=== PATIENT | female | born 1940 | race Caucasian/White ===

== ENCOUNTER 2016-09-11 09:39 | Emergency (ER) | payer MEDICARE, OTHER ==
[~2016-09-11] VITALS: Ht 157.5 cm; Wt 55.3 kg
[~2016-09-11 09:39] MED LIST: ACYC800T PO; ATOR80TA PO; CARV6.252 PO; CEFD300C3 PO; CLOP75TA PO; CPR500T PO; DCS100C PO; ESTR0.62 PO; HYDR-91 PO; HYDR1TAB75 PO; IBP800T PO; LVF250T PO; LVT.1T PO
--- NOTE | 2016-09-11 10:05 | Diagnostic Imaging Report ---
INDICATION: Slurred speech and stroke. PA and lateral views of the chest were obtained. Comparison is made with prior examination from 04/06/10. FINDINGS: The heart size is normal. The lungs are clear. There is no pleural effusion or pneumothorax. Mediastinum is unremarkable. IMPRESSION: No acute cardiopulmonary abnormality Dictated by: Dictated on workstation # [id number]
[2016-09-11] MEDS ORDERED: LEVO75TA6 (10:06)
[2016-09-11] MEDS ORDERED: MUPI22OI2 (10:06)
[2016-09-11] MEDS ORDERED: ATOR80TA76 (10:06)
[2016-09-11] MEDS ORDERED: CEPH500C (10:06)
[2016-09-11] MEDS ORDERED: AMLO5TAB2 (10:06)
--- NOTE | 2016-09-11 10:06 | Diagnostic Imaging Report ---
INDICATION: Slurred speech. COMPARISON: 02/10/2010. FINDINGS: Worsening age-related cerebral volume loss and chronic small vessel ischemic changes are present. There are chronic areas of encephalomalacia in the right temporoparietal and right occipital lobe consistent with prior infarcts. There is a chronic lacunar infarct in right basal ganglia. No new focus of acute ischemia or hemorrhage is seen. There is no cerebral edema, midline shift, or mass effect. Bony structures, mastoid air cells, and paranasal sinuses are clear. IMPRESSION: No acute intracranial abnormalities. Dictated by: Dictated on workstation # [id number]
[2016-09-11 10:17] LABS: BASOPHILS # (AUTO) 0.1 10^3/uL (0.0-0.1); BASOPHILS % (AUTO) 1 % (0-10); EOSINOPHILS # (AUTO) 0.9 10^3/uL (0.0-0.3); EOSINOPHILS % (AUTO) 9 % (0-10); LYMPHOCYTES # (AUTO) 2.8 X 10^3 (1.0-4.0); LYMPHOCYTES % (AUTO) 27 % (12-44); MEAN CORPUSCULAR HEMOGLOBIN 29 PG (25-34); MEAN CORPUSCULAR HGB CONC 32 G/DL (32-36); MEAN CORPUSCULAR VOLUME 93 FL (80-99); MEAN PLATELET VOLUME 10.8 FL (7.4-10.4); MONOCYTES # (AUTO) 1.5 X 10^3 (0.0-1.0); MONOCYTES % (AUTO) 14 % (0-12); NEUTROPHILS # (AUTO) 5.2 X 10^3 (1.8-7.8); NEUTROPHILS % (AUTO) 50 % (42-75); PLATELET COUNT 257 10^3/uL (130-400); RED BLOOD COUNT 4.29 10^6/uL (4.35-5.85); RED CELL DISTRIBUTION WIDTH 12.6 % (10.0-14.5); WHITE BLOOD COUNT 10.5 10^3/uL (4.3-11.0)
[2016-09-11 10:21] LABS: INR 0.9 (0.8-1.4)
[2016-09-11 10:29] LABS: ALANINE AMINOTRANSFERASE 20 U/L (0-55); ALBUMIN 4.1 GM/DL (3.2-4.5); ANION GAP 12 MMOL/L (5-14); ASPARTATE AMINO TRANSFERASE 23 U/L (5-34); BILIRUBIN,TOTAL 1.1 MG/DL (0.1-1.0); BLOOD UREA NITROGEN 25 MG/DL (7-18); BUN/CREATININE RATIO 20 (0-20); CALCIUM 9.3 MG/DL (8.5-10.1); CARBON DIOXIDE 22 MMOL/L (21-32); CHLORIDE 104 MMOL/L (98-107); CREATININE SERUM 1.26 MG/DL (0.60-1.30); GFR ESTIMATED 42; GLUCOSE 103 MG/DL (70-105); HEMOLYSIS 6 (-100-29); ICTERUS 0.9 (-100-1.9); LIPEMIA 4 (-100-49); POTASSIUM 4.4 MMOL/L (3.6-5.0); SODIUM 138 MMOL/L (135-145); TOTAL PROTEIN 7.9 GM/DL (6.4-8.2)
[2016-09-11 10:35] LABS: TROPONIN I < 0.30 NG/ML (<0.30)
[2016-09-11 10:46] LABS: BILIRUBIN,URINE NEGATIVE (NEGATIVE); KETONES,URINE NEGATIVE (NEGATIVE); LEUKOCYTE ESTERASE ,URINE 1+ (NEGATIVE); NITRITE,URINE NEGATIVE (NEGATIVE); PH,URINE 6 (5-9); PROTEIN,URINE NEGATIVE (NEGATIVE); UROBILINOGEN,URINE NORMAL (NORMAL)
[2016-09-11 10:59] LABS: WBC,URINE 0-2 /HPF
--- NOTE | 2016-09-11 11:04 | ED Neurological Problem ---
General Chief Complaint: Neuro-Stroke Like Symptoms Stated Complaint: SLURRED SPEECH Nursing Triage Note: ARRIVED VIA AMB FROM HOME. PT STATES SHE HAD SLURRED SPEECH AT 0900 LASTING LESS THEN 5 MINUTES WITH NO OTHER SYMPTOMS. NO OTHER SYMPTOMS. PT STATES SHE FEELS FINE AT THIS TIME. Nursing Sepsis Screen: No Definite Risk Source: patient, family Exam Limitations: no limitations History of Present Illness Time seen by provider: 10:55 Initial Comments This 76-year-old white female presents with slurred speech and weakness of her left face. The patient demonstrated slurred speech at home in the presence of her son 30 minutes prior to presentation to the emergency department. By the time the patient arrived her symptoms had resolved. The patient has had similar episodes in the past attributed to TIAs. Past medical history includes previous ID and angioplasty. Patient been compliant on her aspirin and Plavix. The patient does not want to stay in the hospital. Allergies and Home Medications Allergies Coded Allergies: No Known Drug Allergies (Unverified , 02/10/10) Home Medications Amlodipine Besylate 5 Mg Tablet, #30 (Reported) Atorvastatin Calcium 80 Mg Tablet, 1 PO HS, (Reported) Atorvastatin Calcium 80 Mg Tablet, #30 (Reported) Carvedilol 6.25 Mg Tablet, 3.125 MG PO DAILY, (Reported) Cefdinir 300 Mg Capsule, 300 MG PO BID, #14 Prescribed by: MALCOM SCHAEFER on 02/14/15 1015 Cephalexin 500 Mg Capsule, #21 (Reported) Clopidogrel Bisulfate 75 Mg Tablet, 1 PO DAILY, (Reported) MAY RESUME ON 06/06/10 IF NO BLEEDING Levothyroxine Sodium 75 Mcg Tablet, #90 (Reported) Mupirocin 22 Gm Oint...g., #22 (Reported) Constitutional: No chills, No fever Eyes: Denies Blurred Vision Ears, Nose, Mouth, Throat: denies ear pain Respiratory: No cough Cardiovascular: No chest pain, No palpitations Gastrointestinal: No nausea, No vomiting Genitourinary: No dysuria, No frequency : No Musculoskeletal: No back pain Skin: No rash Psychiatric/Neurological: Denies Anxiety, Denies Depressed Endocrine: Denies Excessive Sweating, Denies Flushing Past Miwkmvy-Uogjbz-Tfghqu Hx Patient Social History Recent Foreign Travel: No Contact w/Someone Who Travel: No Recent Infectious Disease Expo: No Recent Hopitalizations: Yes Surgeries HX Surgeries: No Respiratory Hx Respiratory Disorders: No Cardiovascular Hx Cardiac Disorders: Yes Cardiac Disorders: Heart Attack, Hypertension Neurological Hx Neurological Disorders: Yes (RIGHT SIDED WEAKNESS 02/04) Neurological Disorders: TIA Reproductive System Hx Reproductive Disorders: No Sexually Transmitted Disease: No Genitourinary Hx Genitourinary Disorders: Yes (URINE RETENTION) Gastrointestinal Hx Gastrointestinal Disorders: No Musculoskeletal Hx Musculoskeletal Disorders: Yes (ARTHRITIS) Musculoskeletal Disorders: Arthritis Endocrine Hx Endocrine Disorders: Yes Endocrine Disorders: Hyperthyroidism HEENT HX ENT Disorders: No Psychosocial Hx Psychiatric Problems: No Blood Transfusions Hx Blood Disorders: No Reviewed Nursing Assessment Reviewed/Agree w Nursing PMH: Yes Physical Exam Vital Signs Vital Sign - Last 12Hours 09/11/16 09:39 Temp 98.0 Pulse 78 Resp 18 B/P (MAP) 167/75 Pulse Ox 96 Capillary Refill : Less Than 3 Seconds General Appearance: WD/WN, no apparent distress HEENT: normal ENT inspection Neck: full range of motion, supple Respiratory: chest non-tender, lungs clear, normal breath sounds Cardiovascular: normal peripheral pulses, regular rate, rhythm, no edema Gastrointestinal: normal bowel sounds, non tender, soft Back: normal inspection Extremities: normal range of motion, non-tender Neurologic/Psychiatric: order processing manager II-XII nml as tested, no motor/sensory deficits, alert, normal mood/affect, oriented x 3 Crainal Nerves: normal hearing, normal speech, PERRL Coordination/Gait: normal gait Motor/Sensory: no motor deficit, no sensory deficit Skin: normal color, warm/dry Stroke Onset of Symptoms Date of Onset of Symptoms: Sep 11, 2016 Time of Symptom Onset: 09:00 Onset of Symptoms: Yes NIH Stroke Scale Assessment Select: Initial Level of Consciousness: 0=Alert Level of Consciousness-Questio: 0=Answers both month/age LOC Commands: 0=Performs both tasks Gaze: 0=Normal Visual Fam: 0=No visual loss Facial Movement (Facial Paresi: 0=Normal symmetrical mnt Motor Function-Arms Right: 0=No drift Motor Function-Arms Left: 0=No drift Motor Function-Legs Right: 0=No drift Motor Function-Legs Left: 0=No drift Limb Ataxia: 0=Absent Sensory: 0=Normal:no loss Best Language: 0=No aphasia Dysarthria: 0=Normal Extinction & Inattention: 0=No abnormality NIH Stroke Scale Score: 0 IV - TPa Received IV - TPa Procedure Performed?: No Progress/Results/Core Measures Results/Orders Lab Results Laboratory Tests Test 09/11/16 10:02 09/11/16 10:03 09/11/16 10:35 Range/Units White Blood Count 10.5 4.3-11.0 10^3/uL Red Blood Count 4.29 L 4.35-5.85 10^6/uL Hemoglobin 12.6 11.5-16.0 G/DL Hematocrit 40 35-52 % Mean Corpuscular Volume 93 80-99 FL Mean Corpuscular Hemoglobin 29 25-34 PG Mean Corpuscular Hemoglobin Concent 32 32-36 G/DL Red Cell Distribution Width 12.6 10.0-14.5 % Platelet Count 257 130-400 10^3/uL Mean Platelet Volume 10.8 H 7.4-10.4 FL Neutrophils (%) (Auto) 50 42-75 % Lymphocytes (%) (Auto) 27 12-44 % Monocytes (%) (Auto) 14 H 0-12 % Eosinophils (%) (Auto) 9 0-10 % Basophils (%) (Auto) 1 0-10 % Neutrophils # (Auto) 5.2 1.8-7.8 X 10^3 Lymphocytes # (Auto) 2.8 1.0-4.0 X 10^3 Monocytes # (Auto) 1.5 H 0.0-1.0 X 10^3 Eosinophils # (Auto) 0.9 H 0.0-0.3 10^3/uL Basophils # (Auto) 0.1 0.0-0.1 10^3/uL Prothrombin Time 12.0 L 12.2-14.7 SEC INR Comment 0.9 0.8-1.4 Activated Partial Thromboplast Time 33 24-35 SEC D-Dimer 0.79 H 0.00-0.49 UG/ML Sodium Level 138 135-145 MMOL/L Potassium Level 4.4 3.6-5.0 MMOL/L Chloride Level 104 98-107 MMOL/L Carbon Dioxide Level 22 21-32 MMOL/L Anion Gap 12 5-14 MMOL/L Blood Urea Nitrogen 25 H 7-18 MG/DL Creatinine 1.26 0.60-1.30 MG/DL Estimat Glomerular Filtration Rate 42 BUN/Creatinine Ratio 20 0-20 Glucose Level 103 70-105 MG/DL Calcium Level 9.3 8.5-10.1 MG/DL Total Bilirubin 1.1 H 0.1-1.0 MG/DL Aspartate Amino Transf (AST/SGOT) 23 5-34 U/L Alanine Aminotransferase (ALT/SGPT) 20 0-55 U/L Alkaline Phosphatase 111 40-136 U/L Troponin I < 0.30 <0.30 NG/ML Total Protein 7.9 6.4-8.2 GM/DL Albumin 4.1 3.2-4.5 GM/DL Glucometer 104 70-110 MG/DL Urine Color YELLOW Urine Clarity CLEAR Urine pH 6 5-9 Urine Specific [place] 1.010 L 1.016-1.022 Urine Protein NEGATIVE NEGATIVE Urine Glucose (UA) NEGATIVE NEGATIVE Urine Ketones NEGATIVE NEGATIVE Urine Nitrite NEGATIVE NEGATIVE Urine Bilirubin NEGATIVE NEGATIVE Urine Urobilinogen NORMAL NORMAL MG/DL Urine Leukocyte Esterase 1+ H NEGATIVE Urine RBC (Auto) NEGATIVE NEGATIVE Urine RBC NONE /HPF Urine WBC 0-2 /HPF Urine Squamous Epithelial Cells 10-25 H /HPF Urine Crystals NONE /LPF Urine Bacteria NEGATIVE /HPF Urine Casts NONE /LPF Urine Mucus NEGATIVE /LPF Urine Culture Indicated NO My Orders Orders - CRISELDA SALEH MD Cbc With Automated Diff (09/11/16 09:46) Protime With Inr (09/11/16 09:46) Partial Thromboplastin Time (09/11/16 09:46) Comprehensive Metabolic Panel (09/11/16 09:46) Fibrin Degradation Products (09/11/16 09:46) Troponin I (09/11/16 09:46) Ua Culture If Indicated (09/11/16 09:46) Chest 1 View, Ap/Pa Only (09/11/16 09:46) Ekg Tracing (09/11/16 09:46) Nothing By Mouth (09/11/16 Lunch) Accucheck Stat ONCE (09/11/16 09:46) Saline Lock/Iv-Start (09/11/16 09:46) Saline Lock/Iv-Start (09/11/16 09:46) Vital Signs-Stroke Q1H (09/11/16 09:46) Ct Head Wo-R/O Stroke (09/11/16 09:46) O2 (09/11/16 09:46) Intake & Output 06,14,22 (09/11/16 09:46) Monitor-Rhythm Ecg Trace Only (09/11/16 09:46) Dysphagia Screening Tool (09/11/16 09:46) Post Thrombolytic Adminstratio (09/11/16 09:46) Vital Signs/I&O Vital Sign - Last 12Hours 09/11/16 09:39 Temp 98.0 Pulse 78 Resp 18 B/P (MAP) 167/75 Pulse Ox 96 Blood Pressure Mean: 105 Point of Care Testing Finger Stick Blood Glucose: 104 Progress Note : Time: 11:20 Progress Note The patient's neurologic exam remained normal and unchanged during her 2 hour evaluation in the emergency department. Patient's CT, laboratory evaluation, and EKG were also unremarkable. I offered the patient hospitalization and further evaluation when she adamantly declined. The patient did agree to following up closely with her primary care physician, Dr. Gil, on Tuesday. She will continue with her aspirin and Plavix. She agreed to return if she has any further problems or questions. Departure Impression Impression: Primary Impression: Transient cerebral ischemia Qualified Codes: G45.9 - Transient cerebral ischemic attack, unspecified Disposition: HOME, SELF-CARE Condition: Improved Departure-Patient Inst. Decision time for Depature: 11:05 Referrals: IRA GIL MD (PCP/Family) Primary Care Physician Patient Instructions: Transient Ischemic Attack (DC) Add. Discharge Instructions: Close follow-up Dr. Gil on Tuesday. Continue Plavix and aspirin as prescribed. Come back for any problems or questions. All discharge instructions reviewed with patient and/or family. Voiced understanding. CRISELDA SALEH MD Sep 11, 2016 11:04
[2016-09-11 11:10] VITALS: BP 159/73
== END 2016-09-11 11:10 | disposition home or self-care (01) ==
LOC: EDUNIT# 09:39 → ER 09:41
DX: G45.9 Transient cerebral ischemic attack, unspecified (principal); I10 Essential (primary) hypertension; I25.2 Old myocardial infarction
CPT/HCPCS: 36415; 70450; 71010; 80053; 81000; 82962; 84484; 85025; 85379; 85610; 85730; 93005

== ENCOUNTER 2020-10-01 18:34 | Inpatient (IN) | payer MEDICARE, OTHER ==
[~2020-10-01] VITALS: Ht 157 cm; Wt 25.3 kg
[~2020-10-01 18:34] MED LIST changes: +ACYC-112 PO; -ACYC800T PO; +AMLO-250 PO; +ATOR80TA76 PO; +CEPH500C; +LEVO75TA6; +MUPI22OI2
[2020-10-01 18:57] LABS: BASOPHILS % (AUTO) 0 % (0-10); EOSINOPHILS # (AUTO) 0.8 10^3/uL (0.0-0.3); EOSINOPHILS % (AUTO) 3 % (0-10); HEMATOCRIT 44 % (35-52); HEMOGLOBIN 13.4 g/dL (11.5-16.0); LYMPHOCYTES # (AUTO) 1.6 10^3/uL (1.0-4.0); LYMPHOCYTES % (AUTO) 7 % (12-44); MEAN CORPUSCULAR HEMOGLOBIN 28 pg (25-34); MEAN CORPUSCULAR HGB CONC 31 g/dL (32-36); MEAN CORPUSCULAR VOLUME 93 fL (80-99); MEAN PLATELET VOLUME 11.4 fL (9.0-12.2); MONOCYTES # (AUTO) 1.3 10^3/uL (0.0-1.0); MONOCYTES % (AUTO) 5 % (0-12); NEUTROPHILS # (AUTO) 20.2 10^3/uL (1.8-7.8); NEUTROPHILS % (AUTO) 84 % (42-75); PLATELET COUNT 321 10^3/uL (130-400); WHITE BLOOD COUNT 24.1 10^3/uL (4.3-11.0)
[2020-10-01] MEDS ORDERED: HYOSCYAMINE 0.125 MG (LEVSIN) TAB SL ONE (19:00)
[2020-10-01] MEDS ORDERED: LACTATED RINGERS 1,000 ML IV ONE (19:00)
[2020-10-01] MEDS ORDERED: ONDANSETRON 4 MG/2 ML (SDV) Z0FRAN IVP ONE (19:00)
[2020-10-01 19:12] LABS: BURR CELLS MODERATE; EOSINOPHILS % (MANUAL) 1 %; LYMPHOCYTES % (MANUAL) 9 %; MONOCYTES % (MANUAL) 4 %; NEUTROPHILS % (MANUAL) 86 %
[2020-10-01 19:21] LABS: ALBUMIN 4.1 GM/DL (3.2-4.5)
--- NOTE | 2020-10-01 19:22 | ED General ---
General Chief Complaint: Abdominal/GI Problems Stated Complaint: DIARRHEA, DIZZINESS Nursing Triage Note: PT CO OF DIARRHEA SEVERAL TIMES TODAY APPROX 25. PT CO OF WEAKNESS AND HAS GOOSE EGG ON FOREHEAD FROM FALL TODAY THAT SHE HAD NOT TOLD ANYONE ABOUT. Source of Information: Patient Exam Limitations: No Limitations History of Present Illness Date Seen by Provider: Oct 01, 2020 Time Seen by Provider: 18:43 Initial Comments This 80-year-old woman presents to the emergency room by private vehicle with complaints of profound diarrhea and weakness. She has had approximately 25 episodes of diarrhea. She denies any blood in her diarrhea. She has become weak and lightheaded in association with this. She had a fall earlier today and has bruising and swelling in the central forehead. She denies any neck pain or pain elsewhere. She denies abdominal pain or fever. She denies any other symptoms of Covid such as headache, fever, shortness of breath, cough, etc. She has been doubly vaccinated for Covid. Vital signs are stable. She is on Plavix. Allergies and Home Medications Allergies Coded Allergies: No Known Drug Allergies (Unverified , 02/10/10) Home Medications Atorvastatin Calcium 80 Mg Tablet, 1 PO HS, (Reported) Carvedilol 6.25 Mg Tablet, 3.125 MG PO DAILY, (Reported) Cefdinir 300 Mg Capsule, 300 MG PO BID Prescribed by: MALCOM SCHAEFER on 02/14/15 1015 Clopidogrel Bisulfate 75 Mg Tablet, 1 PO DAILY, (Reported) MAY RESUME ON 06/06/10 IF NO BLEEDING Patient Home Medication List Home Medication List Reviewed: Yes Review of Systems Review of Systems Constitutional: see HPI, weakness EENTM: see HPI Respiratory: no symptoms reported Cardiovascular: see HPI Genitourinary: no symptoms reported : No Musculoskeletal: no symptoms reported Skin: see HPI Psychiatric/Neurological: No Symptoms Reported Hematologic/Lymphatic: No Symptoms Reported Immunological/Allergic: no symptoms reported Past Xarymfw-Ylkoca-Iccjau Hx Patient Social History Tobacco Use?: No Substance use?: No Alcohol Use?: No Pt feels they are or have been: No Immunizations Up To Date Second COVID19 Vaccination Eugenio: PT STATES HAS HAD BOTH VACCINES Past Medical History Surgeries: Yes Coronary Stent, Hysterectomy Respiratory: No Cardiac: Yes (X3 STENTS) Coronary Artery Disease, Heart Attack, Hypertension Neurological: Yes TIA : No Reproductive Disorders: No Sexually Transmitted Disease: No Genitourinary: No Gastrointestinal: No Musculoskeletal: Yes Arthritis Endocrine: Yes Hyperthyroidism HEENT: No Cancer: No Psychosocial: No Integumentary: No Blood Disorders: No Physical Exam Vital Signs Vital Signs - First Documented 10/01/20 18:40 Temp 36.4 Pulse 77 Resp 18 B/P (MAP) 116/59 (78) Pulse Ox 96 Capillary Refill : Less Than 3 Seconds Height, Weight, BMI Height: 5'2.00" Weight: 122lbs. oz. [id number]; 21.00 BMI Method:Stated General Appearance: WD/WN, Mild Distress (Appears uncomfortable) HEENT: PERRL/EOMI, Other (Ecchymosis and swelling of the central forehead) Neck: Normal Inspection, Non Tender Respiratory: Lungs Clear, Normal Breath Sounds, No Accessory Muscle Use Cardiovascular: Regular Rate, Rhythm, No Edema, No Murmur Gastrointestinal: Non Tender, Soft, Abnormal Bowel Sounds (Hyperactive bowel sounds) Extremity: Normal Inspection, No Pedal Edema Neurologic/Psychiatric: Alert, Oriented x3, No Motor/Sensory Deficits, Normal Mood/Affect, renal dialysis rn II-XII Norm as Tested Skin: Normal Color, Warm/Dry, Ecchymosis Focused Exam Lactate Level 10/01/20 19:40: Lactic Acid Level 2.94*H Lactic Acid Level Laboratory Tests Test 10/01/20 19:40 Lactic Acid Level 2.94 MMOL/L (0.50-2.00) *H Progress/Results/Core Measures Suspected Sepsis SIRS Temperature: Pulse: 77 Respiratory Rate: 18 Laboratory Tests 10/01/20 18:50: White Blood Count 24.1H Blood Pressure 116 /59 Mean: 78 10/01/20 19:40: Lactic Acid Level 2.94*H Laboratory Tests 10/01/20 18:50: Creatinine 2.59H, Platelet Count 321, Total Bilirubin 0.8 Results/Orders Lab Results Laboratory Tests Test 10/01/20 18:50 10/01/20 19:15 10/01/20 19:40 Range/Units White Blood Count 24.1 H 4.3-11.0 10^3/uL Red Blood Count 4.74 3.80-5.11 10^6/uL Hemoglobin 13.4 11.5-16.0 g/dL Hematocrit 44 35-52 % Mean Corpuscular Volume 93 80-99 fL Mean Corpuscular Hemoglobin 28 25-34 pg Mean Corpuscular Hemoglobin Concent 31 L 32-36 g/dL Red Cell Distribution Width 12.8 10.0-14.5 % Platelet Count 321 130-400 10^3/uL Mean Platelet Volume 11.4 9.0-12.2 fL Immature Granulocyte % (Auto) 1 % Neutrophils (%) (Auto) 84 H 42-75 % Lymphocytes (%) (Auto) 7 L 12-44 % Monocytes (%) (Auto) 5 0-12 % Eosinophils (%) (Auto) 3 0-10 % Basophils (%) (Auto) 0 0-10 % Neutrophils # (Auto) 20.2 H 1.8-7.8 10^3/uL Lymphocytes # (Auto) 1.6 1.0-4.0 10^3/uL Monocytes # (Auto) 1.3 H 0.0-1.0 10^3/uL Eosinophils # (Auto) 0.8 H 0.0-0.3 10^3/uL Basophils # (Auto) 0.0 0.0-0.1 10^3/uL Immature Granulocyte # (Auto) 0.3 H 0.0-0.1 10^3/uL Neutrophils % (Manual) 86 % Lymphocytes % (Manual) 9 % Monocytes % (Manual) 4 % Eosinophils % (Manual) 1 % [place] Cells MODERATE Sodium Level 135 135-145 MMOL/L Potassium Level 5.0 3.6-5.0 MMOL/L Chloride Level 102 98-107 MMOL/L Carbon Dioxide Level 18 L 21-32 MMOL/L Anion Gap 15 H 5-14 MMOL/L Blood Urea Nitrogen 54 H 7-18 MG/DL Creatinine 2.59 H 0.60-1.30 MG/DL Estimat Glomerular Filtration Rate 18 BUN/Creatinine Ratio 21 Glucose Level 144 H 70-105 MG/DL Calcium Level 9.8 8.5-10.1 MG/DL Corrected Calcium 9.7 8.5-10.1 MG/DL Magnesium Level 2.3 1.6-2.4 MG/DL Total Bilirubin 0.8 0.1-1.0 MG/DL Aspartate Amino Transf (AST/SGOT) 22 5-34 U/L Alanine Aminotransferase (ALT/SGPT) 22 0-55 U/L Alkaline Phosphatase 82 40-136 U/L C-Reactive Protein High Sensitivity 0.59 H 0.00-0.50 MG/DL Total Protein 8.3 H 6.4-8.2 GM/DL Albumin 4.1 3.2-4.5 GM/DL Urine Color YELLOW Urine Clarity CLOUDY Urine pH 5.5 5-9 Urine Specific [place] 1.020 1.016-1.022 Urine Protein 2+ H NEGATIVE Urine Glucose (UA) NEGATIVE NEGATIVE Urine Ketones NEGATIVE NEGATIVE Urine Nitrite NEGATIVE NEGATIVE Urine Bilirubin NEGATIVE NEGATIVE Urine Urobilinogen 0.2 < = 1.0 MG/DL Urine Leukocyte Esterase 2+ H NEGATIVE Urine RBC (Auto) 3+ H NEGATIVE Urine RBC 5-10 H /HPF Urine WBC 50-100 H /HPF Urine Crystals NONE /LPF Urine Bacteria LARGE H /HPF Urine Casts PRESENT /LPF Urine Hyaline Casts 0-2 H /LPF Urine Mucus NEGATIVE /LPF Urine Culture Indicated YES Lactic Acid Level 2.94 *H 0.50-2.00 MMOL/L My Orders Orders - MARÍA WASHINGTON MD Cbc With Automated Diff (10/01/20 18:41) Comprehensive Metabolic Panel (10/01/20 18:41) Magnesium (10/01/20 18:41) Ua Culture If Indicated (10/01/20 18:41) Ed Iv/Invasive Line Start (10/01/20 18:41) Ct Head/Cervical Spine Wo (10/01/20 18:51) Ondansetron Injection (Zofran Injectio (10/01/20 19:00) Hyoscyamine Sl Tablet (Levsin Sl Tablet) (10/01/20 19:00) Lactated Ringers (Lr 1000 Ml Iv Solution (10/01/20 19:00) Manual Differential (10/01/20 18:50) Blood Culture (10/01/20 19:01) Sputum Culture (10/01/20 19:01) Chest 1 View, Ap/Pa Only (10/01/20 19:01) Vital Signs Adult Sepsis Patie Q15M (10/01/20 19:01) O2 (10/01/20 19:01) Remove Rings In Anticipation O (10/01/20 19:01) Lactic Acid Analyzer (10/01/20 19:01) Hs C Reactive Protein (10/01/20 18:50) Urine Culture (10/01/20 19:15) Ns Iv 1000 Ml (Sodium Chloride 0.9%) (10/01/20 20:30) Ceftriaxone (Rocephin) (10/01/20 20:30) Medications Given in ED Current Medications Medications Dose Ordered Sig/Soumya Route Start Time Stop Time Status Last Admin Dose Admin Ceftriaxone Sodium 1000 mg/ Sterile Water 10 ml @ 200 mls/hr ONCE ONCE IV 10/01/20 20:30 10/01/20 20:32 DC 10/01/20 21:00 200 MLS/HR Vital Signs/I&O 10/01/20 18:40 Temp 36.4 Pulse 77 Resp 18 B/P (MAP) 116/59 (78) Pulse Ox 96 Capillary Refill : Less Than 3 Seconds Blood Pressure Mean: 78 Progress Note #1: Time: : Progress Note Patient was seen and examined shortly after arrival. IV fluids, Zofran, and Levsin were ordered. CBC returned with a WBC of 25,000. Septic work-up is now being pursued. Progress Note #2: Progress Note Urinary tract infection was identified. 2 L of IV fluids were administered in the ER. Patient was noted to have acute kidney injury as well. Rocephin was given for initial treatment. Diagnostic Imaging Diagonstic Imaging: CT Plain Films/CT/US/NM/MRI: c-spine, head Comments NAME: BRYCE ROMERO [facility] REC#: [id number] PT STATUS: REG ER : 1940 PHYSICIAN: MARÍA WASHINGTON MD ADMIT DATE: 10/01/20/ER Signed Date of Exam:10/01/20 CT HEAD/CERVICAL SPINE WO PROCEDURE: CT head and CT cervical spine without contrast. TECHNIQUE: Multiple contiguous axial images were obtained through the brain and cervical spine without the use of intravenous contrast. Sagittal and coronal reformations through the cervical spine were then performed. Auto Exposure Controls were utilized during the CT exam to meet ALARA standards for radiation dose reduction. INDICATION: Weakness. Fall. Scalp contusion. Head and neck pain. COMPARISON: 09/11/2016. FINDINGS: CT head: Old infarcts are again seen in the right frontal lobe, right temporal lobe, and bilateral parietal occipital regions. No evidence of large acute territorial ischemia. The ventricles and cortical sulci are prominent. Scattered chronic microvascular disease is seen. The basilar cisterns are patent. The calvarium is intact. The visualized paranasal sinuses are clear. CT cervical spine: No acute fracture or dislocation is seen in the cervical spine. No focal osseous lesions. There is grade 1 anterolisthesis of C3 on C4. Generalized osteopenia is noted. There is partial osseous fusion of the C1 and C2 vertebral bodies. Vertebral body heights are well-maintained. The craniocervical junction is well-maintained. Moderate degenerative changes are seen in the cervical spine with disc osteophyte complexes and uncovertebral arthropathy. Soft tissues of the neck are unremarkable. IMPRESSION: 1. No hemorrhage or focal intra-axial mass. No CT evidence of large acute territorial ischemia. 2. No acute fracture or dislocation in the cervical spine. 3. Old infarcts in the right frontal lobe, right temporal lobe, and bilateral parieto-occipital regions. 4. Generalized parenchymal volume loss with scattered chronic microvascular disease. 5. Grade 1 anterolisthesis of C3 on C4. Dictated by: Dictated on workstation # [id number] Dict: 10/01/202022 Trans: 10/01/202036 CVB [id number] Interpreted by: JACQUIE JOHNS DO Electronically signed by: JACQUIE JOHNS DO 10/01/202036 Diagonstic Imaging: Xray Plain Films/CT/US/NM/MRI: chest Comments NAME: BRYCE ROMERO [facility] REC#: [id number] PT STATUS: REG ER : 1940 PHYSICIAN: MARÍA WASHINGTON MD ADMIT DATE: 10/01/20/ER Signed Date of Exam:10/01/20 CHEST 1 VIEW, AP/PA ONLY EXAMINATION: Chest 1 view HISTORY: Sepsis. COMPARISON: 09/11/2016. FINDINGS: The lung volumes are normal. No focal consolidation is seen. No large pleural effusion or pneumothorax is seen. The cardiomediastinal silhouette is normal in size and contour. No acute osseous abnormality is seen. IMPRESSION: 1. No acute pleuroparenchymal process. Dictated by: Dictated on workstation # [id number] Dict: 10/01/202026 Trans: 10/01/202036 CVB [id number] Interpreted by: JACQUIE JOHNS DO Electronically signed by: JACQUIE JOHNS DO 10/01/202036 Departure Communication (Admissions) Time/Spoke to Admitting Phy: 20:45 Dr. Chatterjee Impression Primary Impression: Severe sepsis Additional Impressions: Acute kidney injury Urinary tract infection Qualified Codes: N39.0 - Urinary tract infection, site not specified Dehydration Diarrhea Qualified Codes: R19.7 - Diarrhea, unspecified Generalized weakness Disposition: ADMITTED INPATIENT Condition: Improved Admissions Decision to Admit Reason: Admit from ER (General) Decision to Admit/Date: Oct 01, 2020 Time/Decision to Admit Time: 20:20 Departure-Patient Inst. Referrals: IRA GUERRERO MD (PCP/Family) Primary Care Physician MARÍA WASHINGTON MD Oct 01, 2020 19:22
[2020-10-01 19:23] LABS: CALCIUM 9.8 MG/DL (8.5-10.1)
[2020-10-01 19:24] LABS: TOTAL PROTEIN 8.3 GM/DL (6.4-8.2)
[2020-10-01 19:26] LABS: BILIRUBIN,TOTAL 0.8 MG/DL (0.1-1.0)
[2020-10-01 19:28] LABS: CREATININE SERUM 2.59 MG/DL (0.60-1.30)
[2020-10-01 19:32] LABS: MAGNESIUM 2.3 MG/DL (1.6-2.4)
[2020-10-01 20:06] LABS: BILIRUBIN,URINE NEGATIVE (NEGATIVE); CLARITY,URINE CLOUDY; COLOR,URINE YELLOW; GLUCOSE, URINE (UA) NEGATIVE (NEGATIVE); KETONES,URINE NEGATIVE (NEGATIVE); LEUKOCYTE ESTERASE ,URINE 2+ (NEGATIVE); NITRITE,URINE NEGATIVE (NEGATIVE); PH,URINE 5.5 (5-9); PROTEIN,URINE 2+ (NEGATIVE)
[2020-10-01 20:14] LABS: WBC,URINE 50-100 /HPF
[2020-10-01 20:15] LABS: BACTERIA,URINE LARGE /HPF; HYALINE CASTS, URINE 0-2 /LPF
--- NOTE | 2020-10-01 20:28 | Diagnostic Imaging Report ---
PROCEDURE: CT head and CT cervical spine without contrast. TECHNIQUE: Multiple contiguous axial images were obtained through the brain and cervical spine without the use of intravenous contrast. Sagittal and coronal reformations through the cervical spine were then performed. Auto Exposure Controls were utilized during the CT exam to meet ALARA standards for radiation dose reduction. INDICATION: Weakness. Fall. Scalp contusion. Head and neck pain. COMPARISON: 09/11/2016. FINDINGS: CT head: Old infarcts are again seen in the right frontal lobe, right temporal lobe, and bilateral parietal occipital regions. No evidence of large acute territorial ischemia. The ventricles and cortical sulci are prominent. Scattered chronic microvascular disease is seen. The basilar cisterns are patent. The calvarium is intact. The visualized paranasal sinuses are clear. CT cervical spine: No acute fracture or dislocation is seen in the cervical spine. No focal osseous lesions. There is grade 1 anterolisthesis of C3 on C4. Generalized osteopenia is noted. There is partial osseous fusion of the C1 and C2 vertebral bodies. Vertebral body heights are well-maintained. The craniocervical junction is well-maintained. Moderate degenerative changes are seen in the cervical spine with disc osteophyte complexes and uncovertebral arthropathy. Soft tissues of the neck are unremarkable. IMPRESSION: 1. No hemorrhage or focal intra-axial mass. No CT evidence of large acute territorial ischemia. 2. No acute fracture or dislocation in the cervical spine. 3. Old infarcts in the right frontal lobe, right temporal lobe, and bilateral parieto-occipital regions. 4. Generalized parenchymal volume loss with scattered chronic microvascular disease. 5. Grade 1 anterolisthesis of C3 on C4. Dictated by: Dictated on workstation # [id number]
--- NOTE | 2020-10-01 20:28 | Diagnostic Imaging Report ---
EXAMINATION: Chest 1 view HISTORY: Sepsis. COMPARISON: 09/11/2016. FINDINGS: The lung volumes are normal. No focal consolidation is seen. No large pleural effusion or pneumothorax is seen. The cardiomediastinal silhouette is normal in size and contour. No acute osseous abnormality is seen. IMPRESSION: 1. No acute pleuroparenchymal process. Dictated by: Dictated on workstation # [id number]
[2020-10-01] MEDS ORDERED: cefTRIAXone 1,000 MG in WATER (STERILE) FOR INJECTION 10 ML IV ONE (20:30)
[2020-10-01] MEDS ORDERED: NS IV 1000 ML 1,000 ML IV SCH (20:30)
[2020-10-01] MEDS ORDERED: NS IV 1000 ML 1,000 ML ONE (21:52)
[2020-10-01 21:58] VITALS: BP 130/41
[2020-10-01] MEDS ORDERED: HYOSCYAMINE 0.125 MG (LEVSIN) TAB SL PRN (22:00)
[2020-10-01] MEDS ORDERED: ONDANSETRON 4 MG/2 ML (SDV) Z0FRAN IV PRN (22:00)
[2020-10-01] MEDS: NS IV 1000 ML 1,000 ML IV SCH (22:07)
[2020-10-01 23:12] VITALS: BP 111/64
[2020-10-02] MEDS: NS IV 1000 ML 1,000 ML IV SCH ×4 (01:13→20:31)
[2020-10-02 03:13] VITALS: BP 110/44
[2020-10-02 04:37] LABS: BASOPHILS % (AUTO) 0 % (0-10); EOSINOPHILS # (AUTO) 1.7 10^3/uL (0.0-0.3); EOSINOPHILS % (AUTO) 8 % (0-10); HEMATOCRIT 35 % (35-52); LYMPHOCYTES # (AUTO) 2.2 10^3/uL (1.0-4.0); LYMPHOCYTES % (AUTO) 11 % (12-44); MEAN CORPUSCULAR HEMOGLOBIN 29 pg (25-34); MEAN CORPUSCULAR HGB CONC 31 g/dL (32-36); MEAN CORPUSCULAR VOLUME 92 fL (80-99); MEAN PLATELET VOLUME 11.6 fL (9.0-12.2); MONOCYTES # (AUTO) 1.6 10^3/uL (0.0-1.0); MONOCYTES % (AUTO) 8 % (0-12); NEUTROPHILS # (AUTO) 15.3 10^3/uL (1.8-7.8); NEUTROPHILS % (AUTO) 73 % (42-75); PLATELET COUNT 238 10^3/uL (130-400)
[2020-10-02 04:51] LABS: ALBUMIN 3.1 GM/DL (3.2-4.5); POTASSIUM 4.4 MMOL/L (3.6-5.0)
[2020-10-02 04:53] LABS: CALCIUM 7.8 MG/DL (8.5-10.1)
[2020-10-02 04:54] LABS: TOTAL PROTEIN 6.2 GM/DL (6.4-8.2)
[2020-10-02 04:56] LABS: BILIRUBIN,TOTAL 0.6 MG/DL (0.1-1.0)
[2020-10-02 04:58] LABS: CREATININE SERUM 1.82 MG/DL (0.60-1.30)
[2020-10-02 08:00] VITALS: BP 106/49
--- NOTE | 2020-10-02 08:06 | History & Physical ---
PAULIE ROBERTS MED STUDENT 10/02/20 0806: HPI History of Present Illness: This is Edelmira, a 80 yo F, here for severe diarrhea. Pt states that this started 2-3 days ago. This has never happened to her before. She is going multiple times per day, but was unable to quantify it. Denies any hematochezia. Denies eating anything out of the ordinary. Has not eaten for two days now, oral intake has decreased. Denies any abdominal pain, nausea and vomiting. States that the diarrhea has decreased in frequency as of this AM. Denies being around any sick contacts recently. Source: patient Exam Limitations: no limitations Date seen by provider: Oct 02, 2020 Time Seen by Provider: 07:45 Attending Physician Milli Chatterjee MD PCP Markell Gil MD Consult Date of Admission Oct 01, 2020 at 20:55 Home Medications Home Medications Reviewed patient Home Medication Reconciliation performed by pharmacy medication reconciliations automation control technician and/or nursing. Patients Allergies have been reviewed. 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 ) Smoking Status: Former Smoker Recent Hopitalizations: Yes Alcohol Use?: No Have you traveled recently?: No Past Medical History Hypertension Hyperlipidemia Coronary Artery Disease Hypothyroidism Family Medical History Significant Family History: No Pertinent Family Hx Review of Systems ([facility]) Constitutional: No chills, No dizziness, No fever EENTM: No blurred vision Respiratory: No cough, No short of breath Cardiovascular: No chest pain, No edema, No palpitations Gastrointestinal: No abdominal pain, No constipation; diarrhea; No melena, No nausea, No vomiting Psychiatric/Neurological: Denies Headache Physical Exam-([facility]) Physical Exam Vital Signs VS - Last 72 Hours, by Label 10/01/20 10/01/20 10/01/20 10/01/20 18:40 21:42 21:58 22:02 Temp 36.4 36.4 36.3 Pulse 77 79 77 81 Resp 18 16 18 B/P (MAP) 116/59 (78) 150/50 (78) 130/41 (70) Pulse Ox 96 92 95 O2 Delivery Room Air Room Air 10/01/20 10/01/20 10/02/20 10/02/20 22:13 23:12 01:00 03:13 Temp 37.0 36.8 Pulse 80 80 71 Resp 20 18 B/P (MAP) 111/64 (80) 110/44 (66) Pulse Ox 95 93 91 O2 Delivery Room Air Room Air Room Air 10/02/20 10/02/20 10/02/20 10/02/20 06:35 08:00 08:00 12:00 Temp 37.6 37.0 Pulse 78 77 71 Resp 15 16 B/P (MAP) 106/49 (68) 109/41 (63) Pulse Ox 92 92 98 O2 Delivery Room Air Room Air Room Air Capillary Refill : Less Than 3 Seconds General Appearance: WD/WN, no apparent distress HEENT: No scleral icterus (R), No scleral icterus (L) Neck: non-tender, full range of motion, normal inspection; No lymphadenopathy (R), No lymphadenopathy (L) Respiratory: chest non-tender, lungs clear, normal breath sounds, no respiratory distress, no accessory muscle use Cardiovascular: regular rate, rhythm, no edema, no murmur Peripheral Pulses: 1+ Dorsalis Pedis (R), 1+ Left Dors-Pedis (L); 2+ Radial Pulses (R), 2+ Radial Pulses (L) Gastrointestinal: non tender, soft, other (decreased bowel sounds ) Extremities: non-tender, no pedal edema, normal capillary refill Neurologic/Psychiatric: alert, normal mood/affect, oriented x 3 Skin: normal color, warm/dry Lymphatic: no adenopathy Assessment/Plan Assessment/Plan Admission Dx Severe Sepsis (1) Severe sepsis Onset Date: ~ 10/01/2020 Status: Resolved Assessment & Plan: 10/02/20 Hydration protocol initiated resolved (2) Diarrhea Status: Acute Assessment & Plan: 10/02/20 Unclear of etiology of diarrhea - C. diff testing to rule out bacterial etiology - FOBT to rule out possible malignancy IV fluids Regular diet Qualifiers: Qualified Codes: R19.7 - Diarrhea, unspecified (3) Urinary tract infection Status: Acute Assessment & Plan: Diagnosed with UTI sometime last week, was on Cefdinir IV ceftriaxone Qualifiers: Qualified Codes: N39.0 - Urinary tract infection, site not specified (4) Coronary artery disease Status: Chronic Assessment & Plan: History of stent placement in 2007 Home medication of Clopidogrel (5) Hypertension Status: Chronic Assessment & Plan: Home medications of Amlodipine and Carvedilol (6) Hyperlipidemia Status: Chronic Assessment & Plan: Home medication of Atorvastatin (7) Hypothyroidism Status: Chronic Assessment & Plan: Home medication of Levothyroxine MILLI CHATTERJEE MD 10/02/20 1910: HPI History of Present Illness: Patient seen and examined with MS4, agree with above documentation. Patient has not been able to keep much food down. She has had alot of diarrhea 5x per day for the last 2-3 days. Denies any pain or blood in stool. Her is feeling well and she does not have any other sick contact. Source: patient Exam Limitations: no limitations Home Medications Allergies Coded Allergies: No Known Drug Allergies (Unverified , 02/10/10) NNF-Cvynem-Otdxmr Hx Patient Social History Living Status: Lives independently at home Past Medical History HTN HLD hypothyroidism Family Medical History Significant Family History: No Pertinent Family Hx Review of Systems ([facility]) Constitutional: no symptoms reported; No chills, No fever; malaise, weakness EENTM: no symptoms reported; No mouth pain, No nose congestion, No nose pain Respiratory: no symptoms reported; No cough, No dyspnea on exertion, No short o f breath Cardiovascular: no symptoms reported; No chest pain, No edema, No palpitations Gastrointestinal: No abdominal pain, No constipation; diarrhea, loss of appetite; No melena, No nausea, No vomiting Genitourinary: No dysuria, No frequency, No hematuria Musculoskeletal: no symptoms reported; No back pain, No joint pain, No muscle pain Skin: no symptoms reported; No lesions, No rash Psychiatric/Neurological: No Symptoms Reported; Denies Headache, Denies Numbness, Denies Weakness Reviewed Test Results Reviewed Test Results Lab Laboratory Tests Test 10/01/20 19:40 10/01/20 22:17 10/02/20 04:20 Range/Units Lactic Acid Level 2.94 *H 1.41 0.50-2.00 MMOL/L White Blood Count 21.0 H 4.3-11.0 10^3/uL Red Blood Count 3.83 3.80-5.11 10^6/uL Hemoglobin 11.0 L 11.5-16.0 g/dL Hematocrit 35 35-52 % Mean Corpuscular Volume 92 80-99 fL Mean Corpuscular Hemoglobin 29 25-34 pg Mean Corpuscular Hemoglobin Concent 31 L 32-36 g/dL Red Cell Distribution Width 13.1 10.0-14.5 % Platelet Count 238 130-400 10^3/uL Mean Platelet Volume 11.6 9.0-12.2 fL Immature Granulocyte % (Auto) 1 % Neutrophils (%) (Auto) 73 42-75 % Lymphocytes (%) (Auto) 11 L 12-44 % Monocytes (%) (Auto) 8 0-12 % Eosinophils (%) (Auto) 8 0-10 % Basophils (%) (Auto) 0 0-10 % Neutrophils # (Auto) 15.3 H 1.8-7.8 10^3/uL Lymphocytes # (Auto) 2.2 1.0-4.0 10^3/uL Monocytes # (Auto) 1.6 H 0.0-1.0 10^3/uL Eosinophils # (Auto) 1.7 H 0.0-0.3 10^3/uL Basophils # (Auto) 0.0 0.0-0.1 10^3/uL Immature Granulocyte # (Auto) 0.2 H 0.0-0.1 10^3/uL Sodium Level 139 135-145 MMOL/L Potassium Level 4.4 3.6-5.0 MMOL/L Chloride Level 112 #H 98-107 MMOL/L Carbon Dioxide Level 15 L 21-32 MMOL/L Anion Gap 12 5-14 MMOL/L Blood Urea Nitrogen 46 H 7-18 MG/DL Creatinine 1.82 H 0.60-1.30 MG/DL Estimat Glomerular Filtration Rate 27 BUN/Creatinine Ratio 25 Glucose Level 100 70-105 MG/DL Calcium Level 7.8 L 8.5-10.1 MG/DL Corrected Calcium 8.5 8.5-10.1 MG/DL Total Bilirubin 0.6 0.1-1.0 MG/DL Aspartate Amino Transf (AST/SGOT) 18 5-34 U/L Alanine Aminotransferase (ALT/SGPT) 16 0-55 U/L Alkaline Phosphatase 64 40-136 U/L Total Protein 6.2 L 6.4-8.2 GM/DL Albumin 3.1 L 3.2-4.5 GM/DL Physical Exam-([facility]) Physical Exam General Appearance: WD/WN, no apparent distress HEENT: PERRL/EOMI Neck: non-tender, full range of motion Respiratory: chest non-tender, lungs clear, normal breath sounds, no respiratory distress, no accessory muscle use Cardiovascular: normal peripheral pulses, regular rate, rhythm, no edema, no murmur Gastrointestinal: normal bowel sounds, non tender, soft Back: no CVA tenderness, no vertebral tenderness Extremities: normal range of motion, non-tender, normal inspection, no pedal edema, no calf tenderness, normal capillary refill Neurologic/Psychiatric: core dipper II-XII nml as tested, no motor/sensory deficits, alert, normal mood/affect, oriented x 3 Skin: normal color, warm/dry Lymphatic: no adenopathy Assessment/Plan Assessment/Plan Admission Status: Inpatient Order (span 2 midnights) Reason for Inpatient Admission: Requiring IVFs and IV antibiotics (1) Severe sepsis Onset Date: ~ 10/01/2020 Status: Resolved Assessment & Plan: 10/02/20 Hydration protocol initiated resolved - Completed Sepsis protocol, Continue IVFs and IV antibiotics, Sepsis resolved this AM (2) Diarrhea Status: Acute Assessment & Plan: 10/02/20 Unclear of etiology of diarrhea - C. diff testing to rule out bacterial etiology - FOBT to rule out possible malignancy IV fluids Regular diet - C diff neg today, isolation d/c, will get stool studies, advance diet as tolerated Qualifiers: Qualified Codes: R19.7 - Diarrhea, unspecified (3) Urinary tract infection Status: Acute Assessment & Plan: Diagnosed with UTI sometime last week, was on Cefdinir IV ceftriaxone - Continue IV Rocephin, culture pending Qualifiers: Qualified Codes: N39.0 - Urinary tract infection, site not specified (4) Acute on chronic kidney failure Status: Acute Assessment & Plan: - Continue IVFs, will continue to monitor Cr Qualifiers: Qualified Codes: N17.9 - Acute kidney failure, unspecified; N18.9 - Chronic kidney disease, unspecified (5) Coronary artery disease Status: Chronic Assessment & Plan: History of stent placement in 2007 Home medication of Clopidogrel - Continue home ASA/Plavix/Statin (6) Hypertension Status: Chronic Assessment & Plan: Home medications of Amlodipine and Carvedilol (7) Hyperlipidemia Status: Chronic Assessment & Plan: Home medication of Atorvastatin (8) Hypothyroidism Status: Chronic Assessment & Plan: Home medication of Levothyroxine Supervisory-Addendum Brief Supervisory Addendum Verification and Attestation of Medical Student E/M Service A medical student performed and documented this service in my presence. I reviewed and verified all information documented by the medical student and made modifications to such information, when appropriate. I personally performed the physical exam and medical decision making. Milli Chatterjee, Oct 02, 2020,19:20 Dr Chatterjee's plan in Italics PAULIE ROBERTS MED STUDENT Oct 02, 2020 08:06 MILLI CHATTERJEE MD Oct 02, 2020 19:10
[2020-10-02] MEDS ORDERED: CLOP75TA28 PO (11:07)
[2020-10-02] MEDS ORDERED: LEVO88TA54 PO (11:07)
[2020-10-02] MEDS ORDERED: ASPI-1238 PO (11:07)
[2020-10-02 12:00] VITALS: BP 109/41
--- NOTE | 2020-10-02 15:27 | Physical Therapy Evaluation ---
PT Evaluation-General Medical Diagnosis Admission Date Oct 01, 2020 at 20:55 Medical Diagnosis: severe sepsis/dehydration Onset Date: Oct 01, 2020 Therapy Diagnosis Therapy Diagnosis: debility Height/Weight Height (Feet): 5 Height (Inches): 2.00 Weight (Pounds): 122 Precautions Precautions/Isolations: Fall Prevention, Standard Precautions Referral Physician: Shena Reason for Referral: Evaluation/Treatment Medical History Pertinent Medical History: CAD, HTN, CO Current History ER secondary to diarrhea and a fall Reviewed History: Yes Social History Home: Single Level Current Living Status: Spouse Prior Prior Level of Function SCALE: Activities may be completed with or without assistive devices. 7-Rgzphnpdix-nzunbxe completes the activity by him/herself with no assistance from a helper. 5-Set-up or Clean-up Assistance-helper sets up or cleans up; patient completes activity. Catlin assists only prior to or following the activity. 4-Supervision or Touching Assistance-helper provides verbal cues and/or touching/steadying and/or contact guard assistance as patient completes activity. Assistance may be provided throughout the activity or intermittently. 3-Partial/Moderate Assistance-helper does LESS THAN HALF the effort. Catlin lifts, holds or supports trunk or limbs, but provides less than half the effort. 2-Substantial/Maximal Assistance-helper does MORE THAN HALF the effort. Catlin lifts or holds trunk or limbs and provides more than half the effort. 5-Hoivtxvgs-aqoxte does ALL the effort. Patient does none of the effort to complete the activity. Or, the assistance of 2 or more helpers is required for the patient to complete the activity. If activity was not attempted, code reason: 7-Patient Refused. 9-Not Applicable-not attempted and the patient did not perform the activity before the current illness, exacerbation or injury. 10-Not Attempted due to Environmental Limitations-(lack of equipment, weather restraints, etc.). 88-Not Attempted due to Medical Conditions or Safety Concerns. Bed Mobility: 6 Transfers (B,C,W/C): 6 Gait: 6 Stairs: 6 Indoor Mobility (Ambulation): Independent Stairs: Independent Prior Devices Use: None PT Evaluation-Current Subjective Patient agrees to PT and adamantly declines FWW use. Objective Patient Orientation: Normal For Age Attachments: IV ROM/Strength ROM Lower Extremities bilateral LE WFL Strength Lower Extremities 4/5 grossly bilateral LE Integumentary/Posture Bowel Incontinence: Yes Bladder Incontinence: No Posture WFL Neuromuscular (Tone, Coordination, Reflexes) grossly intact Sensory Vision: Functional Hearing: Functional Sensation Right Lower Extremit: Intact Sensation Left Lower Extremity: Intact Transfers Roll Left to Right (QC): 6 Lying to Sitting/Side of Bed(Q: 6 Sit to Stand (QC): 6 Chair/Sdd-ov-Kqnwf Xfer(QC): 6 Toilet Transfer (QC): 6 Gait Does the Patient Walk?: Yes Mode of Locomotion: Walk Anticipated Mode of Locomotion: Walk Walk 10 feet (QC): 6 Walk 50 ft with 2 Turns(QC): 6 Walk 150 ft (QC): 6 Distance: 300' Gait Assistive Device: None Comments/Gait Description safe and functional with no deviation Balance Sitting Static: Normal Sitting Dynamic: Normal Standing Static: Normal Standing Dynamic: Normal Picking up an Object (QC): 6 Assessment/Needs 80 y.o. female, is currently at independent [facility] with all gross motor skills safely and does not require skilled therapy intervention. Rehab Potential: Fair PT Plan Treatment/Plan Treatment Plan: Discontinue PT, goals met Treatment Duration: Oct 02, 2020 Frequency: 1 time per week Estimated Hrs Per Day: .25 hour per day Patient and/or Family Agrees t: Yes Discharge Recommendations Therapy Discharge Recommendati: Home & Family Time/GCodes Time In: 1505 Time Out: 1519 Total Billed Treatment Time: 14 Total Billed Treatment 1 visit EVMod 14 min SATISH CAGLE PT Oct 02, 2020 15:27
[2020-10-02 16:12] VITALS: BP 124/51
[2020-10-02 19:44] VITALS: BP 126/51
[2020-10-02] MEDS ORDERED: cefTRIAXone 1,000 MG in WATER (STERILE) FOR INJECTION 10 ML IV SCH (21:00)
[2020-10-03] VITALS: BP 126/60
[2020-10-03] MEDS ORDERED: ACETAMINOPHEN 500 MG TAB (TYLENOL) PO PRN (00:30)
[2020-10-03 03:23] VITALS: BP 122/52
[2020-10-03 06:00] LABS: BASOPHILS % (AUTO) 0 % (0-10); EOSINOPHILS % (AUTO) 15 % (0-10); HEMATOCRIT 29 % (35-52); LYMPHOCYTES # (AUTO) 2.3 10^3/uL (1.0-4.0); LYMPHOCYTES % (AUTO) 17 % (12-44); MEAN CORPUSCULAR HEMOGLOBIN 29 pg (25-34); MEAN CORPUSCULAR HGB CONC 31 g/dL (32-36); MEAN CORPUSCULAR VOLUME 93 fL (80-99); MEAN PLATELET VOLUME 11.8 fL (9.0-12.2); MONOCYTES # (AUTO) 1.8 10^3/uL (0.0-1.0); MONOCYTES % (AUTO) 13 % (0-12); NEUTROPHILS # (AUTO) 7.4 10^3/uL (1.8-7.8); NEUTROPHILS % (AUTO) 55 % (42-75); PLATELET COUNT 172 10^3/uL (130-400); WHITE BLOOD COUNT 13.5 10^3/uL (4.3-11.0)
[2020-10-03 06:19] LABS: ALBUMIN 2.8 GM/DL (3.2-4.5); BILIRUBIN,TOTAL 0.8 MG/DL (0.1-1.0); CALCIUM 8.4 MG/DL (8.5-10.1); CREATININE SERUM 1.25 MG/DL (0.60-1.30); POTASSIUM 3.8 MMOL/L (3.6-5.0); TOTAL PROTEIN 5.6 GM/DL (6.4-8.2)
[2020-10-03] MEDS ORDERED: LEVOTHYROXINE 88 MCG (LEVOTHORID) TAB PO SCH (06:30)
[2020-10-03 08:00] VITALS: BP 125/61
--- NOTE | 2020-10-03 08:49 | Discharge Summary ---
Diagnosis/Chief Complaint Date of Admission Oct 01, 2020 at 20:55 Date of Discharge Discharge Diagnosis Problems/Diagnosis: (1) Severe sepsis Assessment & Plan: 10/02/20 Hydration protocol initiated resolved - Completed Sepsis protocol, Continue IVFs and IV antibiotics, Sepsis resolved this AM Status: Resolved Resolution Date/Time: 10/02/20 @ 13:23 (2) Diarrhea Assessment & Plan: 10/02/20 Unclear of etiology of diarrhea - C. diff testing to rule out bacterial etiology - FOBT to rule out possible malignancy IV fluids Regular diet - C diff neg today, isolation d/c, will get stool studies, advance diet as tolerated Qualifiers: Qualified Codes: R19.7 - Diarrhea, unspecified Status: Acute (3) Urinary tract infection Assessment & Plan: Diagnosed with UTI sometime last week, was on Cefdinir IV ceftriaxone - Continue IV Rocephin, culture pending Qualifiers: Qualified Codes: N39.0 - Urinary tract infection, site not specified Status: Acute (4) Acute on chronic kidney failure Assessment & Plan: - Continue IVFs, will continue to monitor Cr Qualifiers: Qualified Codes: N17.9 - Acute kidney failure, unspecified; N18.9 - Chronic kidney disease, unspecified Status: Acute (5) Coronary artery disease Assessment & Plan: History of stent placement in 2007 Home medication of Clopidogrel - Continue home ASA/Plavix/Statin Status: Chronic (6) Hypertension Assessment & Plan: Home medications of Amlodipine and Carvedilol Status: Chronic (7) Hyperlipidemia Assessment & Plan: Home medication of Atorvastatin Status: Chronic (8) Hypothyroidism Assessment & Plan: Home medication of Levothyroxine Status: Chronic Chief Complaint/HPI Chief Complaint/HPI Patient seen and examined with MS4, agree with above documentation. Patient has not been able to keep much food down. She has had alot of diarrhea 5x per day for the last 2-3 days. Denies any pain or blood in stool. Her is feeling well and she does not have any other sick contact. Discharge Summary-Simple/Stand Consultations Discharge Physical Examination Allergies: Coded Allergies: No Known Drug Allergies (Unverified , 02/10/10) Vitals & I&Os Vital Sign - Last 12Hours Date Time Temp Pulse Resp B/P (MAP) Pulse Ox O2 Delivery O2 Flow Rate FiO2 10/03/20 07:00 74 10/03/20 03:23 37.2 18 122/52 (75) 93 Room Air Intake and Output 10/02/20 23:59 Intake Total 3320 ml Balance 3320 ml Hospital Course See final discharge diagnosis. Discharge Instructions to patient/family Please see electronic discharge instructions given to patient. Discharge Medications Reviewed and agree with Discharge Medication list on patient's Discharge Instruction sheet MILLI BAIG MD Oct 03, 2020 08:49
[2020-10-03] MEDS ORDERED: NITR-65 PO (08:50)
--- NOTE | 2020-10-03 08:51 | Discharge Summary ---
Discharge [facility] Reconcile Patient Problems Problems Reviewed?: Yes Discharge Medications New, Converted or Re-Newed RX: Transmitted to Pharmacy New Medications: Nitrofurantoin Monohyd/M-Cryst (Macrobid 100 mg Capsule) 100 Mg Capsule 1 TAB PO BID for 5 Days, #10 CAP Continued Medications: Amlodipine Besylate (Amlodipine Besylate) 5 Mg Tablet 5 MG PO DAILY, TAB Aspirin (Aspirin EC) 81 Mg Tablet.dr 81 MG PO DAILY, TAB Atorvastatin Calcium (Atorvastatin Calcium) 80 Mg Tablet 80 MG PO HS, TAB Clopidogrel Bisulfate (Clopidogrel) 75 Mg Tablet 75 MG PO DAILY, TAB Levothyroxine Sodium (Levothyroxine Sodium) 88 Mcg Tablet 88 MCG PO DAILY, TAB Patient Instructions Goal/Follow Up Appt: f/u with PCP next week Activity & Diet Discharge Diet: Cardiac Diet Activity as Tolerated: Yes MILLI BAIG MD Oct 03, 2020 08:51
[2020-10-03] MEDS ORDERED: CLOPIDOGREL 75 MG (PLAVIX) TABLET PO SCH (09:00)
[2020-10-03] MEDS ORDERED: amLODIPine 5 MG (NORVASC) TAB PO SCH (09:00)
[2020-10-03] MEDS ORDERED: ASPIRIN E.C. 81 MG (ECOTRIN) TAB PO SCH (09:00)
[2020-10-03 10:30] VITALS: BP 131/52
== END 2020-10-03 13:44 | disposition home or self-care (01) | DRG 872 ==
LOC: EDUNIT# 18:34 → ER 18:36 → CSD 20:55
PROVIDERS: ADMIT Family Medicine; ATTEND Family Medicine
DX: A41.9 Sepsis, unspecified organism (principal); N17.9 Acute kidney failure, unspecified; N39.0 Urinary tract infection, site not specified; R65.20 Severe sepsis without septic shock; E86.0 Dehydration; R19.7 Diarrhea, unspecified; I25.10 Atherosclerotic heart disease of native coronary artery without angina pectoris; M19.90 Unspecified osteoarthritis, unspecified site; E03.9 Hypothyroidism, unspecified; E78.5 Hyperlipidemia, unspecified; N18.9 Chronic kidney disease, unspecified; I12.9 Hypertensive chronic kidney disease with stage 1 through stage 4 chronic kidney disease, or unspecified chronic kidney disease; Z95.5 Presence of coronary angioplasty implant and graft; I25.2 Old myocardial infarction; Z86.73 Personal history of transient ischemic attack (TIA), and cerebral infarction without residual deficits; Z79.899 Other long term (current) drug therapy; Z87.891 Personal history of nicotine dependence
CPT/HCPCS: 36410; 36415; 70450; 71045; 72125; 76937; 80053; 81000; 83605; 83735; 85007; 85025; 85027; 86141; 87040; 87077; 87088; 87186; 87324; 87449

== ENCOUNTER 2021-02-07 11:06 | Inpatient (IN) | payer MEDICARE, OTHER ==
[~2021-02-07] VITALS: Ht 157 cm; Wt 51.8 kg
[2021-02-07] VITALS (11 sets, daily range): BP systolic 115–137; BP diastolic 42–62
[~2021-02-07 11:06] MED LIST changes: +ASPI-1238 PO; +CLOP75TA28 PO; +LEVO88TA54 PO; +NITR-65 PO
--- NOTE | 2021-02-07 11:25 | ED Respiratory ---
General Chief Complaint: Respiratory Problems Stated Complaint: SOB Source: patient Exam Limitations: no limitations History of Present Illness Date Seen by Provider: Feb 07, 2021 Time Seen by Provider: 11:22 Initial Comments To ER with 3 to 4 days of shortness of breath. This is primarily exertional dyspnea she states that she does okay if she is sitting still. She was able to lay flat sleeping and is without increased dyspnea when laying flat. No fevers no chills no cough. No swelling in her legs. She has had both Covid vaccinations and a booster vaccine. Follows with Jayden Carmichael from [facility] in [place] and cardiology is Dr. Figueredo. She has a history of congestive heart failure. She denies chest pain. Timing/Duration: constant Severity: moderate Associated Symptoms: No chest pain/soreness, No fever/chills; shortness of breath; No wheezing Allergies and Home Medications Allergies Coded Allergies: No Known Drug Allergies (Unverified , 02/10/10) Patient Home Medication List Home Medication List Reviewed: Yes Amlodipine Besylate (Amlodipine Besylate) 5 Mg Tablet, 5 MG PO DAILY, (Reported) Entered as Reported by: DAY LU on 09/11/16 1006 Aspirin (Aspirin EC) 81 Mg Tablet.dr, 81 MG PO DAILY, (Reported) Entered as Reported by: EDINSON MERAZ on 10/02/20 1107 Atorvastatin Calcium (Atorvastatin Calcium) 80 Mg Tablet, 80 MG PO HS, (Reported) Entered as Reported by: DAY LU on 09/11/16 1006 Clopidogrel Bisulfate (Clopidogrel) 75 Mg Tablet, 75 MG PO DAILY, (Reported) Entered as Reported by: EDINSON MERAZ on 10/02/20 1107 Levothyroxine Sodium (Levothyroxine Sodium) 88 Mcg Tablet, 88 MCG PO DAILY, (Reported) Entered as Reported by: EDINSON MERAZ on 10/02/20 1107 Nitrofurantoin Monohyd/M-Cryst (Macrobid 100 mg Capsule) 100 Mg Capsule, 1 TAB PO BID Prescribed by: MILLI BAIG on 10/03/20 0850 Review of Systems Review of Systems Constitutional: see HPI; No chills, No fever; malaise, weakness EENTM: see HPI Respiratory: see HPI; No cough; dyspnea on exertion; No orthopnea; short of breath Cardiovascular: no symptoms reported Genitourinary: no symptoms reported Musculoskeletal: no symptoms reported Skin: no symptoms reported Psychiatric/Neurological: No Symptoms Reported Hematologic/Lymphatic: No Symptoms Reported Past Dfonusl-Ttwwfd-Ekauhe Hx Past Medical History Surgeries: Yes Coronary Stent, Hysterectomy Respiratory: No Cardiac: Yes (X3 STENTS) Coronary Artery Disease, Heart Attack, Hypertension Neurological: Yes TIA Reproductive Disorders: No Sexually Transmitted Disease: No Genitourinary: No Gastrointestinal: No Musculoskeletal: Yes Arthritis Endocrine: Yes Hyperthyroidism HEENT: No Cancer: No Psychosocial: No Integumentary: No Blood Disorders: No Family Medical History No Pertinent Family Hx Physical Exam Vital Signs - First Documented 02/07/21 11:15 Temp 36.0 Pulse 90 Resp 22 B/P (MAP) 134/53 (80) Pulse Ox 99 O2 Delivery Room Air Capillary Refill : Height: 5'2.00" Weight: 122lbs. oz. 55.469674zm; 21.21 BMI Method:Stated General Appearance: WD/WN, no apparent distress, other (She is ambulatory without assistance from the waiting room to room 10. Upon arrival to the room she has an oxygen saturation of 97% with good waveform. She does appear dyspneic however. EKG shows sinus rhythm in the 70s with multifocal PVCs. Blood pressure 135/83. There is no jugular vein distention. Her lungs are garrett ar with good air movement bilaterally. No wheezing.) Eyes: Bilateral Eye Normal Inspection, Bilateral Eye PERRL HEENT: pharynx normal, other (conjunctival pallor) Neck: non-tender, full range of motion Respiratory: normal breath sounds, no respiratory distress, no accessory muscle use; No crackles Cardiovascular: regular rate, rhythm, no murmur; No JVD Gastrointestinal: normal bowel sounds, non tender, soft Extremities: normal range of motion, non-tender; No pedal edema (There is no pedal edema) Neurologic/Psychiatric: alert, normal mood/affect, oriented x 3 Skin: warm/dry, pallor Progress/Results/Core Measures Suspected Sepsis SIRS Temperature: Pulse: Respiratory Rate: Laboratory Tests 02/07/21 11:20: White Blood Count 17.2H Blood Pressure / Mean: Laboratory Tests 02/07/21 11:20: Creatinine 1.44H, INR Comment 1.1, Platelet Count 445H, Total Bilirubin 0.4 Results/Orders Lab Results Laboratory Tests Test 02/07/21 11:16 02/07/21 11:20 02/07/21 12:52 Range/Units Influenza Type A Antigen NEGATIVE NEGATIVE Influenza Type B Antigen NEGATIVE NEGATIVE SARS-CoV-2 RNA (RT-PCR) Not Detected Not Detecte White Blood Count 17.2 H 4.3-11.0 10^3/uL Red Blood Count 2.02 L 3.80-5.11 10^6/uL Hemoglobin 5.6 *L 11.5-16.0 g/dL Hematocrit 18 *L 35-52 % Mean Corpuscular Volume 89 80-99 fL Mean Corpuscular Hemoglobin 28 25-34 pg Mean Corpuscular Hemoglobin Concent 31 L 32-36 g/dL Red Cell Distribution Width 15.1 H 10.0-14.5 % Platelet Count 445 H 130-400 10^3/uL Mean Platelet Volume 10.4 9.0-12.2 fL Immature Granulocyte % (Auto) 5 % Neutrophils (%) (Auto) 72 42-75 % Lymphocytes (%) (Auto) 14 12-44 % Monocytes (%) (Auto) 8 0-12 % Eosinophils (%) (Auto) 1 0-10 % Basophils (%) (Auto) 1 0-10 % Neutrophils # (Auto) 12.4 H 1.8-7.8 10^3/uL Lymphocytes # (Auto) 2.5 1.0-4.0 10^3/uL Monocytes # (Auto) 1.3 H 0.0-1.0 10^3/uL Eosinophils # (Auto) 0.1 0.0-0.3 10^3/uL Basophils # (Auto) 0.1 0.0-0.1 10^3/uL Immature Granulocyte # (Auto) 0.8 H 0.0-0.1 10^3/uL Neutrophils % (Manual) 67 % Lymphocytes % (Manual) 12 % Monocytes % (Manual) 7 % Eosinophils % (Manual) 1 % Basophils % (Manual) 1 % Metamyelocytes % 5 % Myelocytes % 1 % Band Neutrophils 6 % Nucleated Red Blood Cells 1 Polychromasia SLIGHT Hypochromasia SLIGHT Poikilocytosis MODERATE Anisocytosis SLIGHT Microcytosis SLIGHT Macrocytosis SLIGHT Spherocytes SLIGHT Elliptocytes SLIGHT Acanthocytes SLIGHT Rouleau SLIGHT Prothrombin Time 14.8 H 12.2-14.7 SEC INR Comment 1.1 0.8-1.4 Activated Partial Thromboplast Time 31 24-35 SEC D-Dimer 1.28 H 0.00-0.49 UG/ML Sodium Level 138 135-145 MMOL/L Potassium Level 4.1 3.6-5.0 MMOL/L Chloride Level 108 H 98-107 MMOL/L Carbon Dioxide Level 13 L 21-32 MMOL/L Anion Gap 17 H 5-14 MMOL/L Blood Urea Nitrogen 50 H 7-18 MG/DL Creatinine 1.44 H 0.60-1.30 MG/DL Estimat Glomerular Filtration Rate 35 BUN/Creatinine Ratio 35 Glucose Level 126 H 70-105 MG/DL Calcium Level 9.0 8.5-10.1 MG/DL Corrected Calcium 9.7 8.5-10.1 MG/DL Magnesium Level 2.3 1.6-2.4 MG/DL Total Bilirubin 0.4 0.1-1.0 MG/DL Aspartate Amino Transf (AST/SGOT) 30 5-34 U/L Alanine Aminotransferase (ALT/SGPT) 20 0-55 U/L Alkaline Phosphatase 73 40-136 U/L Troponin I 0.095 H <0.028 NG/ML C-Reactive Protein High Sensitivity 4.91 H 0.00-0.50 MG/DL B-Type Natriuretic Peptide 233.8 H <100.0 PG/ML Total Protein 7.1 6.4-8.2 GM/DL Albumin 3.1 L 3.2-4.5 GM/DL Procalcitonin 0.17 H <0.10 NG/ML My Orders Orders - NAM PRINGLE APRN Cbc With Automated Diff (02/07/21 11:21) Comprehensive Metabolic Panel (02/07/21 11:21) Protime With Inr (02/07/21 11:21) Partial Thromboplastin Time (02/07/21 11:21) Fibrin Degradation Products (02/07/21 11:21) Ekg Tracing (02/07/21 11:21) Hs C Reactive Protein (02/07/21 11:21) Procalcitonin (Pct) (02/07/21 11:21) BNP (02/07/21 11:21) Chest 1 View, Ap/Pa Only (02/07/21 11:21) Magnesium (02/07/21 11:21) Ed Iv/Invasive Line Start (02/07/21 11:21) Influenza A & B Antigens (02/07/21 11:21) Troponin I (02/07/21 11:25) Red Cells Leukocytes Reduced (02/07/21 11:33) Type And Screen (02/07/21 11:33) Covid 19 Inhouse Test (02/07/21 11:42) Ct Abdomen/Pelvis Wo (02/07/21 11:47) Ua Culture If Indicated (02/07/21 12:30) Manual Differential (02/07/21 11:20) Vital Signs/I&O 02/07/21 11:15 Temp 36.0 Pulse 90 Resp 22 B/P (MAP) 134/53 (80) Pulse Ox 99 O2 Delivery Room Air Capillary Refill : Departure Communication (Admissions) Family Conversation EKG shows sinus rhythm at [address]. No ST segment changes. Discussed with Dr. Fredis Leong. I will put her on a clear liquid diet, transfuse 3 units of packed red cells, Lasix 40 mg after the second unit given her history of CHF, hold aspirin hold Plavix. She denies any pain. She denies any grossly bloody stools though she does report that she has had some dark stools. She does wish to be full CODE STATUS. Impression Primary Impression: GI bleed Additional Impression: Symptomatic anemia Disposition: ADMITTED INPATIENT Condition: Stable Admissions Decision to Admit Reason: Admit from ER (General) Decision to Admit/Date: Feb 07, 2021 Time/Decision to Admit Time: 13:09 Departure-Patient Inst. Referrals: BLAS CARMICHAEL MD (PCP/Family) Primary Care Physician NAM PRINGLE APRN Feb 07, 2021 11:25
[2021-02-07 11:27] LABS: BASOPHILS # (AUTO) 0.1 10^3/uL (0.0-0.1); BASOPHILS % (AUTO) 1 % (0-10); EOSINOPHILS # (AUTO) 0.1 10^3/uL (0.0-0.3); EOSINOPHILS % (AUTO) 1 % (0-10); LYMPHOCYTES # (AUTO) 2.5 10^3/uL (1.0-4.0); LYMPHOCYTES % (AUTO) 14 % (12-44); MEAN CORPUSCULAR HEMOGLOBIN 28 pg (25-34); MEAN CORPUSCULAR HGB CONC 31 g/dL (32-36); MEAN CORPUSCULAR VOLUME 89 fL (80-99); MEAN PLATELET VOLUME 10.4 fL (9.0-12.2); MONOCYTES # (AUTO) 1.3 10^3/uL (0.0-1.0); MONOCYTES % (AUTO) 8 % (0-12); NEUTROPHILS # (AUTO) 12.4 10^3/uL (1.8-7.8); NEUTROPHILS % (AUTO) 72 % (42-75); PLATELET COUNT 445 10^3/uL (130-400); WHITE BLOOD COUNT 17.2 10^3/uL (4.3-11.0)
[2021-02-07 11:33] LABS: HEMATOCRIT 18 % (35-52); HEMOGLOBIN 5.6 g/dL (11.5-16.0)
[2021-02-07 11:39] LABS: ALBUMIN 3.1 GM/DL (3.2-4.5); POTASSIUM 4.1 MMOL/L (3.6-5.0)
[2021-02-07 11:41] LABS: FIBRIN DEGRADATION PRODUCTS 1.28 UG/ML (0.00-0.49); INR 1.1 (0.8-1.4); PROTHROMBIN TIME PATIENT 14.8 SEC (12.2-14.7)
[2021-02-07 11:42] LABS: TOTAL PROTEIN 7.1 GM/DL (6.4-8.2)
[2021-02-07 11:43] LABS: BILIRUBIN,TOTAL 0.4 MG/DL (0.1-1.0)
[2021-02-07 11:45] LABS: CREATININE SERUM 1.44 MG/DL (0.60-1.30)
[2021-02-07 11:48] LABS: MAGNESIUM 2.3 MG/DL (1.6-2.4)
[2021-02-07 12:36] LABS: BAND NEUTROPHILS 6 %; BASOPHILS % (MANUAL) 1 %; EOSINOPHILS % (MANUAL) 1 %; LYMPHOCYTES % (MANUAL) 12 %; METAMYELOCYTES % 5 %; MONOCYTES % (MANUAL) 7 %; MYELOCYTES % 1 %; NEUTROPHILS % (MANUAL) 67 %; NUCLEATED RED BLOOD CELLS 1
[2021-02-07 12:37] LABS: ACANTHOCYTES SLIGHT; ANISOCYTOSIS SLIGHT; ELLIPT/OVALOCYTES SLIGHT; HYPOCHROMASIA SLIGHT; MICROCYTOSIS SLIGHT; POIKILOCYTOSIS MODERATE; POLYCHROMASIA SLIGHT; ROULEAUX SLIGHT; SPHEROCYTES SLIGHT
[2021-02-07 13:06] LABS: BILIRUBIN,URINE NEGATIVE (NEGATIVE); CLARITY,URINE SL CLOUDY; COLOR,URINE YELLOW; GLUCOSE, URINE (UA) NEGATIVE (NEGATIVE); KETONES,URINE NEGATIVE (NEGATIVE); LEUKOCYTE ESTERASE ,URINE 3+ (NEGATIVE); NITRITE,URINE NEGATIVE (NEGATIVE); PH,URINE 5.5 (5-9); PROTEIN,URINE NEGATIVE (NEGATIVE)
[2021-02-07 13:12] LABS: BACTERIA,URINE FEW /HPF; RBC,URINE 0-2 /HPF; WBC,URINE 25-50 /HPF
--- NOTE | 2021-02-07 13:12 | Diagnostic Imaging Report ---
Indication: Shortness of breath. Study compared 10/01/2020 Findings: Heart size within normal limits and stable. No overt failure pattern or vascular congestion. Lung volumes symmetric and normal however there is some mild hazy increased density in the periphery of the mid lungs left greater than right which may reflect early nonspecific infiltrates. No other potential acute finding and no failure pattern. Impression: 1. Equivocal findings for vague developing infiltrates bilaterally greater left, pneumonia could not be excluded, consider followup if symptoms fail to resolve. 2. No failure pattern or pleural pathology. Dictated by: Dictated on workstation # [id number]
--- NOTE | 2021-02-07 13:20 | Diagnostic Imaging Report ---
PROCEDURE: CT abdomen and pelvis without contrast. TECHNIQUE: Multiple contiguous axial images were obtained through the abdomen and pelvis without the use of intravenous contrast. Auto Exposure Controls were utilized during the CT exam to meet ALARA standards for radiation dose reduction. INDICATION: Shortness of breath with a low hemoglobin. There are no findings of intra or extraperitoneal hemorrhage. There is no free fluid or free air. There is no bowel, biliary or urinary tract obstruction. There are few gallstones present but no secondary findings of acute cholecystitis. The bile ducts nondilated. The nonaneurysmal aorta is atherosclerotic. The adrenals are negative. The spleen is unremarkable. The unopacified pancreas appeared nonfocal and nonacute. There is no hydroureteronephrosis. The left kidney somewhat small but nonacute. There is no perienteric or pericolonic edema. No inflammatory process. No evidence for diverticulitis or appendicitis. The unopacified urinary bladder appeared nonfocal and nonacute. There are degenerative changes to the hips and spine but no acute appearing osseous pathology. The lung bases nonacute. IMPRESSION: A few gallstones present but no secondary findings of cholecystitis. There is no bowel, biliary or urinary tract obstruction. Nonaneurysmal atherosclerosis, noninflamed diverticulosis, no obstructive features, inflammatory processes or acute abnormalities found. Dictated by: Dictated on workstation # [id number]
[2021-02-07] MEDS ORDERED: NS IV 500 ML 500 ML ONE (13:57)
[2021-02-07] MEDS ORDERED: cefTRIAXone 1 GM PRE-MIX 50 ML IV ONE (14:00)
[2021-02-07] MEDS ORDERED: FUROSEMIDE 40 MG/4 ML INJ (LASIX) IV NR (14:00)
[2021-02-07] MEDS: PANTOPRAZOLE 40 MG (PROTONIX) VIAL IV SCH ×2 (14:54→19:45)
--- NOTE | 2021-02-07 16:30 | Consultation - Surgery ---
History of Present Illness History of Present Illness Patient Consulted On(tim/time) 02/07/21 16:24 Date Seen by Provider: Feb 07, 2021 Time Seen by Provider: 13:55 History of Present Illness Consult requested by Dr. Mcneal for anemia. Patient Patient is 81-year-old female who over the last 3 to 4 days has been having some dyspnea on exertion. She has began feeling weaker. She is states that she had a little bit of discomfort in the stomach a few days ago and this has improved now. If she tries to increase her activity she does get more fatigued. She states he is usually go go go type person. She currently was found to have a hemoglobin of 5.[address] scan that demonstrated gallstones without any acute cholecystitis features. She is not having any nausea vomiting fever sweats chills or chest pain currently. Allergies and Home Medications Allergies Coded Allergies: No Known Drug Allergies (Unverified , 02/10/10) Patient Home Medication List Home Medication List Reviewed: Yes Amlodipine Besylate (Amlodipine Besylate) 5 Mg Tablet, 5 MG PO DAILY, (Reported) Entered as Reported by: DAY LU on 09/11/16 100 Last Action: Held Aspirin (Aspirin EC) 81 Mg Tablet.dr, 81 MG PO DAILY, (Reported) Entered as Reported by: EDINSON MERAZ on 10/02/201106 Last Action: Held Atorvastatin Calcium (Atorvastatin Calcium) 80 Mg Tablet, 80 MG PO HS, (Reported) Entered as Reported by: DAY LU on 09/11/16 100 Last Action: Continued Clopidogrel Bisulfate (Clopidogrel) 75 Mg Tablet, 75 MG PO DAILY, (Reported) Entered as Reported by: EDINSON MERAZ on 10/02/201106 Last Action: Held Levothyroxine Sodium (Levothyroxine Sodium) 88 Mcg Tablet, 88 MCG PO DAILY, (Reported) Entered as Reported by: EDINSON MERAZ on 10/02/201106 Last Action: Continued Nitrofurantoin Monohyd/M-Cryst (Macrobid 100 mg Capsule) 100 Mg Capsule, 1 TAB PO BID Prescribed by: MILLI BAIG on 10/03/20 0850 Last Action: Held Past Cewajve-Ahxqtv-Ggbnfx Hx Patient Social History Smoking Status: Never a Smoker Recent Hopitalizations: Yes Alcohol Use?: No Have you traveled recently?: No Surgeries History of Surgeries: Yes Surgeries: Coronary Stent, Hysterectomy Respiratory History of Respiratory Disorde: No Cardiovascular History of Cardiac Disorders: Yes (X3 STENTS) Cardiac Disorders: Coronary Artery Disease, Heart Attack, Hypertension Neurological History of Neurological Disord: Yes Neurological Disorders: TIA Reproductive System Hx Reproductive Disorders: No Sexually Transmitted Disease: No Genitourinary History of Genitourinary Disor: No Gastrointestinal History of Gastrointestinal Di: No Musculoskeletal History of Musculoskeletal Dis: Yes Musculoskeletal Disorders: Arthritis Endocrine History of Endocrine Disorders: Yes Endocrine Disorders: Hyperthyroidism HEENT History of HEENT Disorders: No Cancer History of Cancer: No Psychosocial History of Psychiatric Problem: No Integumentary History of Skin or Integumenta: No Blood Transfusions History of Blood Disorders: No Reviewed Nursing Assessment Reviewed/Agree w Nursing PMH: Yes Family Medical History Significant Family History: No Pertinent Family Hx Review of Systems-General Constitutional: No diaphoresis; weakness EENTM: No blurred vision, No double vision Respiratory: dyspnea on exertion, short of breath Cardiovascular: No chest pain, No palpitations Gastrointestinal: abdominal pain, melena; No nausea, No vomiting Genitourinary: No decreased output, No discharge Musculoskeletal: No back pain, No joint pain Skin: No change in color, No change in hair/nails Psychiatric/Neurological: Denies Anxiety, Denies Depressed, Denies Emotional Problems All Other Systems Reviewed Negative Unless Noted: Yes (Negative excepted noted.) Physical Exam-General Problems Physical Exam Vital Signs Vital Signs - First Documented 02/07/21 11:15 Temp 36.0 Pulse 90 Resp 22 B/P (MAP) 134/53 (80) Pulse Ox 99 O2 Delivery Room Air Capillary Refill : Less Than 3 Seconds General Appearance: WD/WN, no apparent distress HEENT: PERRL/EOMI, normal ENT inspection Neck: non-tender, full range of motion, supple Respiratory: chest non-tender, no respiratory distress, no accessory muscle use Cardiovascular: regular rate, rhythm, no JVD Gastrointestinal: non tender, soft Rectal: deferred Back: no CVA tenderness, no vertebral tenderness Extremities: non-tender, normal inspection, no pedal edema Neurologic/Psychiatric: no motor/sensory deficits, alert, normal mood/affect Skin: warm/dry, pallor Lymphatic: no adenopathy Data Review Labs Laboratory Tests 02/07/21 11:16: Influenza Type A Antigen NEGATIVE, Influenza Type B Antigen NEGATIVE, SARS-CoV-2 RNA (RT-PCR) Not Detected 02/07/21 11:20: White Blood Count 17.2H, Red Blood Count 2.02L, Hemoglobin 5.6*L, Hematocrit 18*L, Mean Corpuscular Volume 89, Mean Corpuscular Hemoglobin 28, Mean Corpuscular Hemoglobin Concent 31L, Red Cell Distribution Width 15.1H, Platelet Count 445H, Mean Platelet Volume 10.4, Immature Granulocyte % (Auto) 5, Neutrophils (%) (Auto) 72, Lymphocytes (%) (Auto) 14, Monocytes (%) (Auto) 8, Eosinophils (%) (Auto) 1, Basophils (%) (Auto) 1, Neutrophils # (Auto) 12.4H, Lymphocytes # (Auto) 2.5, Monocytes # (Auto) 1.3H, Eosinophils # (Auto) 0.1, Basophils # (Auto) 0.1, Immature Granulocyte # (Auto) 0.8H, Neutrophils % (Manual) 67, Lymphocytes % (Manual) 12, Monocytes % (Manual) 7, Eosinophils % (Manual) 1, Basophils % (Manual) 1, Metamyelocytes % 5, Myelocytes % 1, Band Neutrophils 6, Nucleated Red Blood Cells 1, Polychromasia SLIGHT, Hypochromasia SLIGHT, Poikilocytosis MODERATE, Anisocytosis SLIGHT, Microcytosis SLIGHT, Macrocytosis SLIGHT, Spherocytes SLIGHT, Elliptocytes SLIGHT, Acanthocytes SLIGHT, Rouleau SLIGHT, Prothrombin Time 14.8H, INR Comment 1.1, Activated Parti al Thromboplast Time 31, D-Dimer 1.28H, Sodium Level 138, Potassium Level 4.1, Chloride Level 108H, Carbon Dioxide Level 13L, Anion Gap 17H, Blood Urea Nitrogen 50H, Creatinine 1.44H, Estimat Glomerular Filtration Rate 35, BUN/Creatinine Ratio 35, Glucose Level 126H, Calcium Level 9.0, Corrected Calcium 9.7, Magnesium Level 2.3, Total Bilirubin 0.4, Aspartate Amino Transf (AST/SGOT) 30, Alanine Aminotransferase (ALT/SGPT) 20, Alkaline Phosphatase 73, Troponin I 0.095H, C-Reactive Protein High Sensitivity 4.91H, B-Type Natriuretic Peptide 233.8H, Total Protein 7.1, Albumin 3.1L, Procalcitonin 0.17H 11/13/21 12:52: Urine Color YELLOW, Urine Clarity SL CLOUDY, Urine pH 5.5, Urine Specific [place] 1.015L, Urine Protein NEGATIVE, Urine Glucose (UA) NEGATIVE, Urine Ketones NEGATIVE, Urine Nitrite NEGATIVE, Urine Bilirubin NEGATIVE, Urine Urobilinogen 0.2, Urine Leukocyte Esterase 3+H, Urine RBC (Auto) TRACE-IH, Urine RBC 0-2, Urine WBC 25-50H, Urine Squamous Epithelial Cells 10-25H, Urine Crystals NONE, Urine Bacteria FEWH, Urine Casts NONE, Urine Mucus NEGATIVE, Urine Culture Indicated YES Assessment/Plan Assessment/Plan Assessment/Plan Anemia Melena Long-term antiplatelet use Cholelithiasis Patient on clear liquid diets. Transfuse PRBCs and follow hemoglobin Protonix IV 40 mg twice daily Patient has gallstones without features consistent with acute cholecystitis. I do not feel these are a problem for her so no surgical intervention planned Patient if continues to drop would recommend endoscopy at least EGD but would also consider colonoscopy either inpatient versus outpatient JOE GONZALEZ DO Feb 07, 2021 16:30
[2021-02-08] VITALS: BP 125/60
[2021-02-08] MEDS ORDERED: ACETAMINOPHEN 325 MG TABLET PO PRN (02:45)
[2021-02-08 04:00] VITALS: BP 117/64
[2021-02-08 04:16] LABS: BASOPHILS # (AUTO) 0.1 10^3/uL (0.0-0.1); BASOPHILS % (AUTO) 1 % (0-10); EOSINOPHILS # (AUTO) 0.5 10^3/uL (0.0-0.3); EOSINOPHILS % (AUTO) 4 % (0-10); HEMATOCRIT 32 % (35-52); LYMPHOCYTES # (AUTO) 2.4 10^3/uL (1.0-4.0); LYMPHOCYTES % (AUTO) 19 % (12-44); MEAN CORPUSCULAR HEMOGLOBIN 29 pg (25-34); MEAN CORPUSCULAR HGB CONC 34 g/dL (32-36); MEAN CORPUSCULAR VOLUME 86 fL (80-99); MEAN PLATELET VOLUME 10.4 fL (9.0-12.2); MONOCYTES # (AUTO) 1.7 10^3/uL (0.0-1.0); MONOCYTES % (AUTO) 14 % (0-12); NEUTROPHILS % (AUTO) 57 % (42-75); PLATELET COUNT 387 10^3/uL (130-400); WHITE BLOOD COUNT 12.2 10^3/uL (4.3-11.0)
[2021-02-08 04:30] LABS: POTASSIUM 3.8 MMOL/L (3.6-5.0)
[2021-02-08 04:36] LABS: CREATININE SERUM 1.34 MG/DL (0.60-1.30)
[2021-02-08] MEDS: LEVOTHYROXINE 88 MCG (LEVOTHORID) TAB PO SCH (05:42)
[2021-02-08 05:52] VITALS: BP 117/64
[2021-02-08 07:45] VITALS: BP 130/60
[2021-02-08] MEDS ORDERED: SODIUM CHLORIDE FLUSH 10 ML IV PRN (08:19)
[2021-02-08] MEDS: PANTOPRAZOLE 40 MG (PROTONIX) VIAL IV SCH ×2 (08:19→20:49)
--- NOTE | 2021-02-08 09:17 | Progress Note - Surgery ---
[place] 02/08/21 0917: Subjective Time Seen by a Provider: 08:15 Subjective/Events-last exam Patient seen at bedside this morning. She has no new complaints. She has no pain, nausea, or melena. She has not had a bowel movement since yesterday. Review of Systems General: No Chills, No Fatigue HEENT: No Head Aches, No Visual Changes Pulmonary: No Dyspnea, No Pleuritic Chest Pain Cardiovascular: No: Chest Pain, Edema Gastrointestinal: No: Nausea, Vomiting, Abdominal Pain, Melena Genitourinary: No Dysuria, No Frequency Musculoskeletal: No: arm pain, leg pain Neurological: No: Weakness, Numbness Objective Exam Vital Signs Date Time Temp Pulse Resp B/P (MAP) Pulse Ox O2 Delivery O2 Flow Rate FiO2 02/08/21 07:49 95 Room Air 02/08/21 07:45 36.6 69 16 130/60 (83) 95 Room Air 02/08/21 07:00 72 02/08/21 04:00 96 Room Air 02/08/21 04:00 68 18 117/64 (81) 96 Room Air 02/08/21 01:00 60 02/08/21 00:00 96 Room Air 02/08/21 00:00 36.4 68 18 125/60 (81) 94 Room Air 02/07/21 22:42 36.2 02/07/21 22:34 67 125/57 (79) 93 Room Air 02/07/21 21:49 36.7 02/07/21 21:40 37.1 73 18 129/61 97 Room Air 02/07/21 21:20 36.4 77 18 122/56 96 Room Air 02/07/21 20:00 96 Room Air 02/07/21 20:00 36.4 74 128/58 (81) 95 Room Air 02/07/21 19:00 71 02/07/21 18:05 36.8 74 18 117/62 98 Room Air 02/07/21 17:49 36.2 70 16 125/53 95 Room Air 02/07/21 17:35 36.5 73 18 129/42 96 Room Air 02/07/21 16:30 96 Room Air 02/07/21 16:00 36.0 77 18 124/61 (82) 95 Room Air 02/07/21 14:45 36.2 69 18 128/57 96 Room Air 02/07/21 14:20 36.2 76 22 115/52 98 Room Air 02/07/21 14:15 96 Room Air 02/07/21 14:08 81 02/07/21 13:54 36.7 77 20 137/46 (76) 96 Room Air 02/07/21 11:15 36.0 90 22 134/53 (80) 99 Room Air I & O 02/08/21 07:00 Intake Total 890 ml Output Total 1900 ml Balance -1010 ml Capillary Refill : Less Than 3 Seconds General Appearance: No Apparent Distress, WD/WN HEENT: PERRL/EOMI, Normal ENT Inspection Neck: Full Range of Motion, Normal Inspection, Non Tender Respiratory: Chest Non Tender, No Accessory Muscle Use, No Respiratory Distress Cardiovascular: Regular Rate, Rhythm, No Edema, Normal Peripheral Pulses Peripheral Pulses: 2+ Radial Pulses (R), 2+ Radial Pulses (L) Gastrointestinal: non tender, soft; No guarding, No rebound Extremity: Normal Inspection, Normal Range of Motion Neurologic/Psychiatric: Alert, No Motor/Sensory Deficits Skin: Normal Color, Warm/Dry Lymphatic: No Adenopathy Results Lab Laboratory Tests 02/07/21 11:16: Influenza Type A Antigen NEGATIVE, Influenza Type B Antigen NEGATIVE, SARS-CoV-2 RNA (RT-PCR) Not Detected 02/07/21 11:20: White Blood Count 17.2H, Red Blood Count 2.02L, Hemoglobin 5.6*L, Hematocrit 18*L, Mean Corpuscular Volume 89, Mean Corpuscular Hemoglobin 28, Mean Corpuscular Hemoglobin Concent 31L, Red Cell Distribution Width 15.1H, Platelet Count 445H, Mean Platelet Volume 10.4, Immature Granulocyte % (Auto) 5, Neutrophils (%) (Auto) 72, Lymphocytes (%) (Auto) 14, Monocytes (%) (Auto) 8, Eosinophils (%) (Auto) 1, Basophils (%) (Auto) 1, Neutrophils # (Auto) 12.4H, Lymphocytes # (Auto) 2.5, Monocytes # (Auto) 1.3H, Eosinophils # (Auto) 0.1, Basophils # (Auto) 0.1, Immature Granulocyte # (Auto) 0.8H, Neutrophils % (Manual) 67, Lymphocytes % (Manual) 12, Monocytes % (Manual) 7, Eosinophils % (Manual) 1, Basophils % (Manual) 1, Metamyelocytes % 5, Myelocytes % 1, Band Neutrophils 6, Nucleated Red Blood Cells 1, Polychromasia SLIGHT, Hypochromasia SLIGHT, Poikilocytosis MODERATE, Anisocytosis SLIGHT, Microcytosis SLIGHT, Macrocytosis SLIGHT, Spherocytes SLIGHT, Elliptocytes SLIGHT, Acanthocytes SLIGHT, Rouleau SLIGHT, Prothrombin Time 14.8H, INR Comment 1.1, Activated Partial Thromboplast Time 31, D-Dimer 1.28H, Sodium Level 138, Potassium Level 4.1, Chloride Level 108H, Carbon Dioxide Level 13L, Anion Gap 17H, Blood Urea Nitrogen 50H, Creatinine 1.44H, Estimat Glomerular Filtration Rate 35, BUN/Creatinine Ratio 35, Glucose Level 126H, Calcium Level 9.0, Corrected Calciu m 9.7, Magnesium Level 2.3, Total Bilirubin 0.4, Aspartate Amino Transf (AST/SGOT) 30, Alanine Aminotransferase (ALT/SGPT) 20, Alkaline Phosphatase 73, Troponin I 0.095H, C-Reactive Protein High Sensitivity 4.91H, B-Type Natriuretic Peptide 233.8H, Total Protein 7.1, Albumin 3.1L, Procalcitonin 0.17H 02/07/21 12:52: Urine Color YELLOW, Urine Clarity SL CLOUDY, Urine pH 5.5, Urine Specific [place] 1.015L, Urine Protein NEGATIVE, Urine Glucose (UA) NEGATIVE, Urine Ketones NEGATIVE, Urine Nitrite NEGATIVE, Urine Bilirubin NEGATIVE, Urine Urobilinogen 0.2, Urine Leukocyte Esterase 3+H, Urine RBC (Auto) TRACE-IH, Urine RBC 0-2, Urine WBC 25-50H, Urine Squamous Epithelial Cells 10-25H, Urine Crystals NONE, Urine Bacteria FEWH, Urine Casts NONE, Urine Mucus NEGATIVE, Urine Culture Indicated YES 02/08/21 03:45: White Blood Count 12.2H, Red Blood Count 3.77L, Hemoglobin 11.0#L, Hematocrit 32L, Mean Corpuscular Volume 86, Mean Corpuscular Hemoglobin 29, Mean Corpuscular Hemoglobin Concent 34, Red Cell Distribution Width 14.6H, Platelet Count 387, Mean Platelet Volume 10.4, Immature Granulocyte % (Auto) 5, Neutrophils (%) (Auto) 57, Lymphocytes (%) (Auto) 19, Monocytes (%) (Auto) 14H, Eosinophils (%) (Auto) 4, Basophils (%) (Auto) 1, Neutrophils # (Auto) 7.0, Lymphocytes # (Auto) 2.4, Monocytes # (Auto) 1.7H, Eosinophils # (Auto) 0.5H, Basophils # (Auto) 0.1, Immature Granulocyte # (Auto) 0.6H, Sodium Level 138, Potassium Level 3.8, Chloride Level 105, Carbon Dioxide Level 18L, Anion Gap 15H , Blood Urea Nitrogen 36H, Creatinine 1.34H, Estimat Glomerular Filtration Rate 38, BUN/Creatinine Ratio 27, Glucose Level 98, Calcium Level 9.0 Microbiology 02/07/21 Urine Culture - Preliminary, Resulted Meds Item Value Date Time Sodium Chloride 10 ml @ 0 mls/hr 02/08/21 0819 Levothyroxine 88 mcg 02/08/21 0630 Sodium DAILY@0630/PO 02/08/21 0542 (Synthroid Tablet) Acetaminophen 650 mg 02/08/21 0245 (Tylenol Tablet) Q6HR PRN/PO Atorvastatin 80 mg 02/07/21 2100 Calcium HS/PO 02/07/21 1945 (Lipitor Tablet) Pantoprazole 40 mg 02/07/21 1357 (Protonix BID/IV 02/08/21 0819 Injection) Assessment/Plan Assessment/Plan Assessment/Plan Anemia Melena Long-term antiplatelet use Cholelithiasis Patient on clear liquid diet. Transfuse PRBCs if hemoglobin drops below 7. Patient if continues to drop would recommend endoscopy at least EGD but would also consider colonoscopy either inpatient versus outpatient. Continue Protonix IV 40 mg twice daily. Patient has gallstones without features consistent with acute cholecystitis. No surgical intervention planned. HERNANDEZ LEONG DO 02/08/21 1419: Subjective Subjective/Events-last exam Patient feeling better today. She is not having quite the shortness of breath as she was yesterday. Her hemoglobin has increased after transfusions of packed red blood cells. Patient hemoglobin 11. She denies any abdominal pain. She has not had any bowel movements. She denies any nausea vomiting fever sweats chills or chest pain at this time. Objective Exam General Appearance: No Apparent Distress, WD/WN HEENT: PERRL/EOMI, Normal ENT Inspection Neck: Normal Inspection, Non Tender Respiratory: Chest Non Tender, No Accessory Muscle Use, No Respiratory Distress Cardiovascular: Regular Rate, Rhythm, No JVD Gastrointestinal: non tender, soft; No guarding, No rebound Extremity: Normal Inspection, Normal Range of Motion Neurologic/Psychiatric: Alert, Oriented x3, No Motor/Sensory Deficits Skin: Normal Color, Warm/Dry Lymphatic: No Adenopathy Assessment/Plan Assessment/Plan Assessment/Plan Anemia Melena Long-term antiplatelet use Cholelithiasis Patient on clear liquid diet. Transfuse PRBCs if hemoglobin drops below 7. Patient if continues to drop would recommend endoscopy at least EGD but would also consider colonoscopy either inpatient versus outpatient. Continue Protonix IV 40 mg twice daily. Patient has gallstones without features consistent with acute cholecystitis. No surgical intervention planned. If hgb stable tomorrow, can advance diet. Patient antiplatelets on hold Supervisory-Addendum Brief Verification & Attestation Participated in pt care: history, MDM, physical Personally performed: exam, history, MDM, supervision of care Care discussed with: Medical Student Procedures: n/a Results interpretation: Verified all documentation Verification and Attestation of Medical Student E/M Service A medical student performed and documented this service in my presence. I reviewed and verified all information documented by the medical student and made modifications to such information, when appropriate. I personally performed the physical exam and medical decision making. Hernandez Leogn, Feb 08, 2021,14:18 JULYMARTA Mohr Feb 08, 2021 09:17 HERNANDEZ LEONG DO Feb 08, 2021 14:19
--- NOTE | 2021-02-08 09:38 | History & Physical-Hospitalist ---
History of Present Illness HPI/Chief Complaint This is a 81-year-old white female who presents to the emergency room with increased shortness of breath. She did note that on her birthday 3 days ago she had made some chocolate cake and that her stools seemed a little darker at that time. Denies having any blood in her stools or black tarry stools. She is on dual antiplatelet therapy for heart disease. She has never had a colonoscopy or EGD. At the time of my interview this morning she is feeling somewhat better but does seem to be dyspneic with talking. She denies having any other symptoms recently other than a little bit of weight loss. She denies having any abdominal pain. Source: patient Exam Limitations: no limitations Date Seen 02/08/21 Time Seen by a Provider: 08:00 Attending Physician Ana Mcneal MD PCP Mary Carver MD Referring Physician Date of Admission Feb 07, 2021 at 11:50 Home Medications & Allergies Home Medications Reviewed patient Home Medication Reconciliation performed by pharmacy medication reconciliations radio technician and/or nursing. Patients Allergies have been reviewed. Allergies Allergies Coded Allergies No Known Drug Allergies ([id number]/10) Past Bideacm-Gpacfs-Eluhtq Hx Patient Social History Marrital Status: Employed/Student: retired Tobacco Use?: No Smoking Status: Never a Smoker Substance use?: No Alcohol Use?: No Pt feels they are or have been: No Immunizations Up To Date First/Initial COVID19 Vaccinat: DOESNT REMEMBER Second COVID19 Vaccination Eugenio: DOESNT REMEMBER Tetanus Booster (TDap): More Than 5 Years Current Status status: No status: No Advance Directives: No Advance Directive Location: Home Communicates: Verbally Primary Language: Slovenian Preferred Spoken Language: Slovenian Is interpretation needed?: No Implanted or Applied Medical D: Stents Past Medical History Surgeries: Coronary Stent, Hysterectomy Coronary Artery Disease, Heart Attack, Hypertension TIA Sexually Transmitted Disease: No Arthritis Hyperthyroidism Blood Disorders: No HTN HLD hypothyroidism Family Medical History No Pertinent Family Hx Review of Systems Constitutional: see HPI, weight loss (Unintentional) EENTM: no symptoms reported Respiratory: dyspnea on exertion Cardiovascular: no symptoms reported Gastrointestinal: no symptoms reported Genitourinary: no symptoms reported Musculoskeletal: no symptoms reported Skin: no symptoms reported Psychiatric/Neurological: No Symptoms Reported Physical Exam Physical Exam Vital Signs Vital Signs - First Documented 02/07/21 11:15 Temp 36.0 Pulse 90 Resp 22 B/P (MAP) 134/53 (80) Pulse Ox 99 O2 Delivery Room Air Capillary Refill : Less Than 3 Seconds Height, Weight, BMI Height: 5'2.00" Weight: 122lbs. oz. [id number]; 21.01 BMI Method:Stated General Appearance: No Apparent Distress, WD/WN, Thin HEENT: Normal ENT Inspection Neck: Full Range of Motion, Normal Inspection, Non Tender, Supple Respiratory: Chest Non Tender, Lungs Clear, Normal Breath Sounds, No Accessory Muscle Use, No Respiratory Distress Cardiovascular: Regular Rate, Rhythm, No Edema, No Gallop, No JVD, No Murmur, Normal Peripheral Pulses Gastrointestinal: Normal Bowel Sounds, No Organomegaly, No Pulsatile Mass, Non Tender, Soft Extremity: Normal Capillary Refill, Normal Inspection, Normal Range of Motion, No Pedal Edema Neurologic/Psychiatric: Alert, Oriented x3, No Motor/Sensory Deficits, Normal Mood/Affect Skin: Warm/Dry, Pallor Lymphatic: No Adenopathy Results Results/Procedures Labs Laboratory Tests 02/07/21 11:20 02/08/21 03:45 Patient resulted labs reviewed. Imaging: Reviewed Imaging Report Assessment/Plan Admission Diagnosis Severe anemia-with normal MCV Shortness of breath most likely secondary to #1 Coronary artery disease on dual antiplatelet therapy UTI Thrombocytosis most likely secondary to anemia Mild renal insufficiency Hypothyroidism replaced Asymptomatic cholelithiasis Plan Hemoccult stools and pursue EGD colonoscopy possibly as an inpatient versus outpatient. We will also utilize an antibiotic for the UTI Admission Status: Observation Diagnosis/Problems Diagnosis/Problems (1) Symptomatic anemia Status: Acute (2) Coronary artery disease Status: Chronic (3) Urinary tract infection Status: Acute (4) Hypothyroidism Status: Chronic (5) Acute kidney injury Status: Acute Copy Copies To 1: [facility]/ANA LIRIANO MD Feb 08, 2021 09:37
[2021-02-08 09:40] LABS: ABSOLUTE RETIC # 78 10e9/uL (24-90)
--- NOTE | 2021-02-08 11:02 | Consultation-Cardiology ---
HPI-Cardiology Cardiology Consultation Date of Consultation 02/08/21 Date of Admission Time Seen by Provider: 10:56 Indication: Generalized fatigue and loss of energy HPI 81-year-old lady with history of coronary artery disease, hypertension hyperlipidemia, has been complaining of fatigue and loss of energy in addition to some shortness of breath. Came into the emergency room for evaluation noted to have severe anemia. She denied any hematemesis or hematochezia or noticing any blood loss. No chest pain. No palpitation. No syncope or near syncopal episode. Patient had history of coronary artery disease was following by Dr. Figueredo then currently following with Dr. Babb Home Medications & Allergies Allergies: Coded Allergies: No Known Drug Allergies (Unverified , 02/10/10) Home Medication List Reviewed: Yes QVZ-Vyytdh-Wbmbas Hx Patient Social History Marital Status: Employed/Student: retired Smoking Status: Never a Smoker Recent Hopitalizations: Yes Have you traveled recently?: No Alcohol Use?: No Past Medical History Discussed below Family Medical History Significant Family History: No Pertinent Family Hx Family Medical Hx Noncontributory Review of Systems-General Review of Systems Constitutional: see HPI, malaise, weakness, weight loss (Unintentional) EENTM: no symptoms reported Respiratory: see HPI; No cough; dyspnea on exertion; No hemoptysis, No orthopnea, No phlegm, No short of breath, No stridor, No wheezing, No other Cardiovascular: no symptoms reported, see HPI; No chest pain, No edema, No Hx of Intervention, No palpitations, No syncope, No vascular heart diseas, No other Gastrointestinal: no symptoms reported, see HPI Genitourinary: no symptoms reported, see HPI Musculoskeletal: no symptoms reported, see HPI Skin: no symptoms reported, see HPI Psychiatric/Neurological: No Symptoms Reported, See HPI All Other Systems Reviewed Negative Unless Noted: Yes (Negative excepted noted.) Reviewed Test Results Reviewed Test Results Lab Laboratory Tests Test 02/07/21 11:16 02/07/21 11:20 02/07/21 12:52 02/08/21 03:45 Range/Units Influenza Type A Antigen NEGATIVE NEGATIVE Influenza Type B Antigen NEGATIVE NEGATIVE SARS-CoV-2 RNA (RT-PCR) Not Detected Not Detecte White Blood Count 17.2 H 12.2 H 4.3-11.0 10^3/uL Red Blood Count 2.02 L 3.77 L 3.80-5.11 10^6/uL Hemoglobin 5.6 *L 11.0 #L 11.5-16.0 g/dL Hematocrit 18 *L 32 L 35-52 % Mean Corpuscular Volume 89 86 80-99 fL Mean Corpuscular Hemoglobin 28 29 25-34 pg Mean Corpuscular Hemoglobin Concent 31 L 34 32-36 g/dL Red Cell Distribution Width 15.1 H 14.6 H 10.0-14.5 % Platelet Count 445 H 387 130-400 10^3/uL Mean Platelet Volume 10.4 10.4 9.0-12.2 fL Immature Granulocyte % (Auto) 5 5 % Neutrophils (%) (Auto) 72 57 42-75 % Lymphocytes (%) (Auto) 14 19 12-44 % Monocytes (%) (Auto) 8 14 H 0-12 % Eosinophils (%) (Auto) 1 4 0-10 % Basophils (%) (Auto) 1 1 0-10 % Neutrophils # (Auto) 12.4 H 7.0 1.8-7.8 10^3/uL Lymphocytes # (Auto) 2.5 2.4 1.0-4.0 10^3/uL Monocytes # (Auto) 1.3 H 1.7 H 0.0-1.0 10^3/uL Eosinophils # (Auto) 0.1 0.5 H 0.0-0.3 10^3/uL Basophils # (Auto) 0.1 0.1 0.0-0.1 10^3/uL Immature Granulocyte # (Auto) 0.8 H 0.6 H 0.0-0.1 10^3/uL Neutrophils % (Manual) 67 % Lymphocytes % (Manual) 12 % Monocytes % (Manual) 7 % Eosinophils % (Manual) 1 % Basophils % (Manual) 1 % Metamyelocytes % 5 % Myelocytes % 1 % Band Neutrophils 6 % Nucleated Red Blood Cells 1 Polychromasia SLIGHT Hypochromasia SLIGHT Poikilocytosis MODERATE Anisocytosis SLIGHT Microcytosis SLIGHT Macrocytosis SLIGHT Spherocytes SLIGHT Elliptocytes SLIGHT Acanthocytes SLIGHT Rouleau SLIGHT Prothrombin Time 14.8 H 12.2-14.7 SEC INR Comment 1.1 0.8-1.4 Activated Partial Thromboplast Time 31 24-35 SEC D-Dimer 1.28 H 0.00-0.49 UG/ML Sodium Level 138 138 135-145 MMOL/L Potassium Level 4.1 3.8 3.6-5.0 MMOL/L Chloride Level 108 H 105 98-107 MMOL/L Carbon Dioxide Level 13 L 18 L 21-32 MMOL/L Anion Gap 17 H 15 H 5-14 MMOL/L Blood Urea Nitrogen 50 H 36 H 7-18 MG/DL Creatinine 1.44 H 1.34 H 0.60-1.30 MG/DL Estimat Glomerular Filtration Rate 35 38 BUN/Creatinine Ratio 35 27 Glucose Level 126 H 98 70-105 MG/DL Calcium Level 9.0 9.0 8.5-10.1 MG/DL Corrected Calcium 9.7 8.5-10.1 MG/DL Magnesium Level 2.3 1.6-2.4 MG/DL Total Bilirubin 0.4 0.1-1.0 MG/DL Aspartate Amino Transf (AST/SGOT) 30 5-34 U/L Alanine Aminotransferase (ALT/SGPT) 20 0-55 U/L Alkaline Phosphatase 73 40-136 U/L Troponin I 0.095 H <0.028 NG/ML C-Reactive Protein High Sensitivity 4.91 H 0.00-0.50 MG/DL B-Type Natriuretic Peptide 233.8 H <100.0 PG/ML Total Protein 7.1 6.4-8.2 GM/DL Albumin 3.1 L 3.2-4.5 GM/DL Procalcitonin 0.17 H <0.10 NG/ML Urine Color YELLOW Urine Clarity SL CLOUDY Urine pH 5.5 5-9 Urine Specific [place] 1.015 L 1.016-1.022 Urine Protein NEGATIVE NEGATIVE Urine Glucose (UA) NEGATIVE NEGATIVE Urine Ketones NEGATIVE NEGATIVE Urine Nitrite NEGATIVE NEGATIVE Urine Bilirubin NEGATIVE NEGATIVE Urine Urobilinogen 0.2 < = 1.0 MG/DL Urine Leukocyte Esterase 3+ H NEGATIVE Urine RBC (Auto) TRACE-I H NEGATIVE Urine RBC 0-2 /HPF Urine WBC 25-50 H /HPF Urine Squamous Epithelial Cells 10-25 H /HPF Urine Crystals NONE /LPF Urine Bacteria FEW H /HPF Urine Casts NONE /LPF Urine Mucus NEGATIVE /LPF Urine Culture Indicated YES Absolute Reticulocyte Count 78 24-90 10e9/uL Percent Reticulocyte Count 2.10 0.50-2.40 % Physical Exam Physical Exam Vital Signs Vital Signs - First Documented 02/07/21 11:15 Temp 36.0 Pulse 90 Resp 22 B/P (MAP) 134/53 (80) Pulse Ox 99 O2 Delivery Room Air Capillary Refill : Less Than 3 Seconds Height, Weight, BMI Height: 5'2.00" Weight: 122lbs. oz. [id number]; 21.01 BMI Method:Stated General Appearance: No Apparent Distress, WD/WN, Thin Eyes: Bilateral Eye Normal Inspection, Bilateral Eye PERRL HEENT: Normal ENT Inspection Neck: Full Range of Motion, Normal Inspection, Non Tender, Supple Respiratory: Chest Non Tender, Lungs Clear, Normal Breath Sounds, No Accessory Muscle Use, No Respiratory Distress Cardiovascular: Regular Rate, Rhythm, No Edema, No Gallop, No JVD, No Murmur, Normal Peripheral Pulses Gastrointestinal: Normal Bowel Sounds, No Organomegaly, No Pulsatile Mass, Non Tender, Soft Extremity: Normal Capillary Refill, Normal Inspection, Normal Range of Motion, No Pedal Edema Neurologic/Psychiatric: Alert, Oriented x3, No Motor/Sensory Deficits, Normal Mood/Affect Skin: Warm/Dry, Pallor Lymphatic: No Adenopathy A/P-Cardiology Admission Diagnosis Anemia Shortness of breath Coronary artery disease Hypertension Assessment/Plan Anemia, probably occult GI blood loss, H&H are better after transfusion. Will require work-up with EGD colonoscopy. Shortness of breath, generalized fatigue, probably secondary to anemia. Continue to monitor UTI, managed by medical team Coronary artery disease, history of 2 stents placed in 2007 done at [facility]. No recent cardiac work-up. Hypertension, restart home medication monitor blood pressure Hyperlipidemia, monitor lipids Hypothyroidism, continue to monitor History of TIA in the remote past. History of tobaccoism in the remote past. YENNIFER SURESH MD Feb 08, 2021 11:02
[2021-02-08 12:26] VITALS: BP 124/58
[2021-02-08 20:00] VITALS: BP 136/56
[2021-02-09] VITALS: BP 126/54
[2021-02-09 04:00] VITALS: BP 131/78
[2021-02-09 05:08] LABS: BASOPHILS # (AUTO) 0.1 10^3/uL (0.0-0.1); BASOPHILS % (AUTO) 1 % (0-10); EOSINOPHILS # (AUTO) 0.9 10^3/uL (0.0-0.3); EOSINOPHILS % (AUTO) 7 % (0-10); HEMATOCRIT 38 % (35-52); HEMOGLOBIN 12.5 g/dL (11.5-16.0); LYMPHOCYTES # (AUTO) 2.4 10^3/uL (1.0-4.0); LYMPHOCYTES % (AUTO) 20 % (12-44); MEAN CORPUSCULAR HEMOGLOBIN 29 pg (25-34); MEAN CORPUSCULAR HGB CONC 33 g/dL (32-36); MEAN CORPUSCULAR VOLUME 88 fL (80-99); MEAN PLATELET VOLUME 10.5 fL (9.0-12.2); MONOCYTES # (AUTO) 1.3 10^3/uL (0.0-1.0); MONOCYTES % (AUTO) 11 % (0-12); NEUTROPHILS # (AUTO) 6.7 10^3/uL (1.8-7.8); NEUTROPHILS % (AUTO) 55 % (42-75); PLATELET COUNT 445 10^3/uL (130-400); WHITE BLOOD COUNT 12.1 10^3/uL (4.3-11.0)
[2021-02-09 05:26] LABS: ALBUMIN 3.5 GM/DL (3.2-4.5)
[2021-02-09 05:27] LABS: POTASSIUM 3.6 MMOL/L (3.6-5.0)
[2021-02-09 05:28] LABS: CALCIUM 9.4 MG/DL (8.5-10.1)
[2021-02-09 05:29] LABS: TOTAL PROTEIN 7.9 GM/DL (6.4-8.2)
[2021-02-09 05:31] LABS: BILIRUBIN,TOTAL 2.6 MG/DL (0.1-1.0)
[2021-02-09 05:33] LABS: CREATININE SERUM 1.29 MG/DL (0.60-1.30)
[2021-02-09] MEDS: LEVOTHYROXINE 88 MCG (LEVOTHORID) TAB PO SCH (05:40)
--- NOTE | 2021-02-09 07:19 | Progress Note - Surgery ---
MARTA BOYLE 02/09/21 0718: Subjective Time Seen by a Provider: 06:35 Subjective/Events-last exam Patient seen at bedside this morning. She has no complaints. She feels that she has greater energy and strength compared to previous days. She has no nausea, vomiting, or diarrhea. She remains on clear liquids. Review of Systems General: No Chills, No Fatigue HEENT: No Head Aches, No Visual Changes Pulmonary: No Dyspnea, No Pleuritic Chest Pain Cardiovascular: No: Chest Pain, Edema Gastrointestinal: No: Nausea, Vomiting, Abdominal Pain, Diarrhea Genitourinary: No Dysuria, No Frequency Musculoskeletal: No: arm pain, leg pain Neurological: No: Weakness, Numbness Objective Exam Vital Signs Date Time Temp Pulse Resp B/P (MAP) Pulse Ox O2 Delivery O2 Flow Rate FiO2 02/09/21 04:00 Room Air 02/09/21 04:00 69 16 131/78 (95) 95 Room Air 02/09/21 01:00 64 02/09/21 00:00 70 16 126/54 (78) 96 Room Air 02/09/21 00:00 Room Air 02/08/21 20:00 36.5 136/56 (82) 96 02/08/21 20:00 Room Air 02/08/21 19:00 70 02/08/21 16:27 Room Air 02/08/21 16:26 36.8 02/08/21 12:26 36.4 68 14 124/58 (80) 96 Room Air 02/08/21 12:24 68 02/08/21 11:58 96 Room Air 02/08/21 07:49 95 Room Air 02/08/21 07:45 36.6 69 16 130/60 (83) 95 Room Air I & O 02/09/21 07:00 Intake Total 1880 ml Output Total 300 ml Balance 1580 ml Capillary Refill : Less Than 3 Seconds General Appearance: No Apparent Distress, WD/WN, Thin HEENT: PERRL/EOMI, Normal ENT Inspection Neck: Full Range of Motion, Normal Inspection, Non Tender Respiratory: Chest Non Tender, Lungs Clear, Normal Breath Sounds, No Accessory Muscle Use, No Respiratory Distress Cardiovascular: Regular Rate, Rhythm, No Edema, Normal Peripheral Pulses Peripheral Pulses: 2+ Radial Pulses (R), 2+ Radial Pulses (L) Gastrointestinal: non tender, soft; No guarding, No rebound Extremity: Normal Inspection, No Pedal Edema Neurologic/Psychiatric: Alert, Oriented x3, No Motor/Sensory Deficits, Normal Mood/Affect Skin: Normal Color, Warm/Dry, Pallor Lymphatic: No Adenopathy Results Lab Laboratory Tests 02/08/21 12:51: Stool Occult Blood Immunoassay POSITIVEH 02/09/21 04:25: White Blood Count 12.1H, Red Blood Count 4.32, Hemoglobin 12.5, Hematocrit 38, Mean Corpuscular Volume 88, Mean Corpuscular Hemoglobin 29, Mean Corpuscular Hemoglobin Concent 33, Red Cell Distribution Width 15.1H, Platelet Count 445H, Mean Platelet Volume 10.5, Immature Granulocyte % (Auto) 5, Neutrophils (%) (Auto) 55, Lymphocytes (%) (Auto) 20, Monocytes (%) (Auto) 11, Eosinophils (%) (Auto) 7, Basophils (%) (Auto) 1, Neutrophils # (Auto) 6.7, Lymphocytes # (Auto) 2.4, Monocytes # (Auto) 1.3H, Eosinophils # (Auto) 0.9H, Basophils # (Auto) 0.1, Immature Granulocyte # (Auto) 0.6H, Sodium Level 137, Potassium Level 3.6, Chloride Level 104, Carbon Dioxide Level 19L, Anion Gap 14, Blood Urea Nitrogen 28H, Creatinine 1.29, Estimat Glomerular Filtration Rate 40, BUN/Creatinine Ratio 22, Glucose Level 86, Calcium Level 9.4, Corrected Calcium 9.8, Total Bilirubin 2.6H, Aspartate Amino Transf (AST/SGOT) 40H, Alanine Aminotransferase (ALT/SGPT) 21, Alkaline Phosphatase 83, Total Protein 7.9, Albumin 3.5 Microbiology 02/07/21 Urine Culture - Final, Complete Gram Pos Mixed Bacterial Shara Meds Item Value Date Time Sodium Chloride 10 ml @ 0 mls/hr 02/08/21 0819 Levothyroxine 88 mcg 02/08/21 0630 Sodium DAILY@0630/PO 02/09/21 0540 (Synthroid Tablet) Acetaminophen 650 mg 02/08/21 0245 (Tylenol Tablet) Q6HR PRN/PO Atorvastatin 80 mg 02/07/21 2100 Calcium HS/PO 02/08/21 2049 (Lipitor Tablet) Pantoprazole 40 mg 02/07/21 1357 (Protonix BID/IV 02/08/212048 Injection) Assessment/Plan Assessment/Plan Assessment/Plan Anemia Melena Long-term antiplatelet use Cholelithiasis Urinary tract infection Start nitrofurantoin 100mg PO twice daily for 5 days for UTI Continue clear liquid diet. Transfuse PRBCs if hemoglobin drops below 7. Patient if continues to drop would recommend endoscopy at least EGD but would also consider colonoscopy either inpatient versus outpatient. Continue Protonix IV 40 mg twice daily. Patient has gallstones without features consistent with acute cholecystitis. No surgical intervention planned. Advance diet due to hemoglobin stability. Patient antiplatelets on hold Transfer to med/surg floor. HERNANDEZ LEONG DO 02/09/212202: Subjective Subjective/Events-last exam Patient states she is feeling significantly better. Starting get her energy back since her hemoglobin has increased. Patient is tolerating liquids. She denies any nausea vomiting fever sweats chills shortness of breath or chest pain. Denies any abdominal pain. Patient has never had colonoscopy. Patient is agreeable to have EGD and colonoscopy. Patient wanting to go home though. Objective Exam General Appearance: No Apparent Distress, WD/WN HEENT: PERRL/EOMI, Normal ENT Inspection Neck: Full Range of Motion, Non Tender Respiratory: Chest Non Tender, No Accessory Muscle Use, No Respiratory Distress Cardiovascular: Regular Rate, Rhythm, No JVD Gastrointestinal: non tender, soft Extremity: Normal Inspection, Non Tender Neurologic/Psychiatric: Alert, Oriented x3, No Motor/Sensory Deficits, Normal Mood/Affect Skin: Normal Color, Warm/Dry Lymphatic: No Adenopathy Assessment/Plan Assessment/Plan Assessment/Plan Anemia Melena Long-term antiplatelet use Cholelithiasis Urinary tract infection can advance diet Continue Protonix Patient has gallstones without features consistent with acute cholecystitis. No surgical intervention planned. Advance diet due to hemoglobin stability. Patient antiplatelets on hold so will plan for colonoscopy/egd as outpatient, likely or Tuesday since antiplatelets on hold. Paitent understands risks and benefits. Prep instructions to be provided. Supervisory-Addendum Brief Verification & Attestation Participated in pt care: history, MDM, physical Personally performed: exam, history, MDM, supervision of care Care discussed with: Medical Student Procedures: n/a Results interpretation: Verified all documentation Verification and Attestation of Medical Student E/M Service A medical student performed and documented this service in my presence. I reviewed and verified all information documented by the medical student and made modifications to such information, when appropriate. I personally performed the physical exam and medical decision making. Hernandez Leong, Feb 09, 2021,22:03 JULYMARTA Mohr Feb 09, 2021 07:18 HERNANDEZ LEONG DO Feb 09, 2021 22:03
[2021-02-09] MEDS: PANTOPRAZOLE 40 MG (PROTONIX) VIAL IV SCH (08:21)
[2021-02-09 08:24] VITALS: BP 141/67
--- NOTE | 2021-02-09 08:30 | Cardiology Progress Note ---
Subjective Date Seen by Provider: Feb 09, 2021 Time Seen by Provider: 08:29 Subjective/Events-last exam Patient is laying down in bed, feeling better. No new complaint Review of Systems General: No Chills, No Night Sweats, No Fatigue, No Malaise, No Appetite, No Other HEENT: No Head Aches, No Visual Changes, No Eye Pain, No Ear Pain, No Dysphasia, No Sinus Congestion, No Post Nasal Drip, No Sore Throat, No Other Pulmonary: No Dyspnea, No Cough, No Pleuritic Chest Pain, No Other Cardiovascular: No: Chest Pain, Palpitations, Orthopnea, Paroxysmal Noc. Dyspnea, Edema, Lt Headedness, Other Objective-Cardiology Exam Last Set of Vital Signs Vital Signs 02/09/21 08:24 Temp 36.4 Pulse 69 Resp 18 B/P (MAP) 141/67 (91) Pulse Ox 95 O2 Delivery Room Air I&O Intake and Output 02/09/21 00:00 Intake Total 1730 ml Output Total 2200 ml Balance -470 ml Intake Oral 1680 ml Other 50 ml Output Urine Total 2200 ml # Voids 2 # Urine Diapers 1 # Bowel Movements 1 General: Alert, Oriented X3, Cooperative HEENT: Atraumatic, PERRLA Neck: Supple, No JVD, No Thyromegaly Lungs: Clear to Auscultation, Normal Air Movement Heart: Regular Rate, Normal S1, Normal S2, No Murmurs Abdomen: Normal Bowel Sounds, Soft, No Tenderness, No Hepatosplenomegaly, No Masses Extremities: No Clubbing, No Cyanosis, No Edema, Normal Pulses, No Tenderness/Swelling Skin: No Rashes, No Breakdown, No Significant Lesion Neuro: Normal Gait, Normal Speech, Strength at 5/5 X4 Ext, Normal Tone, Se nsation Intact Psych/Mental Status: Mental Status NL, Mood NL Results Lab Laboratory Tests 02/09/21 04:25 A/P-Cardiology Admission Diagnosis Anemia Shortness of breath Coronary artery disease Hypertension Assessment/Plan Anemia, probably occult GI blood loss, H&H are better after transfusion. Will require work-up with EGD colonoscopy. Shortness of breath, generalized fatigue, probably secondary to anemia. Reporting improvement at this time. Continue to monitor UTI, managed by medical team Coronary artery disease, history of 2 stents placed in 2007 done at [facility]. No recent cardiac work-up. Hypertension, monitor blood pressure. No changes are recommended Hyperlipidemia, monitor lipids Hypothyroidism, continue to monitor History of TIA in the remote past. History of tobaccoism in the remote past. YENNIFER SURESH MD Feb 09, 2021 08:30
[2021-02-09] MEDS ORDERED: PANT40TA2 PO (10:04)
--- NOTE | 2021-02-09 10:05 | Discharge Summary ---
Discharge Summary Hospital Course Was the Problem List Reviewed?: Yes Problems/Dx: (1) Symptomatic anemia Status: Acute (2) Coronary artery disease Status: Chronic (3) Urinary tract infection Status: Acute (4) Hypothyroidism Status: Chronic (5) Acute kidney injury Status: Acute (6) GI bleed Status: Acute Hospital Course Date of Admission: Feb 07, 2021 at 11:50 Admission Diagnosis : Family Physician/Provider: Mary Carver MD Date of Discharge: 02/09/21 Discharge Diagnosis: Symptomatic anemia status post 3 units of blood, presumed GI bleed with Hemoccult positive stools, Plavix and anticoagulation on hold until source of bleed identified Hospital Course: Hospital course: Pt had an uneventful hospital course, she was admitted for symptomatic anemia with Hgb of 5 S/P 3 units of blood with good resolution of symptoms. Her Hgb has returned to a reasonable level. Dr. Leong will arrange for EGD and colonoscopy as an outpatient and she was deemed stable for discharge. Labs and Pending Lab Test: Laboratory Tests 02/08/21 12:51: Stool Occult Blood Immunoassay POSITIVEH 02/09/21 04:25: White Blood Count 12.1H, Red Blood Count 4.32, Hemoglobin 12.5, Hematocrit 38, Mean Corpuscular Volume 88, Mean Corpuscular Hemoglobin 29, Mean Corpuscular Hemoglobin Concent 33, Red Cell Distribution Width 15.1H, Platelet Count 445H, Mean Platelet Volume 10.5, Immature Granulocyte % (Auto) 5, Neutrophils (%) (Auto) 55, Lymphocytes (%) (Auto) 20, Monocytes (%) (Auto) 11, Eosinophils (%) (Auto) 7, Basophils (%) (Auto) 1, Neutrophils # (Auto) 6.7, Lymphocytes # (Auto) 2.4, Monocytes # (Auto) 1.3H, Eosinophils # (Auto) 0.9H, Basophils # (Auto) 0.1, Immature Granulocyte # (Auto) 0.6H, Sodium Level 137, Potassium Level 3.6, Chloride Level 104, Carbon Dioxide Level 19L, Anion Gap 14, Blood Urea Nitrogen 28H, Creatinine 1.29, Estimat Glomerular Filtration Rate 40, BUN/Creatinine Ratio 22, Glucose Level 86, Calcium Level 9.4, Corrected Calcium 9.8, Total Bilirubin 2.6H, Aspartate Amino Transf (AST/SGOT) 40H, Alanine Aminotransferase (ALT/SGPT) 21, Alkaline Phosphatase 83, Total Protein 7.9, Albumin 3.5 Microbiology 02/07/21 Urine Culture - Final, Complete Gram Pos Mixed Bacterial Shara Home Meds Active Protonix (Pantoprazole Sodium) 40 Mg Tablet. 40 Mg PO BID Reported Aspirin EC (Aspirin) 81 Mg Tablet. 81 Mg PO DAILY Levothyroxine Sodium 88 Mcg Tablet 88 Mcg PO DAILY Clopidogrel (Clopidogrel Bisulfate) 75 Mg Tablet 75 Mg PO DAILY Atorvastatin Calcium 80 Mg Tablet 80 Mg PO HS Amlodipine Besylate 5 Mg Tablet 5 Mg PO DAILY Assessment/Pt Instructions EGD and colonoscopy per Dr. Leong Discharge Planning: <30 minutes discharge planning Discharge Instructions Discharge Diet: No Restrictions Discharge Physical Examination Vital Signs Vital Signs Date Time Temp Pulse Resp B/P (MAP) Pulse Ox O2 Delivery O2 Flow Rate FiO2 02/09/21 08:24 36.4 69 18 141/67 (91) 95 Room Air General Appearance: No Apparent Distress, WD/WN, Chronically ill Respiratory: Lungs Clear Cardiovascular: Regular Rate, Rhythm Neurologic/Psychiatric: Alert, Oriented x3, No Motor/Sensory Deficits, Normal Mood/Affect Allergies: Coded Allergies: No Known Drug Allergies (Unverified , 02/10/10) Discharge Summary Date of Admission Feb 07, 2021 at 11:50 Date of Discharge Discharge Date: Feb 09, 2021 Admission Diagnosis Severe anemia-with normal MCV Shortness of breath most likely secondary to #1 Coronary artery disease on dual antiplatelet therapy UTI Thrombocytosis most likely secondary to anemia Mild renal insufficiency Hypothyroidism replaced Asymptomatic cholelithiasis Plan Hemoccult stools and pursue EGD colonoscopy possibly as an inpatient versus outpatient. We will also utilize an antibiotic for the UTI Discharge Diagnosis (1) Symptomatic anemia Status: Acute (2) Coronary artery disease Status: Chronic (3) Urinary tract infection Status: Acute (4) Hypothyroidism Status: Chronic (5) Acute kidney injury Status: Acute BEVERLEY HUNTER DO Feb 09, 2021 10:05
[2021-02-09 11:14] VITALS: BP 133/70
--- NOTE | 2021-02-09 13:10 | Progress Note ---
ANUJ ANN 02/09/21 1310: Progress Note Ms. Jaimes is a 81 y/o female who originally presented to the ED on 07 February for 3-4 days of SOB. She said it was primarily exertional dyspnea but she was okay if she was sitting still. She denied any orthopnea. She has a h/o CHF. She originally noted that her stools seemed darker before her visit to the ED but denied any melena. She is on DAPT for heart disease. She has never had a colonoscopy or EGD. Upon arrival her Hgb was 5.6. She was given 3 units of blood and her Hgb responded very well, up to 12.5 as of this morning. This morning during our encounter she felt good and had no complaints. She denied any pain, melena, or hematochezia. She says her energy level has returned and she is ready to go home. The plan is to discharge with outpatient f/u by surgery. Dr. Leong has planned to follow her for EGD and colonscopy to determine the source of her bleeding. VIVIANE HUNTER DO 02/10/21 0551: Supervisory-Addendum Brief Verification & Attestation Participated in pt care: history, MDM, physical Personally performed: exam, history, MDM, supervision of care Care discussed with: Medical Student Procedures: n/a Results interpretation: Verified all documentation Verification and Attestation of Medical Student E/M Service A medical student performed and documented this service in my presence. I reviewed and verified all information documented by the medical student and made modifications to such information, when appropriate. I personally performed the physical exam and medical decision making. Viviane Hunter Feb 10, 2021,05:51 ANUJ ANN Feb 09, 2021 13:10 VIVIANE HUNTER DO Feb 10, 2021 05:51
--- NOTE | 2021-02-09 20:15 | Physician Query Clarification ---
Physician Query-General Query to Physician: The medical record reflects the following clinical scenario: The patient, in the setting of History/Risk factors, On aspirin and Plavix, Clinical Findings Hgb of 5.6, increased to 11 after blood products, Stool for occult blood positive, Treatment 3 Units of PRBC's, Plavix and aspirin held, Surgery consult, Question: Do you agree with the impression of GI Bleed per Dr. Colton Mercer? 1. Yes; will document Symptomatic Anemia in the setting of possible GI Bleed in the Progress Notes/Discharge Summary 2. No; will continue to documentation Symptomatic anemia in the Progress Notes/Discharge Summary 3. Other; will document explanation of clinical findings 4. Clinically undetermined; no explanation for clinical findings Please clarify and document your clinical opinion in the Progress Notes and Discharge Summary including the definitive and/or presumptive diagnosis, (suspected or probable), related to the above clinical findings. Please include clinical findings supporting your diagnosis. In responding to this query, please exercise your independent professional judgment. The purpose of this communication is to more accurately reflect the complexity of your patients condition. The fact that a question is asked does not imply that any particular answer is desired or expected. Please remember a lack of response to the above will prompt a phone page by CDI/coding staff Thank you for timely response to this clarification. Arielle Olvera MSN, RN Clinical Manager Balance [phone] [email or web address] PHYSICIAN RESPONSE: Based on the clinical findings in the record, please respond to the query above on this document as an addendum. Physician Response: Physician Response 1 If you have questions please contact: Entomology Teacher: Ext: Thank you for your time and cooperation. Clinical Manager Balance/Entomology Teacher This is a permanent part of the medical record ARIELLE OLVERA Feb 09, 2021 20:15 BEVERLEY HUNTER DO Feb 10, 2021 05:02
== END 2021-02-09 13:00 | disposition home or self-care (01) | DRG 812 ==
LOC: EDUNIT# 11:06 → ER 11:07 → CSD 11:50
PROVIDERS: ADMIT Internal Medicine; ATTEND Internal Medicine
DX: D50.0 Iron deficiency anemia secondary to blood loss (chronic) (principal); K92.1 Melena; N39.0 Urinary tract infection, site not specified; N17.9 Acute kidney failure, unspecified; K80.20 Calculus of gallbladder without cholecystitis without obstruction; E78.5 Hyperlipidemia, unspecified; I49.3 Ventricular premature depolarization; E03.9 Hypothyroidism, unspecified; Z20.822 Contact with and (suspected) exposure to COVID-19; I10 Essential (primary) hypertension; I25.10 Atherosclerotic heart disease of native coronary artery without angina pectoris; M19.91 Primary osteoarthritis, unspecified site; I25.2 Old myocardial infarction; Z86.73 Personal history of transient ischemic attack (TIA), and cerebral infarction without residual deficits; Z95.5 Presence of coronary angioplasty implant and graft; Z79.02 Long term (current) use of antithrombotics/antiplatelets; Z79.82 Long term (current) use of aspirin
CPT/HCPCS: 36415; 71045; 74176; 80048; 80053; 81000; 82274; 82728; 83540; 83550; 83735; 83880; 84145; 84484; 85007; 85025; 85027; 85045; 85379; 85610; 85730; 86141; 86850; 86900; 86901; 86920; 87088; 87636; 87804; 93005

== ENCOUNTER 2021-02-13 07:18 | Day surgery (SDC) | payer MEDICARE, OTHER ==
[~2021-02-13 07:18] MED LIST changes: +PANT40TA2 PO
[2021-02-13] MEDS ORDERED: LACTATED RINGERS 1,000 ML IV ONE (07:27)
[2021-02-13] MEDS ORDERED: PROPOFOL INJECTION 50 ML IV ONE ×2 (07:32→07:46)
--- NOTE | 2021-02-13 07:32 | Progress Note-Pre Operative ---
Pre-Operative Progress Note H&P Reviewed The H&P was reviewed, patient examined and no changes noted. Date Seen by Provider: Feb 13, 2021 Time Seen by Provider: 07:32 Date H&P Reviewed: Feb 13, 2021 Time H&P Reviewed: 07:32 Pre-Operative Diagnosis: melena, anemia JOE GONZALEZ DO Feb 13, 2021 07:32
[2021-02-13] MEDS ORDERED: MIDAZOLAM 2 MG/2 ML (VERSED) VIAL ONE (07:46)
[2021-02-13 07:59] VITALS: BP 140/82
[2021-02-13] MEDS ORDERED: LACTATED RINGERS 1,000 ML IV STA (08:00)
[2021-02-13] MEDS ORDERED: HURRICAINE EXT TUBE (BENZOCAINE) XX PRN (08:00)
[2021-02-13 08:20] VITALS: BP 126/57
[2021-02-13 08:25] VITALS: BP 115/57
[2021-02-13 08:30] VITALS: BP 115/57
[2021-02-13 08:45] VITALS: BP 137/80
--- NOTE | 2021-02-13 08:45 | Anesthesia-General Post-Op ---
MAC Patient Condition Mental Status/LOC: Same as Preop Cardiovascular: Satisfactory Nausea/Vomiting: Absent Respiratory: Satisfactory Pain: Controlled Complications: Absent Post Op Complications Complications None Follow Up Care/Instructions Patient Instructions None needed. Anesthesiology Discharge Order Discharge Order Patient is doing well, no complaints, stable vital signs, no apparent adverse anesthesia problems. No complications reported per nursing. ESTHELA ZAMBRANO CRNA Feb 13, 2021 08:45
--- NOTE | 2021-02-13 14:09 | OPERATIVE REPORT ---
DATE OF SERVICE: 02/13/2021 PREOPERATIVE DIAGNOSES: Melena and anemia. POSTOPERATIVE DIAGNOSES: Healing duodenal, duodenal narrowing, hiatal hernia, diverticulosis. PROCEDURE: EGD with duodenal biopsy, colonoscopy. SURGEON: Joe Leong DO ANESTHESIA: Per VAC PRESS OPERATOR. ESTIMATED BLOOD LOSS: None. COMPLICATIONS: None. INDICATIONS: The patient is a 81-year-old female who was admitted for melena and has been on antiplatelets. She was discharged home, antiplatelets were held and the patient wished to proceed with further evaluation with EGD and colonoscopy. She understands risks and benefits of procedure and consent was signed in the chart. DESCRIPTION OF PROCEDURE: The patient was taken to the endoscopy suite, placed in left lateral recumbent position. Timeout was performed. Scope was inserted in mouth, down the esophagus into the stomach and into the first portion of the duodenum. The second portion of the duodenum noting a healing duodenal ulcer with an area of narrowing. A biopsy of this area was obtained. Scope was unable to be passed through this. Scope was slowly retracted back into the first portion of duodenum, had duodenitis. No active bleeding. Scope was slowly retracted back into the stomach where it was further insufflated. No polyps, masses or ulcerations. Scope was retroflexed noting hiatal hernia, no other pathology. Scope was returned to its normal position, slowly withdrawn to distal esophagus, which had normal appearance. No polyps, masses or ulcerations. Scope was slowly retracted back until completely removed. A digital rectal exam was performed. No palpable polyps, masses or ulcerations. Scope was inserted in the rectum and advanced all the way to cecum with minimal difficulty. Prep was adequate. Scope was slowly retracted back. No polyps, masses or ulcerations within the cecum, ascending, transverse, descending and sigmoid colon. Throughout the left colon, moderate amount of diverticulosis present. Once in the rectum, scope was retroflexed noting no other pathology. Scope was returned to its normal position, slowly withdrawn until completely removed. The patient tolerated procedure well without any complications. She was taken to recovery room in stable condition. RECOMMENDATIONS: The patient to continue on current medications. She will follow up in the office in 2 weeks to discuss pathology results. CC: Dr. Mary Carver - requested, unable to deliver Job ID: [id number] DocumentID: [id number] Dictated Date: 02/13/2021 09:35:07 Facility Supervisor Date: 02/13/2021 14:08:17 Dictated By: JOE LEONG DO
== END 2021-02-13 08:55 | disposition home or self-care (01) ==
LOC: ENDO 07:18
PROVIDERS: ATTEND Surgery
DX: K29.80 Duodenitis without bleeding (principal); K31.89 Other diseases of stomach and duodenum; K31.5 Obstruction of duodenum; K92.1 Melena; K44.9 Diaphragmatic hernia without obstruction or gangrene; K57.30 Diverticulosis of large intestine without perforation or abscess without bleeding; K80.20 Calculus of gallbladder without cholecystitis without obstruction; D64.9 Anemia, unspecified; E03.9 Hypothyroidism, unspecified; N39.0 Urinary tract infection, site not specified; M19.90 Unspecified osteoarthritis, unspecified site; E05.90 Thyrotoxicosis, unspecified without thyrotoxic crisis or storm; Z79.82 Long term (current) use of aspirin; Z79.890 Hormone replacement therapy; Z79.02 Long term (current) use of antithrombotics/antiplatelets

== ENCOUNTER 2022-11-28 08:09 | Inpatient (IN) | payer MEDICARE, OTHER ==
[~2022-11-28] VITALS: Ht 157 cm; Wt 53.1 kg
[2022-11-28] MEDS ORDERED: fentaNYL INJECTION 100 MCG/2 ML VIAL IVP STA ×3 (08:25→10:15)
--- NOTE | 2022-11-28 08:55 | ED Fall/Injury ---
General Chief Complaint: Trauma EMS/Air Arrival Activat Stated Complaint: FALL Nursing Triage Note: ARRIVED VIA EMS FROM HOME WITH COMPLAINTS OF LEFT HIP PAIN AFTER TRIPPING OVER THE CARPET. PT STATES SHE DID HIT HER HEAD. DENIES LOC. DEINES BEING ON A BLOOD THINNER. Source: patient Exam Limitations: no limitations History of Present Illness Date Seen by Provider: Nov 28, 2022 Time Seen by Provider: 08:20 Initial Comments Here by EMS with report of fall at home. She apparently was walking through the house and there is a transition between the doorway going from carpet to carpet and she tripped over the carpet. She reports falling on her left hip and does believe she did hit her head. She is not on a blood thinner. No loss of consciousness. Complains of significant pain to the left hip lateral aspect. EMS reports normal vital signs and normal mentation throughout their transport but did note to the moderate to significant left hip pain without rotation or shortening. EMS reports the patient was sitting in a chair on their arrival and the had got her up from the floor and assisted her to the chair but she was unable to bear weight on the left leg. Occurred: just prior to arrival (Approximately 1 hour ago) Severity: moderate Injuries/Pain Location: head, pelvis Context: tripped Loss of Consciousness: no loss of consciousness Modifying Factors: Improves With Immobilization; Worse With Movement Associated Symptoms (Fall): No Abdominal Pain, No Headache, No Lightheadedness, No Muscle Spasms, No Nausea/Vomiting, No Neck Pain, No Shortness of Air Allergies and Home Medications Allergies Coded Allergies: No Known Drug Allergies (Unverified , 02/10/10) Patient Home Medication List Home Medication List Reviewed: Yes Amlodipine Besylate (Amlodipine Besylate) 5 Mg Tablet, 5 MG PO DAILY, (Reported) Entered as Reported by: DAY LU on 09/11/16 1006 Atorvastatin Calcium (Atorvastatin Calcium) 80 Mg Tablet, 80 MG PO HS, (Reported) Entered as Reported by: DAY LU on 09/11/16 1006 Levothyroxine Sodium (Levothyroxine Sodium) 88 Mcg Tablet, 88 MCG PO DAILY, (Reported) Entered as Reported by: EDINSON MERAZ on 10/02/20 1107 Pantoprazole Sodium (Protonix) 40 Mg Tablet.dr, 40 MG PO BID Prescribed by: BEVERLEY HUNTER on 02/09/21 1004 Review of Systems Review of Systems Constitutional: see HPI; No chills, No fever Eyes: No Symptoms Reported Ears, Nose, Mouth, Throat: no symptoms reported Respiratory: No cough, No short of breath Cardiovascular: No chest pain, No edema Gastrointestinal: No nausea, No vomiting Genitourinary: no symptoms reported Musculoskeletal: joint pain, muscle pain Skin: no symptoms reported All Other Systems Reviewed Negative Unless Noted: Yes Past Pzsnfcb-Ltmpyk-Mfefdu Hx Patient Social History Tobacco Use?: Yes Smoking Status: Former Smoker Substance use?: No Alcohol Use?: No Immunizations Up To Date First/Initial COVID19 Vaccinat: DOESNT REMEMBER Second COVID19 Vaccination Eugenio: DOESNT REMEMBER Third COVID19 Vaccination Date: 01/26/21 Past Medical History Surgeries: Yes Coronary Stent, Hysterectomy Respiratory: No Cardiac: Yes (X3 STENTS) Coronary Artery Disease, Heart Attack, Hypertension Neurological: Yes TIA Reproductive Disorders: No Sexually Transmitted Disease: No Genitourinary: No Gastrointestinal: No Musculoskeletal: Yes Arthritis Endocrine: Yes Hyperthyroidism HEENT: No Cancer: No Psychosocial: No Integumentary: No Blood Disorders: No Family Medical History Reviewed Nursing Family Hx No Pertinent Family Hx Physical Exam Vital Signs Vital Signs - First Documented 11/28/22 08:19 Temp 36.4 Pulse 66 Resp 16 B/P (MAP) 129/58 (81) Pulse Ox 98 O2 Delivery Room Air Capillary Refill : Less Than 3 Seconds Height, Weight, BMI Height: 5'2.00" Weight: 122lbs. oz. 55.240040ri; 19.00 BMI Method:Stated General Appearance: WD/WN, no apparent distress HEENT: PERRL/EOMI, TMs normal Neck: full range of motion, supple Cardiovascular: regular rate, rhythm, no murmur Respiratory: lungs clear, normal breath sounds Gastrointestinal: non tender, soft Extremities: pelvis stable, other (Marked tenderness to the lateral aspect of the left hip and pain on internal and external rotation and flexion and extension to 80 degree. Distal pulses and sensation intact) Neurologic/Psychiatric: alert, oriented x 3 Skin: normal color, warm/dry [place] Coma Score Best Eye Response: (4) Open Spontaneously Best Verbal Response: (5) Oriented Best Motor Response: (6) Obeys Commands Progress/Results/Core Measures Results/Orders Lab Results Laboratory Tests Test 11/28/22 08:25 9/3/23 09:17 Range/Units White Blood Count 10.3 4.3-11.0 10^3/uL Red Blood Count 3.60 L 3.80-5.11 10^6/uL Hemoglobin 10.7 L 11.5-16.0 g/dL Hematocrit 34 L 35-52 % Mean Corpuscular Volume 95 80-99 fL Mean Corpuscular Hemoglobin 30 25-34 pg Mean Corpuscular Hemoglobin Concent 31 L 32-36 g/dL Red Cell Distribution Width 13.1 10.0-14.5 % Platelet Count 177 130-400 10^3/uL Mean Platelet Volume 11.5 9.0-12.2 fL Immature Granulocyte % (Auto) 1 % Neutrophils (%) (Auto) 56 42-75 % Lymphocytes (%) (Auto) 26 12-44 % Monocytes (%) (Auto) 10 0-12 % Eosinophils (%) (Auto) 6 0-10 % Basophils (%) (Auto) 1 0-10 % Neutrophils # (Auto) 5.7 1.8-7.8 10^3/uL Lymphocytes # (Auto) 2.7 1.0-4.0 10^3/uL Monocytes # (Auto) 1.0 0.0-1.0 10^3/uL Eosinophils # (Auto) 0.7 H 0.0-0.3 10^3/uL Basophils # (Auto) 0.1 0.0-0.1 10^3/uL Immature Granulocyte # (Auto) 0.1 0.0-0.1 10^3/uL Sodium Level 140 135-145 MMOL/L Potassium Level 4.0 3.6-5.0 MMOL/L Chloride Level 110 H 98-107 MMOL/L Carbon Dioxide Level 21 21-32 MMOL/L Anion Gap 9 5-14 MMOL/L Blood Urea Nitrogen 40 H 7-18 MG/DL Creatinine 1.43 H 0.60-1.30 MG/DL Estimat Glomerular Filtration Rate 37 BUN/Creatinine Ratio 28 Glucose Level 128 H 70-105 MG/DL Calcium Level 8.7 8.5-10.1 MG/DL Corrected Calcium 9.1 8.5-10.1 MG/DL Total Bilirubin 0.8 0.1-1.0 MG/DL Aspartate Amino Transf (AST/SGOT) 29 5-34 U/L Alanine Aminotransferase (ALT/SGPT) 25 0-55 U/L Alkaline Phosphatase 73 40-136 U/L Total Protein 6.7 6.4-8.2 GM/DL Albumin 3.5 3.2-4.5 GM/DL My Orders Orders - JERALD RICHARDSON MD Ed Iv/Invasive Line Start (11/28/22 08:25) Ekg Tracing (11/28/22 08:25) Ct Head Wo (11/28/22 08:25) Ed Iv/Invasive Line Start (11/28/22 08:25) Chest 1 View, Ap/Pa Only (11/28/22 08:25) Pelvis With Left Hip 2-3 Views (11/28/22 08:25) Cbc With Automated Diff (11/28/22 08:25) Comprehensive Metabolic Panel (11/28/22 08:25) Fentanyl Injection (Fentanyl Injection (11/28/22 08:25) Fentanyl Injection (Fentanyl Injection (11/28/22 09:07) Catheter(Urinary) Insert & Ass 03,15 (11/28/22 09:07) Ua Culture If Indicated (11/28/22 09:07) Vital Signs/I&O 11/28/22 08:19 Temp 36.4 Pulse 66 Resp 16 B/P (MAP) 129/58 (81) Pulse Ox 98 O2 Delivery Room Air Blood Pressure Mean: 81 Progress Progress Note : Progress Note Seen and evaluated. We will get CT of the head due to fall and possible head injury. Chest x-ray, pelvic x-ray and left hip x-ray ordered. Fentanyl 25 mcg IV. We will get EKG and basic labs including CBC and CMP. Monitor patient. Differential diagnosis includes intracranial hemorrhage, left hip fracture and contusion. 0901: CT head complete and there is no obvious intracranial hemorrhage on my interpretation. EKG reviewed as noted below. 0930: CBC is grossly normal and CMP shows slightly elevated serum creatinine but not significant. Left hip x- ray shows obvious left hip intertrochanteric fracture. Chest x-ray shows cardiomegaly without infiltrate or congestion on my interpretation. I have discussed the case with Dr. Fabi Hunter and if Dr. Valenzuela was okay with seeing her tomorrow she will accept patient for admission, inpatient status. I did make contact with Dr. Valenzuela that he would be happy to see her tomorrow and set her up for surgery tomorrow so Dr. Hunter will accept the patient and Dr. VALENZUELA will see the patient in consult. Patient and family agree with plan. Patient request full code. Initial ECG Impression Date: Nov 28, 2022 Initial ECG Impression Time: 08:42 Initial ECG Rate: 66 Initial ECG Rhythm: Normal Sinus Comment Sinus rhythm with left atrial abnormality and rightward axis. Right bundle branch block noted. No evidence of ST elevation NM. Interpreted by me. Diagnostic Imaging Diagonstic Imaging: CT Plain Films/CT/US/NM/MRI: head Comments [facility] [place] NAME: BRYCE ROMERO [facility] REC#: [id number] PT STATUS: REG ER : 1940 PHYSICIAN: JERALD RICHARDSON MD ADMIT DATE: 11/28/22/ER Signed Date of Exam:11/28/22 CT HEAD WO PROCEDURE: CT head without contrast. TECHNIQUE: Multiple contiguous axial images were obtained through the brain without the use of intravenous contrast. Auto Exposure Controls were utilized during the CT exam to meet ALARA standards for radiation dose reduction. DATE: November 28, 2022. COMPARISON: CT head and cervical spine October 01, 2020. INDICATION: 82-year-old female, fall. Hit head. Headache. Altered mental status. FINDINGS: There is no identified skull fracture. There is proportional prominence of the ventricles and additional CSF spaces consistent with moderate to severe cerebral volume loss. There are findings of encephalomalacia in the right frontal lobe. 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 There are also findings of encephalomalacia in the right occipital and temporal lobes. There are findings of encephalomalacia in the left occipital lobe. There is no mass effect or midline shift. There is no acute intracranial hemorrhage. There is no abnormal extra-axial fluid collection. IMPRESSION: 1. No identified acute intracranial abnormality. 2. Moderate to severe cerebral volume loss with multiple areas of encephalomalacia as described above. Dictated by: Dictated on workstation # [id number] Dict: 11/28/22 0852 Trans: 11/28/[address] [facility] [id number] Interpreted by: PEREZ DALTON MD Electronically signed by: PEREZ DALTON MD 11/28/22908 Reviewed: Reviewed by Ar Diagonstic Imaging: Xray Plain Films/CT/US/NM/MRI: chest Comments [facility] [place] NAME: BRYCE ROMERO [facility] REC#: [id number] PT STATUS: REG ER : 1940 PHYSICIAN: JERALD RICHARDSON MD ADMIT DATE: 11/28/22/ER Signed Date of Exam:11/28/22 CHEST 1 VIEW, AP/PA ONLY CHEST 1 VIEW, AP/PA ONLY INDICATION: fall. Chest pain. COMPARISON: Chest radiograph 02/07/2021. FINDINGS: Lungs: Normal lung volume. No focal consolidation. Stable pulmonary vasculature. Pleura: No pleural effusion or pneumothorax. Heart and Mediastinum: Cardiomegaly. great vessels of the thorax are stable. Osseous Structures and Soft Tissues: No acute osseous abnormality. Normal soft tissues. IMPRESSION: No acute chest findings. Dictated by: Dictated on workstation # [id number] Dict: 11/28/22902 Trans: 11/28/22905 [facility] [id number] Interpreted by: FRANK SCHAFER DO Electronically signed by: FRANK SCHAFER DO 11/28/22905 Reviewed: Reviewed by Ar Diagonstic Imaging: Xray Plain Films/CT/US/NM/MRI: pelvis, hip Comments [facility] [place] NAME: BRYCE ROMERO [facility] REC#: [id number] PT STATUS: REG ER : 1940 PHYSICIAN: JERALD RICHARDSON MD ADMIT DATE: 11/28/22/ER Draft Date of Exam:11/28/22 PELVIS WITH LEFT HIP 2-3 VIEWS EXAMINATION: Left hip unilateral 2 or 3 views (w/pelvis when done) HISTORY: Pelvic pain COMPARISON: None available. FINDINGS: There is angulated and impacted fracture of the intertrochanteric left hip. There is displacement of a lesser trochanteric fracture fragment. No dislocation. There is moderate bilateral hip osteoarthritis. IMPRESSION: 1. Angulated and impacted intertrochanteric left femur fracture with a displaced lesser trochanteric fracture fragment. Dictated on workstation # [id number] Dict: 11/28/22903 Trans: 11/28/[address] [facility] [id number] Interpreted by: DIONNE HANSEN MD Electronically signed by: Reviewed: Reviewed by Me Departure Communication (Admissions) Time/Spoke to Admitting Phy: 09:30 Impression Primary Impression: Closed left hip fracture Qualified Codes: S72.002A - Fracture of unspecified part of neck of left femur, initial encounter for closed fracture Disposition: ADMITTED INPATIENT Condition: Stable Admissions Decision to Admit Reason: Admit from ER (Trauma) Decision to Admit/Date: Nov 28, 2022 Time/Decision to Admit Time: 09:30 Departure-Patient Inst. Referrals: BLAS CARMICHAEL MD (PCP/Family) Primary Care Physician JERALD RICHARDSON MD Nov 28, 2022 08:55
[2022-11-28 08:57] LABS: BASOPHILS # (AUTO) 0.1 10^3/uL (0.0-0.1); BASOPHILS % (AUTO) 1 % (0-10); EOSINOPHILS # (AUTO) 0.7 10^3/uL (0.0-0.3); EOSINOPHILS % (AUTO) 6 % (0-10); HEMATOCRIT 34 % (35-52); HEMOGLOBIN 10.7 g/dL (11.5-16.0); LYMPHOCYTES # (AUTO) 2.7 10^3/uL (1.0-4.0); LYMPHOCYTES % (AUTO) 26 % (12-44); MEAN CORPUSCULAR HEMOGLOBIN 30 pg (25-34); MEAN CORPUSCULAR HGB CONC 31 g/dL (32-36); MEAN CORPUSCULAR VOLUME 95 fL (80-99); MEAN PLATELET VOLUME 11.5 fL (9.0-12.2); MONOCYTES % (AUTO) 10 % (0-12); NEUTROPHILS # (AUTO) 5.7 10^3/uL (1.8-7.8); NEUTROPHILS % (AUTO) 56 % (42-75); PLATELET COUNT 177 10^3/uL (130-400); WHITE BLOOD COUNT 10.3 10^3/uL (4.3-11.0)
--- NOTE | 2022-11-28 08:59 | Diagnostic Imaging Report ---
PROCEDURE: CT head without contrast. TECHNIQUE: Multiple contiguous axial images were obtained through the brain without the use of intravenous contrast. Auto Exposure Controls were utilized during the CT exam to meet ALARA standards for radiation dose reduction. DATE: November 28, 2022. COMPARISON: CT head and cervical spine October 01, 2020. INDICATION: 82-year-old female, fall. Hit head. Headache. Altered mental status. FINDINGS: There is no identified skull fracture. There is proportional prominence of the ventricles and additional CSF spaces consistent with moderate to severe cerebral volume loss. There are findings of encephalomalacia in the right frontal lobe. 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 There are also findings of encephalomalacia in the right occipital and temporal lobes. There are findings of encephalomalacia in the left occipital lobe. There is no mass effect or midline shift. There is no acute intracranial hemorrhage. There is no abnormal extra-axial fluid collection. IMPRESSION: 1. No identified acute intracranial abnormality. 2. Moderate to severe cerebral volume loss with multiple areas of encephalomalacia as described above. Dictated by: Dictated on workstation # [id number]
--- NOTE | 2022-11-28 09:07 | Diagnostic Imaging Report ---
CHEST 1 VIEW, AP/PA ONLY INDICATION: fall. Chest pain. COMPARISON: Chest radiograph 02/07/2021. FINDINGS: Lungs: Normal lung volume. No focal consolidation. Stable pulmonary vasculature. Pleura: No pleural effusion or pneumothorax. Heart and Mediastinum: Cardiomegaly. great vessels of the thorax are stable. Osseous Structures and Soft Tissues: No acute osseous abnormality. Normal soft tissues. IMPRESSION: No acute chest findings. Dictated by: Dictated on workstation # [id number]
[2022-11-28 09:12] LABS: ALBUMIN 3.5 GM/DL (3.2-4.5); BILIRUBIN,TOTAL 0.8 MG/DL (0.1-1.0); CALCIUM 8.7 MG/DL (8.5-10.1); CREATININE SERUM 1.43 MG/DL (0.60-1.30); TOTAL PROTEIN 6.7 GM/DL (6.4-8.2)
--- NOTE | 2022-11-28 09:13 | Diagnostic Imaging Report ---
EXAMINATION: Left hip unilateral 2 or 3 views (w/pelvis when done) HISTORY: Pelvic pain COMPARISON: None available. FINDINGS: There is angulated and impacted fracture of the intertrochanteric left hip. There is displacement of a lesser trochanteric fracture fragment. No dislocation. There is moderate bilateral hip osteoarthritis. IMPRESSION: 1. Angulated and impacted intertrochanteric left femur fracture with a displaced lesser trochanteric fracture fragment. Dictated by: Dictated on workstation # [id number]
[2022-11-28 09:35] LABS: CLARITY,URINE CLEAR; COLOR,URINE YELLOW; PH,URINE 5.5 (5-9)
[2022-11-28 09:36] LABS: BACTERIA,URINE TRACE /HPF; BILIRUBIN,URINE NEGATIVE (NEGATIVE); GLUCOSE, URINE (UA) NEGATIVE (NEGATIVE); KETONES,URINE NEGATIVE (NEGATIVE); LEUKOCYTE ESTERASE ,URINE NEGATIVE (NEGATIVE); NITRITE,URINE NEGATIVE (NEGATIVE); PROTEIN,URINE TRACE (NEGATIVE)
--- NOTE | 2022-11-28 09:44 | History & Physical-Hospitalist ---
History of Present Illness HPI/Chief Complaint Chief complaint: Left hip fracture HPI: This is an 82-year-old female of [facility] who presented to the ER following a fall and sustaining a left hip fracture. She has past medical history of diabetes diet controlled with oral meds and hypertension. At this current time patient is doing okay but pain is an issue. Dr. Valenzuela will perform repair tomorrow. In my medical opinion surgical benefits to repair the left hip fra cture outweigh any medical risks. Source: patient Exam Limitations: no limitations Date Seen 11/28/22 Time Seen by a Provider: 12:00 Attending Physician Mary Carver MD PCP Admitting Physician: Attending Physician: Referring Physician Date of Admission Home Medications & Allergies Home Medications Reviewed patient Home Medication Reconciliation performed by pharmacy medication reconciliations tv technician and/or nursing. Patients Allergies have been reviewed. Allergies Allergies Coded Allergies No Known Drug Allergies (Wdvabnxoas30/16/10) Past Latoisg-Jiyefs-Rhlfcr Hx Patient Social History Marrital Status: single Employed/Student: retired Tobacco Use?: Yes Smoking Status: Former Smoker Substance use?: No Alcohol Use?: No Immunizations Up To Date First/Initial COVID19 Vaccinat: DOESNT REMEMBER Second COVID19 Vaccination Eugenio: DOESNT REMEMBER Tetanus Booster (TDap): More Than 5 Years Current Status Advance Directives: No Primary Language: [place] Citizen Preferred Spoken Language: [place] Citizen Past Medical History Surgeries: Coronary Stent, Hysterectomy Coronary Artery Disease, Heart Attack, Hypertension TIA Sexually Transmitted Disease: No Arthritis Hyperthyroidism Blood Disorders: No HTN HLD hypothyroidism Family Medical History Reviewed Nursing Family Hx No Pertinent Family Hx Review of Systems Constitutional: see HPI, malaise, weakness Musculoskeletal: joint pain, muscle pain, muscle stiffness, muscle cramps Physical Exam Physical Exam Vital Signs Vital Signs - First Documented 11/28/22 08:19 Temp 36.4 Pulse 66 Resp 16 B/P (MAP) 129/58 (81) Pulse Ox 98 O2 Delivery Room Air Capillary Refill : Less Than 3 Seconds Height, Weight, BMI Height: 5'2.00" Weight: 122lbs. oz. 55.932824mc; 19.00 BMI Method:Stated General Appearance: No Apparent Distress, Chronically ill Eyes: Right Eye Normal Inspection, Right Eye PERRL HEENT: PERRL/EOMI, Normal ENT Inspection, Pharynx Normal, Moist Mucous Membranes Neck: Full Range of Motion, Normal Inspection, Non Tender Respiratory: Chest Non Tender, Lungs Clear, Normal Breath Sounds, No Accessory Muscle Use, No Respiratory Distress Cardiovascular: Regular Rate, Rhythm, No Edema, No Gallop, No JVD, No Murmur, Normal Peripheral Pulses Gastrointestinal: Normal Bowel Sounds, No Organomegaly, No Pulsatile Mass, Non Tender, Soft Back: Normal Inspection, No CVA Tenderness, No Vertebral Tenderness Extremity: Normal Capillary Refill, Normal Inspection, Normal Range of Motion (except left leg), Non Tender, No Calf Tenderness, No Pedal Edema Neurologic/Psychiatric: Alert, Oriented x3, No Motor/Sensory Deficits, Normal Mood/Affect, customer success representative II-XII Norm as Tested Skin: Normal Color, Warm/Dry Lymphatic: No Adenopathy Results Results/Procedures Labs Laboratory Tests 11/28/22 08:25 Patient resulted labs reviewed. Assessment/Plan Admission Diagnosis Assessment: Left hip fracture Hypertension Hyperlipidemia Frail status Advanced age Right bundle branch block on EKG Plan: Cardiology eval Echo Monitor labs Repair tomorrow since surgical benefits outweigh medical risks Admission Status: Inpatient Order (span 2 midnights) Reason for Inpatient Admission: hip fx BEVERLEY HUNTER DO Nov 28, 2022 09:44
[2022-11-28] MEDS ORDERED: MILK OF MAGNESIA 400 MG/5 ML 30 ML UDC PO PRN (11:00)
[2022-11-28] MEDS ORDERED: ONDANSETRON 4 MG ORAL DISSOLVE TABLET PO PRN (11:00)
[2022-11-28] MEDS ORDERED: diphenhydrAMINE 25 MG TABLET PO PRN (11:00)
[2022-11-28] MEDS ORDERED: diphenhydrAMINE INJ 50 MG/ML VIAL IVP PRN (11:00)
[2022-11-28] MEDS ORDERED: LACTULOSE SYRUP 10GM/15ML 30ML UDC PO PRN (11:00)
[2022-11-28] MEDS ORDERED: ANTACID SUSPENSION 30 ML UDC PO PRN (11:00)
[2022-11-28] MEDS ORDERED: ACETAMINOPHEN 325 MG TABLET PO PRN (11:00)
[2022-11-28] MEDS ORDERED: PATIENT MAY USE OWN MEDS, ALL PO SCH (11:00)
[2022-11-28] MEDS ORDERED: CALCIUM CARBONATE 500 MG CHEW TABLET PO PRN (11:00)
[2022-11-28] MEDS ORDERED: BISACODYL 10 MG SUPPOSITORY PR PRN (11:00)
[2022-11-28 11:02] VITALS: BP 109/64
[2022-11-28] MEDS: inSUlin ASPART 1 UNIT/0.01 ML (PER UNIT) SC SCH ×3 (11:31→21:09)
[2022-11-28] MEDS: HYDROmorphone INJECTION 2 MG/ML VIAL IV PRN ×3 (11:44→17:45)
[2022-11-28] MEDS: NS IV 1000 ML 1,000 ML IV SCH (11:45)
[2022-11-28 12:32] VITALS: BP 109/64
[2022-11-28] MEDS ORDERED: RT-ALBUTEROL SULF 2.5 MG/3 ML PRE-MIX VIAL INH PRN (12:45)
[2022-11-28] MEDS: oxyCODONE IMMEDIATE RELEASE 5 MG TABLET PO PRN ×2 (12:52→21:06)
[2022-11-28 16:08] VITALS: BP 114/49
--- NOTE | 2022-11-28 17:32 | Consultation-Cardiology ---
HPI-Cardiology Cardiology Consultation: Date of Consultation 11/28/22 Date of Admission Attending Physician Mary Carver MD Admitting Physician Admitting Physician: Viviane Hunter DO Attending Physician: Viviane Hunter DO Consulting Physician Nikolas ENG MD HPI: Time Seen by a Provider: 17:30 Chief Complaint: Fall This is a 82-year-old lady with previous history of coronary artery disease, PCI in [facility] in 2007. No symptoms of chest pain or shortness of breath. Presents with mechanical fall with left hip fracture. Awaiting surgery. No recent cardiac symptoms with exertion including chest pain or shortness of breath. Review of Systems-Cardiology Review of Systems Constitutional: no symptoms reported Eyes: no symptoms reported Ears/Nose/Throat: no symptoms reported Respiratory: no symptoms reported Cardiovascular: no symptoms reported Gastrointestinal: no symptoms reported Genitourinary: no symptoms reported Musculoskeletal: As describe under HPI, joint pain Skin: no symptoms reported Psychiatric/Neurological: no symptoms reported Hematologic: no symptoms reported All Other Systems Reviewed Negative Unless Noted: Yes LPK-Zymxfb-Uywtzd Hx Patient Social History Marrital Status: single Employed/Student: retired Smoking Status: Former Smoker 2nd Hand Smoke Exposure: No Alcohol Use?: No Pt feels they are or have been: No Past Medical History PMH As described under Assessment. Allergies and Home Medications Allergies Coded Allergies: No Known Drug Allergies (Unverified , 02/10/10) Patient Home Medication List Home Medication List Reviewed: Yes Amlodipine Besylate (Amlodipine Besylate) 5 Mg Tablet, 5 MG PO DAILY, (Reported) Entered as Reported by: DAY LU on 09/11/16 1006 Last Action: Continued Atorvastatin Calcium (Atorvastatin Calcium) 80 Mg Tablet, 80 MG PO HS, (Reported) Entered as Reported by: DAY LU on 09/11/16 1006 Last Action: Continued Levothyroxine Sodium (Levothyroxine Sodium) 88 Mcg Tablet, 88 MCG PO DAILY, (Reported) Entered as Reported by: EDINSON MERAZ on 10/02/20 1107 Last Action: Continued Pantoprazole Sodium (Protonix) 40 Mg Tablet.dr, 40 MG PO BID Prescribed by: VIVIANE HUNTER on 02/09/21 1004 Exam Vital Signs Vital Signs Date Time Temp Pulse Resp B/P (MAP) Pulse Ox O2 Delivery O2 Flow Rate FiO2 11/29/22 13:49 139 11/29/22 12:00 36.8 16 118/63 (81) 93 OxyMask 4.00 Physical Exam Constitutional exam: In pain. Chest: Clear to auscultation bilaterally. CVS: Regular rate and rhythm. Neuro exam nonfocal. Musculoskeletal: Left hip discomfort. Labs Laboratory Tests Test 11/28/22 19:20 11/29/22 06:16 11/29/22 11:59 11/29/22 15:22 Range/Units Glucometer 167 H 106 113 H 70-110 MG/DL White Blood Count 11.1 H 4.3-11.0 10^3/uL Red Blood Count 3.14 L 3.80-5.11 10^6/uL Hemoglobin 9.2 L 11.5-16.0 g/dL Hematocrit 29 L 35-52 % Mean Corpuscular Volume 94 80-99 fL Mean Corpuscular Hemoglobin 29 25-34 pg Mean Corpuscular Hemoglobin Concent 31 L 32-36 g/dL Red Cell Distribution Width 13.2 10.0-14.5 % Platelet Count 138 130-400 10^3/uL Mean Platelet Volume 11.1 9.0-12.2 fL Immature Granulocyte % (Auto) 1 % Neutrophils (%) (Auto) 74 42-75 % Lymphocytes (%) (Auto) 13 12-44 % Monocytes (%) (Auto) 11 0-12 % Eosinophils (%) (Auto) 1 0-10 % Basophils (%) (Auto) 0 0-10 % Neutrophils # (Auto) 8.2 H 1.8-7.8 10^3/uL Lymphocytes # (Auto) 1.4 1.0-4.0 10^3/uL Monocytes # (Auto) 1.2 H 0.0-1.0 10^3/uL Eosinophils # (Auto) 0.1 0.0-0.3 10^3/uL Basophils # (Auto) 0.0 0.0-0.1 10^3/uL Immature Granulocyte # (Auto) 0.1 0.0-0.1 10^3/uL Sodium Level 138 135-145 MMOL/L Potassium Level 4.2 3.6-5.0 MMOL/L Chloride Level 106 98-107 MMOL/L Carbon Dioxide Level 23 21-32 MMOL/L Anion Gap 9 5-14 MMOL/L Blood Urea Nitrogen 36 H 7-18 MG/DL Creatinine 1.37 H 0.60-1.30 MG/DL Estimat Glomerular Filtration Rate 39 BUN/Creatinine Ratio 26 Glucose Level 118 H 70-105 MG/DL Calcium Level 8.6 8.5-10.1 MG/DL Corrected Calcium 9.2 8.5-10.1 MG/DL Total Bilirubin 1.2 H 0.1-1.0 MG/DL Aspartate Amino Transf (AST/SGOT) 24 5-34 U/L Alanine Aminotransferase (ALT/SGPT) 22 0-55 U/L Alkaline Phosphatase 74 40-136 U/L Total Protein 6.3 L 6.4-8.2 GM/DL Albumin 3.2 3.2-4.5 GM/DL ECG Impression ECG Initial ECG Rhythm: Normal Sinus Comment Sinus rhythm with right bundle branch block.No acute ST-T wave abnormalities. A/P-Cardiology Assessment/Admission Diagnosis Mechanical fall, hip fracture, awaiting surgery. Coronary artery disease, s/p PCI in 2007, Perioperative cardiovascular risk assessment, Hypertension, Hyperlipidemia Plan Hip fracture; urgent surgery is required. Previous history of PCI in 2007. No chest pain with exertion. Normal EKG. Echo - pending. Patient is at intermediate risk for perioperative major adverse cardiac events undergoing a moderate risk surgery. Nikolas ENG MD Nov 28, 2022 17:32
[2022-11-28] MEDS: ONDANSETRON INJECTION 4 MG/2 ML (SDV) IV PRN (18:53)
[2022-11-28 20:11] VITALS: BP 113/55
[2022-11-28] MEDS: MELATONIN 3 MG TABLET PO PRN (21:06)
[2022-11-28] MEDS: SENNOSIDES 8.6 MG TABLET PO SCH (21:06)
[2022-11-28] MEDS: DOCUSATE SODIUM 100 MG CAPSULE PO SCH (21:06)
[2022-11-28] MEDS: ALPRAZolam 0.25 MG TABLET PO PRN (21:06)
[2022-11-29] VITALS (14 sets, daily range): BP systolic 101–137; BP diastolic 50–74
[2022-11-29] MEDS: HYDROmorphone INJECTION 2 MG/ML VIAL IV PRN ×4 (00:10→23:00)
[2022-11-29] MEDS: NS IV 1000 ML 1,000 ML IV SCH ×3 (01:39→19:52)
[2022-11-29] MEDS: LEVOTHYROXINE 88 MCG TABLET PO SCH ×2 (06:21→06:22)
[2022-11-29 06:32] LABS: BASOPHILS % (AUTO) 0 % (0-10); EOSINOPHILS # (AUTO) 0.1 10^3/uL (0.0-0.3); EOSINOPHILS % (AUTO) 1 % (0-10); HEMATOCRIT 29 % (35-52); HEMOGLOBIN 9.2 g/dL (11.5-16.0); LYMPHOCYTES # (AUTO) 1.4 10^3/uL (1.0-4.0); LYMPHOCYTES % (AUTO) 13 % (12-44); MEAN CORPUSCULAR HEMOGLOBIN 29 pg (25-34); MEAN CORPUSCULAR HGB CONC 31 g/dL (32-36); MEAN CORPUSCULAR VOLUME 94 fL (80-99); MEAN PLATELET VOLUME 11.1 fL (9.0-12.2); MONOCYTES # (AUTO) 1.2 10^3/uL (0.0-1.0); MONOCYTES % (AUTO) 11 % (0-12); NEUTROPHILS # (AUTO) 8.2 10^3/uL (1.8-7.8); NEUTROPHILS % (AUTO) 74 % (42-75); PLATELET COUNT 138 10^3/uL (130-400); WHITE BLOOD COUNT 11.1 10^3/uL (4.3-11.0)
[2022-11-29 06:50] LABS: ALBUMIN 3.2 GM/DL (3.2-4.5); BILIRUBIN,TOTAL 1.2 MG/DL (0.1-1.0); CALCIUM 8.6 MG/DL (8.5-10.1); CREATININE SERUM 1.37 MG/DL (0.60-1.30); POTASSIUM 4.2 MMOL/L (3.6-5.0); TOTAL PROTEIN 6.3 GM/DL (6.4-8.2)
[2022-11-29] MEDS: inSUlin ASPART 1 UNIT/0.01 ML (PER UNIT) SC SCH ×4 (06:52→21:16)
--- NOTE | 2022-11-29 06:58 | Progress Note - Hospitalist ---
Subjective HPI/CC On Admission Date Seen by Provider: Nov 29, 2022 Time Seen by Provider: 10:00 Chief complaint: Left hip fracture HPI: This is an 82-year-old female of [facility] who presented to the ER following a fall and sustaining a left hip fracture. She has past medical history of diabetes diet controlled with oral meds and hypertension. At this current time patient is doing okay but pain is an issue. Dr. Valenzuela will perform repair tomorrow. In my medical opinion surgical benefits to repair the left hip fracture outweigh any medical risks. Subjective/Events-last exam Lethargic from anesthesia Family at bedside No pain reported Uncomplicated repair Updated family on ARU Objective Exam Vital Signs Vital Signs Date Time Temp Pulse Resp B/P (MAP) Pulse Ox O2 Delivery O2 Flow Rate FiO2 11/29/22 13:49 139 11/29/22 12:00 36.8 16 118/63 (81) 93 OxyMask 4.00 Capillary Refill : Less Than 3 Seconds General Appearance: Chronically ill, Other (sedated, sleepy) Respiratory: Lungs Clear, Normal Breath Sounds Cardiovascular: Regular Rate, Rhythm Results/Procedures Lab Laboratory Tests 11/29/22 06:16 Patient resulted labs reviewed. Assessment/Plan Assessment and Plan Assess & Plan/Chief Complaint Assessment: Left hip fracture Hypertension Hyperlipidemia Frail status Advanced age Right bundle branch block on EKG CKD Presumed iron def with B12 def supplementing both empirically Plan: Cardiology eval Echo Monitor labs Monitor labs and replace iron and B12 ARU tomorrow Clinical Quality Measures DVT/VTE Risk/Contraindication: Contraindications-Pharm: Other *list below* Other: surgery BEVERLEY HUNTER DO Nov 29, 2022 06:58
[2022-11-29] MEDS ORDERED: ceFAZolin 1,000 MG VIAL IV ONE (08:00)
[2022-11-29] MEDS ORDERED: ONDANSETRON INJECTION 4 MG/2 ML (SDV) ONE (08:02)
[2022-11-29] MEDS ORDERED: fentaNYL INJECTION 100 MCG/2 ML VIAL ONE (08:02)
[2022-11-29] MEDS ORDERED: MIDAZOLAM INJ 2 MG/2 ML VIAL ONE (08:02)
[2022-11-29] MEDS ORDERED: proPOfol INJECTION 200 MG/20 ML VIAL IV ONE (08:02)
[2022-11-29] MEDS ORDERED: LIDOCAINE PF 2% 5 ML VIAL ONE (08:02)
--- NOTE | 2022-11-29 08:14 | Consultation - Ortho ---
Consult - Ortho Subjective Date of Exam 11/29/22 Chief Complaint Left Hip Injury HPI/Events since last exam fall from standing height at home yesterday; seen in ER and diagnosed with left hip fracture, admitted by medical service, I was asked to care for the hip fracture Medical, Surgical History see admit Social History see admit Family History see admit Review of Systems - Allergies: Coded Allergies: No Known Drug Allergies (Unverified , 02/10/10) Home Meds Active Scripts Pantoprazole Sodium (Protonix) 40 Mg Tablet.dr, 40 MG PO BID, #60 TAB Prov:BEVERLEY HUNTER DO 02/09/21 Reported Medications Levothyroxine Sodium (Levothyroxine Sodium) 88 Mcg Tablet, 88 MCG PO DAILY, TAB 10/02/20 Atorvastatin Calcium (Atorvastatin Calcium) 80 Mg Tablet, 80 MG PO HS, TAB 09/11/16 Amlodipine Besylate (Amlodipine Besylate) 5 Mg Tablet, 5 MG PO DAILY, TAB 09/11/16 Objective Exam Left Hip: held in flexion, external rotation, +DF of ankle, distal pulses palpable, sensation intact to light touch Vital Signs Vital Signs Date Time Temp Pulse Resp B/P (MAP) Pulse Ox O2 Delivery O2 Flow Rate FiO2 11/29/22 07:39 79 11/29/22 07:15 36.7 81 16 137/74 (95) 94 Nasal Cannula 2.00 11/29/22 06:53 36.6 11/29/22 04:27 36.6 72 18 133/61 (85) 97 Nasal Cannula 2.00 11/29/22 03:25 36.0 11/29/22 01:00 68 11/29/22 00:10 36.0 75 18 128/58 (81) 96 Nasal Cannula 2.00 11/28/22 20:35 95 Room Air 11/28/22 20:11 36.2 67 18 113/55 (74) 95 Room Air 11/28/22 19:00 74 11/28/22 16:08 36.4 67 18 114/49 (70) 93 Room Air 11/28/22 15:44 64 11/28/22 12:42 95 Room Air 11/28/22 12:32 36.1 69 95 11/28/22 11:02 36.1 69 20 109/64 (79) 95 Room Air 11/28/22 10:23 68 16 108/51 95 Room Air 11/28/22 08:19 36.4 66 16 129/58 (81) 98 Room Air I & O 11/29/22 07:00 Intake Total 960 ml Output Total 375 ml Balance 585 ml Lab Results Laboratory Tests 11/28/22 08:25: White Blood Count 10.3, Red Blood Count 3.60L, Hemoglobin 10.7L, Hematocrit 34L, Mean Corpuscular Volume 95, Mean Corpuscular Hemoglobin 30, Mean Corpuscular Hemoglobin Concent 31L, Red Cell Distribution Width 13.1, Platelet Count 177, Mean Platelet Volume 11.5, Immature Granulocyte % (Auto) 1, Neutrophils (%) (Auto) 56, Lymphocytes (%) (Auto) 26, Monocytes (%) (Auto) 10, Eosinophils (%) (Auto) 6, Basophils (%) (Auto) 1, Neutrophils # (Auto) 5.7, Lymphocytes # (Auto) 2.7, Monocytes # (Auto) 1.0, Eosinophils # (Auto) 0.7H, Basophils # (Auto) 0.1, Immature Granulocyte # (Auto) 0.1, Sodium Level 140, Potassium Level 4.0, Chloride Level 110H, Carbon Dioxide Level 21, Anion Gap 9, Blood Urea Nitrogen 40H, Creatinine 1.43H, Estimat Glomerular Filtration Rate 37, BUN/Creatinine Ratio 28, Glucose Level 128H, Calcium Level 8.7, Corrected Calcium 9.1, Total Bilirubin 0.8, Aspartate Amino Transf (AST/SGOT) 29, Alanine Aminotransferase (ALT/SGPT) 25, Alkaline Phosphatase 73, Total Protein 6.7, Albumin 3.5 11/28/22 09:17: Urine Color YELLOW, Urine Clarity CLEAR, Urine pH 5.5, Urine Specific [place] 1.020, Urine Protein TRACEH, Urine Glucose (UA) NEGATIVE, Urine Ketones NEGATIVE, Urine Nitrite NEGATIVE, Urine Bilirubin NEGATIVE, Urine Urobilinogen 0.2, Urine Leukocyte Esterase NEGATIVE, Urine RBC (Auto) TRACEH, Urine RBC NONE, Urine WBC NONE, Urine Squamous Epithelial Cells 2-5, Urine Crystals NONE, Urine Bacteria TRACE, Urine Casts PRESENT, Urine Granular Casts 2-5H, Urine Mucus NEGATIVE, Urine Culture Indicated NO 11/28/22 11:10: Glucometer 103 11/28/22 15:45: Glucometer 132H 11/28/22 19:20: Glucometer 167H 11/29/22 06:16: White Blood Count 11.1H, Red Blood Count 3.14L, Hemoglobin 9.2L, Hematocrit 29L, Mean Corpuscular Volume 94, Mean Corpuscular Hemoglobin 29, Mean Corpuscular Hemoglobin Concent 31L, Red Cell Distribution Width 13.2, Platelet Count 138, Mean Platelet Volume 11.1, Immature Granulocyte % (Auto) 1, Neutrophils (%) (Auto) 74, Lymphocytes (%) (Auto) 13, Monocytes (%) (Auto) 11, Eosinophils (%) (Auto) 1, Basophils (%) (Auto) 0, Neutrophils # (Auto) 8.2H, Lymphocytes # (Auto) 1.4, Monocytes # (Auto) 1.2H, Eosinophils # (Auto) 0.1, Basophils # (Auto) 0.0, Immature Granulocyte # (Auto) 0.1, Sodium Level 138, Potassium Level 4.2, Chloride Level 106, Carbon Dioxide Level 23, Anion Gap 9, Blood Urea Nitrogen 36H, Creatinine 1.37H, Estimat Glomerular Filtration Rate 39, BUN/Creatinine Ratio 26, Glucose Level 118H, Calcium Level 8.6, Corrected Calcium 9.2, Total Bilirubin 1.2H, Aspartate Amino Transf (AST/SGOT) 24, Alanine Aminotransferase (ALT/SGPT) 22, Alkaline Phosphatase 74, Total Protein 6.3L, Albumin 3.2 Imaging 2 views of the left hip demonstrated a comminuted, displaced left intertrochanteric femur fracture Assessment and Plan Assessment Left Intertrochanteric Femur Fracture Problem List Left Intertrochanteric Femur Fracture Plan I have recommended intramedullary stabilization of the left intertrochanteric femur fracture. Nature of the procedure and the postoperative course were discussed with her and her family. Questions were answered; consent was obtained. Will proceed this AM. Final Diagonsis Left Intertrochanteric Femur Fracture Level of the visit: Level 3 (preop) RUBÉN RICHARDSON MD Nov 29, 2022 08:14
[2022-11-29] MEDS ORDERED: LACTATED RINGERS 1,000 ML 1,000 ML IV PRN (08:45)
[2022-11-29] MEDS ORDERED: BUPIVACAINE 0.5% 10 ML VIAL ONE (09:16)
--- NOTE | 2022-11-29 09:19 | Physical Therapy Progress Note ---
Therapy Progress Note Orders received for PT evaluation, pt in surgery at this time, will follow up later to initiate PT treatment. JENNIFER PRATHER PT Nov 29, 2022 09:19
--- NOTE | 2022-11-29 09:22 | Operative Report - Ortho ---
Operative Report Surgeon (s)/Tapeman (s) Surgeon RUBÉN RICHARDSON MD Tapeman n/a Pre-Operative Diagnosis Left Intertrochanteric Femur Fracture Post-Operative Diagnosis same Operative Report Date of Procedure: Nov 29, 2022 Name of Procedure Performed: Intramedullary Nailing of Left Intertrochanteric Femur Fracture Description & Findings After obtaining informed consent and marking the patient in the preoperative holding area, the patient was administered IV antibiotics and taken to the operating room. Anesthesia was induced. Patient was transferred to the fracture table. Surgical timeout was taken. The left lower extremity was placed in the traction spar and the right leg was placed in the well leg martins. The left lower extremity was prepped and draped in the usual sterile fashion. Incision was made just proximal to the greater trochanter. Blunt dissection was performed down to the tip of the trochanter. A guide wire was placed through a trochanteric entry point. Position of the wire was confirmed using C-arm. An entry reamer was then placed over the guidewire and reamed to the level of the lesser trochanter. A trochanteric gamma nail with a 125 degree angle was selected and assembled on the back table. Nail was inserted through the trochanteric entry point and seated by hand. Position of the nail was confirmed using C-arm. A guide wire was placed for the cephalomedullary screw. Version of the wire was obtained on the lateral. Measurement was taken and the reamer was set to 85 mm. Reamer was used over the guidewire and then the cephalomedullary screw was placed. Position of the cephalomedullary screw was confirmed on C-arm. Set screw was then tightened onto the cephalomedullary screw and then backed off 1/4 turn. Attention was then turned to the distal screw and using the provided guides, a 32.5 mm screw was placed through the static portion of the distal slot. Final C arm images were obtained, demonstrated appropriate placement of hardware with adequate reduction, and were transferred to PACS. Incision sites were irrigated with normal saline. Closed subcutaneously with 2- 0 vicryl and skin was closed with christopher. Dressed with xeroform, 4x4s, ABD, and tape. Patient tolerated the procedure well and was stable to the recovery room. Anesthesia Type General Estimated Blood Loss 100 mL Specimen(s) collected/removed None RUBÉN RICHARDSON MD Nov 29, 2022 09:22
[2022-11-29] MEDS ORDERED: SEVOFLURANE (ULTANE) 15 ML INHAL SOLN ONE (09:27)
[2022-11-29] MEDS ORDERED: morphine INJ 10 MG/ML 1ML (SYR OR VIAL) IVP ONE (09:45)
[2022-11-29] MEDS ORDERED: ONDANSETRON INJECTION 4 MG/2 ML (SDV) IVP PRN (09:45)
--- NOTE | 2022-11-29 10:46 | Diagnostic Imaging Report ---
INDICATION: Fluoroscopy for left hip ORIF. FINDINGS: Fluoroscopy was provided in the OR during left hip ORIF. 55 seconds of fluoroscopic time was utilized. Six images were obtained demonstrating an intramedullary jodie and compression screw transfixing the left proximal femur fracture. Alignment is anatomic. Cumulative dose was 926 mGy. IMPRESSION: Fluoroscopy for left hip ORIF. Dictated by: Dictated on workstation # [id number]
--- NOTE | 2022-11-29 11:11 | Physical Therapy Progress Note ---
Therapy Progress Note Pt returned to room following (L) hip repair. Pt very lethargic and hard to arouse. RN and family present at bedside, per RN hold therapy this date, as she will get her up to chair. Will initiate PT evaluation tomorrow AM JENNIFER PRATHER PT Nov 29, 2022 11:11
[2022-11-29] MEDS: SENNOSIDES 8.6 MG TABLET PO SCH ×3 (11:47→19:48)
[2022-11-29] MEDS: amLODIPine 5 MG TABLET PO SCH ×2 (11:47→13:13)
[2022-11-29] MEDS: DOCUSATE SODIUM 100 MG CAPSULE PO SCH ×3 (11:47→19:48)
[2022-11-29] MEDS: oxyCODONE IMMEDIATE RELEASE 5 MG TABLET PO PRN ×2 (13:41→19:50)
[2022-11-29] MEDS ORDERED: CYANOCOBALAMIN 1000 MCG/ML 1 ML VIAL IM ONE (15:45)
[2022-11-29] MEDS: IRON SUCROSE 200 MG/10 ML VIAL IV SCH (17:12)
[2022-11-29] MEDS: MELATONIN 3 MG TABLET PO PRN (19:50)
[2022-11-29] MEDS: ONDANSETRON INJECTION 4 MG/2 ML (SDV) IV PRN (20:06)
[2022-11-29] MEDS: ALPRAZolam 0.25 MG TABLET PO PRN (23:00)
[2022-11-30] VITALS (10 sets, daily range): BP systolic 92–131; BP diastolic 48–65
[2022-11-30] MEDS: inSUlin ASPART 1 UNIT/0.01 ML (PER UNIT) SC SCH ×4 (05:24→22:25)
[2022-11-30] MEDS: LEVOTHYROXINE 88 MCG TABLET PO SCH (05:25)
[2022-11-30] MEDS: CYANOCOBALAMIN 1,000 MCG TABLET PO SCH (05:25)
[2022-11-30] MEDS: oxyCODONE IMMEDIATE RELEASE 5 MG TABLET PO PRN ×3 (05:25→19:39)
[2022-11-30 06:16] LABS: BASOPHILS % (AUTO) 0 % (0-10); HEMOGLOBIN 7.4 g/dL (11.5-16.0); MONOCYTES % (AUTO) 11 % (0-12)
[2022-11-30 06:18] LABS: EOSINOPHILS # (AUTO) 0.2 10^3/uL (0.0-0.3); EOSINOPHILS % (AUTO) 2 % (0-10); HEMATOCRIT 24 % (35-52); LYMPHOCYTES # (AUTO) 1.3 10^3/uL (1.0-4.0); LYMPHOCYTES % (AUTO) 9 % (12-44); MEAN CORPUSCULAR HEMOGLOBIN 30 pg (25-34); MEAN CORPUSCULAR HGB CONC 31 g/dL (32-36); MEAN CORPUSCULAR VOLUME 96 fL (80-99); MEAN PLATELET VOLUME 11.9 fL (9.0-12.2); MONOCYTES # (AUTO) 1.6 10^3/uL (0.0-1.0); NEUTROPHILS # (AUTO) 10.8 10^3/uL (1.8-7.8); NEUTROPHILS % (AUTO) 77 % (42-75); PLATELET COUNT 100 10^3/uL (130-400); WHITE BLOOD COUNT 14.1 10^3/uL (4.3-11.0)
[2022-11-30 06:35] LABS: NEUTROPHILS % (MANUAL) 86 %
[2022-11-30 06:36] LABS: ACANTHOCYTES SLIGHT; EOSINOPHILS % (MANUAL) 2 %; LYMPHOCYTES % (MANUAL) 4 %; MONOCYTES % (MANUAL) 8 %
[2022-11-30 06:47] LABS: ALBUMIN 2.7 GM/DL (3.2-4.5); BILIRUBIN,TOTAL 1.1 MG/DL (0.1-1.0); CALCIUM 8.2 MG/DL (8.5-10.1); CREATININE SERUM 1.41 MG/DL (0.60-1.30); POTASSIUM 4.1 MMOL/L (3.6-5.0); TOTAL PROTEIN 5.2 GM/DL (6.4-8.2)
--- NOTE | 2022-11-30 07:02 | Anesthesia-General Post-Op ---
General Patient Condition Mental Status/LOC: Same as Preop Cardiovascular: Satisfactory Nausea/Vomiting: Absent Respiratory: Satisfactory Pain: Controlled Complications: Absent Post Op Complications Complications None Follow Up Care/Instructions Patient Instructions None needed. Anesthesia/Patient Condition Patient Condition Patient is doing well, no complaints, stable vital signs, no apparent adverse anesthesia problems. No complications reported per nursing. D/C home per [facility] Criteria: Yes TENISHA CISSE CRNA Nov 30, 2022 07:02
--- NOTE | 2022-11-30 08:27 | Progress Note - Ortho ---
Progress Note Subjective Date of Exam 11/30/22 Chief Complaint POD #1 IM Nailing of L IT Femur Fx HPI/Events since last exam having some difficulty with pain around fracture/surgical site Review of Systems - Allergies: Coded Allergies: No Known Drug Allergies (Unverified , 02/10/10) Home Meds Active Scripts Pantoprazole Sodium (Protonix) 40 Mg Tablet., 40 MG PO BID, #60 TAB Prov:BEVERLEY HUNTER DO 02/09/21 Reported Medications Levothyroxine Sodium (Levothyroxine Sodium) 88 Mcg Tablet, 88 MCG PO DAILY, TAB 10/02/20 Atorvastatin Calcium (Atorvastatin Calcium) 80 Mg Tablet, 80 MG PO HS, TAB 09/11/16 Amlodipine Besylate (Amlodipine Besylate) 5 Mg Tablet, 5 MG PO DAILY, TAB 09/11/16 Objective Exam L Hip: Dressing C/D/I, +DF of ankle, no s/s of DVT Vital Signs Vital Signs Date Time Temp Pulse Resp B/P (MAP) Pulse Ox O2 Delivery O2 Flow Rate FiO2 11/30/22 07:52 36.6 80 16 105/65 (78) 93 Nasal Cannula 2.00 11/30/22 07:01 70 11/30/22 03:47 36.3 74 18 113/55 (74) 94 Nasal Cannula 2.00 2.00 11/30/22 01:00 78 11/30/22 00:29 36.7 77 18 92/52 (65) 93 Room Air 2.00 2.00 11/29/22 19:45 Room Air 11/29/22 19:30 36.7 79 18 113/64 (80) 93 Nasal Cannula 2.00 11/29/22 19:14 Room Air 0.00 21 11/29/22 19:00 89 11/29/22 16:00 36.9 72 18 111/52 (71) 96 Nasal Cannula 4.00 11/29/22 13:49 139 11/29/22 12:35 71 11/29/22 12:00 36.8 72 16 118/63 (81) 93 OxyMask 4.00 11/29/22 11:02 37.2 81 16 126/55 (78) 92 Nasal Cannula 4.00 11/29/22 10:40 Nasal Cannula 4.00 11/29/22 10:30 36.8 17 106/69 (81) 92 Nasal Cannula 4.00 11/29/22 10:20 16 110/50 (70) 92 Nasal Cannula 4.00 11/29/22 10:20 Nasal Cannula 4.00 11/29/22 10:10 18 127/55 (79) 92 OxyMask 4.00 11/29/22 10:05 OxyMask 4.00 11/29/22 10:00 16 115/56 (75) 97 OxyMask 6.00 11/29/22 09:50 OxyMask 6.00 11/29/22 09:50 14 101/66 (78) 95 OxyMask 6.00 11/29/22 09:45 16 103/57 (72) 98 OxyMask 8.00 11/29/22 09:35 36.1 16 117/53 (74) 98 OxyMask 10.00 11/29/22 09:35 OxyMask 10.00 I & O 11/30/22 07:00 Intake Total 2635 ml Output Total 1660 ml Balance 975 ml Lab Results Laboratory Tests 11/29/22 11:59: Glucometer 106 11/29/22 15:22: Glucometer 113H 11/29/22 21:12: Glucometer 120H 11/30/22 05:15: Glucometer 98 11/30/22 05:58: White Blood Count 14.1H, Red Blood Count 2.47L, Hemoglobin 7.4L, Hematocrit 24L, Mean Corpuscular Volume 96, Mean Corpuscular Hemoglobin 30, Mean Corpuscular Hemoglobin Concent 31L, Red Cell Distribution Width 13.1, Platelet Count 100L, Mean Platelet Volume 11.9, Immature Granulocyte % (Auto) 1, Neutrophils (%) (Auto) 77H, Lymphocytes (%) (Auto) 9L, Monocytes (%) (Auto) 11, Eosinophils (%) (Auto) 2, Basophils (%) (Auto) 0, Neutrophils # (Auto) 10.8H, Lymphocytes # (Auto) 1.3, Monocytes # (Auto) 1.6H, Eosinophils # (Auto) 0.2, Basophils # (Auto) 0.0, Immature Granulocyte # (Auto) 0.1, Neutrophils % (Manual) 86, Lymphocytes % (Manual) 4, Monocytes % (Manual) 8, Eosinophils % (Manual) 2, Percent Immature Platelet Fraction 5.7, Acanthocytes SLIGHT, Sodium Level 137, Potassium Level 4.1, Chloride Level 109H, Carbon Dioxide Level 21, Anion Gap 7, Blood Urea Nitrogen 31H, Creatinine 1.41H, Estimat Glomerular Filtration Rate 38, BUN/Creatinine Ratio 22, Glucose Level 98, Calcium Level 8.2L, Corrected Calcium 9.2, Total Bilirubin 1.1H, Aspartate Amino Transf (AST/SGOT) 23, Alanine Aminotransferase (ALT/SGPT) 12, Alkaline Phosphatase 56, Total Protein 5.2L, Albumin 2.7L Microbiology 11/28/22 MRSA Screen - Final, Complete MRSA not isolated Assessment and Plan Assessment L IT Femur Fx s/p IM Nailing Problem List L IT Femur Fx s/p IM Nailing Plan PT/OT DVT Prophylaxis Possible rehab candidate vs extended care Final Diagonsis L IT Femur Fx s/p IM Nailing Level of the visit: Level 3 (postop global) Clinical Quality Measures DVT/VTE Risk/Contraindication: Contraindications-Pharm: Other *list below* Other: surgery RUBÉN RICHARDSON MD Nov 30, 2022 08:27
--- NOTE | 2022-11-30 08:58 | Progress Note - Hospitalist ---
Subjective HPI/CC On Admission Date Seen by Provider: Nov 30, 2022 Time Seen by Provider: 11:00 Chief complaint: Left hip fracture HPI: This is an 82-year-old female of [facility] who presented to the ER following a fall and sustaining a left hip fracture. She has past medical history of diabetes diet controlled with oral meds and hypertension. At this current time patient is doing okay but pain is an issue. Dr. Valenzuela will perform repair tomorrow. In my medical opinion surgical benefits to repair the left hip fracture outweigh any medical risks. Subjective/Events-last exam Patient is very slow to recover No falls Pain controlled No nausea ARU tomorrow Review of Systems General: Fatigue, Malaise Objective Exam Vital Signs Vital Signs Date Time Temp Pulse Resp B/P (MAP) Pulse Ox O2 Delivery O2 Flow Rate FiO2 11/30/22 20:26 36.6 88 14 131/60 (83) 84 Nasal Cannula 2.00 11/29/22 19:14 21 Capillary Refill : Less Than 3 Seconds General Appearance: No Apparent Distress, WD/WN, Chronically ill Respiratory: Lungs Clear, Normal Breath Sounds Cardiovascular: Regular Rate, Rhythm Neurologic/Psychiatric: Alert, Oriented x3, Depressed Affect, Disoriented Results/Procedures Lab Laboratory Tests 11/30/22 05:58 Patient resulted labs reviewed. Assessment/Plan Assessment and Plan Assess & Plan/Chief Complaint Assessment: Left hip fracture Hypertension Hyperlipidemia Frail status Advanced age Right bundle branch block on EKG CKD Presumed iron def with B12 def supplementing both empirically Plan: Cardiology eval Echo Monitor labs Monitor labs and replace iron and B12 ARU tomorrow Clinical Quality Measures DVT/VTE Risk/Contraindication: Contraindications-Pharm: Other *list below* Other: surgery BEVERLEY HUNTER DO Nov 30, 2022 08:57
[2022-11-30] MEDS: APIXABAN 2.5 MG TABLET PO SCH ×2 (09:00→19:39)
[2022-11-30] MEDS: DOCUSATE SODIUM 100 MG CAPSULE PO SCH ×2 (09:00→19:39)
[2022-11-30] MEDS: SENNOSIDES 8.6 MG TABLET PO SCH ×2 (09:00→19:39)
[2022-11-30] MEDS ORDERED: NS IV 500 ML 500 ML IV SCH ×2 (09:00)
[2022-11-30] MEDS: amLODIPine 5 MG TABLET PO SCH (09:00)
--- NOTE | 2022-11-30 09:51 | Physical Therapy Evaluation ---
PT Evaluation-General Medical Diagnosis Admission Date Nov 28, 2022 at 10:21 Medical Diagnosis: left hip fracture Onset Date: Nov 28, 2022 Therapy Diagnosis Therapy Diagnosis: generalized weakness/debility Height/Weight Height (Feet): 5 Height (Inches): 2.00 Weight (Pounds): 122 Precautions Precautions/Isolations: Fall Prevention, Standard Precautions Weight Bear Status Right Lower Extremity: Right Full Weight Bearing Left Lower Extremity: Left Weight Bearing/Tolerated Referral Physician: Nicolas Reason for Referral: Evaluation/Treatment Medical History Pertinent Medical History: CAD, HTN, ID Current History EMS after tripping on carpet and falling. Reviewed History: Yes Social History Home: Single Level Current Living Status: Spouse Entry Into Home: Stairs With Railing PT Steps Into Home: 2 Prior Prior Level of Function SCALE: Activities may be completed with or without assistive devices. 6-Vgsepsoovb-cazrawh completes the activity by him/herself with no assistance from a helper. 5-Set-up or Clean-up Assistance-helper sets up or cleans up; patient completes activity. [place] assists only prior to or following the activity. 4-Supervision or Touching Assistance-helper provides verbal cues and/or touching /steadying and/or contact guard assistance as patient completes activity. Assistance may be provided throughout the activity or intermittently. 3-Partial/Moderate Assistance-helper does LESS THAN HALF the effort. [place] lifts, holds or supports trunk or limbs, but provides less than half the effort. 2-Substantial/Maximal Assistance-helper does MORE THAN HALF the effort. [place] lifts or holds trunk or limbs and provides more than half the effort. 8-Usguaahtq-zcriin does ALL the effort. Patient does none of the effort to complete the activity. Or, the assistance of 2 or more helpers is required for the patient to complete the activity. If activity was not attempted, code reason: 7-Patient Refused. 9-Not Applicable-not attempted and the patient did not perform the activity before the current illness, exacerbation or injury. 10-Not Attempted due to Environmental Limitations-(lack of equipment, weather restraints, etc.). 88-Not Attempted due to Medical Conditions or Safety Concerns. Bed Mobility: 6 Transfers (B,C,W/C): 6 Gait: 6 Stairs: 6 Indoor Mobility (Ambulation): Independent Stairs: Independent Prior Devices Use: None per spouse and patient report PT Evaluation-Current Subjective Patient agrees to PT. Spouse present and answers all questions not allowing patient to respond. Objective Patient Orientation: Normal For Age Attachments: Oxygen, Jackson Catheter, IV ROM/Strength ROM Lower Extremities left LE limited due to pain/right LE WFL Strength Lower Extremities right LE 3/5 grossly/left LE 3-/5 grossly Integumentary/Posture Bladder Incontinence: Jackson Cath Posture slight trunk flexed posture Neuromuscular (Tone, Coordination, Reflexes) diminished coordination due to weakness Sensory Vision: Functional Hearing: Functional Transfers Lying to Sitting/Side of Bed(Q: 2 Sit to Stand (QC): 2 Chair/Loz-cs-Zguoc Xfer(QC): 2 Gait Mode of Locomotion: Walk Anticipated Mode of Locomotion: Walk Distance: 5 shuffle steps Gait Assistive Device: FWW Comments/Gait Description unable to clear right or left foot due to not weight shifting to perform Balance Sitting Static: Fair Sitting Dynamic: Fair Standing Static: Poor Standing Dynamic: Poor Assessment/Needs Patient will benefit from skilled PT to address functional strength and mobility to improve current LOF to safely return to home with spouse at maximum LOF. Rehab Potential: Fair PT Financial Services Technician Goals Financial Services Technician Goals PT Fpc Goals Time Frame: Dec 18, 2022 Roll Left & Right (QC): 4 Sit to Lying (QC): 4 Lying-Sitting on Side/Bed(QC): 4 Sit to Stand (QC): 4 Chair/Tzs-au-Pptwz Xfer(QC): 4 Toilet Transfer (QC): 4 Walk 10 feet (QC): 4 Walk 50ft with 2 Turns (QC): 4 Walk 150 ft (QC): 4 PT Plan Problem List Problem List: Activity Tolerance, Functional Strength, Safety, Balance, Gait, Transfer, Bed Mobility Treatment/Plan Treatment Plan: Continue Plan of Care Treatment Plan: Bed Mobility, Education, Functional Activity Kacey, Functional Strength, Gait, Safety, Therapeutic Exercise, Transfers Treatment Duration: Dec 18, 2022 Frequency: 11 times per week Estimated Hrs Per Day: .5 hour per day Patient and/or Family Agrees t: Yes Time Time In: 902 Time Out: 912 DATE: Nov 30, 2022 Total Billed Treatment Time: 10 Total Billed Treatment 1 visit EVModC 10 min SATISH CAGLE PT Nov 30, 2022 09:51
--- NOTE | 2022-11-30 11:34 | Occ Therapy Progress Note ---
Therapy Progress Note Pt is sitting in bedside recliner upon entering room with RN at bedside. Pt getting blood at this time and RN requested therapist return at a later time to perform evaluation. OT will return at a later time if time permits. CHEL ROCHE Nov 30, 2022 11:34
--- NOTE | 2022-11-30 13:40 | Physical Therapy Daily Note ---
PT Daily Note-Current Subjective Patient requests to return to bed. Pain Section J - Health Conditions 1. Rarely or not at all 2. Occasionally 3. Frequently 4. Almost constantly 8. Unable to answer Pain Effect on Sleep: 8 Pain Interference with Therapy: 8 Pain Interference w/Day-to-Day: 8 Transfers SCALE: Activities may be completed with or without assistive devices. 0-Qbbieikjvs-oilxker completes the activity by him/herself with no assistance from a helper. 5-Set-up or Clean-up Assistance-helper sets up or cleans up; patient completes activity. [place] assists only prior to or following the activity. 4-Supervision or Touching Assistance-helper provides verbal cues and/or touching/steadying and/or contact guard assistance as patient completes activity. Assistance may be provided throughout the activity or intermittently. 3-Partial/Moderate Assistance-helper does LESS THAN HALF the effort. [place] lifts, holds or supports trunk or limbs, but provides less than half the effort. 2-Substantial/Maximal Assistance-helper does MORE THAN HALF the effort. [place] lifts or holds trunk or limbs and provides more than half the effort. 3-Ugwlftwyo-ejynax does ALL the effort. Patient does none of the effort to complete the activity. Or, the assistance of 2 or more helpers is required for the patient to complete the activity. If activity was not attempted, code reason: 7-Patient Refused. 9-Not Applicable-not attempted and the patient did not perform the activity before the current illness, exacerbation or injury. 10-Not Attempted due to Environmental Limitations-(lack of equipment, weather restraints, etc.). 88-Not Attempted due to Medical Conditions or Safety Concerns. Lying to Sitting/Side of Bed(Q: 3 Sit to Stand (QC): 3 Chair/Bgm-es-Zxstr Xfer(QC): 3 Weight Bearing Right Lower Extremity: Right Full Weight Bearing Left Lower Extremity: Left Weight Bearing/Tolerated Gait Training Distance: 5 steps/shuffle Gait Assistive Device: FWW trunk flexed posture/no foot clearance with mobility Exercises Supine Ex: Ankle pumps, Heel Slides Supine Reps: 12 (AAROM) Assessment Patient tolerates minimal activity and returned to bed with mod assist. Patient does assist with mobility, however, due to weakness, has difficulty with advancing LE's and weight shifting. Increase activity as tolerated by patient. PT Template Cutter Goals Template Cutter Goals PT Intermediate Goals Time Frame: Dec 18, 2022 Roll Left & Right (QC): 4 Sit to Lying (QC): 4 Lying-Sitting on Side/Bed(QC): 4 Sit to Stand (QC): 4 Chair/Kzy-jg-Yudcv Xfer(QC): 4 Toilet Transfer (QC): 4 Walk 10 feet (QC): 4 Walk 50ft with 2 Turns (QC): 4 Walk 150 ft (QC): 4 PT Plan Treatment/Plan Treatment Plan: Continue Plan of Care Treatment Plan: Bed Mobility, Education, Functional Activity Kacey, Functional Strength, Gait, Safety, Therapeutic Exercise, Transfers Treatment Duration: Dec 18, 2022 Frequency: 11 times per week Estimated Hrs Per Day: .5 hour per day Patient and/or Family Agrees t: Yes Time Time In: 1323 Time Out: 1333 DATE: Nov 30, 2022 Total Billed Treatment Time: 10 Total Billed Treatment 1 visit FA 10 min SATISH CAGLE PT Nov 30, 2022 13:40
[2022-11-30] MEDS: NS IV 1000 ML 1,000 ML IV SCH (13:54)
--- NOTE | 2022-11-30 14:45 | Occupational Therapy Eval ---
OT Evaluation-General/PLF Medical Diagnosis Admission Date Nov 28, 2022 at 10:21 Medical Diagnosis: left hip fracture Onset Date: Nov 28, 2022 Therapy Diagnosis Therapy Diagnosis: L hip fracture Height/Weight Height (Feet): 5 Height (Inches): 2.00 Weight (Pounds): 122 Precautions Precautions/Isolations: Fall Prevention, Standard Precautions Weight Bear Status Weight Bearing Restriction: Weight Bearing/Tolerated Location Restriction: L LE Referral Physician: Nicolas Referral Reason: Activity Tolerance, Self Care, Evaluation/Treatment, Strengthening/ROM Medical History Pertinent Medical History: CAD, HTN, MO Reviewed History: Yes Social History Home: Single Level Current Living Status: Spouse Entry Into Home: Stairs With Railing Steps Into Home: 2 ADL-Prior Level of Function SCALE: Activities may be completed with or without assistive devices. 8-Tdcybrecrx-gqkdomg completes the activity by him/herself with no assistance from a helper. 5-Set-up or Clean-up Assistance-helper sets up or cleans up; patient completes activity. [place] assists only prior to or following the activity. 4-Supervision or Touching Assistance-helper provides verbal cues and/or touching/steadying and/or contact guard assistance as patient completes activity. Assistance may be provided throughout the activity or intermittently. 3-Partial/Moderate Assistance-helper does LESS THAN HALF the effort. [place] lifts, holds or supports trunk or limbs, but provides less than half the effort. 2-Substantial/Maximal Assistance-helper does MORE THAN HALF the effort. [place] lifts or holds trunk or limbs and provides more than half the effort. 2-Ejjuqvist-rzoxsn does ALL the effort. Patient does none of the effort to complete the activity. Or, the assistance of 2 or more helpers is required for the patient to complete the activity. If activity was not attempted, code reason: 7-Patient Refused. 9-Not Applicable-not attempted and the patient did not perform the activity before the current illness, exacerbation or injury. 10-Not Attempted due to Environmental Limitations-(lack of equipment, weather restraints, etc.). 88-Not Attempted due to Medical Conditions or Safety Concerns. Self Care: Independent DME/Equipment Comments Pt reports no DME in PLOF nor does she own any Occupation: Retired [address] Self: Yes Leisure Interests: Loves working in the garden OT Current Status Subjective Pt consented to OT session this PM Pain Numeric Pain Scale: 0-No Pain Location: No Pain Reported Comment: Facial grimaces noted when performing bed mobility but did not report pain Mental Status/Objective Patient Orientation: Normal For Age Flat affect noted during conversation Attachments: Jackson Catheter, IV Current Glasses/Contacts: Yes (reading glasses) Hearing Aids: No Dentures/Partials: No Hand Dominance: Right Upper Extremity ROM BUE AROM WFL Upper Extremity Coordination WFL based on observation with pt opening bottle Upper Extremity Sensation Pt reports no numbness/tingling in BUE's Upper Extremity Strength 4/5 grossly BUE's ADL-Treatment Eating (QC): 4 (SBA for feeding with pt requiring some verbal cues) Oral Hygiene (QC): 4 (Pt declined oral care; based on clinical observation with pt needing some verbal cues) Shower/Bathe Self (QC): 88 Upper Body Dressing (QC): 3 (Mod A for UBD seated on EOB with pt requiring tactile and verbal cues for steadiness) Lower Body Dressing (QC): 1 (Dependent for LBD) On/Off Footwear (QC): 2 (Max (A) to thomas/doff R sock seated at EOB performing figure 4 position; unable to thomas/doff L sock seated at EOB.) Toileting Hygiene (QC): 1 (Total A for toileting) Education OT Patient Education: Energy conservation, Modified ADL techniques, Progress toward Goal/Update tx plan, Purpose of tx/functional activities, Reviewed precautions, Rehab process, Safety issues, Transfer techniques Teaching Recipient: Patient Teaching Methods: Demonstration, Discussion Response to Teaching: Verbalize Understanding, Return Demonstration, Reinforcement Needed OT Retirement Goals Plumbing Designer Goals Upper Body Dressing (QC): 5 Lower Body Dressing (QC): 3 On/Off Footwear (QC): 3 1=Demonstrate adherence to instructed precautions during ADL tasks. 2=Patient will verbalize/demonstrate understanding of assistive devices/modifications for ADL. 3=Patient will improve strength/tolerance for activity to enable patient to perform ADL's. OT Education/Plan Problem List/Assessment Assessment: Decreased Activ Tolerance, Decreased UE Strength, Dependent Transfers, Impaired Bed Mobility, Impaired Funct Balance, Impaired I ADL's, Impaired Self-Care Skills Discharge Recommendations Plan/Recommendations: Continue POC Therapy Discharge Recommendati: Post Acute OT Equpiment Recommendations-D/C: Hip Kit Comment Will continue to assess pending pt's progress in acute care setting Patient/Family Goals Return to PLOF per pt reporting Treatment Plan/Plan of Care Treatment,Training & Education: Yes Patient would benefit from OT for education, treatment and training to promote independence in ADL's, mobility, safety and/or upper extremity function for ADL's. Plan of Care: ADL Retraining, Caregiver Training, Functional Mobility, UE Funct Exercise/Act Treatment Duration: Dec 04, 2022 Frequency: 3 times per week (3-5x/wk) Estimated Hrs Per Day: .25 hour per day Agreement: Yes Rehab Potential: Fair Ending session, pt remained semi-reclined in bed with needs/call light in reach. Time Start Time: 13:48 Stop Time: 14:13 DATE: Nov 30, 2022 Total Time Billed (hr/min): 25 Billed Treatment Time 25 minutes CHEL BARBA Nov 30, 2022 14:45
[2022-11-30] MEDS: ALPRAZolam 0.25 MG TABLET PO PRN ×2 (19:39→23:23)
[2022-11-30] MEDS: HYDROmorphone INJECTION 2 MG/ML VIAL IV PRN (23:24)
[2022-12-01] MEDS: NS IV 1000 ML 1,000 ML IV SCH (04:04)
[2022-12-01 04:48] VITALS: BP 113/56
[2022-12-01] MEDS: inSUlin ASPART 1 UNIT/0.01 ML (PER UNIT) SC SCH (04:57)
[2022-12-01] MEDS: LEVOTHYROXINE 88 MCG TABLET PO SCH (05:02)
[2022-12-01] MEDS: CYANOCOBALAMIN 1,000 MCG TABLET PO SCH (05:02)
[2022-12-01 05:38] LABS: BASOPHILS # (AUTO) 0.1 10^3/uL (0.0-0.1); BASOPHILS % (AUTO) 0 % (0-10); EOSINOPHILS # (AUTO) 0.5 10^3/uL (0.0-0.3); EOSINOPHILS % (AUTO) 4 % (0-10); HEMATOCRIT 26 % (35-52); HEMOGLOBIN 8.5 g/dL (11.5-16.0); MEAN CORPUSCULAR HEMOGLOBIN 30 pg (25-34); MEAN CORPUSCULAR HGB CONC 32 g/dL (32-36); MEAN CORPUSCULAR VOLUME 92 fL (80-99); MONOCYTES % (AUTO) 13 % (0-12)
[2022-12-01 05:40] LABS: LYMPHOCYTES % (AUTO) 16 % (12-44); MEAN PLATELET VOLUME 11.7 fL (9.0-12.2); MONOCYTES # (AUTO) 1.7 10^3/uL (0.0-1.0); NEUTROPHILS # (AUTO) 8.2 10^3/uL (1.8-7.8); NEUTROPHILS % (AUTO) 66 % (42-75); PLATELET COUNT 100 10^3/uL (130-400); WHITE BLOOD COUNT 12.6 10^3/uL (4.3-11.0)
[2022-12-01 05:58] LABS: ALBUMIN 2.6 GM/DL (3.2-4.5); BILIRUBIN,TOTAL 1.6 MG/DL (0.1-1.0); CALCIUM 8.2 MG/DL (8.5-10.1); CREATININE SERUM 1.24 MG/DL (0.60-1.30); POTASSIUM 3.9 MMOL/L (3.6-5.0); TOTAL PROTEIN 5.2 GM/DL (6.4-8.2)
[2022-12-01 07:27] VITALS: BP 123/65
--- NOTE | 2022-12-01 08:42 | Progress Note - Ortho ---
Progress Note Subjective Date of Exam 12/01/22 Chief Complaint POD #2 s/p IM nailing of L IT Femur Fx HPI/Events since last exam up with therapy yesterday, potentially going to rehab today, some ongoing soreness Review of Systems - Allergies: Coded Allergies: No Known Drug Allergies (Unverified , 02/10/10) Home Meds Reported Medications Levothyroxine Sodium (Levothyroxine Sodium) 88 Mcg Tablet, 88 MCG PO DAILY, TAB 10/02/20 Atorvastatin Calcium (Atorvastatin Calcium) 80 Mg Tablet, 80 MG PO HS, TAB 09/11/16 Amlodipine Besylate (Amlodipine Besylate) 5 Mg Tablet, 5 MG PO DAILY, TAB 09/11/16 Discontinued Scripts Pantoprazole Sodium (Protonix) 40 Mg Tablet.dr, 40 MG PO BID, #60 TAB Prov:BEVERLEY HUNTER DO 02/09/21 Objective Exam L Hip: Dressing C/D/I, +DF of ankle, no s/s of DVT Vital Signs Vital Signs Date Time Temp Pulse Resp B/P (MAP) Pulse Ox O2 Delivery O2 Flow Rate FiO2 12/01/22 08:00 Room Air 0.00 12/01/22 07:53 94 Nasal Cannula 2.00 12/01/22 07:27 36.6 78 18 123/65 (84) 95 Nasal Cannula 2.00 12/01/22 04:48 36.0 71 20 113/56 (75) 93 Nasal Cannula 2.00 12/01/22 01:00 65 11/30/22 23:14 36.4 86 20 116/48 (70) 97 Nasal Cannula 2.00 11/30/22 20:26 36.6 88 14 131/60 (83) 84 Nasal Cannula 2.00 11/30/22 19:40 Room Air 11/30/22 19:00 71 11/30/22 15:45 36.5 79 18 113/53 (73) Nasal Cannula 2.00 11/30/22 15:24 98 Nasal Cannula 2.00 11/30/22 13:13 36.6 76 18 111/59 76 Nasal Cannula 2.00 11/30/22 12:11 77 11/30/22 11:45 36.2 68 18 126/59 (81) 97 Nasal Cannula 2.00 11/30/22 11:43 36.2 68 18 126/59 97 Nasal Cannula 2.00 11/30/22 11:18 36.4 70 18 120/56 98 Nasal Cannula 2.00 I & O 12/01/22 07:00 Intake Total 1310 ml Output Total 1650 ml Balance -340 ml Lab Results Laboratory Tests 11/30/22 11:32: Glucometer 84 11/30/22 15:58: Glucometer 106 11/30/22 22:06: Glucometer 114H 12/01/22 04:56: Glucometer 90 12/01/22 05:27: White Blood Count 12.6H, Red Blood Count 2.87L, Hemoglobin 8.5L, Hematocrit 26L, Mean Corpuscular Volume 92, Mean Corpuscular Hemoglobin 30, Mean Corpuscular Hemoglobin Concent 32, Red Cell Distribution Width 14.5, Platelet Count 100L, Mean Platelet Volume 11.7, Immature Granulocyte % (Auto) 1, Neutrophils (%) (Auto) 66, Lymphocytes (%) (Auto) 16, Monocytes (%) (Auto) 13H, Eosinophils (%) (Auto) 4, Basophils (%) (Auto) 0, Neutrophils # (Auto) 8.2H, Lymphocytes # (Auto) 2.0, Monocytes # (Auto) 1.7H, Eosinophils # (Auto) 0.5H, Basophils # (Auto) 0.1, Immature Granulocyte # (Auto) 0.1, Percent Immature Platelet Fraction 5.8, Sodium Level 138, Potassium Level 3.9, Chloride Level 111H, Carbon Dioxide Level 20L, Anion Gap 7, Blood Urea Nitrogen 26H, Creatinine 1.24, Estimat Glomerular Filtration Rate 44, BUN/Creatinine Ratio 21, Glucose Level 101, Calcium Level 8.2L, Corrected Calcium 9.3, Total Bilirubin 1.6H, Aspartate Amino Transf (AST/SGOT) 28, Alanine Aminotransferase (ALT/SGPT) 12, Alkaline Phosphatase 57, Total Protein 5.2L, Albumin 2.6L Microbiology 11/28/22 MRSA Screen - Final, Complete MRSA not isolated Assessment and Plan Assessment Left IT Femur Fx s/p IM Nailing Problem List Left IT Femur Fx s/p IM Nailing Plan Agree with rehab DVT Prophylaxis Final Diagonsis Left IT Femur Fx s/p IM Nailing Level of the visit: Level 3 (postop global) Clinical Quality Measures DVT/VTE Risk/Contraindication: Contraindications-Pharm: Other *list below* Other: surgery RUBÉN RICHARDSON MD Dec 01, 2022 08:42
[2022-12-01] MEDS: amLODIPine 5 MG TABLET PO SCH (09:08)
[2022-12-01] MEDS: IRON SUCROSE 200 MG/10 ML VIAL IV SCH (09:08)
[2022-12-01] MEDS: oxyCODONE IMMEDIATE RELEASE 5 MG TABLET PO PRN (09:08)
[2022-12-01] MEDS: SENNOSIDES 8.6 MG TABLET PO SCH (09:08)
[2022-12-01] MEDS: DOCUSATE SODIUM 100 MG CAPSULE PO SCH (09:09)
[2022-12-01] MEDS: APIXABAN 2.5 MG TABLET PO SCH (09:09)
--- NOTE | 2022-12-01 09:13 | Discharge Summary ---
Diagnosis/Chief Complaint Date of Admission Nov 28, 2022 at 10:21 Date of Discharge Discharge Date: Dec 01, 2022 Discharge Diagnosis Left hip fracture hypertension Hyperlipidemia Systolic dysfunction on echocardiogram 40-45% Discharge Summary Discharge Physical Examination Allergies: Coded Allergies: ramipril (Verified Allergy, Unknown, Cough , Active , ,, 12/01/22) Vitals & I&Os Vital Signs Date Time Temp Pulse Resp B/P (MAP) Pulse Ox O2 Delivery O2 Flow Rate FiO2 12/01/22 11:18 36.6 78 18 123/65 94 Room Air 0.00 11/29/22 19:14 21 General Appearance: Alert, Oriented X3, Cooperative Respiratory: Clear to Auscultation Cardiovascular: Regular Rate Psych/Mental Status: Mental Status NL Hospital Course Was the Problem List Reviewed?: Yes Hospital course: Patient had an uneventful hospital course after she was admittedAfter sustaining a fall and a left hip fracture which was repaired by Dr. Valenzuela in an uncomplicated manner. She did receive 1 unit of blood due to a acute blood loss anemia. IV iron infusions and B12 supplement given. Overall she has slow recovery but deemed stable for inpatient rehab. Labs (last 24 hrs) Laboratory Tests 11/28/22 08:25: White Blood Count 10.3, Red Blood Count 3.60L, Hemoglobin 10.7L, Hematocrit 34L, Mean Corpuscular Volume 95, Mean Corpuscular Hemoglobin 30, Mean Corpuscular Hemoglobin Concent 31L, Red Cell Distribution Width 13.1, Platelet Count 177, Mean Platelet Volume 11.5, Immature Granulocyte % (Auto) 1, Neutrophils (%) (Auto) 56, Lymphocytes (%) (Auto) 26, Monocytes (%) (Auto) 10, Eosinophils (%) (Auto) 6, Basophils (%) (Auto) 1, Neutrophils # (Auto) 5.7, Lymphocytes # (Auto) 2.7, Monocytes # (Auto) 1.0, Eosinophils # (Auto) 0.7H, Basophils # (Auto) 0.1, Immature Granulocyte # (Auto) 0.1, Sodium Level 140, Potassium Level 4.0, Chloride Level 110H, Carbon Dioxide Level 21, Anion Gap 9, Blood Urea Nitrogen 40H, Creatinine 1.43H, Estimat Glomerular Filtration Rate 37, BUN/Creatinine Ratio 28, Glucose Level 128H, Calcium Level 8.7, Corrected Calcium 9.1, Total Bilirubin 0.8, Aspartate Amino Transf (AST/SGOT) 29, Alanine Aminotransferase (ALT/SGPT) 25, Alkaline Phosphatase 73, Total Protein 6.7, Albumin 3.5 11/28/22 09:17: Urine Color YELLOW, Urine Clarity CLEAR, Urine pH 5.5, Urine Specific [place] 1.020, Urine Protein TRACEH, Urine Glucose (UA) NEGATIVE, Urine Ketones NEGATIVE, Urine Nitrite NEGATIVE, Urine Bilirubin NEGATIVE, Urine Urobilinogen 0.2, Urine Leukocyte Esterase NEGATIVE, Urine RBC (Auto) TRACEH, Urine RBC NONE, Urine WBC NONE, Urine Squamous Epithelial Cells 2-5, Urine Crystals NONE, Urine Bacteria TRACE, Urine Casts PRESENT, Urine Granular Casts 2-5H, Urine Mucus NEGATIVE, Urine Culture Indicated NO 11/28/22 11:10: Glucometer 103 11/28/22 15:45: Glucometer 132H 11/28/22 19:20: Glucometer 167H 11/29/22 06:16: White Blood Count 11.1H, Red Blood Count 3.14L, Hemoglobin 9.2L, Hematocrit 29L, Mean Corpuscular Volume 94, Mean Corpuscular Hemoglobin 29, Mean Corpuscular Hemoglobin Concent 31L, Red Cell Distribution Width 13.2, Platelet Count 138, Mean Platelet Volume 11.1, Immature Granulocyte % (Auto) 1, Neutrophils (%) (Auto) 74, Lymphocytes (%) (Auto) 13, Monocytes (%) (Auto) 11, Eosinophils (%) (Auto) 1, Basophils (%) (Auto) 0, Neutrophils # (Auto) 8.2H, Lymphocytes # (Auto) 1.4, Monocytes # (Auto) 1.2H, Eosinophils # (Auto) 0.1, Basophils # (Auto) 0.0, Immature Granulocyte # (Auto) 0.1, Sodium Level 138, Potassium Level 4.2, Chloride Level 106, Carbon Dioxide Level 23, Anion Gap 9, Blood Urea Nitrogen 36H, Creatinine 1.37H, Estimat Glomerular Filtration Rate 39, BUN/Creatinine Ratio 26, Glucose Level 118H, Calcium Level 8.6, Corrected Calcium 9.2, Iron Level 29L, Total Iron Binding Capacity 244, Unsaturated Iron Binding Capacity 215, Transferrin % Saturation 12L, Ferritin 80.1, Total Bilirubin 1.2H, Aspartate Amino Transf (AST/SGOT) 24, Alanine Aminotransferase (ALT/SGPT) 22, Alkaline Phosphatase 74, Total Protein 6.3L, Albumin 3.2, Vitamin B12 Level 577 11/29/22 11:59: Glucometer 106 11/29/22 15:22: Glucometer 113H 11/29/22 21:12: Glucometer 120H 11/30/22 05:15: Glucometer 98 11/30/22 05:58: White Blood Count 14.1H, Red Blood Count 2.47L, Hemoglobin 7.4L, Hematocrit 24L, Mean Corpuscular Volume 96, Mean Corpuscular Hemoglobin 30, Mean Corpuscular Hemoglobin Concent 31L, Red Cell Distribution Width 13.1, Platelet Count 100L, Mean Platelet Volume 11.9, Immature Granulocyte % (Auto) 1, Neutrophils (%) (Auto) 77H, Lymphocytes (%) (Auto) 9L, Monocytes (%) (Auto) 11, Eosinophils (%) (Auto) 2, Basophils (%) (Auto) 0, Neutrophils # (Auto) 10.8H, Lymphocytes # (Auto) 1.3, Monocytes # (Auto) 1.6H, Eosinophils # (Auto) 0.2, Basophils # (Auto) 0.0, Immature Granulocyte # (Auto) 0.1, Neutrophils % (Manual) 86, Lymphocytes % (Manual) 4, Monocytes % (Manual) 8, Eosinophils % (Manual) 2, Percent Immature Platelet Fraction 5.7, Acanthocytes SLIGHT, Sodium Level 137, Potassium Level 4.1, Chloride Level 109H, Carbon Dioxide Level 21, Anion Gap 7, Blood Urea Nitrogen 31H, Creatinine 1.41H, Estimat Glomerular Filtration Rate 3 8, BUN/Creatinine Ratio 22, Glucose Level 98, Calcium Level 8.2L, Corrected Calcium 9.2, Total Bilirubin 1.1H, Aspartate Amino Transf (AST/SGOT) 23, Alanine Aminotransferase (ALT/SGPT) 12, Alkaline Phosphatase 56, Total Protein 5.2L, Albumin 2.7L 11/30/22 11:32: Glucometer 84 11/30/22 15:58: Glucometer 106 11/30/22 22:06: Glucometer 114H 12/01/22 04:56: Glucometer 90 12/01/22 05:27: White Blood Count 12.6H, Red Blood Count 2.87L, Hemoglobin 8.5L, Hematocrit 26L, Mean Corpuscular Volume 92, Mean Corpuscular Hemoglobin 30, Mean Corpuscular Hemoglobin Concent 32, Red Cell Distribution Width 14.5, Platelet Count 100L, Mean Platelet Volume 11.7, Immature Granulocyte % (Auto) 1, Neutrophils (%) (Auto) 66, Lymphocytes (%) (Auto) 16, Monocytes (%) (Auto) 13H, Eosinophils (%) (Auto) 4, Basophils (%) (Auto) 0, Neutrophils # (Auto) 8.2H, Lymphocytes # (Auto) 2.0, Monocytes # (Auto) 1.7H, Eosinophils # (Auto) 0.5H, Basophils # (Auto) 0.1, Immature Granulocyte # (Auto) 0.1, Percent Immature Platelet Fraction 5.8, Sodium Level 138, Potassium Level 3.9, Chloride Level 111H, Carbon Dioxide Level 20L, Anion Gap 7, Blood Urea Nitrogen 26H, Creatinine 1.24, Estimat Glomerular Filtration Rate 44, BUN/Creatinine Ratio 21, Glucose Level 101, Calcium Level 8.2L, Corrected Calcium 9.3, Total Bilirubin 1.6H, Aspartate Amino Transf (AST/SGOT) 28, Alanine Aminotransferase (ALT/SGPT) 12, Alkaline Phosphatase 57, Total Protein 5.2L, Albumin 2.6L Microbiology 11/28/22 MRSA Screen - Final, Complete MRSA not isolated Pending Labs Microbiology Date/Time Source Procedure Growth Status 11/28/22 13:25 Nasal MRSA Screen - Final MRSA not isolated Complete Laboratory Tests 11/28/22 08:25: White Blood Count 10.3, Red Blood Count 3.60, Hemoglobin 10.7, Hematocrit 34, Mean Corpuscular Volume 95, Mean Corpuscular Hemoglobin 30, Mean Corpuscular Hemoglobin Concent 31, Red Cell Distribution Width 13.1, Platelet Count 177, Mean Platelet Volume 11.5, Immature Granulocyte % (Auto) 1, Neutrophils (%) (Auto) 56, Lymphocytes (%) (Auto) 26, Monocytes (%) (Auto) 10, Eosinophils (%) (Auto) 6, Basophils (%) (Auto) 1, Neutrophils # (Auto) 5.7, Lymphocytes # (Auto) 2.7, Monocytes # (Auto) 1.0, Eosinophils # (Auto) 0.7, Basophils # (Auto) 0.1, Immature Granulocyte # (Auto) 0.1, Sodium Level 140, Potassium Level 4.0, Chloride Level 110, Carbon Dioxide Level 21, Anion Gap 9, Blood Urea Nitrogen 40, Creatinine 1.43, Estimat Glomerular Filtration Rate 37, BUN/Creatinine Ratio 28, Glucose Level 128, Calcium Level 8.7, Corrected Calcium 9.1, Total Bilirubin 0.8, Aspartate Amino Transf (AST/SGOT) 29, Alanine Aminotransferase (ALT/SGPT) 25, Alkaline Phosphatase 73, Total Protein 6.7, Albumin 3.5 11/28/22 09:17: Urine Color YELLOW, Urine Clarity CLEAR, Urine pH 5.5, Urine Specific [place] 1.020, Urine Protein TRACE, Urine Glucose (UA) NEGATIVE, Urine Ketones NEGATIVE, Urine Nitrite NEGATIVE, Urine Bilirubin NEGATIVE, Urine Urobilinogen 0.2, Urine Leukocyte Esterase NEGATIVE, Urine RBC (Auto) TRACE, Urine RBC NONE, Urine WBC NONE, Urine Squamous Epithelial Cells 2-5, Urine Crystals NONE, Urine Bacteria TRACE, Urine Casts PRESENT, Urine Granular Casts 2-5, Urine Mucus NEGATIVE, Urine Culture Indicated NO 11/28/22 11:10: Glucometer 103 11/28/22 15:45: Glucometer 132 11/28/22 19:20: Glucometer 167 11/29/22 06:16: White Blood Count 11.1, Red Blood Count 3.14, Hemoglobin 9.2, Hematocrit 29, Mean Corpuscular Volume 94, Mean Corpuscular Hemoglobin 29, Mean Corpuscular Hemoglobin Concent 31, Red Cell Distribution Width 13.2, Platelet Count 138, Mean Platelet Volume 11.1, Immature Granulocyte % (Auto) 1, Neutrophils (%) (Auto) 74, Lymphocytes (%) (Auto) 13, Monocytes (%) (Auto) 11, Eosinophils (%) (Auto) 1, Basophils (%) (Auto) 0, Neutrophils # (Auto) 8.2, Lymphocytes # (Auto) 1.4, Monocytes # (Auto) 1.2, Eosinophils # (Auto) 0.1, Basophils # (Auto) 0.0, Immature Granulocyte # (Auto) 0.1, Sodium Level 138, Potassium Level 4.2, Chloride Level 106, Carbon Dioxide Level 23, Anion Gap 9, Blood Urea Nitrogen 36, Creatinine 1.37, Estimat Glomerular Filtration Rate 39, BUN/Creatinine Ratio 26, Glucose Level 118, Calcium Level 8.6, Corrected Calcium 9.2, Iron Level 29, Total Iron Binding Capacity 244, Unsaturated Iron Binding Capacity 215, Transferrin % Saturation 12, Ferritin 80.1, Total Bilirubin 1.2, Aspartate Amino Transf (AST/SGOT) 24, Alanine Aminotransferase (ALT/SGPT) 22, Alkaline Phosphatase 74, Total Protein 6.3, Albumin 3.2, Vitamin B12 Level 577 11/29/22 11:59: Glucometer 106 11/29/22 15:22: Glucometer 113 11/29/22 21:12: Glucometer 120 11/30/22 05:15: Glucometer 98 11/30/22 05:58: White Blood Count 14.1, Red Blood Count 2.47, Hemoglobin 7.4, Hematocrit 24, Mean Corpuscular Volume 96, Mean Corpuscular Hemoglobin 30, Mean Corpuscular Hemoglobin Concent 31, Red Cell Distribution Width 13.1, Platelet Count 100, Mean Platelet Volume 11.9, Immature Granulocyte % (Auto) 1, Neutrophils (%) (Auto) 77, Lymphocytes (%) (Auto) 9, Monocytes (%) (Auto) 11, Eosinophils (%) (Auto) 2, Basophils (%) (Auto) 0, Neutrophils # (Auto) 10.8, Lymphocytes # (Auto) 1.3, Monocytes # (Auto) 1.6, Eosinophils # (Auto) 0.2, Basophils # (Auto) 0.0, Immature Granulocyte # (Auto) 0.1, Neutrophils % (Manual) 86, Lymphocytes % (Manual) 4, Monocytes % (Manual) 8, Eosinophils % (Manual) 2, Percent Immature Platelet Fraction 5.7, Acanthocytes SLIGHT, Sodium Level 137, Potassium Level 4.1, Chloride Level 109, Carbon Dioxide Level 21, Anion Gap 7, Blood Urea Nitrogen 31, Creatinine 1.41, Estimat Glomerular Filtration Rate 38, BUN/Creat inine Ratio 22, Glucose Level 98, Calcium Level 8.2, Corrected Calcium 9.2, Total Bilirubin 1.1, Aspartate Amino Transf (AST/SGOT) 23, Alanine Aminotransferase (ALT/SGPT) 12, Alkaline Phosphatase 56, Total Protein 5.2, Albumin 2.7 11/30/22 11:32: Glucometer 84 11/30/22 15:58: Glucometer 106 11/30/22 22:06: Glucometer 114 12/01/22 04:56: Glucometer 90 12/01/22 05:27: White Blood Count 12.6, Red Blood Count 2.87, Hemoglobin 8.5, Hematocrit 26, Mean Corpuscular Volume 92, Mean Corpuscular Hemoglobin 30, Mean Corpuscular Hemoglobin Concent 32, Red Cell Distribution Width 14.5, Platelet Count 100, Mean Platelet Volume 11.7, Immature Granulocyte % (Auto) 1, Neutrophils (%) (Auto) 66, Lymphocytes (%) (Auto) 16, Monocytes (%) (Auto) 13, Eosinophils (%) (Auto) 4, Basophils (%) (Auto) 0, Neutrophils # (Auto) 8.2, Lymphocytes # (Auto) 2.0, Monocytes # (Auto) 1.7, Eosinophils # (Auto) 0.5, Basophils # (Auto) 0.1, Immature Granulocyte # (Auto) 0.1, Percent Immature Platelet Fraction 5.8, Sodium Level 138, Potassium Level 3.9, Chloride Level 111, Carbon Dioxide Level 20, Anion Gap 7, Blood Urea Nitrogen 26, Creatinine 1.24, Estimat Glomerular Filtration Rate 44, BUN/Creatinine Ratio 21, Glucose Level 101, Calcium Level 8.2, Corrected Calcium 9.3, Total Bilirubin 1.6, Aspartate Amino Transf (AST/SGOT) 28, Alanine Aminotransferase (ALT/SGPT) 12, Alkaline Phosphatase 57, Total Protein 5.2, Albumin 2.6 Discharge Home Medications: Active Scripts Active Reported Levothyroxine Sodium 88 Mcg Tablet 88 Mcg PO DAILY Atorvastatin Calcium 80 Mg Tablet 80 Mg PO HS Amlodipine Besylate 5 Mg Tablet 5 Mg PO DAILY Instructions to patient/family Please see electronic discharge instructions given to patient. Clinical Quality Measures DVT/VTE Risk/Contraindication: Contraindications-Pharm: Other *list below* Other: surgery BEVERLEY HUNTER DO Dec 01, 2022 09:13
--- NOTE | 2022-12-01 10:19 | Occupational Ther Daily Note ---
OT Current Status-Daily Note Subjective On arrival OT noted blood in IV line, notified RN, Patient is receiving iron however line is to be removed and placed in left UE. Patient is slow to verbal responses and slow to movement this morning Mental Status/Objective Patient Orientation: Person, Place, Situation Attachments: Jackson Catheter, IV Patient is very involved and impatient w/ care and progress. ADL-Treatment Requires moderate encouragement to eat morning meal.Transfer from bed to recliner Max assist w/ little WB to Left LE. Continues to reach for FWW during sit/stand and requires OT to remove grasp from bars on FWW to place on handles of FWW. Patient only holds sock and slightly lifts R LE to don sock. OT performs BLE socks Therapy Code Descriptions/Definitions Functional [place] Measure: 0=Not Assessed/NA 4=Minimal Assistance 1=Total Assistance 5=Supervision or Setup 2=Maximal Assistance 6=Modified [place] 3=Moderate Assistance 7=Complete IndependenceSCALE: Activities may be completed with or without assistive devices. 5-Dgeyscltuh-xchdppo completes the activity by him/herself with no assistance from a helper. 5-Set-up or Clean-up Assistance-helper sets up or cleans up; patient completes activity. Desha assists only prior to or following the activity. 4-Supervision or Touching Assistance-helper provides verbal cues and/or touching/steadying and/or contact guard assistance as patient completes activ ity. Assistance may be provided throughout the activity or intermittently. 3-Partial/Moderate Assistance-helper does LESS THAN HALF the effort. Desha lifts, holds or supports trunk or limbs, but provides less than half the effort. 2-Substantial/Maximal Assistance-helper does MORE THAN HALF the effort. Desha lifts or holds trunk or limbs and provides more than half the effort. 1-Jtagjcdwt-zzanaf does ALL the effort. Patient does none of the effort to complete the activity. Or, the assistance of 2 or more helpers is required for the patient to complete the activity. If activity was not attempted, code reason: 7-Patient Refused. 9-Not Applicable-not attempted and the patient did not perform the activity before the current illness, exacerbation or injury. 10-Not Attempted due to Environmental Limitations-(lack of equipment, weather restraints, etc.). 88-Not Attempted due to Medical Conditions or Safety Concerns. Eating (QC): 3 Lower Body Dressing (QC): 1 On/Off Footwear: 1 Education OT Patient Education: Correct positioning, Modified ADL techniques, Progress toward Goal/Update tx plan, Purpose of tx/functional activities, Reviewed precautions, Rehab process, Safety issues, Transfer techniques, Use of adapted equipment Teaching Recipient: Patient, Family (spouse) Teaching Methods: Demonstration, Discussion Response to Teaching: Reinforcement Needed OT Pit Operator Goals Fdc Goals Upper Body Dressing (QC): 5 Lower Body Dressing (QC): 3 On/Off Footwear (QC): 3 1=Demonstrate adherence to instructed precautions during ADL tasks. 2=Patient will verbalize/demonstrate understanding of assistive devices/modifications for ADL. 3=Patient will improve strength/tolerance for activity to enable patient to perform ADL's. OT Education/Plan Problem List/Assessment Assessment: Decreased Activ Tolerance, Decreased Safety Aware, Decreased UE Strength, Impaired Bed Mobility, Impaired Cognition, Impaired Coordination, Impaired Funct Balance, Impaired Self-Care Skills Discharge Recommendations Plan/Recommendations: Continue POC Therapy Discharge Recommendati: Post Acute OT Treatment Plan/Plan of Care Treatment,Training & Education: Yes Patient would benefit from OT for education, treatment and training to promote independence in ADL's, mobility, safety and/or upper extremity function for ADL's. Plan of Care: ADL Retraining, Caregiver Training, Functional Mobility, UE Funct Exercise/Act Treatment Duration: Dec 04, 2022 Frequency: 3 times per week (3-5x/wk) Estimated Hrs Per Day: .25 hour per day Agreement: Yes Rehab Potential: Fair Patient remains in care of RN and student for IV needs. Time Start Time: 09:40 Stop Time: 10:03 DATE: Dec 01, 2022 Total Time Billed (hr/min): 23 Billed Treatment Time ADL 23 min BEHZAD PRATT OT Dec 01, 2022 10:19
[2022-12-01 11:18] VITALS: BP 123/65
--- NOTE | 2022-12-01 15:34 | Physician Query-Final Dx ---
ARIELLE OLVERA 12/01/22 1534: Final Diagnosis Give Final Diagnosis Please give Final Diagnosis The medical record reflects the following clinical evidence: Clinical Indicators: H&H on admission 10.7/34 did decrease to 7.4/24, EBL 100 Risk Factor(s): Documented history of B12 deficiency/iron deficiency anemia, fall with hip fracture and surgical repair Treatment: H&H monitoring, supplemental O2, 1 unit packed RBCs leukoreduced Acute posthemorrhagic anemia, in the setting of chronic iron deficiency anemia Other explanation of clinical findings Unable to determine (no explanation for clinical findings) Please clarify and document your clinical opinion in the progress notes and discharge summary including the definitive and/or presumptive diagnosis, (suspected or probable), related to the above clinical findings. Please include clinical findings supporting your diagnosis. Arielle Olvera, MSN, RN Clinical Hose Wrapper [phone] [email or web address] BEVERLEY HUNTER DO 12/01/22 1801: Final Diagnosis Give Final Diagnosis Acute posthemorrhagic anemia, in the setting of chronic iron deficiency anemia ARIELLE OLVERA Dec 01, 2022 15:34 BEVERLEY HUNTER DO Dec 01, 2022 18:01
== END 2022-12-01 11:00 | DRG 481 ==
LOC: EDUNIT# 08:09 → ER 08:17 → 4TH 10:21
PROVIDERS: ADMIT Internal Medicine; ATTEND Internal Medicine
PROC: 0QS736Z Reposition Left Upper Femur with Intramedullary Internal Fixation Device, Percutaneous Approach (ICD-10-PCS; principal; 2022-11-29 08:11)
DX: S72.142A Displaced intertrochanteric fracture of left femur, initial encounter for closed fracture (principal); D62 Acute posthemorrhagic anemia; I12.9 Hypertensive chronic kidney disease with stage 1 through stage 4 chronic kidney disease, or unspecified chronic kidney disease; E11.22 Type 2 diabetes mellitus with diabetic chronic kidney disease; N18.9 Chronic kidney disease, unspecified; E78.5 Hyperlipidemia, unspecified; D50.9 Iron deficiency anemia, unspecified; E53.8 Deficiency of other specified B group vitamins; I25.10 Atherosclerotic heart disease of native coronary artery without angina pectoris; I45.10 Unspecified right bundle-branch block; E05.90 Thyrotoxicosis, unspecified without thyrotoxic crisis or storm; R54 Age-related physical debility; M19.90 Unspecified osteoarthritis, unspecified site; I25.2 Old myocardial infarction; Z95.5 Presence of coronary angioplasty implant and graft; Z87.891 Personal history of nicotine dependence; Z86.73 Personal history of transient ischemic attack (TIA), and cerebral infarction without residual deficits; Z79.899 Other long term (current) drug therapy; W18.09XA Striking against other object with subsequent fall, initial encounter; Y92.009 Unspecified place in unspecified non-institutional (private) residence as the place of occurrence of the external cause
CPT/HCPCS: 36415; 51702; 70450; 71045; 76000; 80053; 81000; 82607; 82728; 82947; 83540; 83550; 85007; 85025; 85027; 86850; 86900; 86901; 86920; 87081; 93005; 93306; 94664; 94760

== ENCOUNTER 2022-12-01 10:45 | Inpatient (IN) | payer MEDICARE, OTHER ==
[~2022-12-01] VITALS: Ht 157 cm; Wt 52.3 kg
[2022-12-01 10:45] VITALS: BP 121/57
--- OUTSIDE RECORDS SUMMARY | 2022-12-01 11:16 | XMS REPORT ---
Author Author [facility] Address Unknown Phone Unavailable Care Team Providers Care Director Fraud Name Role Phone BLAS Stone Unavailable PROBLEMS Type Condition ICD9-CM Code [id number] Code Onset Dates Condition S tatus W/U Status Risk SNOMED Code Notes Problem H/O: CVA (cerebrovascular accident) Z86.73 Acti ve confirmed 941839634 Problem CKD (chronic kidney disease) stage 3, GFR 30-59 ml/min N18.3 19 Dec, 2015 Active confirmed 814780415 Problem Cardiomyopathy, ischemic I25.5 Active confirmed 811039723 Problem Unspecified osteoarthritis, unspecified site M19.90 confirmed 116450228 Problem Carotid artery plaque, bilateral I65.23 Active confirmed 649604542 Problem Stage 3 chronic kidney disease, unspecif ied whether stage 3a or 3b CKD N18.30 confirmed 038411965 Problem Closed fracture of C2 vertebra S12.100A Active conf irmed 35713093 Problem Dyslipidemia E78.5 Active confirmed 9858052 07 Problem HTN (hypertension) I10 Active confirmed 3 9648920 Problem Hypothyroidism, unspecified type E03.9 conf irmed 05368051 Problem 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 confirmed [id number] ALLERGIES Allergen (clinical drug ingredient) Drug/Non Drug Allergy do cumented on EMR Reaction Allergy Type Onset Date Status ramipril [facility]RIL([facility] [place]NOTE 2[place] Code:[address]-10) Cough , Active , , D rug Allergy 09/15/2011 Active ENCOUNTERS from 1942 to 2022-10-06 Encounter Location Date Provider Diagnosis [facility] [address] [id number] [place] [address] Sep, BLAS Stone Acute cystitis without hemat uria N30.00 ; Diarrhea, unspecified type R19.7 and Hospital discharge follow-up Z09 IMMUNIZATIONS Vaccine Route Administration Date Status COVID-19 Moderna (history) Unknown Apr 18, 2020 Admin istered COVID-19 Moderna (history) Unknown May 22, 2020 Admin istered PRIVATE FLULAVAL QUAD 0.5ML (6 MO AND UP) 2020 IM Intramuscular Dec 31, 2020 Administered Booster HRSA MODERNA, COVID-19, 0.25mL IM Intramuscular Jan 23, 2021 Administered 2nd Booster MODERNA COVID-19, mRNA, 0.25mL IM Intramuscular October 02, 2021 Administered PRIVATE FLULAVAL QUAD 0.5ML (6 MO AND UP) 2019 IM Intramuscular Dec 26, 2019 Administered SOCIAL HISTORY Sex Assigned At : Social History Observation Description Sex Assigned At Unknown Alcohol Screen (Audit-C) Question Answer Notes Did you have a drink containing alcohol in the past year? No Points 0 Interpretation Negative PHQ2 Question Answer Notes In the last 2 weeks, how often have you had little interest or pleasure in doing things? Not at all In the last 2 weeks, how often have you been feeling down, depressed, or hopeless? Not at all Total PHQ2 Score 0 REASON FOR REFERRAL No Information VITAL SIGNS Height 62 in Sep, Weight 116.2 lbs Sep, Weight-kg 52.71 kg Sep, Temperature 97.2 degrees Fahrenheit Sep, Heart Rate 90 bpm Sep, Respiratory Rate 18 bpm Sep, BMI 21.25 kg/m2 Sep, Blood pressure systolic 136 mmHg Sep, Blood pressure diastolic 68 mmHg Sep, MEDICATIONS Medication SIG (Take, Route, Frequency, Duration) Notes Start Da te End Date Status Atorvastatin Calcium 80 MG 1 tablet Orally Once a day Active Protonix 40 MG 1 tablet Orally 2 times a day Active Levothyroxine Sodium 88 MCG TAKE ONE (1) TABLET BY MOUTH DAILY... Active amLODIPine Besylate 5 MG 1 tablet Orally Once a day Active Aspirin 81 81 MG 1 tablet Orally Once a day Active PROCEDURES No Information RESULTS No Results REASON FOR VISIT Hospital f/u- 10/01-10/03 [facility] Joseph/eufemia gimenez, depression screen MEDICAL (GENERAL) HISTORY Type Description Date Medical History cad w stents Medical History htn Medical History hypothyroidism Surgical History total hysterectomy, excessive bleeding Surgical History Heart cath, stents Hospitalization History sepsis 10/01/20-10/03/20 Goals Section No Information Health Concerns No Information MEDICAL EQUIPMENT No Information MENTAL STATUS No Information FUNCTIONAL STATUS No Information ASSESSMENTS Encounter Date Diagnosis Assessment Notes Treatment Notes Treatm ent Clinical Notes Sep, Diarrhea, unspecified type (ICD-10 - R19.7) resolved Sep, Acute cystitis without hematuria (ICD-10 - N30.0 0) resolved Sep, Hospital discharge follow-up (ICD-10 - Z09) records reviewed PLAN OF TREATMENT Medication Medication Name Sig Start Date Stop Date Levothyroxine Sodium 88 MCG TAKE ONE (1) TABLET BY MOUTH DAILY.. . Treatment Notes Assessment Notes Clinical Notes Diarrhea, unspecified type resolved Acute cystitis without hematuria resolved Hospital discharge follow-up records reviewed Next Appt Details prn Reason:as scheduled Provider Name:SILVIO CLARK, 7 01:00:00 PM, [address] [facility], [id number], [place], [address], Follow Up:prnas scheduled Insurance Providers Payer Name Payer Address Payer Phone Insured Name Patient Relati onship to Insured Coverage Start Date Coverage End Date Subscriber Number Group Nu mber [employer] MEDICARE [place] PLAN [address] [facility] [address] Edelmira Jaimes Self - patient is the insured 2021 [id number] FOR LIFE [address] [facility] [address] Edelmira Jaimes Self - patient is the insured [id number] [employer] MEDICARE Part A [address] [facility] [address] Edelmira Jaimes Self - patient is the insured [id number]
--- NOTE | 2022-12-01 11:18 | Occupational Therapy Eval ---
OT Evaluation-General/PLF Medical Diagnosis Admission Date Dec 01, 2022 at 10:45 Medical Diagnosis: s/p L IM nail Onset Date: Nov 29, 2022 Therapy Diagnosis Therapy Diagnosis: decreased ADL status, weakness Height/Weight Height (Feet): 5 Height (Inches): 2.00 Weight (Pounds): 122 Referral Physician: Justyna Lazo Reason: Evaluation/Treatment Medical History Pertinent Medical History: CAD, HTN, CT Additional Medical History DM, Coronary stent, CAD, heart attack, arthritis, HTN Current History s/p fall 11/28/22, s/p L IM nail 11/29/22. Social History Home: Single Level Current Living Status: Spouse Entry Into Home: Stairs Without Railing Steps Into Home: 2 ADL-Prior Level of Function SCALE: Activities may be completed with or without assistive devices. 7-Otxzmlngrk-ldeugyy completes the activity by him/herself with no assistance from a helper. 5-Set-up or Clean-up Assistance-helper sets up or cleans up; patient completes activity. [place] assists only prior to or following the activity. 4-Supervision or Touching Assistance-helper provides verbal cues and/or touching/steadying and/or contact guard assistance as patient completes activity. Assistance may be provided throughout the activity or intermittently. 3-Partial/Moderate Assistance-helper does LESS THAN HALF the effort. [place] lifts, holds or supports trunk or limbs, but provides less than half the effort. 2-Substantial/Maximal Assistance-helper does MORE THAN HALF the effort. [place] lifts or holds trunk or limbs and provides more than half the effort. 0-Iatneajhd-csxtsu does ALL the effort. Patient does none of the effort to complete the activity. Or, the assistance of 2 or more helpers is required for the patient to complete the activity. If activity was not attempted, code reason: 7-Patient Refused. 9-Not Applicable-not attempted and the patient did not perform the activity before the current illness, exacerbation or injury. 10-Not Attempted due to Environmental Limitations-(lack of equipment, weather restraints, etc.). 88-Not Attempted due to Medical Conditions or Safety Concerns. ADL PLOF Comments Pt reports IND with ADLs and functional mobility at OF, no AD. She lives with her spouse in a 1 story house, 2 steps to enter without hand rails. She sleeps in a standard bed, has a standard toilet, and a deep old style tub. Pt does not have a shower, or SC. Pt and spouse don't eat at home much, instead going out to eat. 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 Mental Status/Objective Patient Orientation: Person, Place, Time, Situation Current Glasses/Contacts: Yes (reading) Hearing Aids: No Dentures/Partials: No Hand Dominance: Right Upper Extremity ROM BUE shoulder flexion to approx 140 degrees, WFL at elbow/wrist/hand Upper Extremity Coordination WFL Upper Extremity Sensation WFL per pt report Upper Extremity Strength grossly 3-/5 BUEs. ADL-Treatment Eating (QC): 5 Oral Hygiene (QC): 4 Shower/Bathe Self (QC): 1 (2 person assist in standing to wash buttocks.) Upper Body Dressing (QC): 3 (partial/mod A required) Lower Body Dressing (QC): 1 (assist all parts, assist x2 in stand for pant hike.) On/Off Footwear (QC): 2 Toileting Hygiene (QC): 1 (2 person assist in standing to wash buttocks.) Other Treatments OT evaluation complete. OT/PT cotreat due to skill of 2 clinicians required which a restorative rehab aide could not perform in order to coordinate UE/LEs, decrease fall risk, and due to pt's limitations in pain, activity tolerance, mobility/transfers. OT focused on UE placement, ADLs, and cues for sequencing and safety. PT focused on LE Placement, gross overall movement, transfers and mobility. Pt instructed to don brief OT provided, she did not initiate task, requiring assistance threading BLEs into brief, assist x2 in stand for pant hike. Pt transferred from w/c to recliner, positioned to comfort and education provided on ARU process/expectations. Post tx, pt in recliner, call light in reach and all needs met. Education OT Patient Education: Correct positioning, Energy conservation, Modified ADL techniques, Progress toward Goal/Update tx plan, Purpose of tx/functional activities, Rehab process Teaching Recipient: Patient, Significant Other Teaching Methods: Discussion Response to Teaching: Verbalize Understanding BIMS CAM BIMS Expression of Ideas and Wants: Without Difficulty Understanding Verbal Content: Understands IRF [place] BIMS: IRF [place] BIMS Response (Comments) Value Repitition of Three Words Three 3 Recalls Socks Yes, No Cue Required 2 Recalls Blue Yes, No Cue Required 2 Recalls Bed Yes, No Cue Required 2 Year Correct 3 Month Accurate Within 5 Days 2 Day Incorrect or No Answer 0 Total [address] Mental [address] No CAM Mental Status Change/Baseline: 0 Inattention: 0 Disorganized thinkin Altered level of consciousness: 0 OT Short Term Goals Short Term Goals Time Frame: Dec 15, 2022 Toileting hygiene: 4 Shower/bathe self: 4 Lower body dressin Putting on/taking off footwear: 3 OT Assisted Goals Assisted Goals Time Frame: Dec 24, 2022 Eating (QC): 6 Oral Hygiene (QC): 6 Toileting Hygiene (QC): 6 Shower/Bathe Self (QC): 5 Upper Body Dressing (QC): 6 Lower Body Dressing (QC): 6 On/Off Footwear (QC): 6 Additional Goals: 1-Demonstrate ADL Tasks, 2-Verbalize Understanding, 3-ImproveStrength/Kacey 1=Demonstrate adherence to instructed precautions during ADL tasks. 2=Patient will verbalize/demonstrate understanding of assistive devices/modifications for ADL. 3=Patient will improve strength/tolerance for activity to enable patient to perform ADL's. OT Education/Plan Problem List/Assessment Assessment: Decreased Activ Tolerance, Decreased UE Strength, Impaired Funct Balance, Impaired I ADL's, Impaired Self-Care Skills Discharge Recommendations Plan/Recommendations: Continue POC Comment DME/AE recommendations to be determined based on pt's progress. At this time, pt may benefit from hip kit, toilet riser, SC, shower head adapter for tub faucet. Treatment Plan/Plan of Care Treatment,Training & Education: Yes Patient would benefit from OT for education, treatment and training to promote independence in ADL's, mobility, safety and/or upper extremity function for ADL's. Plan of Care: ADL Retraining, Functional Mobility, Group Exercise/Act as Ind, UE Funct Exercise/Act Treatment Duration: Dec 24, 2022 Frequency: At least 5 of 7 days/Wk (IRF) Estimated Hrs Per Day: 1.5 hours per day Agreement: Yes Rehab Potential: Good Time Start Time: 10:45 ([id number] OT evaluation) Stop Time: 11:30 ([id number] Cotreat with PT) DATE: Dec 01, 2022 Total Time Billed (hr/min): 30 Billed Treatment Time [id number] OT eval, [id number] cotreat 1, EVM (15'), FA (15') JUAN JOSE MARTINES OT Dec 01, 2022 11:18
[2022-12-01] MEDS ORDERED: MELATONIN 3 MG TABLET PO PRN ×2 (12:00→12:15)
[2022-12-01] MEDS ORDERED: diphenhydrAMINE 25 MG TABLET PO PRN ×2 (12:00→12:15)
[2022-12-01] MEDS ORDERED: Sodium Phosphate/Sodium Biphosphate ADULT enema PR PRN (12:00)
[2022-12-01] MEDS ORDERED: LOPERAMIDE 2 MG CAPSULE PO PRN (12:00)
[2022-12-01] MEDS ORDERED: CALCIUM CARBONATE 500 MG CHEW TABLET PO PRN ×2 (12:00→12:15)
[2022-12-01] MEDS ORDERED: DOCUSATE SODIUM 100 MG CAPSULE PO PRN (12:00)
[2022-12-01] MEDS ORDERED: guaiFENesin/CODEINE 10ML UDC PO PRN (12:00)
[2022-12-01] MEDS ORDERED: BISACODYL 10 MG SUPPOSITORY PR PRN ×2 (12:00→12:15)
[2022-12-01] MEDS ORDERED: ALPRAZolam 0.25 MG TABLET PO PRN ×2 (12:00→12:15)
[2022-12-01] MEDS ORDERED: LACTULOSE SYRUP 10GM/15ML 30ML UDC PO PRN ×2 (12:00→12:15)
--- NOTE | 2022-12-01 12:08 | PM&R Post Admission Assessment ---
PM&R HP Date of Visit: Dec 01, 2022 Time of Visit: 12:30 History of Present Illness CC: Left hip fracture recovery HPI: This is an 82yoWF clinic patient of [facility] who presents to the ARU following an uncomplicated left hip fracture repair by Dr Valenzuela. She received 1 unit of blood while on med-surg status. Currently she is very fatigued and having pain. Bowels will be monitored for post op constipation. IV iron infusion and B12 supplement was also given during acute care phase. PLOF was independent without use of AD. She will be monitored closely. H/O PCI 2007 and her ECHO did reveal 40-45% EF moderate reduced. Past Jjtmomr-Tdgfko-Qesvwt Hx Past Med/Social Hx: Reviewed Nursing Past Med/Soc Hx, Reviewed and Corrections made Patient Social History Marrital Status: Employed/Student: retired Alcohol Use: Denies Use Smoking Status: Never a Smoker 2nd Hand Smoke Exposure: No Recent Hopitalizations: Yes Past Medical History Surgeries: Coronary Stent, Hysterectomy, Orthopedic Currently Using CPAP: No Currently Using BIPAP: No Cardiac: Coronary Artery Disease, Heart Attack, Hypertension Neurological: TIA Reproductive: No Sexually Transmitted Disease: No Musculoskeletal: Arthritis Endocrine: Hyperthyroidism History of Blood Disorders: No Family History No Pertinent Family Hx Self Care: Independent Functional Cognition: Independent 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 Leisure Interests: gardening Eatin Lower Body Dressin (assist all parts, assist x2 in stand for pant hike.) PM&R Allergy/Meds/Data Review Allergies Coded Allergies: ramipril (Verified Allergy, Unknown, Cough , Active , ,, 12/01/22) Home Medications Scheduled Amlodipine Besylate (Amlodipine Besylate), 5 MG PO DAILY, (Reported) Atorvastatin Calcium (Atorvastatin Calcium), 80 MG PO HS, (Reported) Levothyroxine Sodium (Levothyroxine Sodium), 88 MCG PO DAILY, (Reported) Discontinued Medications Pantoprazole Sodium (Protonix), 40 MG PO BID Discontinued Reason: No Longer Taking Current Medications Current Medications Reviewed Review of Systems Constitutional: see HPI, malaise, weakness EENTM: no symptoms reported Respiratory: no symptoms reported Cardiovascular: no symptoms reported Gastrointestinal: constipation Genitourinary: decreased output Musculoskeletal: back pain, joint pain Skin: no symptoms reported Psychiatric/Neurological: Depressed All Other Systems Reviewed Negative Unless Noted: Yes Physical Exam Physical Exam Vital Signs Capillary Refill : Height, Weight, BMI Height: 5'2.00" Weight: 122lbs. oz. [id number]; 21.54 BMI Method:Stated General Appearance: No Apparent Distress, WD/WN, Chronically ill Eyes: Bilateral Eye Normal Inspection, Bilateral Eye PERRL HEENT: PERRL/EOMI, Normal ENT Inspection, Pharynx Normal Neck: Full Range of Motion, Normal Inspection, Non Tender, Supple, Carotid Bruit Respiratory: Chest Non Tender, Lungs Clear, Normal Breath Sounds, No Accessory Muscle Use, No Respiratory Distress Cardiovascular: Regular Rate, Rhythm, No Edema, No Gallop, No JVD, No Murmur, Normal Peripheral Pulses Gastrointestinal: Normal Bowel Sounds, No Organomegaly, No Pulsatile Mass, Non Tender, Soft Back: Normal Inspection, No CVA Tenderness, No Vertebral Tenderness Extremity: Normal Capillary Refill, Normal Inspection, Normal Range of Motion (except left leg), Non Tender, No Calf Tenderness, No Pedal Edema Neurologic/Psychiatric: Alert, Oriented x3, grinder machine setter II-XII Norm as Tested, Abnormal Gait, Depressed Affect, Motor Weakness (left leg) Skin: Normal Color, Warm/Dry Lymphatic: No Adenopathy PM&R Medical Assessment & Plan REHAB/MEDICAL ASSESSMENT AND PLAN: REHAB IMPAIRMENT GROUP: Left extremity hip fracture ETIOLOGIC DIAGNOSIS: Left intertrochanteric hip fracture The comorbidities that impact the patients function and/or functional outcome by: advanced age, systolic dysfunction on ECHO no symptoms, CAD, HTN, HLP REHAB PLAN: The patient is being admitted to our comprehensive inpatient rehabilitation facility and can tolerate the intensity of service consisting of at least: 180 minutes of therapy a day, 5 out of 7 days a week Rehab treatment will consist of: PT and OT will focus on regaining ambulation with use of assistive devices and increase ADLs independence in order to return back home with spouse The patient/family has a good understanding of our discharge process and will benefit from an interdisciplinary inpatient rehabilitation program. The patient has potential to make improvement and is in need of at least two of the following multidisciplinary therapies including but not limited to physical, occupational, speech, and prosthetics and orthotics. Additionally the patient will need services from respiratory, nutritional services, wound care, psychology, etc. (Customize this to each patient). Given the patients complex condition and risk of further medical complications, rehabilitation services cannot be safely or effectively provided at a lower level of care such as a halfway facility. BARRIERS TO DISCHARGE: frail status and slow recovery ESTIMATED LOS: 10 days DISPOSITION: home RELEVANT CHANGES SINCE PREADMISSION SCREENING: I have compared the patients medical and functional status at the time of the preadmission screening and there are: no changes PROGNOSIS: good REHABILITATION GOALS: 1. PT and OT will focus on regaining ambulation with use of assistive devices and increase ADLs independence in order to return back home with spouse All the above goals were reviewed with the patient and he/she is in agreement. By signing this document, I acknowledge that I have personally performed a full physical examination on this patient within 24 hours of admission to this inpatient rehabilitation facility and have determined the patient to be able to tolerate the above course of treatment at an intensive level for a reasonable period of time. I will be completing a detailed individualized Plan of Care for this patient by day #4 of the patients stay based upon the Preadmission Screen, the Post-Admission Evaluation, and the therapy evaluations. Admission Dx/Comorbidities: (1) Closed left hip fracture Status: Acute ICD Codes: S72.002A - Fracture of unspecified part of neck of left femur, initial encounter for closed fracture (2) ANEMIA (3) Hypothyroidism Status: Chronic ICD Codes: E03.9 - Hypothyroidism, unspecified (4) Coronary artery disease Status: Chronic ICD Codes: I25.10 - Atherosclerotic heart disease of [place] coronary artery without angina pectoris (5) Hypertension Status: Chronic ICD Codes: I10 - Essential (primary) hypertension (6) Hyperlipidemia Status: Chronic ICD Codes: E78.5 - Hyperlipidemia, unspecified Assessment/Plan Assessment and Plan Assess & Plan/Chief Complaint Assessment: Left hip fracture recovery Hypertension Hyperlipidemia CAD status post PCI 2007 Systolic dysfunction on echocardiogram ejection fraction 40-45% Advanced age Frail status Plan: Pain control Supportive care Monitor closely Fall risk BEVERLEY HUNTER DO Dec 01, 2022 12:08
[2022-12-01] MEDS ORDERED: ONDANSETRON INJECTION 4 MG/2 ML (SDV) IVP PRN (12:15)
[2022-12-01] MEDS ORDERED: MILK OF MAGNESIA 400 MG/5 ML 30 ML UDC PO PRN (12:15)
[2022-12-01] MEDS ORDERED: ANTACID SUSPENSION 30 ML UDC PO PRN (12:15)
[2022-12-01] MEDS ORDERED: diphenhydrAMINE INJ 50 MG/ML VIAL IVP PRN (12:15)
[2022-12-01] MEDS ORDERED: RT-ALBUTEROL SULF 2.5 MG/3 ML PRE-MIX VIAL INH PRN (12:15)
[2022-12-01] MEDS ORDERED: ACETAMINOPHEN 325 MG TABLET PO PRN (12:15)
[2022-12-01] MEDS ORDERED: HYDROmorphone INJECTION 2 MG/ML VIAL IV PRN (12:15)
[2022-12-01] MEDS ORDERED: ONDANSETRON 4 MG ORAL DISSOLVE TABLET PO PRN (12:15)
[2022-12-01] MEDS ORDERED: PATIENT MAY USE OWN MEDS, ALL PO SCH (12:15)
[2022-12-01 12:20] VITALS: BP 121/57
--- NOTE | 2022-12-01 12:49 | Occupational Ther Daily Note ---
OT Current Status-Daily Note Subjective Pt sleeping in recliner, woke easily to name. present in room at beginning of session. Pt c/o pain with movement did not rate. Mental Status/Objective Patient Orientation: Person, Confused, Place, Time, Situation Attachments: IV ADL-Treatment Pt agrees to sponge bath sitting in recliner. Pt able to bathe R LE with assist to maintain figure 4 position then assist to complete L LE. After handing pt wash clothe, pt able to complete upper body bathing. 1 person assist to stand, min-mod A then 2nd person to cleanse buttocks and manipulate clothing. Pt required set up, assist to initiate and find oral care items to complete. After therapy, pt sitting in recliner with call light/phone in reach. All needs met in room. Therapy Code Descriptions/Definitions Functional [place] Measure: 0=Not Assessed/NA 4=Minimal Assistance 1=Total Assistance 5=Supervision or Setup 2=Maximal Assistance 6=Modified [place] 3=Moderate Assistance 7=Complete IndependenceSCALE: Activities may be completed with or without assistive devices. 5-Lueyobysek-lkdvhjw completes the activity by him/herself with no assistance from a helper. 5-Set-up or Clean-up Assistance-helper sets up or cleans up; patient completes activity. [place] assists only prior to or following the activity. 4-Supervision or Touching Assistance-helper provides verbal cues and/or touching/steadying and/or contact guard assistance as patient completes activity. Assistance may be provided throughout the activity or intermittently. 3-Partial/Moderate Assistance-helper does LESS THAN HALF the effort. [place] lifts, holds or supports trunk or limbs, but provides less than half the effort. 2-Substantial/Maximal Assistance-helper does MORE THAN HALF the effort. [place] lifts or holds trunk or limbs and provides more than half the effort. 8-Htihfahxr-ewutxh does ALL the effort. Patient does none of the effort to complete the activity. Or, the assistance of 2 or more helpers is required for the patient to complete the activity. If activity was not attempted, code reason: 7-Patient Refused. 9-Not Applicable-not attempted and the patient did not perform the activity before the current illness, exacerbation or injury. 10-Not Attempted due to Environmental Limitations-(lack of equipment, weather restraints, etc.). 88-Not Attempted due to Medical Conditions or Safety Concerns. Oral Hygiene (QC): 4 Lower Body Dressing (QC): 1 On/Off Footwear: 2 OT Penitentiary Goals Penitentiary Goals Time Frame: Dec 24, 2022 Acute change in mental status: 0 Inattention: 0 Disorganized thinkin Altered level of consciousness: 0 Eating (QC): 6 Oral Hygiene (QC): 6 Toileting Hygiene (QC): 6 Shower/Bathe Self (QC): 5 Upper Body Dressing (QC): 6 Lower Body Dressing (QC): 6 On/Off Footwear (QC): 6 Additional Goals: 1-Demonstrate ADL Tasks, 2-Verbalize Understanding, 3- ImproveStrength/Kacey 1=Demonstrate adherence to instructed precautions during ADL tasks. 2=Patient will verbalize/demonstrate understanding of assistive devices/modifications for ADL. 3=Patient will improve strength/tolerance for activity to enable patient to perform ADL's. OT Education/Plan Problem List/Assessment Assessment: Decreased Activ Tolerance, Decreased Safety Aware, Dependent Transfers, Impaired Cognition, Impaired Funct Balance, Impaired Self-Care Skills Discharge Recommendations Plan/Recommendations: Continue POC Treatment Plan/Plan of Care Patient would benefit from OT for education, treatment and training to promote independence in ADL's, mobility, safety and/or upper extremity function for ADL's. Plan of Care: ADL Retraining, Functional Mobility, Group Exercise/Act as Ind, UE Funct Exercise/Act Treatment Duration: Dec 24, 2022 Frequency: At least 5 of 7 days/Wk (IRF) Estimated Hrs Per Day: 1.5 hours per day Agreement: Yes Rehab Potential: Good Time Start Time: 11:30 Stop Time: 12:00 DATE: Dec 01, 2022 Total Time Billed (hr/min): 30 Billed Treatment Time 1 visit-ADL 2 (30 min) BYRON BAIN Dec 01, 2022 12:49
--- NOTE | 2022-12-01 13:01 | Physical Therapy Evaluation ---
PT Evaluation-General Medical Diagnosis Admission Date Dec 01, 2022 at 10:45 Medical Diagnosis: s/p L IM nail Onset Date: Nov 29, 2022 Therapy Diagnosis Therapy Diagnosis: Decreased functional mobility; Decreased strength Height/Weight Height (Feet): 5 Height (Inches): 2.00 Weight (Pounds): 122 Precautions Precautions/Isolations: Fall Prevention, Standard Precautions, Pressure Ulcer Weight Bear Status Right Lower Extremity: Right Full Weight Bearing Left Lower Extremity: Left Weight Bearing/Tolerated Referral Physician: Justyna Reason for Referral: Evaluation/Treatment Medical History Pertinent Medical History: CAD, HTN, [place] Additional Medical History CAD, HTN, [place], TIA, Arthritis, Hyperthyroidism Current History Tripped on carpet and fell on 11/28/22; ED 11/28/22 for L hip pain; S/P L hip IM nail 11/29/22; Admitted to ARU on 12/01/22 Social History Home: Single Level Current Living Status: Spouse Entry Into Home: Stairs Without Railing PT Steps Into Home: 2 PT Steps Inside Home: 0 Other Obstacles: 3 cats Pt lives at home with her in a single story home with 2 steps to enter through the garage with no HR; 3 cats; Tub shower, no SC, no GB, standard toilet Prior Prior Level of Function SCALE: Activities may be completed with or without assistive devices. 2-Cvgzvnueqe-uotebld completes the activity by him/herself with no assistance from a helper. 5-Set-up or Clean-up Assistance-helper sets up or cleans up; patient completes activity. [place] assists only prior to or following the activity. 4-Supervision or Touching Assistance-helper provides verbal cues and/or touching/steadying and/or contact guard assistance as patient completes activity. Assistance may be provided throughout the activity or intermittently. 3-Partial/Moderate Assistance-helper does LESS THAN HALF the effort. [place] lifts, holds or supports trunk or limbs, but provides less than half the effort. 2-Substantial/Maximal Assistance-helper does MORE THAN HALF the effort. [place] lifts or holds trunk or limbs and provides more than half the effort. 2-Mtfqsivao-matyke does ALL the effort. Patient does none of the effort to complete the activity. Or, the assistance of 2 or more helpers is required for the patient to complete the activity. If activity was not attempted, code reason: 7-Patient Refused. 9-Not Applicable-not attempted and the patient did not perform the activity before the current illness, exacerbation or injury. 10-Not Attempted due to Environmental Limitations-(lack of equipment, weather restraints, etc.). 88-Not Attempted due to Medical Conditions or Safety Concerns. Bed Mobility: 6 Transfers (B,C,W/C): 6 Gait: 6 Stairs: 6 Wheelchair Mobility: 9 Indoor Mobility (Ambulation): Independent Stairs: Independent Prior Devices Use: None At PLOF, pt was Ind with no AD and driving, at times. PT Evaluation-Current Subjective Pt is agreeable to PT. Pt reported L hip pain at 8/10. Pain Numeric Pain Scale: 8 Location: Left Location Body Site: Hip Section J - Health Conditions 1. Rarely or not at all 2. Occasionally 3. Frequently 4. Almost constantly 8. Unable to answer Pain Effect on Sleep: 3 Pain Interference with Therapy: 4 Pain Interference w/Day-to-Day: 4 Pt/Family Goals Safely return home with spouse Objective Patient Orientation: Person, Place, Time, Situation ROM/Strength ROM Upper Extremities See OT eval ROM Lower Extremities R LE ROM = WFL L LE ROM = Limited due to pain Strength Upper Extremities See OT eval Strength Lower Extremities R LE MMT = 3+/5 grossly L LE MMT = 3-/5 grossly Integumentary/Posture Integumentary See nurses note Bowel Incontinence: No Bladder Incontinence: No Sensory Vision: Wears Glasses (reading ) Hearing: Functional Hand Dominance: Right Sensation Right Upper Extremit: Intact Sensation Left Upper Extremity: Intact Sensation Right Lower Extremit: Intact Sensation Left Lower Extremity: Intact Transfers Roll Left & Right (QC): 3 (Mod A due to pain ) Sit to Lying (QC): 3 (Mod A due to pain ) Lying to Sitting/Side of Bed(Q: 3 (Mod A due to pain ) Sit to Stand (QC): 3 (Mod A due to pain ) Chair/Nll-bg-Mdtuu Xfer(QC): 3 (Mod A due to pain ) Toilet Transfer (QC): 3 (Mod A due to pain ) Car Transfer (QC): 88 (pain/weakness) Gait Does the Patient Walk?: Yes Mode of Locomotion: Both Anticipated Mode of Locomotion: Walk Walk 10 feet (QC): 88 (pain/weakness) Walk 50 ft with 2 Turns(QC): 88 (pain/weakness) Walk 150 ft (QC): 88 (pain/weakness) Walking 10ft/uneven surface-QC: 88 Distance: 3-4 small steps for to pivot to/from w/c to recliner Gait Assistive Device: FWW Wheelchair Training Does the Pt Use a Wheelchair?: Yes Distance: 150ft Wheel 50 ft with 2 turns (QC): 3 (Min A ) Wheel 150 ft (QC): 3 (Min A ) Type of Wheelchair: Manual Stairs 1 Step (curb) (QC): 88 (pain/weakness) 4 Steps (QC): 88 (pain/weakness) 12 Steps (QC): 88 (pain/weakness) Balance Sitting Static: Good Sitting Dynamic: Fair Standing Static: Fair Standing Dynamic: Fair Picking up an Object (QC): 3 (Mod A with client solutions manager ) Special Test Comments KU standing balance scale = 2/4 (goal = 4/5) Treatment PT eval completed. PT/OT co-tx from [id number], due to skill of 2 clinicians required which a health information technician could not perform in order to coordinate UE/LEs, decrease fall risk, and due to pt's limitations in pain, activity tolerance, mobility/transfers. PT focused on LE placement, gross overall movement, transfers and mobility. OT focused on UE placement, ADLs, and cues for se quencing and safety. Pt instructed to don brief OT provided, she did not initiate task, requiring assistance threading BLEs into brief, assist x 2 in stand for pant hike. Pt transferred from w/c to recliner with Min/Mod A, positioned to comfort and education provided on ARU process/expectations. Post tx, pt in recliner, call light in reach, and all needs met. Assessment/Needs Pt tolerated PT well, but has increased L hip pain which is limiting functional mobility at this time Rehab Potential: Good Post Rehab Potential-Barriers: Pain; L LE weakness Equipment Needs FWW, Transfer-bench, toilet riser, GBs, hip-kit, PT Job Training Specialist Goals Usp Goals PT Job Training Specialist Goals Time Frame: Dec 15, 2022 Roll Left to Right (QC): 6 (Pt will be Mod I with funcitonal mobility with the FWW, in order to safely return home with spouse. ) Sit to Lying (QC): 6 (Pt will be Mod I with funcitonal mobility with the FWW, in order to safely return home with spouse. ) Lying-Sitting on Side/Bed(QC): 6 (Pt will be Mod I with funcitonal mobility with the FWW, in order to safely return home with spouse. ) Sit to Stand (QC): 6 (Pt will be Mod I with funcitonal mobility with the FWW, in order to safely return home with spouse. ) Chair/Yzq-lf-Umpvg Xfer(QC): 6 (Pt will be Mod I with funcitonal mobility with the FWW, in order to safely return home with spouse. ) Toilet/Commode Transfer (QC): 6 (Pt will be Mod I with funcitonal mobility with the FWW, in order to safely return home with spouse. ) Car Transfer (QC): 6 (Pt will be Mod I with funcitonal mobility with the FWW, in order to safely return home with spouse. ) Does the Patient Walk: Yes Walk 10 feet (QC): 6 (Pt will be Mod I with funcitonal mobility with the FWW, in order to safely return home with spouse. ) Walk 10ft-Uneven Surface(QC): 6 (Pt will be Mod I with funcitonal mobility with the FWW, in order to safely return home with spouse. ) Walk 50ft with 2 Turns (QC): 6 (Pt will be Mod I with funcitonal mobility with the FWW, in order to safely return home with spouse. ) Walk 150 ft (QC): 6 (Pt will be Mod I with funcitonal mobility with the FWW, in order to safely return home with spouse. ) Does the Pt use WC or Scooter?: Yes Wheel 50 feet with 2 turns (QC: 6 (Pt will be Mod I with funcitonal mobility with the FWW, in order to safely return home with spouse. ) Type: Manual Wheel 150 feet: 6 (Pt will be Mod I with funcitonal mobility with the FWW, in order to safely return home with spouse. ) Type: Manual 1 Step (curb) (QC): 6 (Pt will be Mod I with funcitonal mobility with the FWW, in order to safely return home with spouse. ) 4 Steps (QC): 6 (Pt will be Mod I with funcitonal mobility with the FWW, in order to safely return home with spouse. ) 12 Steps (QC): 9 (Pt has 2 steps at home ) Picking up an Object (QC): 6 (with client solutions manager ) KU standing balance scale goal = 4/5 PT Plan Problem List Problem List: Activity Tolerance, Functional Strength, Safety, Balance, Gait, Transfer, Bed Mobility, ROM Treatment/Plan Treatment Plan: Continue Plan of Care Treatment Plan: Bed Mobility, Education, Functional Activity Kacey, Functional Strength, Group Therapy, Gait, Safety, Therapeutic Exercise, Transfers Treatment Duration: Dec 15, 2022 Frequency: At least 5 of 7 days/Wk (IRF) Estimated Hrs Per Day: 1.5 hours per day Patient and/or Family Agrees t: Yes Safety Risks/Education Patient Education: Gait Training, Transfer Techniques, Correct Positioning, W/C Management, Safety Issues Teaching Recipient: Patient, Significant Other Teaching Methods: Demonstration, Discussion Response to Teaching: Reinforcement Needed Discharge Recommendations Therapy Discharge Recommendati: Home & Family Equpiment Recommendations-D/C: Front Wheeled Walker, Railings, Shower Chair Discharge Status/Home Program Cont per POC Barriers to Progress L LE pain and weakness Target Placement Home with family support Time Time In: 1100 Time Out: 1130 DATE: Dec 01, 2022 Total Billed Treatment Time: 30 Total Billed Treatment 30 min total from [id number]; 15 min co-tx from [id number] 1 visit DAVIDE FA x 1 MANISHA LOERA PT Dec 01, 2022 13:01
[2022-12-01] MEDS: oxyCODONE IMMEDIATE RELEASE 5 MG TABLET PO PRN ×2 (13:40→20:27)
--- NOTE | 2022-12-01 14:18 | Occupational Ther Daily Note ---
OT Current Status-Daily Note Subjective Pt alert, sitting up in recliner finishing lunch. Pt agrees to therapy. Pt c/o of pain in L hip but did not give number of pain. OT/PT co-treat (13:30-14:10), skills of 2 clinicians required to decrease fall risk, increase functional mobility, and increase overall strength for daily functional tasks. PT focus on transfers, ambulation, and management of B LE. OT focus on management of B UE, weight bearing, activity tolerance, and pain management. Mental Status/Objective Patient Orientation: Person, Confused, Place, Time, Situation Attachments: IV ADL-Treatment Therapy Code Descriptions/Definitions Functional [place] Measure: 0=Not Assessed/NA 4=Minimal Assistance 1=Total Assistance 5=Supervision or Setup 2=Maximal Assistance 6=Modified [place] 3=Moderate Assistance 7=Complete IndependenceSCALE: Activities may be completed with or without assistive devices. 3-Arrpwqmpla-iobtmbd completes the activity by him/herself with no assistance from a helper. 5-Set-up or Clean-up Assistance-helper sets up or cleans up; patient completes activity. [place] assists only prior to or following the activity. 4-Supervision or Touching Assistance-helper provides verbal cues and/or touching/steadying and/or contact guard assistance as patient completes activity. Assistance may be provided throughout the activity or intermittently. 3-Partial/Moderate Assistance-helper does LESS THAN HALF the effort. [place] lifts, holds or supports trunk or limbs, but provides less than half the effort. 2-Substantial/Maximal Assistance-helper does MORE THAN HALF the effort. [place] lifts or holds trunk or limbs and provides more than half the effort. 0-Jzznsnkoe-ewciwi does ALL the effort. Patient does none of the effort to complete the activity. Or, the assistance of 2 or more helpers is required for the patient to complete the activity. If activity was not attempted, code reason: 7-Patient Refused. 9-Not Applicable-not attempted and the patient did not perform the activity before the current illness, exacerbation or injury. 10-Not Attempted due to Environmental Limitations-(lack of equipment, weather restraints, etc.). 88-Not Attempted due to Medical Conditions or Safety Concerns. Other Treatment Pt transferred from chair to w/c with Min A x2 utilizing FWW. Pt transported to gym from room in w/. Pt standing in // bars for ~30 seconds x3 with Min A from PT, OTAS behind pt managing w/c and B UE. Pt required increased time with tasks/transfers due to pain in L hip. Pt working on overall weight bearing of UE + LE, activity tolerance, and static standing balance. See PT note for assistance levels for transfers and ambulation. Pt transported back to room in w/c. Transferred from w/c to EOB with Min A x2 w/ FWW. EOB -> supine Min A. Ended session with pt lying on R side in bed with call light/phone in reach. All needs met in room. Education OT Patient Education: Correct positioning, Transfer techniques Teaching Recipient: Patient Teaching Methods: Discussion Response to Teaching: Verbalize Understanding OT Short Term Goals Short Term Goals Time Frame: Dec 15, 2022 Toileting hygiene: 4 Shower/bathe self: 4 Lower body dressin Putting on/taking off footwear: 3 OT Jail Goals Jail Goals Time Frame: Dec 24, 2022 Acute change in mental status: 0 Inattention: 0 Disorganized thinkin Altered level of consciousness: 0 Eating (QC): 6 Oral Hygiene (QC): 6 Toileting Hygiene (QC): 6 Shower/Bathe Self (QC): 5 Upper Body Dressing (QC): 6 Lower Body Dressing (QC): 6 On/Off Footwear (QC): 6 Additional Goals: 1-Demonstrate ADL Tasks, 2-Verbalize Understanding, 3- ImproveStrength/Kacey 1=Demonstrate adherence to instructed precautions during ADL tasks. 2=Patient will verbalize/demonstrate understanding of assistive devices/modifications for ADL. 3=Patient will improve strength/tolerance for activity to enable patient to perform ADL's. OT Education/Plan Problem List/Assessment Assessment: Decreased Activ Tolerance, Decreased UE Strength, Dependent Transfers, Impaired Bed Mobility, Impaired Cognition, Impaired Funct Balance, Impaired Self-Care Skills Discharge Recommendations Plan/Recommendations: Continue POC Treatment Plan/Plan of Care Treatment,Training & Education: Yes Patient would benefit from OT for education, treatment and training to promote independence in ADL's, mobility, safety and/or upper extremity function for ADL's. Plan of Care: ADL Retraining, Functional Mobility, Group Exercise/Act as Ind, UE Funct Exercise/Act Treatment Duration: Dec 24, 2022 Frequency: At least 5 of 7 days/Wk (IRF) Estimated Hrs Per Day: 1.5 hours per day Agreement: Yes Rehab Potential: Good Time Start Time: 13:30 Stop Time: 14:10 DATE: Dec 01, 2022 Total Time Billed (hr/min): 40 Billed Treatment Time 1 visit- FA 3 (40 min) Co-treat w/PT (13:30-14:10) BYRON BAIN Dec 01, 2022 14:17
--- NOTE | 2022-12-01 15:20 | ST Cognitive Linguistic Eval ---
Speech Evaluation-General Medical Diagnosis s/p L IM nail Onset Date: Nov 29, 2022 Therapy Diagnosis Therapy Diagnosis: Cognitive linguistic impairment Referral Referring Physician: Dr. Jansen Reason for Referral: Evaluation/Treatment Medical History Pertinent Medical History: CAD, DM, HTN, [place] Other reported medical history includes TIA Current History The pt is s/p left hip fx s/p fall 11/28/22, repaired 11/29/22. Daughter at bedside reported mild concern for memory prior to fall (repeating questions), otherwise not concerned with the pt's ability to manage medication or household finances. Reviewed History: Yes Social History Current Living Status: Spouse Speech PLF-Current Status Prior Level of Function Independent for cognition, daughter reported mild memory concerns prior to admission, primarilty repeating questions. Otherwise independent with med management, bill paying, and orientation. Subjective The pt was reclined in bedside chair, fatigued. Daughter reported mental status change likely secondary to surgery anesthesia and pain control medications. The pt was alert to participate in assessment, with poor sustained attention throughout. Language Eval: Auditory Comprehends Simple Yes/No Ques: Functional Follows 1-Step Commands: Mild Follows Complex Directions: Moderate Follows General Conversations: Mild Difficulty noted following commands and directions, repetitions required with decreased accuracy of response. Language Eval: Verbal Language Completes Spontaneous Greeting: Functional Produces Auto, Serial Info: Functional Imitates Simple Words/Phrases: Functional Requests Basic Needs: Functional States Basic Personal Info: Functional Language deficits were not observed during assessment Cognitive Patient Orientation Oriented to self and place, not oriented to time Objective Cognitive Domain Attention: Moderate Memory: Severe Problem Solving: Moderate Executive Functions: Moderate Visuospatial Skills: Moderate Clock Drawing Severity Rating: Severe The pt demonstrated impaired sustained attention to task, perseveration of answers to previously asked questions. Simple problem solving for basic finance was at 0% accuracy, attention to story details was at 1/4 accuracy. Registration of a 5-word list was 4/5 after 3 repetitions, 2/5 delayed recall. Clock drawing was severely impaired. Objective Formal/Standardized Tests SLUMS Results 11/24 Impression Severe cognitive linguistic deficit as measured by the SLUMS examination, probability of interference/interaction with pain medication. Speech Short Term Goals Short Term Goals Short Term Goals 1. The patient will display 80% accuracy with memory exercises through utilization of functional memory strategies for safety precautions with mild clinician cueing. Time Frame-ST days Speech Film Producer Goals Film Producer Goals 1. The patient will demonstrate improved cognitive linguistic skills for safe discharge to the least restrictive environment. Time Frame: 10 days Speech-Plan Patient/Family Goals Patient/Family Goals: Family (daughter) desires that the pt recall and utilize safety precautions to prevent injury Treatment Plan Speech Therapy Treatment Plan: Continue Plan of Care Frequency: 5 times per week Estimated Hrs Per Day: .5 hour per day Rehab Potential: Good Pt/Family Agrees to Plan: Yes Safety Risks/Education Teaching Recipient: Family Teaching Methods: Discussion Response to Teaching: Verbalize Understanding Time Speech Therapy Time In: 12:55 Speech Therapy Time Out: 13:25 DATE: Dec 01, 2022 Total Billed Time: 30 Billed Treatment Time 1 YUSEF HANDLEY Dec 01, 2022 15:20
[2022-12-01] MEDS ORDERED: inSUlin ASPART 1 UNIT/0.01 ML (PER UNIT) SC SCH (16:00)
--- NOTE | 2022-12-01 16:09 | Physical Therapy Daily Note ---
PT Daily Note-Current Subjective Pt alert, sitting up in recliner finishing lunch. Pt agrees to therapy. Pt c/o of pain in L hip but did not rate. PT/OT co-tx (13:30-14:10), skills of 2 clinicians required to decrease fall risk, increase functional mobility, and increase overall strength for daily functional tasks. PT focusing on bed mobility, transfers, ambulation, and management of B LE. OT focusing on management of B UE, weight bearing, activity tolerance, and pain management. Pain Location: Left Location Body Site: Hip Section J - Health Conditions 1. Rarely or not at all 2. Occasionally 3. Frequently 4. Almost constantly 8. Unable to answer Pain Effect on Sleep: 3 Pain Interference with Therapy: 4 Pain Interference w/Day-to-Day: 4 Transfers SCALE: Activities may be completed with or without assistive devices. 4-Ypcvwvpqcj-jrazmaq completes the activity by him/herself with no assistance from a helper. 5-Set-up or Clean-up Assistance-helper sets up or cleans up; patient completes activity. [place] assists only prior to or following the activity. 4-Supervision or Touching Assistance-helper provides verbal cues and/or touching/steadying and/or contact guard assistance as patient completes activity. Assistance may be provided throughout the activity or intermittently. 3-Partial/Moderate Assistance-helper does LESS THAN HALF the effort. [place] lifts, holds or supports trunk or limbs, but provides less than half the effort. 2-Substantial/Maximal Assistance-helper does MORE THAN HALF the effort. [place] lifts or holds trunk or limbs and provides more than half the effort. 5-Mcmxqkqod-argjis does ALL the effort. Patient does none of the effort to complete the activity. Or, the assistance of 2 or more helpers is required for the patient to complete the activity. If activity was not attempted, code reason: 7-Patient Refused. 9-Not Applicable-not attempted and the patient did not perform the activity before the current illness, exacerbation or injury. 10-Not Attempted due to Environmental Limitations-(lack of equipment, weather restraints, etc.). 88-Not Attempted due to Medical Conditions or Safety Concerns. Sit to Lying (QC): 3 Sit to Stand (QC): 3 Chair/Vid-ji-Htwkd Xfer(QC): 3 Weight Bearing Right Lower Extremity: Right Full Weight Bearing Left Lower Extremity: Left Weight Bearing/Tolerated Gait Training Gait Assistive Device: FWW Wheelchair Training Does the Pt Use a Wheelchair?: Yes Wheel 50 ft with 2 turns (QC): 3 Type of Wheelchair: Manual Treatments Pt completed functional transfers with Min A. Pt standing in // bars for ~30 seconds x 3 with Min A. Pt required increased time with tasks/transfers due to pain in L hip. Pt working on overall weight bearing of UE + LE, activity tolerance, and static standing balance. Pt completed sit to supine with Min A. Pt in bed with call light/phone in reach at end of treatment session. All needs met in room. Assessment Current Status: Good Progress Pt tolerated PT well with good effort PT Manager Procurement Goals Detention Goals PT Manager Procurement Goals Time Frame: Dec 15, 2022 Roll Left & Right (QC): 6 (Pt will be Mod I with funcitonal mobility with the FWW, in order to safely return home with spouse. ) Sit to Lying (QC): 6 (Pt will be Mod I with funcitonal mobility with the FWW, in order to safely return home with spouse. ) Lying-Sitting on Side/Bed(QC): 6 (Pt will be Mod I with funcitonal mobility with the FWW, in order to safely return home with spouse. ) Sit to Stand (QC): 6 (Pt will be Mod I with funcitonal mobility with the FWW, in order to safely return home with spouse. ) Chair/Cyw-xp-Ymvyf Xfer(QC): 6 (Pt will be Mod I with funcitonal mobility with the FWW, in order to safely return home with spouse. ) Toilet Transfer (QC): 6 (Pt will be Mod I with funcitonal mobility with the FWW, in order to safely return home with spouse. ) Car Transfer (QC): 6 (Pt will be Mod I with funcitonal mobility with the FWW, in order to safely return home with spouse. ) Does the Patient Walk: Yes Walk 10 feet (QC): 6 (Pt will be Mod I with funcitonal mobility with the FWW, in order to safely return home with spouse. ) Walk 50ft with 2 Turns (QC): 6 (Pt will be Mod I with funcitonal mobility with the FWW, in order to safely return home with spouse. ) Walk 150 ft (QC): 6 (Pt will be Mod I with funcitonal mobility with the FWW, in order to safely return home with spouse. ) Walking 10ft on Uneven Surface: 6 (Pt will be Mod I with funcitonal mobility with the FWW, in order to safely return home with spouse. ) 1 Step (curb) (QC): 6 (Pt will be Mod I with funcitonal mobility with the FWW, in order to safely return home with spouse. ) 4 Steps (QC): 6 (Pt will be Mod I with funcitonal mobility with the FWW, in order to safely return home with spouse. ) 12 Steps (QC): 9 (Pt has 2 steps at home ) Picking up an Object (QC): 6 (with pulpwood cutter ) Does the Pt use WC or Scooter?: Yes Wheel 50 feet with 2 turns (QC: 6 (Pt will be Mod I with funcitonal mobility with the FWW, in order to safely return home with spouse. ) Type: Manual Wheel 150 feet: 6 (Pt will be Mod I with funcitonal mobility with the FWW, in order to safely return home with spouse. ) Type: Manual PT Plan Problem List Problem List: Activity Tolerance, Functional Strength, Safety, Balance, Gait, Transfer, Bed Mobility, ROM Treatment/Plan Treatment Plan: Continue Plan of Care Treatment Plan: Bed Mobility, Education, Functional Activity Kacey, Functional Strength, Group Therapy, Gait, Safety, Therapeutic Exercise, Transfers Treatment Duration: Dec 15, 2022 Frequency: At least 5 of 7 days/Wk (IRF) Estimated Hrs Per Day: 1.5 hours per day Patient and/or Family Agrees t: Yes Safety Risks/Education Patient Education: Gait Training, Transfer Techniques, Correct Positioning, W/C Management, Safety Issues Teaching Recipient: Patient Teaching Methods: Demonstration, Discussion Response to Teaching: Verbalize Understanding, Return Demonstration, Reinforcement Needed Discharge Recommendations Therapy Discharge Recommendati: Home & Family Equpiment Recommendations-D/C: Front Wheeled Walker, Railings, Shower Chair, Toilet Riser Discharge Status/Home Program Cont per POC Barriers to Progress L hip pain/weakness Target Placement Home with family support Time Time In: 1330 Time Out: 1410 DATE: Dec 01, 2022 Total Billed Treatment Time: 40 Total Billed Treatment 40 min total treatment time/co-tx from [id number] 1 visit FA x 3 MANISHA LOERA PT Dec 01, 2022 16:09
[2022-12-01] MEDS: RT-ALBUTEROL SULF 2.5 MG/3 ML PRE-MIX VIAL INH SCH (20:09)
[2022-12-01] MEDS: DOCUSATE SODIUM 100 MG CAPSULE PO SCH (20:27)
[2022-12-01] MEDS: SENNOSIDES 8.6 MG TABLET PO SCH (20:27)
[2022-12-01] MEDS: APIXABAN 2.5 MG TABLET PO SCH (20:27)
[2022-12-01 20:35] VITALS: BP 145/61
[2022-12-01] MEDS ORDERED: SENNA W/DOCUSATE TABLET PO SCH (21:00)
[2022-12-01] MEDS ORDERED: DOCUSATE SODIUM 100 MG CAPSULE PO SCH (21:00)
[2022-12-02] MEDS: oxyCODONE IMMEDIATE RELEASE 5 MG TABLET PO PRN ×3 (03:50→20:33)
--- NOTE | 2022-12-02 05:14 | Individualized Plan of Care ---
Individualized Plan of Care Rehab Nursing IPOC Order Admission Date Dec 01, 2022 at 10:45 Current Orders Orders Admission Arrival Bed Request (12/01/22 11:09) Admission Order(Inpt,Obs,Sdc) (12/01/22 11:51) Vital Signs: Per Unit Policy ( 08,16,00 (12/01/22 11:51) Tono Gonzalez (12/01/22 11:51) Sequential Compression Device [id number] (12/01/22 11:51) Animal Cytologist-Inpt Rehab Con (12/01/22 11:51) Rehab Nursing Orders-Ipoc (12/01/22 11:51) Physical Therapy Rehab Orders (12/01/22 11:51) Occupational Therapy Rehab Ord (12/01/22 11:51) Speech Therapy Rehab Orders (12/01/22 11:51) Cbc With Automated Diff (12/02/22 06:00) Comprehensive Metabolic Panel (12/02/22 06:00) Precautions (Aru) (12/01/22 11:51) Weekly Weight WEEK (12/01/22 11:51) Rehab-Intensity Of Therapy (12/01/22 11:51) Initiate Admission Nursing Pro .admission (12/01/22 11:51) Alprazolam Tablet (Alprazolam Tablet) (12/01/22 12:00) Calcium Carbonate Chew Tablet (Calcium C (12/01/22 12:00) Diphenhydramine Tablet (Diphenhydramine (12/01/22 12:00) Docusate Sodium Capsule (Docusate Sodium (12/01/22 21:00) Docusate Sodium Capsule (Docusate Sodium (12/01/22 12:00) Bisacodyl Suppository (Bisacodyl Supposi (12/01/22 12:00) Lactulose Oral Solution (Enulose Oral So (12/01/22 12:00) Na Phos/Na Biphos Adult Enema (Na Phos/N (12/01/22 12:00) Guaifenesin/Codeine Syrup (Guaifenesin/C (12/01/22 12:00) Loperamide Capsule (Loperamide Capsule) (12/01/22 12:00) Melatonin Tablet (Melatonin Tablet) (12/01/22 12:00) Polyethylene Glycol Powder (Polyethylen (12/01/22 21:00) Ondansetron Oral Dissolve Tab (Ondanset (12/01/22 12:00) Senna W/Docusate Tablet (Senna W/Docusat (12/01/22 21:00) Acetaminophen Tablet (Acetaminophen Ta (12/01/22 12:00) Initiate Admission Nursing Pro .admission (12/01/22 11:51) Code/Resuscitation (12/01/22 12:02) Catheter(Urinary) Discontinue (12/01/22 12:02) Dressing Order (Intervention) DAILY (12/01/22 12:02) Ice: Apply To Affected Area (12/01/22 12:02) Incentive Spirometry (Nursing) Q2H (12/01/22 12:02) Oxygen-Administer 07,19 (12/01/22 12:02) Tono Hose 09,21 (12/01/22 12:02) Weight Bearing As Tolerated (12/01/22 12:02) General/Regular (12/01/22 Lunch) Alprazolam Tablet (Alprazolam Tablet) (12/01/22 12:15) Albuterol Pre-Mix Nebs (Rt) (Albuterol (12/01/22 12:15) Apixaban Tablet (Apixaban Tablet) (12/01/22 21:00) Atorvastatin Tablet (Atorvastatin Tablet (12/01/22 21:00) Diphenhydramine Injection (Diphenhydram (12/01/22 12:15) Diphenhydramine Tablet (Diphenhydramine (12/01/22 12:15) Docusate Sodium Capsule (Docusate Sodium (12/01/22 21:00) Cyanocobalamin Tablet (Cyanocobalamin Ta (12/02/22 07:00) Bisacodyl Suppository (Bisacodyl Supposi (12/01/22 12:15) Lactulose Oral Solution (Enulose Oral So (12/01/22 12:15) Hydromorphone Injection (Hydromorphone (12/01/22 12:15) Iron Sucrose Injection (Iron Sucrose Inj (12/03/22 09:00) Levothyroxine Tablet (Levothyroxine Tabl (12/02/22 06:30) Melatonin Tablet (Melatonin Tablet) (12/01/22 12:15) Milk Of Magnesia Oral Susp (Milk Of Magn (12/01/22 12:15) Polyethylene Glycol Powder (Polyethylen (12/01/22 12:15) Antacid Suspension (Antacid Suspension (12/01/22 12:15) Insulin Aspart (Per Unit) (Insulin Aspar (12/01/22 16:00) Patient May Use Own Meds, All (Patient M (12/01/22 12:15) Sennosides Tablet (Sennosides Tablet) (12/01/22 21:00) Calcium Carbonate Chew Tablet (Calcium C (12/01/22 12:15) Acetaminophen Tablet (Acetaminophen Ta (12/01/22 12:15) Ondansetron Oral Dissolve Tab (Ondanset (12/01/22 12:15) Ondansetron Injection (Ondansetron Inj (12/01/22 12:15) Amlodipine Tablet (Amlodipine Tablet) (12/02/22 09:00) Oxycodone Immediate Rel Tablet (Oxycodon (12/01/22 12:15) Consult Cardiology (12/01/22 12:02) Consult Orthopedic Surgery (12/01/22 12:02) Svn Small Volume Nebulizer (12/01/22 12:02) Mat Initiate Protocol (12/01/22 12:20) Albuterol Pre-Mix Nebs (Rt) (Albuterol (12/01/22 21:00) Svn Small Volume Nebulizer (12/01/22 12:45) Patient Visit (12/01/22 ) Pt Eval Moderate Complexity (12/01/22 ) Functional Activities, Ea 15 (12/01/22 ) Patient Visit (12/01/22 ) Functional Activities, Ea 15 (12/01/22 ) Patient Visit (12/01/22 ) Speech Sound Lang Comp (12/01/22 ) Oxycodone Immediate Rel Tablet (Oxycodon (12/02/22 10:30) Enlive Variety (12/02/22 10:47) Patient Visit (12/02/22 ) Functional Activities, Ea 15 (12/02/22 ) Exercise Therap, Ea 15 Min (12/02/22 ) Treat. Speech/Lang/Voice (12/02/22 ) Patient Visit (12/02/22 ) Rehab Nursing Orders: Ongoing Assess. of Cognitive Status, Ongoing Assess. of Function Status, Bladder Management, Bladder Scan, Bladder Training, Bowel Management, Bowel Training, Disease Management & Educaiton, DVT Prophylaxis, Fall Prevention, Fluid/Electrolyte/Nutrition Mgmt, Infection Prevention, Medic ation Management & Education, Management of Risks & Complications, Management of Skin Intergrity, Nutrition Management, Pain Management, Patient/Family Support, Safety Management, Wound Management Intensity of Therapy to be met Patient to be seen: Min.3h per day/5 of 7d PT IPOC Problem List: Activity Tolerance, Functional Strength, Safety, Balance, Gait, Transfer, Bed Mobility, ROM Treatment Plan: Continue Plan of Care Bed Mobility, Education, Functional Activity Kacey, Functional Strength, Group Therapy, Gait, Safety, Therapeutic Exercise, Transfers Treatment Duration: Dec 15, 2022 Frequency: At least 5 of 7 days/Wk (IRF) Estimated Hrs Per Day: 1.5 hours per day OT IPOC Problems: Decreased Activ Tolerance, Decreased UE Strength, Dependent Transfers, Impaired Bed Mobility, Impaired Cognition, Impaired Funct Balance, Impaired Self-Care Skills OT Treatment, Training and Edu: Yes Plan of Care: ADL Retraining, Functional Mobility, Group Exercise/Act as Ind, UE Funct Exercise/Act Treatment Duration: Dec 24, 2022 Frequency: At least 5 of 7 days/Wk (IRF) Estimated Hrs Per Day: 1.[address] IPOC Speech Therapy Treatment Plan: Continue Plan of Care Treatment Duration: Dec 02, 2022 Frequency: 5 times per week Estimated Hrs Per Day: .5 hour per day Animal Cytologist/Case Mgmt Animal Cytologist/Case Managemen: Discharge Planning Dietitian/Sheet Metal Mechanic Dietitian/Sheet Metal Mechanic to monitor nutritional status and make changes and/or recommendations as needed and work with speech pathology on dietary upgrades as the occur. Physician IPOC Medical Issues being managed closely and that require the 24 hour availability of a physician: Recent hip fracture along with systolic dysfunction on ECHO in pre-op will require close monitoring since at high risk for delirium and falls Medical Issues: Bowel/Bladder Function, DVT Prophylaxis, Falls Precautions, Fluid/Electrolyte/Nutrition Balance, Infection Protection, Pain Management, Weight Bearing Precautions, Wound Care Brief Synthesis of Preadmission Screen, Post-Admission Evaluation, and Therapy Evaluations: PT OT will focus on regaining function with the use of AD in order to regain independence along with stamina for ambulation and ADL's Medical Prognosis: Good Anticipated Length of Stay: 10 days BEVERLEY HUNTER DO Dec 02, 2022 05:14
--- NOTE | 2022-12-02 05:14 | PM&R Progress Note ---
Subjective HPI/CC On Admission Date Seen by Provider: Dec 02, 2022 Time Seen by Provider: 12:30 Subjective/Events-last exam 12/02/2022: Pain is an issue Will DC Dilaudid and increase Oxycodone Appears sedated No BM yet so ordered supp and SSE Labs stable Review of Systems General: Fatigue, Malaise Musculoskeletal: leg pain Objective Exam Vital Signs Vital Signs Date Time Temp Pulse Resp B/P (MAP) Pulse Ox O2 Delivery O2 Flow Rate FiO2 12/02/22 19:22 36.3 83 18 119/56 (77) 97 Nasal Cannula 2.00 12/01/22 12:20 21 Capillary Refill : General Appearance: No Apparent Distress, WD/WN, Chronically ill HEENT: PERRL/EOMI, Normal ENT Inspection, Pharynx Normal Neck: Full Range of Motion, Normal Inspection, Non Tender, Supple, Carotid Bruit Respiratory: Chest Non Tender, Lungs Clear, Normal Breath Sounds, No Accessory Muscle Use, No Respiratory Distress Cardiovascular: Regular Rate, Rhythm, No Edema, No Gallop, No JVD, No Murmur, Normal Peripheral Pulses Gastrointestinal: Normal Bowel Sounds, No Organomegaly, No Pulsatile Mass, Non Tender, Soft Back: Normal Inspection, No CVA Tenderness, No Vertebral Tenderness Extremity: Normal Capillary Refill, Normal Inspection, Normal Range of Motion (except left leg), Non Tender, No Calf Tenderness, No Pedal Edema Neurologic/Psychiatric: Alert, Oriented x3, clerk of court II-XII Norm as Tested, Abnormal Gait, Depressed Affect, Motor Weakness (left leg) Skin: Normal Color, Warm/Dry Lymphatic: No Adenopathy Results/Procedures Lab Laboratory Tests 12/02/22 05:20 Patient resulted labs reviewed. FIM Transfers Therapy Code Descriptions/Definitions Functional [place] Measure: 0=Not Assessed/NA 4=Minimal Assistance 1=Total Assistance 5=Supervision or Setup 2=Maximal Assistance 6=Modified [place] 3=Moderate Assistance 7=Complete IndependenceSCALE: Activities may be completed with or without assistive devices. 2-Odmhxcubzg-arrjhql completes the activity by him/herself with no assistance from a helper. 5-Set-up or Clean-up Assistance-helper sets up or cleans up; patient completes activity. [place] assists only prior to or following the activity. 4-Supervision or Touching Assistance-helper provides verbal cues and/or to uching/steadying and/or contact guard assistance as patient completes activity. Assistance may be provided throughout the activity or intermittently. 3-Partial/Moderate Assistance-helper does LESS THAN HALF the effort. [place] lifts, holds or supports trunk or limbs, but provides less than half the effort. 2-Substantial/Maximal Assistance-helper does MORE THAN HALF the effort. [place] lifts or holds trunk or limbs and provides more than half the effort. 4-Czcxblnlx-klsxgv does ALL the effort. Patient does none of the effort to complete the activity. Or, the assistance of 2 or more helpers is required for the patient to complete the activity. If activity was not attempted, code reason: 7-Patient Refused. 9-Not Applicable-not attempted and the patient did not perform the activity before the current illness, exacerbation or injury. 10-Not Attempted due to Environmental Limitations-(lack of equipment, weather restraints, etc.). 88-Not Attempted due to Medical Conditions or Safety Concerns. Roll Left to Right (QC): 3 (Mod A due to pain ) Sit to Lying (QC): 3 Sit to Stand (QC): 3 Chair/Fxa-if-Iigkj Xfer(QC): 3 Car Transfer (QC): 88 (pain/weakness) Gait Training Does the Patient Walk?: Yes Walk 10 feet (QC): 88 (pain/weakness) Walk 50 ft with 2 Turns(QC): 88 (pain/weakness) Walk 150 ft (QC): 88 (pain/weakness) Walking 10ft/uneven surface-QC: 88 Gait Assistive Device: FWW Wheelchair Training Does the Pt Use a Wheelchair?: Yes Distance: 150ft Wheel 50 ft with 2 turns (QC): 3 Wheel 150 ft (QC): 3 (Min A ) Type of Wheelchair: Manual Stair Training 1 Step (curb) (QC): 88 (pain/weakness) 4 Steps (QC): 88 (pain/weakness) 12 Steps (QC): 88 (pain/weakness) Balance Picking up an Object (QC): 3 (Mod A with mold inspector ) ADL-Treatment Eating (QC): 5 Oral Hygiene (QC): 4 Shower/Bathe Self (QC): 1 (2 person assist in standing to wash buttocks.) Upper Body Dressing (QC): 3 (partial/mod A required) Lower Body Dressing (QC): 1 On/Off Footwear (QC): 2 Toileting Hygiene (QC): 1 (2 person assist in standing to wash buttocks.) Assessment/Plan Assessment and Plan Assess & Plan/Chief Complaint Assessment: Left hip fracture recovery Hypertension Hyperlipidemia CAD status post PCI 2007 Systolic dysfunction on echocardiogram ejection fraction 40-45% Advanced age Frail status Post op constipation Acute blood loss anemia requiring 1 unit of blood on med-surg Plan: Pain control Supportive care Monitor closely Fall risk 12/02/2022: Bowel regimen Monitor pain DC Dilaudid (1) Closed left hip fracture Status: Acute (2) ANEMIA (3) Hypothyroidism Status: Chronic (4) Coronary artery disease Status: Chronic (5) Hypertension Status: Chronic (6) Hyperlipidemia Status: Chronic BEVERLEY HUNTER DO Dec 02, 2022 05:14
[2022-12-02 06:17] LABS: BASOPHILS % (AUTO) 0 % (0-10); EOSINOPHILS # (AUTO) 0.4 10^3/uL (0.0-0.3); EOSINOPHILS % (AUTO) 4 % (0-10); HEMATOCRIT 26 % (35-52); LYMPHOCYTES # (AUTO) 1.2 10^3/uL (1.0-4.0); LYMPHOCYTES % (AUTO) 10 % (12-44); MEAN CORPUSCULAR HEMOGLOBIN 29 pg (25-34); MEAN CORPUSCULAR HGB CONC 31 g/dL (32-36); MEAN CORPUSCULAR VOLUME 94 fL (80-99); MEAN PLATELET VOLUME 11.8 fL (9.0-12.2); MONOCYTES # (AUTO) 1.4 10^3/uL (0.0-1.0); MONOCYTES % (AUTO) 12 % (0-12); NEUTROPHILS # (AUTO) 8.8 10^3/uL (1.8-7.8); NEUTROPHILS % (AUTO) 74 % (42-75); PLATELET COUNT 131 10^3/uL (130-400); WHITE BLOOD COUNT 11.9 10^3/uL (4.3-11.0)
[2022-12-02 06:24] LABS: ALBUMIN 2.5 GM/DL (3.2-4.5); BILIRUBIN,TOTAL 1.9 MG/DL (0.1-1.0); CALCIUM 8.2 MG/DL (8.5-10.1); CREATININE SERUM 1.23 MG/DL (0.60-1.30); POTASSIUM 3.7 MMOL/L (3.6-5.0); TOTAL PROTEIN 5.2 GM/DL (6.4-8.2)
[2022-12-02] MEDS: LEVOTHYROXINE 88 MCG TABLET PO SCH (06:30)
[2022-12-02] MEDS: CYANOCOBALAMIN 1,000 MCG TABLET PO SCH (06:30)
[2022-12-02 07:59] VITALS: BP 116/60
[2022-12-02] MEDS: APIXABAN 2.5 MG TABLET PO SCH ×2 (08:06→20:32)
[2022-12-02] MEDS: amLODIPine 5 MG TABLET PO SCH (08:07)
[2022-12-02] MEDS: SENNOSIDES 8.6 MG TABLET PO SCH ×2 (08:07→20:32)
[2022-12-02] MEDS: DOCUSATE SODIUM 100 MG CAPSULE PO SCH ×2 (08:07→20:32)
[2022-12-02 08:17] VITALS: BP 116/60
[2022-12-02] MEDS: RT-ALBUTEROL SULF 2.5 MG/3 ML PRE-MIX VIAL INH SCH ×2 (08:20→21:48)
--- NOTE | 2022-12-02 08:35 | Occupational Ther Daily Note ---
OT Current Status-Daily Note Subjective Pt alert, sitting up in recliner. Pt agrees to therapy. Pt c/o of pain in L hip, rated 8/10. Nrsg notified and pain meds given during tx session. Mental Status/Objective Patient Orientation: Person, Confused, Place, Situation, Mumbles ADL-Treatment Therapy Code Descriptions/Definitions Functional [place] Measure: 0=Not Assessed/NA 4=Minimal Assistance 1=Total Assistance 5=Supervision or Setup 2=Maximal Assistance 6=Modified [place] 3=Moderate Assistance 7=Complete IndependenceSCALE: Activities may be completed with or without assistive devices. 8-Svljqnqcnz-vcpshzf completes the activity by him/herself with no assistance from a helper. 5-Set-up or Clean-up Assistance-helper sets up or cleans up; patient completes activity. [place] assists only prior to or following the activity. 4-Supervision or Touching Assistance-helper provides verbal cues and/or touching/steadying and/or contact guard assistance as patient completes activity. Assistance may be provided throughout the activity or intermittently. 3-Partial/Moderate Assistance-helper does LESS THAN HALF the effort. [place] lifts, holds or supports trunk or limbs, but provides less than half the effort. 2-Substantial/Maximal Assistance-helper does MORE THAN HALF the effort. [place] lifts or holds trunk or limbs and provides more than half the effort. 6-Bzpyaiegl-cfayij does ALL the effort. Patient does none of the effort to complete the activity. Or, the assistance of 2 or more helpers is required for the patient to complete the activity. If activity was not attempted, code reason: 7-Patient Refused. 9-Not Applicable-not attempted and the patient did not perform the activity before the current illness, exacerbation or injury. 10-Not Attempted due to Environmental Limitations-(lack of equipment, weather restraints, etc.). 88-Not Attempted due to Medical Conditions or Safety Concerns. Eating (QC): 4 (VCs needed to initate eating. ) Oral Hygiene (QC): 4 (Vc needed for where objects are located due to visual difficulties. ) Upper Body Dressing (QC): 4 (CGA for steadying.) Lower Body Dressing (QC): 2 (Pt required assistance to thread pants around feet, but able to pull pants up legs. Assistance given to stand and hike pants over hips, pt able to offload R hand to partially hike pants over R hip.) On/Off Footwear: 2 (Pt able to cross R foot over knee to doff R sock. Assistance given for doffing L sock and donning both. ) Other Treatment Pt brushed hair with VC to initiate task. Requires increased time during functional tasks due to vision difficulties and low activity tolerance. Education OT Patient Education: Modified ADL techniques Teaching Recipient: Patient Teaching Methods: Demonstration, Discussion Response to Teaching: Verbalize Understanding Education given on figure-four technique for LB dressing. OT Short Term Goals Short Term Goals Time Frame: Dec 15, 2022 Toileting hygiene: 4 Shower/bathe self: 4 Lower body dressin Putting on/taking off footwear: 3 OT Longterm Goals Associate Creative Director Goals Time Frame: Dec 24, 2022 Acute change in mental status: 0 Inattention: 0 Disorganized thinkin Altered level of consciousness: 0 Eating (QC): 6 Oral Hygiene (QC): 6 Toileting Hygiene (QC): 6 Shower/Bathe Self (QC): 5 Upper Body Dressing (QC): 6 Lower Body Dressing (QC): 6 On/Off Footwear (QC): 6 Additional Goals: 1-Demonstrate ADL Tasks, 2-Verbalize Understanding, 3- ImproveStrength/Kacey 1=Demonstrate adherence to instructed precautions during ADL tasks. 2=Patient will verbalize/demonstrate understanding of assistive devices/modifications for ADL. 3=Patient will improve strength/tolerance for activity to enable patient to perform ADL's. OT Education/Plan Problem List/Assessment Assessment: Decreased Activ Tolerance, Decreased UE Strength, Dependent Transfers, Impaired Bed Mobility, Impaired Cognition, Impaired Funct Balance, Impaired Self-Care Skills Discharge Recommendations Plan/Recommendations: Continue POC Treatment Plan/Plan of Care Treatment,Training & Education: Yes Patient would benefit from OT for education, treatment and training to promote independence in ADL's, mobility, safety and/or upper extremity function for ADL's. Plan of Care: ADL Retraining, Functional Mobility, Group Exercise/Act as Ind, UE Funct Exercise/Act Treatment Duration: Dec 24, 2022 Frequency: At least 5 of 7 days/Wk (IRF) Estimated Hrs Per Day: 1.5 hours per day Agreement: Yes Rehab Potential: Good Time Start Time: 07:00 Stop Time: 08:30 DATE: Dec 02, 2022 Total Time Billed (hr/min): 90 Billed Treatment Time 1 visit- ADL 6 (90 min) BYRON BAIN Dec 02, 2022 08:35
--- NOTE | 2022-12-02 10:26 | Physical Therapy Daily Note ---
PT Daily Note-Current Subjective Pt R sidelying upon arrival. Pt agrees to PT w/promise of pain med. Pain Numeric Pain Scale: 9 Location: Left Location Body Site: Hip Pain Description: Ache Comment: Starts at 9/10 in bed but decreases to 5/10 after TF to recliner & pain med Section J - Health Conditions 1. Rarely or not at all 2. Occasionally 3. Frequently 4. Almost constantly 8. Unable to answer Pain Effect on Sleep: 3 Pain Interference with Therapy: 4 Pain Interference w/Day-to-Day: 4 Mental Status Patient Orientation: Person, Place, Situation Attachments: Oxygen, IV Transfers SCALE: Activities may be completed with or without assistive devices. 4-Bgradbgagf-ldvidck completes the activity by him/herself with no assistance from a helper. 5-Set-up or Clean-up Assistance-helper sets up or cleans up; patient completes activity. [place] assists only prior to or following the activity. 4-Supervision or Touching Assistance-helper provides verbal cues and/or touching/steadying and/or contact guard assistance as patient completes activity. Assistance may be provided throughout the activity or intermittently. 3-Partial/Moderate Assistance-helper does LESS THAN HALF the effort. [place] lifts, holds or supports trunk or limbs, but provides less than half the effort. 2-Substantial/Maximal Assistance-helper does MORE THAN HALF the effort. [place] lifts or holds trunk or limbs and provides more than half the effort. 0-Gpisarssc-xjmxqp does ALL the effort. Patient does none of the effort to complete the activity. Or, the assistance of 2 or more helpers is required for the patient to complete the activity. If activity was not attempted, code reason: 7-Patient Refused. 9-Not Applicable-not attempted and the patient did not perform the activity before the current illness, exacerbation or injury. 10-Not Attempted due to Environmental Limitations-(lack of equipment, weather restraints, etc.). 88-Not Attempted due to Medical Conditions or Safety Concerns. Lying to Sitting/Side of Bed(Q: 3 (Mod) Weight Bearing Right Lower Extremity: Right Full Weight Bearing Left Lower Extremity: Left Weight Bearing/Tolerated Exercises Seated Therapy Exercises: Ankle pumps, Sit to stand (4 reps), Long arc quads, Hip flexion, Hamstring Curls, Hip abd/add, Glut set Seated Reps: 15 Treatments Pt needs convincing to get out of bed. With encouragement and promise of pain med, pt finally agrees to TF to EOB. Pt is given instruction on log rolling and TF from R sidelying to EOB then Stands w/instruction. Pt amb. 5' to recliner for pain med. Pt practices sit to stand TF x4 before resting. Pt completes Seated EX w/RB as needed. Pt resting in recliner w/all needs met, call light in hand at end of tx. Assessment Current Status: Fair Progress Pt is limited by pain and drowsiness during tx. CITY DETECTIVE explains the need for push through the pain now to break through the stiffness building up. PT Refrigerator Tester Goals [facility] Goals PT [facility] Goals Time Frame: Dec 15, 2022 Roll Left & Right (QC): 6 (Pt will be Mod I with funcitonal mobility with the FWW, in order to safely return home with spouse. ) Sit to Lying (QC): 6 (Pt will be Mod I with funcitonal mobility with the FWW, in order to safely return home with spouse. ) Lying-Sitting on Side/Bed(QC): 6 (Pt will be Mod I with funcitonal mobility with the FWW, in order to safely return home with spouse. ) Sit to Stand (QC): 6 (Pt will be Mod I with funcitonal mobility with the FWW, in order to safely return home with spouse. ) Chair/Fmz-ve-Mntxp Xfer(QC): 6 (Pt will be Mod I with funcitonal mobility with the FWW, in order to safely return home with spouse. ) Toilet Transfer (QC): 6 (Pt will be Mod I with funcitonal mobility with the FWW, in order to safely return home with spouse. ) Car Transfer (QC): 6 (Pt will be Mod I with funcitonal mobility with the FWW, in order to safely return home with spouse. ) Does the Patient Walk: Yes Walk 10 feet (QC): 6 (Pt will be Mod I with funcitonal mobility with the FWW, in order to safely return home with spouse. ) Walk 50ft with 2 Turns (QC): 6 (Pt will be Mod I with funcitonal mobility with the FWW, in order to safely return home with spouse. ) Walk 150 ft (QC): 6 (Pt will be Mod I with funcitonal mobility with the FWW, in order to safely return home with spouse. ) Walking 10ft on Uneven Surface: 6 (Pt will be Mod I with funcitonal mobility with the FWW, in order to safely return home with spouse. ) 1 Step (curb) (QC): 6 (Pt will be Mod I with funcitonal mobility with the FWW, in order to safely return home with spouse. ) 4 Steps (QC): 6 (Pt will be Mod I with funcitonal mobility with the FWW, in order to safely return home with spouse. ) 12 Steps (QC): 9 (Pt has 2 steps at home ) Picking up an Object (QC): 6 (with identification printing machine setter ) Does the Pt use WC or Scooter?: Yes Wheel 50 feet with 2 turns (QC: 6 (Pt will be Mod I with funcitonal mobility with the FWW, in order to safely return home with spouse. ) Type: Manual Wheel 150 feet: 6 (Pt will be Mod I with funcitonal mobility with the FWW, in order to safely return home with spouse. ) Type: Manual PT Plan Problem List Problem List: Activity Tolerance, Functional Strength, Safety, Balance, Gait, Transfer Treatment/Plan Treatment Plan: Continue Plan of Care Treatment Plan: Bed Mobility, Education, Functional Activity Kacey, Functional Strength, Group Therapy, Gait, Safety, Therapeutic Exercise, Transfers Treatment Duration: Dec 15, 2022 Frequency: At least 5 of 7 days/Wk (IRF) Estimated Hrs Per Day: 1.5 hours per day Patient and/or Family Agrees t: Yes Safety Risks/Education Patient Education: Transfer Techniques, Correct Positioning, Safety Issues Teaching Recipient: Patient Teaching Methods: Discussion Response to Teaching: Verbalize Understanding Time Time In: 914 Time Out: 1030 DATE: Dec 02, 2022 Total Billed Treatment Time: 75 Total Billed Treatment 1, FA x2 (30m) & EX x3 (45m) ALVARO LEE PTA Dec 02, 2022 10:26
--- NOTE | 2022-12-02 11:57 | Speech Therapy Daily Note ---
Speech Daily Progress Note Subjective Date Seen by Provider: Dec 02, 2022 Time Seen by Provider: 11:00 The pt was seen in her room, sitting semi-reclined in chair with feet elevated. She reported minimal pain. She was alert and interactive throughout session, did report feeling tired. Objective The pt was oriented to date and year and place. Reading the clock for time was targeted, the pt had difficulty seeing the clock, though she reported that she normally has good distance visual acuity. When shown the hands and the numbers on the clock, the pt was unable to determine time. Time was provided and simple problem solving for elapsed time for upcoming events was targeted (e.g. lunch), with 75% accuracy of approximate guesses. Functional safety problem solving was then targeted. The pt initially stated that she could get up and walk at will to obtain needed items in her room. After prompted recall for morning therapy (stand with walker with assistx2), the pt was able to report at repeated intervals that she needs to use her call light for all assistance for all hypothetical situations provided, including out of reach items, toilet, and medication needs. Call light/tv remote use was then targeted. The pt continued to appear to have visual disorganization, demonstrating inability to recognize the front v. back of the remote, and was also unable to recognize vertical orientation. When call light was oriented in correct position, the pt could locate the nursing call button with good accuracy. When the remote was not oriented correctly, the pt was unable to locate the nursing call button, and was unable to independently orient the remote to forward-facing/right-side up. Locating TV button and numbers was at max assist across all trials regardless of correct remote orientation, again suggesting visual acuity/disorganization (reading glasses were on for this task). Assessment Assessment Current Status: Good Progress Improved orientation, recall of morning events Treatment Plan Continue Plan of Care Speech Short Term Goals Short Term Goals Short Term Goals 1. The patient will display 80% accuracy with memory exercises through utilization of functional memory strategies for safety precautions with mild clinician cueing. Time Frame-ST days Speech Intermediate Goals Intermediate Goals 1. The patient will demonstrate improved cognitive linguistic skills for safe discharge to the least restrictive environment. Time Frame: 10 days Speech-Plan Treatment Plan Speech Therapy Treatment Plan: Continue Plan of Care Frequency: Modified Program (IRF) Estimated Hrs Per Day: .5 hour per day Rehab Potential: Good Barriers to Learning: Questionable visual acuity/organization Pt/Family Agrees to Plan: Yes Safety Risks/Education Teaching Recipient: Patient Teaching Methods: Demonstration, Discussion Response to Teaching: Verbalize Understanding Education Topics Provided: Call light use Time Speech Therapy Time In: 11:00 Speech Therapy Time Out: 11:30 DATE: Dec 02, 2022 Total Billed Time: 30 Billed Treatment Time 1 (SLTS) YUSEF TOUSSAINT Dec 02, 2022 11:57
[2022-12-02 19:22] VITALS: BP 119/56
[2022-12-02] MEDS: ONDANSETRON 4 MG ORAL DISSOLVE TABLET PO PRN (20:51)
--- NOTE | 2022-12-03 05:14 | PM&R Progress Note ---
Subjective HPI/CC On Admission Date Seen by Provider: Dec 03, 2022 Time Seen by Provider: 12:30 Subjective/Events-last exam 12/03/2022: Slow recovery Pain is much better Appears to be more alert today Labs reviewed 12/02/2022: Pain is an issue Will DC Dilaudid and increase Oxycodone Appears sedated No BM yet so ordered supp and SSE Labs stable Review of Systems General: Fatigue, Malaise Musculoskeletal: leg pain Objective Exam Vital Signs Vital Signs Date Time Temp Pulse Resp B/P (MAP) Pulse Ox O2 Delivery O2 Flow Rate FiO2 12/03/22 20:31 36.8 88 20 111/53 (72) 95 Nasal Cannula 1.50 12/01/22 12:20 21 Capillary Refill : General Appearance: No Apparent Distress, WD/WN, Chronically ill HEENT: PERRL/EOMI, Normal ENT Inspection, Pharynx Normal Neck: Full Range of Motion, Normal Inspection, Non Tender, Supple, Carotid Bruit Respiratory: Chest Non Tender, Lungs Clear, Normal Breath Sounds, No Accessory Muscle Use, No Respiratory Distress Cardiovascular: Regular Rate, Rhythm, No Edema, No Gallop, No JVD, No Murmur, Normal Peripheral Pulses Gastrointestinal: Normal Bowel Sounds, No Organomegaly, No Pulsatile Mass, Non Tender, Soft Back: Normal Inspection, No CVA Tenderness, No Vertebral Tenderness Extremity: Normal Capillary Refill, Normal Inspection, Normal Range of Motion (except left leg), Non Tender, No Calf Tenderness, No Pedal Edema Neurologic/Psychiatric: Alert, Oriented x3, viscosity inspector II-XII Norm as Tested, Abnormal Gait, Depressed Affect, Motor Weakness (left leg) Skin: Normal Color, Warm/Dry Lymphatic: No Adenopathy Results/Procedures Lab Laboratory Tests 12/03/22 05:57 Patient resulted labs reviewed. FIM Transfers Therapy Code Descriptions/Definitions Functional [place] Measure: 0=Not Assessed/NA 4=Minimal Assistance 1=Total Assistance 5=Supervision or Setup 2=Maximal Assistance 6=Modified [place] 3=Moderate Assistance 7=Complete IndependenceSCALE: Activities may be completed with or without assistive devices. 4-Fhmwiecwqt-zdwsdey completes the activity by him/herself with no assistance from a helper. 5-Set-up or Clean-up Assistance-helper sets up or cleans up; patient completes activity. [place] assists only prior to or following the activity. 4-Supervision or Touching Assistance-helper provides verbal cues and/or touching/steadying and/or contact guard assistance as patient completes activity. Assistance may be provided throughout the activity or intermittently. 3-Partial/Moderate Assistance-helper does LESS THAN HALF the effort. [place] lifts, holds or supports trunk or limbs, but provides less than half the effort. 2-Substantial/Maximal Assistance-helper does MORE THAN HALF the effort. [place] lifts or holds trunk or limbs and provides more than half the effort. 2-Tmxjhkhft-fnifix does ALL the effort. Patient does none of the effort to complete the activity. Or, the assistance of 2 or more helpers is required for the patient to complete the activity. If activity was not attempted, code reason: 7-Patient Refused. 9-Not Applicable-not attempted and the patient did not perform the activity before the current illness, exacerbation or injury. 10-Not Attempted due to Environmental Limitations-(lack of equipment, weather restraints, etc.). 88-Not Attempted due to Medical Conditions or Safety Concerns. Roll Left to Right (QC): 3 (Mod A due to pain ) Sit to Lying (QC): 3 Sit to Stand (QC): 3 Chair/Zaq-ek-Nccwz Xfer(QC): 3 Car Transfer (QC): 88 (pain/weakness) Gait Training Does the Patient Walk?: Yes Walk 10 feet (QC): 88 (pain/weakness) Walk 50 ft with 2 Turns(QC): 88 (pain/weakness) Walk 150 ft (QC): 88 (pain/weakness) Walking 10ft/uneven surface-QC: 88 Gait Assistive Device: FWW Wheelchair Training Does the Pt Use a Wheelchair?: Yes Distance: 150ft Wheel 50 ft with 2 turns (QC): 3 Wheel 150 ft (QC): 3 (Min A ) Type of Wheelchair: Manual Stair Training 1 Step (curb) (QC): 88 (pain/weakness) 4 Steps (QC): 88 (pain/weakness) 12 Steps (QC): 88 (pain/weakness) Balance Picking up an Object (QC): 3 (Mod A with production support manager ) ADL-Treatment Eating (QC): 4 (VCs needed to initate eating. ) Oral Hygiene (QC): 4 (Vc needed for where objects are located due to visual difficulties. ) Shower/Bathe Self (QC): 1 (2 person assist in standing to wash buttocks.) Upper Body Dressing (QC): 4 (CGA for steadying.) Lower Body Dressing (QC): 2 (Pt required assistance to thread pants around feet, but able to pull pants up legs. Assistance given to stand and hike pants over hips, pt able to offload R hand to partially hike pants over R hip.) On/Off Footwear (QC): 2 (Pt able to cross R foot over knee to doff R sock. Assistance given for doffing L sock and donning both. ) Toileting Hygiene (QC): 1 (2 person assist in standing to wash buttocks.) Assessment/Plan Assessment and Plan Assess & Plan/Chief Complaint Assessment: Left hip fracture recovery Hypertension Hyperlipidemia CAD status post PCI 2007 Systolic dysfunction on echocardiogram ejection fraction 40-45% Advanced age Frail status Post op constipation Acute blood loss anemia requiring 1 unit of blood on med-surg Plan: Pain control Supportive care Monitor closely Fall risk 12/02/2022: Bowel regimen Monitor pain DC Dilaudid 12/03/2022: Slow recovery Continue decreasing pain medication (1) Closed left hip fracture Status: Acute (2) ANEMIA (3) Hypothyroidism Status: Chronic (4) Coronary artery disease Status: Chronic (5) Hypertension Status: Chronic (6) Hyperlipidemia Status: Chronic BEVERLEY HUNTER DO Dec 03, 2022 05:14
[2022-12-03 06:09] LABS: BASOPHILS % (AUTO) 0 % (0-10); EOSINOPHILS # (AUTO) 0.4 10^3/uL (0.0-0.3); EOSINOPHILS % (AUTO) 4 % (0-10); HEMATOCRIT 26 % (35-52); HEMOGLOBIN 8.3 g/dL (11.5-16.0); LYMPHOCYTES # (AUTO) 1.5 10^3/uL (1.0-4.0); LYMPHOCYTES % (AUTO) 13 % (12-44); MEAN CORPUSCULAR HEMOGLOBIN 30 pg (25-34); MEAN CORPUSCULAR HGB CONC 32 g/dL (32-36); MEAN CORPUSCULAR VOLUME 93 fL (80-99); MEAN PLATELET VOLUME 11.3 fL (9.0-12.2); MONOCYTES # (AUTO) 1.5 10^3/uL (0.0-1.0); MONOCYTES % (AUTO) 13 % (0-12); NEUTROPHILS # (AUTO) 7.7 10^3/uL (1.8-7.8); NEUTROPHILS % (AUTO) 69 % (42-75); PLATELET COUNT 134 10^3/uL (130-400); WHITE BLOOD COUNT 11.1 10^3/uL (4.3-11.0)
[2022-12-03] MEDS: CYANOCOBALAMIN 1,000 MCG TABLET PO SCH (06:10)
[2022-12-03] MEDS: LEVOTHYROXINE 88 MCG TABLET PO SCH (06:10)
[2022-12-03] MEDS: oxyCODONE IMMEDIATE RELEASE 5 MG TABLET PO PRN ×3 (06:21→20:59)
[2022-12-03 06:26] LABS: ALBUMIN 2.4 GM/DL (3.2-4.5); POTASSIUM 3.9 MMOL/L (3.6-5.0)
[2022-12-03 06:27] LABS: CALCIUM 8.2 MG/DL (8.5-10.1)
[2022-12-03 06:29] LABS: TOTAL PROTEIN 4.9 GM/DL (6.4-8.2)
[2022-12-03 06:30] LABS: BILIRUBIN,TOTAL 1.7 MG/DL (0.1-1.0)
[2022-12-03 06:32] LABS: CREATININE SERUM 1.21 MG/DL (0.60-1.30)
[2022-12-03 07:41] VITALS: BP 109/53
[2022-12-03] MEDS: amLODIPine 5 MG TABLET PO SCH (08:35)
[2022-12-03] MEDS: APIXABAN 2.5 MG TABLET PO SCH ×2 (08:35→20:59)
[2022-12-03] MEDS: ACETAMINOPHEN 325 MG TABLET PO PRN (08:35)
[2022-12-03] MEDS: SENNOSIDES 8.6 MG TABLET PO SCH ×2 (08:35→20:59)
[2022-12-03] MEDS: DOCUSATE SODIUM 100 MG CAPSULE PO SCH ×2 (08:35→20:59)
[2022-12-03] MEDS: IRON SUCROSE 200 MG/10 ML VIAL IV SCH (08:35)
--- NOTE | 2022-12-03 08:42 | Occupational Ther Daily Note ---
OT Current Status-Daily Note Subjective Pt alert, sitting up in bed. Pt agrees to therapy. Pt stated pain was manageable at beginning of tx, then requested a pain pill at end of tx session. Nrsg notified. Mental Status/Objective Patient Orientation: Person, Place, Situation, [place] Attachments: IV, Other-See Comments Pwick ADL-Treatment Therapy Code Descriptions/Definitions Functional [place] Measure: 0=Not Assessed/NA 4=Minimal Assistance 1=Total Assistance 5=Supervision or Setup 2=Maximal Assistance 6=Modified [place] 3=Moderate Assistance 7=Complete IndependenceSCALE: Activities may be completed with or without assistive devices. 2-Qjsfdzinju-vjndzhc completes the activity by him/herself with no assistance from a helper. 5-Set-up or Clean-up Assistance-helper sets up or cleans up; patient completes activity. [place] assists only prior to or following the activity. 4-Supervision or Touching Assistance-helper provides verbal cues and/or touching/steadying and/or contact guard assistance as patient completes activity. Assistance may be provided throughout the activity or intermittently. 3-Partial/Moderate Assistance-helper does LESS THAN HALF the effort. [place] lift s, holds or supports trunk or limbs, but provides less than half the effort. 2-Substantial/Maximal Assistance-helper does MORE THAN HALF the effort. [place] lifts or holds trunk or limbs and provides more than half the effort. 6-Rxxdsorgn-tmggrt does ALL the effort. Patient does none of the effort to complete the activity. Or, the assistance of 2 or more helpers is required for the patient to complete the activity. If activity was not attempted, code reason: 7-Patient Refused. 9-Not Applicable-not attempted and the patient did not perform the activity before the current illness, exacerbation or injury. 10-Not Attempted due to Environmental Limitations-(lack of equipment, weather restraints, etc.). 88-Not Attempted due to Medical Conditions or Safety Concerns. Eating (QC): 4 (VCs required for initiation. Assistance given to open packages.) Oral Hygiene (QC): 4 (VCs for location of items due to vision difficulties. ) Bathing Location: L Arm, R Arm, L Upper Leg, R Upper Leg, Chest, Abdomen Shower/Bathe Self (QC): 2 (Assistance given during sponge bath to wash feet, lower legs, buttocks, and stefanie area. Min A sit to stand while pt steadied on FWW to wash buttocks. ) Upper Body Dressing (QC): 3 (Assistance to pull shirt over back during donning/doffing, pt completed other steps by self. Required VC for initation to continue after shirt was over head while donning.) Lower Body Dressing (QC): 2 (Pt able to thread R foot into pants, assistance to thread L foot. Pt able to pull pants up legs, assistance given sit ->stand and hike pants up while pt steadied on FWW.) On/Off Footwear: 2 (Pt able to don/doff R sock with figure-four technique assistance to hold leg in place, assistance to don/doff L sock.) VCs needed for item locations during most tasks and initiation. Pt shows better awareness today than in previous sessions. Pt brushed hair independently. Other Treatment Pt required increased time during ADLs and functional tasks due to low activity tolerance and vision difficulties. Pt started breakfast in bed but needed to move to chair due to water spilling in bed. Sit-> stand min A. EOB-> chair utilizing FWW, Min/mod A with multiple VCs for feet and FWW placement. After session, pt back in bed (supine) with call light/phone in reach. All needs met. Education OT Patient Education: Energy conservation, Modified ADL techniques, Transfer techniques Teaching Recipient: Patient Teaching Methods: Demonstration, Discussion Response to Teaching: Verbalize Understanding, Return Demonstration, Reinforcement Needed Education given on transfer techniques, reinforcement needed for hand placement. OT Short Term Goals Short Term Goals Time Frame: Dec 15, 2022 Toileting hygiene: 4 Shower/bathe self: 4 Lower body dressin Putting on/taking off footwear: 3 OT Tongue And Groove Machine Operator Goals Tongue And Groove Machine Operator Goals Time Frame: Dec 24, 2022 Acute change in mental status: 0 Inattention: 0 Disorganized thinkin Altered level of consciousness: 0 Eating (QC): 6 Oral Hygiene (QC): 6 Toileting Hygiene (QC): 6 Shower/Bathe Self (QC): 5 Upper Body Dressing (QC): 6 Lower Body Dressing (QC): 6 On/Off Footwear (QC): 6 Additional Goals: 1-Demonstrate ADL Tasks, 2-Verbalize Understanding, 3- ImproveStrength/Kacey 1=Demonstrate adherence to instructed precautions during ADL tasks. 2=Patient will verbalize/demonstrate understanding of assistive devices/modifications for ADL. 3=Patient will improve strength/tolerance for activity to enable patient to perform ADL's. OT Education/Plan Problem List/Assessment Assessment: Decreased Activ Tolerance, Decreased UE Strength, Impaired Bed Mobility, Impaired Coordination, Impaired Funct Balance, Impaired Self-Care Skills Discharge Recommendations Plan/Recommendations: Continue POC Treatment Plan/Plan of Care Patient would benefit from OT for education, treatment and training to promote independence in ADL's, mobility, safety and/or upper extremity function for ADL's. Plan of Care: ADL Retraining, Functional Mobility, Group Exercise/Act as Ind, UE Funct Exercise/Act Treatment Duration: Dec 24, 2022 Frequency: At least 5 of 7 days/Wk (IRF) Estimated Hrs Per Day: 1.5 hours per day Agreement: Yes Rehab Potential: Good Time Start Time: 07:15 Stop Time: 08:45 DATE: Dec 03, 2022 Total Time Billed (hr/min): 90 Billed Treatment Time 1 visit- ADL 6 (90 mins) BYRON BAIN Dec 03, 2022 08:42
--- NOTE | 2022-12-03 10:18 | Physical Therapy Daily Note ---
PT Daily Note-Current Subjective Pt found lying in bed /c family present upon entry. Agreed to PT. Reports that she is not having any pain in her hip but is very tired. Pain Section J - Health Conditions 1. Rarely or not at all 2. Occasionally 3. Frequently 4. Almost constantly 8. Unable to answer Pain Effect on Sleep: 3 Pain Interference with Therapy: 4 Pain Interference w/Day-to-Day: 4 Mental Status Patient Orientation: Person, Place Attachments: Oxygen 2L O2. Purewick removed pre-treatment and replaced post-treatment. Transfers SCALE: Activities may be completed with or without assistive devices. 3-Yuwksyfnvz-jxzwzoj completes the activity by him/herself with no assistance from a helper. 5-Set-up or Clean-up Assistance-helper sets up or cleans up; patient completes activity. [place] assists only prior to or following the activity. 4-Supervision or Touching Assistance-helper provides verbal cues and/or touching/steadying and/or contact guard assistance as patient completes activity. Assistance may be provided throughout the activity or intermittently. 3-Partial/Moderate Assistance-helper does LESS THAN HALF the effort. [place] lifts, holds or supports trunk or limbs, but provides less than half the effort. 2-Substantial/Maximal Assistance-helper does MORE THAN HALF the effort. [place] lifts or holds trunk or limbs and provides more than half the effort. 4-Ppembnmjf-ibkgbo does ALL the effort. Patient does none of the effort to complete the activity. Or, the assistance of 2 or more helpers is required for the patient to complete the activity. If activity was not attempted, code reason: 7-Patient Refused. 9-Not Applicable-not attempted and the patient did not perform the activity before the current illness, exacerbation or injury. 10-Not Attempted due to Environmental Limitations-(lack of equipment, weather restraints, etc.). 88-Not Attempted due to Medical Conditions or Safety Concerns. Sit to Lying (QC): 3 Lying to Sitting/Side of Bed(Q: 3 Sit to Stand (QC): 4 Chair/Yrx-xb-Gtrrn Xfer(QC): 4 Weight Bearing Right Lower Extremity: Right Full Weight Bearing Left Lower Extremity: Left Weight Bearing/Tolerated Gait Training Does the Patient Walk?: Yes Distance: 30 x 3, 50 feet Walk 10 feet (QC): 4 Walk 50 ft with 2 Turns(QC): 4 Gait Assistive Device: FWW Treatments Seated Therapeutic Exercises (B) x 10 ea: - Hamstring curls /c YTB - Hip abd /c YTB - Hip add Assessment Current Status: Good Progress Pt tolerates all therapeutic interventions well but does require occasional seated rest breaks due to reported fatigue. O2 monitored throughout visit and is maintained at 91-94%. Pt performs supine to sitting transfer /c MIN assist for trunk and LLE lifting. Performs bed to chair transfer (2x) /c CGA for safety due to strength deficits. Pt ambulated distances of 30 feet x 3 and 50 feet /c use of a FWW. CGA required during gait training due to balance deficits. Also required verbal cues for increased step length. No loss of balance displayed during ambulation. Pt performs sit to stand transfers /c CGA for safety due to strength deficits and required verbal cues for proper hand placement. Displays decreased muscle endurance and strength performing seated therapeutic exercises. Pt transferred to bed at end of visit. Required MIN BLE lifting assistance to perform sitting to lying transfer. Purewick replaced, call light in place, and all needs met post-treatment. Continue to progress pt per POC. PT [facility]dc Goals Emergency Services Director Goals PT [facility] Goals Time Frame: Dec 15, 2022 Roll Left & Right (QC): 6 (Pt will be Mod I with funcitonal mobility with the FWW, in order to safely return home with spouse. ) Sit to Lying (QC): 6 (Pt will be Mod I with funcitonal mobility with the FWW, in order to safely return home with spouse. ) Lying-Sitting on Side/Bed(QC): 6 (Pt will be Mod I with funcitonal mobility with the FWW, in order to safely return home with spouse. ) Sit to Stand (QC): 6 (Pt will be Mod I with funcitonal mobility with the FWW, in order to safely return home with spouse. ) Chair/Joy-jj-Oepzn Xfer(QC): 6 (Pt will be Mod I with funcitonal mobility with the FWW, in order to safely return home with spouse. ) Toilet Transfer (QC): 6 (Pt will be Mod I with funcitonal mobility with the FWW, in order to safely return home with spouse. ) Car Transfer (QC): 6 (Pt will be Mod I with funcitonal mobility with the FWW, in order to safely return home with spouse. ) Does the Patient Walk: Yes Walk 10 feet (QC): 6 (Pt will be Mod I with funcitonal mobility with the FWW, in order to safely return home with spouse. ) Walk 50ft with 2 Turns (QC): 6 (Pt will be Mod I with funcitonal mobility with the FWW, in order to safely return home with spouse. ) Walk 150 ft (QC): 6 (Pt will be Mod I with funcitonal mobility with the FWW, in order to safely return home with spouse. ) Walking 10ft on Uneven Surface: 6 (Pt will be Mod I with funcitonal mobility with the FWW, in order to safely return home with spouse. ) 1 Step (curb) (QC): 6 (Pt will be Mod I with funcitonal mobility with the FWW, in order to safely return home with spouse. ) 4 Steps (QC): 6 (Pt will be Mod I with funcitonal mobility with the FWW, in order to safely return home with spouse. ) 12 Steps (QC): 9 (Pt has 2 steps at home ) Picking up an Object (QC): 6 (with dry wall nailer ) Does the Pt use WC or Scooter?: Yes Wheel 50 feet with 2 turns (QC: 6 (Pt will be Mod I with funcitonal mobility with the FWW, in order to safely return home with spouse. ) Type: Manual Wheel 150 feet: 6 (Pt will be Mod I with funcitonal mobility with the FWW, in order to safely return home with spouse. ) Type: Manual PT Plan Treatment/Plan Treatment Plan: Continue Plan of Care Treatment Plan: Bed Mobility, Education, Functional Activity Kacey, Functional Strength, Group Therapy, Gait, Safety, Therapeutic Exercise, Transfers Treatment Duration: Dec 15, 2022 Frequency: At least 5 of 7 days/Wk (IRF) Estimated Hrs Per Day: 1.5 hours per day Patient and/or Family Agrees t: Yes Time Time In: 0900 Time Out: 1015 DATE: Dec 03, 2022 Total Billed Treatment Time: 75 Total Billed Treatment 1 visit GT x 2 FA x 2 EX x 1 MAJOR,BERT SLOT EDITOR Dec 03, 2022 10:18
[2022-12-03] MEDS: RT-ALBUTEROL SULF 2.5 MG/3 ML PRE-MIX VIAL INH SCH ×2 (10:52→19:45)
--- NOTE | 2022-12-03 11:57 | Speech Therapy Daily Note ---
Speech Daily Progress Note Subjective Date Seen by Provider: Dec 03, 2022 Time Seen by Provider: 11:00 The pt was awake and alert, in bed for session in semi-reclined position. She had no new complaints, reported pain was controlled. Objective The pt continues to demonstrate visual disorganization. Left-right matching of shapes was targeted for 2 columns of shapes. The pt had moderate difficulty tracking from left to right columns, and scanning columns vertically. Clock reading was at poor accuracy due to decreased ability to see both hands of the clock and discriminate long from short hands. The pt was oriented to self, time and place. Sequencing steps for sit-stand was targeted. The pt required 4 repetitions of sequence to state the 4 sequential steps in the correct order. She was able to verbally state probable result of incorrect sequence of actions in response to questions. Mild left labial droop was also noted at rest and labial retraction. Assessment Assessment Current Status: Fair Progress Treatment Plan Continue Plan of Care Speech Short Term Goals Short Term Goals Short Term Goals 1. The patient will display 80% accuracy with memory exercises through utilization of functional memory strategies for safety precautions with mild clinician cueing. Time Frame-ST days Speech Facility Security Officer Goals [facility] Goals 1. The patient will demonstrate improved cognitive linguistic skills for safe discharge to the least restrictive environment. Time Frame: 10 days Speech-Plan Treatment Plan Speech Therapy Treatment Plan: Continue Plan of Care Treatment Duration: Dec 02, 2022 Frequency: Modified Program (IRF) Estimated Hrs Per Day: .5 hour per day Rehab Potential: Good Safety Risks/Education Teaching Recipient: Patient Teaching Methods: Discussion Response to Teaching: Verbalize Understanding Time Speech Therapy Time In: 11:00 Speech Therapy Time Out: 11:40 DATE: Dec 03, 2022 Total Billed Time: 40 Billed Treatment Time 1 (SLTS) YUSEF TOUSSAINT Dec 03, 2022 11:57
--- NOTE | 2022-12-03 17:20 | Cardiology Progress Note ---
Cardiology SOAP Progress Note Subjective: No chest pain, complaining of hip pain. Objective: I&O/Vital Signs 12/03/22 12/03/22 12/03/22 07:41 08:00 10:53 Temp 37.0 Pulse 77 Resp 16 B/P (MAP) 109/53 (71) Pulse Ox 97 98 O2 Delivery Nasal Cannula Nasal Cannula Nasal Cannula O2 Flow Rate 1.50 2.00 1.50 12/03/22 00:00 Intake Total 860 ml Balance 860 ml Weight (Pounds): 122 Weight (Calculated Kilograms): 55.719673 Constitutional: AAO x 3 Respiratory: lungs clear to auscultation Cardiovascular: regular rate-rhythm, S1 and S2 Neurologic/Psychiatric: no motor/sensory deficits, alert, normal mood/affect, oriented x 3 Skin: normal color Results/Procedures: Labs Laboratory Tests 12/03/22 05:57: White Blood Count 11.1H, Red Blood Count 2.76L, Hemoglobin 8.3L, Hematocrit 26L, Mean Corpuscular Volume 93, Mean Corpuscular Hemoglobin 30, Mean Corpuscular Hemoglobin Concent 32, Red Cell Distribution Width 14.0, Platelet Count 134, Mean Platelet Volume 11.3, Immature Granulocyte % (Auto) 1, Neutrophils (%) (Auto) 69, Lymphocytes (%) (Auto) 13, Monocytes (%) (Auto) 13H, Eosinophils (%) (Auto) 4, Basophils (%) (Auto) 0, Neutrophils # (Auto) 7.7, Lymphocytes # (Auto) 1.5, Monocytes # (Auto) 1.5H, Eosinophils # (Auto) 0.4H, Basophils # (Auto) 0.0, Immature Granulocyte # (Auto) 0.1, Sodium Level 134L, Potassium Level 3.9, Chloride Level 105, Carbon Dioxide Level 22, Anion Gap 7, Blood Urea Nitrogen 29H, Creatinine 1.21, Estimat Glomerular Filtration Rate 45, BUN/Creatinine Ratio 24, Glucose Level 107H, Calcium Level 8.2L, Corrected Calcium 9.5, Total Bilirubin 1.7H, Aspartate Amino Transf (AST/SGOT) 32, Alanine Aminotransferase (ALT/SGPT) 18, Alkaline Phosphatase 63, Total Protein 4.9L, Albumin 2.4L A/P: Assessment/Dx: Mechanical fall, hip fracture, postsurgery, currently in rehab. Coronary artery disease, s/p PCI in 2007, Hypertension, Hyperlipidemia Plan: Hip fracture; s/p left hip surgery. Previous history of PCI in 2007. No chest pain with exertion. Normal EKG. No cardiac symptoms. Nikolas ENG MD Dec 03, 2022 17:20
[2022-12-03 20:31] VITALS: BP 111/53
--- NOTE | 2022-12-04 06:52 | PM&R Progress Note ---
Subjective HPI/CC On Admission Date Seen by Provider: Dec 04, 2022 Time Seen by Provider: 12:00 Subjective/Events-last exam 12/04/2022: Refused to get out of bed today so I had a long talk with her and family at the bedside to get OOB with meals to prevent PNA Pain is an issue and she continues to take scheduled every 4 hours which is sedating her and causing issues and lack of motivation No issues otherwise Very slow recovery and she was very active before fracture 12/03/2022: Slow recovery Pain is much better Appears to be more alert today Labs reviewed 12/02/2022: Pain is an issue Will DC Dilaudid and increase Oxycodone Appears sedated No BM yet so ordered supp and SSE Labs stable Review of Systems General: Fatigue, Malaise Objective Exam Vital Signs Vital Signs Date Time Temp Pulse Resp B/P (MAP) Pulse Ox O2 Delivery O2 Flow Rate FiO2 12/04/22 09:00 93 Nasal Cannula 1.50 12/04/22 08:00 36.7 73 20 150/63 (92) 12/01/22 12:20 21 Capillary Refill : General Appearance: No Apparent Distress, WD/WN, Chronically ill HEENT: PERRL/EOMI, Normal ENT Inspection, Pharynx Normal Neck: Full Range of Motion, Normal Inspection, Non Tender, Supple, Carotid Bruit Respiratory: Chest Non Tender, Lungs Clear, Normal Breath Sounds, No Accessory Muscle Use, No Respiratory Distress Cardiovascular: Regular Rate, Rhythm, No Edema, No Gallop, No JVD, No Murmur, Normal Peripheral Pulses Gastrointestinal: Normal Bowel Sounds, No Organomegaly, No Pulsatile Mass, Non Tender, Soft Back: Normal Inspection, No CVA Tenderness, No Vertebral Tenderness Extremity: Normal Capillary Refill, Normal Inspection, Normal Range of Motion (except left leg), Non Tender, No Calf Tenderness, No Pedal Edema Neurologic/Psychiatric: Alert, Oriented x3, palliative care nurse practitioner II-XII Norm as Tested, Abnormal Gait, Depressed Affect, Motor Weakness (left leg) Skin: Normal Color, Warm/Dry Lymphatic: No Adenopathy Results/Procedures Lab Patient resulted labs reviewed. FIM Transfers Therapy Code Descriptions/Definitions Functional [place] Measure: 0=Not Assessed/NA 4=Minimal Assistance 1=Total Assistance 5=Supervision or Setup 2=Maximal Assistance 6=Modified [place] 3=Moderate Assistance 7=Complete IndependenceSCALE: Activities may be completed with or without assistive devices. 3-Amzmgxbdqv-cvmdnoy completes the activity by him/herself with no assistance from a helper. 5-Set-up or Clean-up Assistance-helper sets up or cleans up; patient completes activity. [place] assists only prior to or following the activity. 4-Supervision or Touching Assistance-helper provides verbal cues and/or touching/steadying and/or contact guard assistance as patient completes activity. Assistance may be provided throughout the activity or intermittently. 3-Partial/Moderate Assistance-helper does LESS THAN HALF the effort. [place] lifts, holds or supports trunk or limbs, but provides less than half the effort. 2-Substantial/Maximal Assistance-helper does MORE THAN HALF the effort. [place] lifts or holds trunk or limbs and provides more than half the effort. 4-Mtbhfofct-hqsbsb does ALL the effort. Patient does none of the effort to com plete the activity. Or, the assistance of 2 or more helpers is required for the patient to complete the activity. If activity was not attempted, code reason: 7-Patient Refused. 9-Not Applicable-not attempted and the patient did not perform the activity before the current illness, exacerbation or injury. 10-Not Attempted due to Environmental Limitations-(lack of equipment, weather restraints, etc.). 88-Not Attempted due to Medical Conditions or Safety Concerns. Roll Left to Right (QC): 3 (Mod A due to pain ) Sit to Lying (QC): 3 Sit to Stand (QC): 4 Chair/Mrq-mp-Shtbl Xfer(QC): 4 Car Transfer (QC): 88 (pain/weakness) Gait Training Does the Patient Walk?: Yes Distance: 30 x 3, 50 feet Walk 10 feet (QC): 4 Walk 50 ft with 2 Turns(QC): 4 Walk 150 ft (QC): 88 (pain/weakness) Walking 10ft/uneven surface-QC: 88 Gait Assistive Device: FWW Wheelchair Training Does the Pt Use a Wheelchair?: Yes Distance: 150ft Wheel 50 ft with 2 turns (QC): 3 Wheel 150 ft (QC): 3 (Min A ) Type of Wheelchair: Manual Stair Training 1 Step (curb) (QC): 88 (pain/weakness) 4 Steps (QC): 88 (pain/weakness) 12 Steps (QC): 88 (pain/weakness) Balance Picking up an Object (QC): 3 (Mod A with commissary worker ) ADL-Treatment Eating (QC): 4 (VCs required for initiation. Assistance given to open packages.) Oral Hygiene (QC): 4 (VCs for location of items due to vision difficulties. ) Bathing Location: L Arm, R Arm, L Upper Leg, R Upper Leg, Chest, Abdomen Shower/Bathe Self (QC): 2 (Assistance given during sponge bath to wash feet, lower legs, buttocks, and stefanie area. Min A sit to stand while pt steadied on FWW to wash buttocks. ) Upper Body Dressing (QC): 3 (Assistance to pull shirt over back during donning/doffing, pt completed other steps by self. Required VC for initation to continue after shirt was over head while donning.) Lower Body Dressing (QC): 2 (Pt able to thread R foot into pants, assistance to thread L foot. Pt able to pull pants up legs, assistance given sit ->stand and hike pants up while pt steadied on FWW.) On/Off Footwear (QC): 2 (Pt able to don/doff R sock with figure-four technique assistance to hold leg in place, assistance to don/doff L sock.) Toileting Hygiene (QC): 1 (2 person assist in standing to wash buttocks.) Assessment/Plan Assessment and Plan Assess & Plan/Chief Complaint Assessment: Left hip fracture recovery Hypertension Hyperlipidemia CAD status post PCI 2007 Systolic dysfunction on echocardiogram ejection fraction 40-45% Advanced age Frail status Post op constipation Acute blood loss anemia requiring 1 unit of blood on med-surg Plan: Pain control Supportive care Monitor closely Fall risk 12/02/2022: Bowel regimen Monitor pain DC Dilaudid 12/03/2022: Slow recovery Continue decreasing pain medication 12/04/2022: Work on motivation Decrease pain meds (1) Closed left hip fracture Status: Acute (2) ANEMIA (3) Hypothyroidism Status: Chronic (4) Coronary artery disease Status: Chronic (5) Hypertension Status: Chronic (6) Hyperlipidemia Status: Chronic BEVERLEY HUNTER DO Dec 04, 2022 06:52
[2022-12-04] MEDS: LEVOTHYROXINE 88 MCG TABLET PO SCH (06:55)
[2022-12-04] MEDS: CYANOCOBALAMIN 1,000 MCG TABLET PO SCH (06:55)
[2022-12-04] MEDS: RT-ALBUTEROL SULF 2.5 MG/3 ML PRE-MIX VIAL INH SCH ×2 (07:47→19:48)
[2022-12-04] MEDS: oxyCODONE IMMEDIATE RELEASE 5 MG TABLET PO PRN ×3 (07:51→20:10)
[2022-12-04 08:00] VITALS: BP 150/63
[2022-12-04] MEDS: APIXABAN 2.5 MG TABLET PO SCH ×2 (08:46→20:07)
[2022-12-04] MEDS: amLODIPine 5 MG TABLET PO SCH (08:46)
[2022-12-04] MEDS: SENNOSIDES 8.6 MG TABLET PO SCH ×2 (08:46→20:11)
[2022-12-04] MEDS: DOCUSATE SODIUM 100 MG CAPSULE PO SCH ×2 (08:46→20:11)
--- NOTE | 2022-12-04 17:28 | Cardiology Progress Note ---
Cardiology SOAP Progress Note Subjective: No chest pain. Hip pain getting better. Objective: I&O/Vital Signs 12/04/22 12/04/22 12/04/22 07:47 08:00 09:00 Temp 36.7 Pulse 73 Resp 20 B/P (MAP) 150/63 (92) Pulse Ox 96 93 93 O2 Delivery Room Air Nasal Cannula Nasal Cannula O2 Flow Rate 1.50 1.50 12/04/22 00:00 Intake Total 963 ml Output Total 400 ml Balance 563 ml Weight (Pounds): 122 Weight (Calculated Kilograms): 55.186827 Constitutional: AAO x 3 Respiratory: lungs clear to auscultation Cardiovascular: regular rate-rhythm, S1 and S2 Neurologic/Psychiatric: no motor/sensory deficits, alert, normal mood/affect, oriented x 3 Skin: normal color A/P: Assessment/Dx: Mechanical fall, hip fracture, postsurgery, currently in rehab. Coronary artery disease, s/p PCI in 2007, Hypertension, Hyperlipidemia Plan: Hip fracture; s/p left hip surgery. Previous history of PCI in 2007. No chest pain with exertion. Normal EKG. No cardiac symptoms. Nikolas ENG MD Dec 04, 2022 17:28
[2022-12-04 20:28] VITALS: BP 113/69
[2022-12-04] MEDS: ACETAMINOPHEN 325 MG TABLET PO PRN (23:31)
[2022-12-05] MEDS: oxyCODONE IMMEDIATE RELEASE 5 MG TABLET PO PRN ×3 (04:29→20:10)
--- NOTE | 2022-12-05 06:06 | PM&R Progress Note ---
Subjective HPI/CC On Admission Date Seen by Provider: Dec 05, 2022 Time Seen by Provider: 12:00 Subjective/Events-last exam 12/05/2022: Patient dramatically improved Up in chair with family at bedside Appears to be brighter and alert and less confused and lethargic Lungs remain clear Supportive care we will continue Pain is controlled 12/04/2022: Refused to get out of bed today so I had a long talk with her and family at the bedside to get OOB with meals to prevent PNA Pain is an issue and she continues to take scheduled every 4 hours which is sed ating her and causing issues and lack of motivation No issues otherwise Very slow recovery and she was very active before fracture 12/03/2022: Slow recovery Pain is much better Appears to be more alert today Labs reviewed 12/02/2022: Pain is an issue Will DC Dilaudid and increase Oxycodone Appears sedated No BM yet so ordered supp and SSE Labs stable Review of Systems General: Fatigue, Malaise Objective Exam Vital Signs Vital Signs Date Time Temp Pulse Resp B/P (MAP) Pulse Ox O2 Delivery O2 Flow Rate FiO2 12/05/22 09:18 36.6 72 93 21 12/05/22 09:14 Room Air 0.00 12/05/22 08:22 18 131/64 (86) Capillary Refill : General Appearance: No Apparent Distress, WD/WN, Chronically ill HEENT: PERRL/EOMI, Normal ENT Inspection, Pharynx Normal Neck: Full Range of Motion, Normal Inspection, Non Tender, Supple, Carotid Bruit Respiratory: Chest Non Tender, Lungs Clear, Normal Breath Sounds, No Accessory Muscle Use, No Respiratory Distress Cardiovascular: Regular Rate, Rhythm, No Edema, No Gallop, No JVD, No Murmur, Normal Peripheral Pulses Gastrointestinal: Normal Bowel Sounds, No Organomegaly, No Pulsatile Mass, Non Tender, Soft Back: Normal Inspection, No CVA Tenderness, No Vertebral Tenderness Extremity: Normal Capillary Refill, Normal Inspection, Normal Range of Motion (except left leg), Non Tender, No Calf Tenderness, No Pedal Edema Neurologic/Psychiatric: Alert, Oriented x3, obstetrics nurse II-XII Norm as Tested, Abnormal Gait, Depressed Affect, Motor Weakness (left leg) Skin: Normal Color, Warm/Dry Lymphatic: No Adenopathy Results/Procedures Lab Patient resulted labs reviewed. FIM Transfers Therapy Code Descriptions/Definitions Functional [place] Measure: 0=Not Assessed/NA 4=Minimal Assistance 1=Total Assistance 5=Supervision or Setup 2=Maximal Assistance 6=Modified [place] 3=Moderate Assistance 7=Complete IndependenceSCALE: Activities may be completed with or without assistive devices. 1-Sxwgdjiqyl-pthensu completes the activity by him/herself with no assistance from a helper. 5-Set-up or Clean-up Assistance-helper sets up or cleans up; patient completes activity. [place] assists only prior to or following the activity. 4-Supervision or Touching Assistance-helper provides verbal cues and/or touching/steadying and/or contact guard assistance as patient completes ac tivity. Assistance may be provided throughout the activity or intermittently. 3-Partial/Moderate Assistance-helper does LESS THAN HALF the effort. [place] lifts, holds or supports trunk or limbs, but provides less than half the effort. 2-Substantial/Maximal Assistance-helper does MORE THAN HALF the effort. [place] lifts or holds trunk or limbs and provides more than half the effort. 9-Kuvnyuxye-lparaa does ALL the effort. Patient does none of the effort to complete the activity. Or, the assistance of 2 or more helpers is required for the patient to complete the activity. If activity was not attempted, code reason: 7-Patient Refused. 9-Not Applicable-not attempted and the patient did not perform the activity before the current illness, exacerbation or injury. 10-Not Attempted due to Environmental Limitations-(lack of equipment, weather restraints, etc.). 88-Not Attempted due to Medical Conditions or Safety Concerns. Roll Left to Right (QC): 3 (Mod A due to pain ) Sit to Lying (QC): 3 Sit to Stand (QC): 4 Chair/Hpw-la-Yhbeu Xfer(QC): 4 Car Transfer (QC): 88 (pain/weakness) Gait Training Does the Patient Walk?: Yes Distance: 30 x 3, 50 feet Walk 10 feet (QC): 4 Walk 50 ft with 2 Turns(QC): 4 Walk 150 ft (QC): 88 (pain/weakness) Walking 10ft/uneven surface-QC: 88 Gait Assistive Device: FWW Wheelchair Training Does the Pt Use a Wheelchair?: Yes Distance: 150ft Wheel 50 ft with 2 turns (QC): 3 Wheel 150 ft (QC): 3 (Min A ) Type of Wheelchair: Manual Stair Training 1 Step (curb) (QC): 88 (pain/weakness) 4 Steps (QC): 88 (pain/weakness) 12 Steps (QC): 88 (pain/weakness) Balance Picking up an Object (QC): 3 (Mod A with semiconductor wafers etcher stripper ) ADL-Treatment Eating (QC): 4 (VCs required for initiation. Assistance given to open packages.) Oral Hygiene (QC): 4 (VCs for location of items due to vision difficulties. ) Bathing Location: L Arm, R Arm, L Upper Leg, R Upper Leg, Chest, Abdomen Shower/Bathe Self (QC): 2 (Assistance given during sponge bath to wash feet, lower legs, buttocks, and stefanie area. Min A sit to stand while pt steadied on FWW to wash buttocks. ) Upper Body Dressing (QC): 3 (Assistance to pull shirt over back during donning/doffing, pt completed other steps by self. Required VC for initation to continue after shirt was over head while donning.) Lower Body Dressing (QC): 2 (Pt able to thread R foot into pants, assistance to thread L foot. Pt able to pull pants up legs, assistance given sit ->stand and hike pants up while pt steadied on FWW.) On/Off Footwear (QC): 2 (Pt able to don/doff R sock with figure-four technique assistance to hold leg in place, assistance to don/doff L sock.) Toileting Hygiene (QC): 1 (2 person assist in standing to wash buttocks.) Assessment/Plan Assessment and Plan Assess & Plan/Chief Complaint Assessment: Left hip fracture recovery Hypertension Hyperlipidemia CAD status post PCI 2007 Systolic dysfunction on echocardiogram ejection fraction 40-45% Advanced age Frail status Post op constipation Acute blood loss anemia requiring 1 unit of blood on med-surg Plan: Pain control Supportive care Monitor closely Fall risk 12/02/2022: Bowel regimen Monitor pain DC Dilaudid 12/03/2022: Slow recovery Continue decreasing pain medication 12/04/2022: Work on motivation Decrease pain meds 12/05/2022: Supportive care Monitor closely Dramatic improvement from yesterday (1) Closed left hip fracture Status: Acute (2) ANEMIA (3) Hypothyroidism Status: Chronic (4) Coronary artery disease Status: Chronic (5) Hypertension Status: Chronic (6) Hyperlipidemia Status: Chronic BEVERLEY HUNTER DO Dec 05, 2022 06:06
[2022-12-05] MEDS: CYANOCOBALAMIN 1,000 MCG TABLET PO SCH (06:38)
[2022-12-05] MEDS: LEVOTHYROXINE 88 MCG TABLET PO SCH (06:38)
[2022-12-05 08:22] VITALS: BP 131/64
[2022-12-05] MEDS: ACETAMINOPHEN 325 MG TABLET PO PRN ×2 (08:31→13:07)
[2022-12-05] MEDS: DOCUSATE SODIUM 100 MG CAPSULE PO SCH ×2 (08:32→20:09)
[2022-12-05] MEDS: ONDANSETRON 4 MG ORAL DISSOLVE TABLET PO PRN (08:32)
[2022-12-05] MEDS: APIXABAN 2.5 MG TABLET PO SCH ×2 (08:32→20:10)
[2022-12-05] MEDS: IRON SUCROSE 200 MG/10 ML VIAL IV SCH (08:33)
[2022-12-05] MEDS: SENNOSIDES 8.6 MG TABLET PO SCH ×2 (08:33→20:09)
[2022-12-05] MEDS: amLODIPine 5 MG TABLET PO SCH (08:33)
[2022-12-05] MEDS: RT-ALBUTEROL SULF 2.5 MG/3 ML PRE-MIX VIAL INH SCH (09:14)
[2022-12-05 09:18] VITALS: BP 131/64
--- NOTE | 2022-12-05 13:44 | Cardiology Progress Note ---
Cardiology SOAP Progress Note Subjective: no cardiac complaints Objective: I&O/Vital Signs 12/05/22 12/05/22 12/05/22 12/05/22 08:22 09:00 09:14 09:18 Temp 36.6 36.6 Pulse 66 72 Resp 18 B/P (MAP) 131/64 (86) Pulse Ox 93 93 93 O2 Delivery Room Air Room Air Room Air O2 Flow Rate 0.00 FiO2 21 12/05/22 00:00 Intake Total 560 ml Output Total 200 ml Balance 360 ml Weight (Pounds): 122 Weight (Calculated Kilograms): [id number] Constitutional: AAO x 3 Respiratory: lungs clear to auscultation Cardiovascular: regular rate-rhythm, S1 and S2 Neurologic/Psychiatric: no motor/sensory deficits, alert, normal mood/affect, oriented x 3 Skin: normal color A/P: Assessment/Dx: Mechanical fall, hip fracture, postsurgery, currently in rehab. Coronary artery disease, s/p PCI in 2007, Hypertension, Hyperlipidemia Plan: Hip fracture; s/p left hip surgery. Previous history of PCI in 2007. No chest pain with exertion. Normal EKG. No cardiac symptoms. Nikolas ENG MD Dec 05, 2022 13:44
[2022-12-05 20:07] VITALS: BP 113/62
[2022-12-06] MEDS: ACETAMINOPHEN 325 MG TABLET PO PRN (00:42)
[2022-12-06] MEDS: oxyCODONE IMMEDIATE RELEASE 5 MG TABLET PO PRN ×3 (03:03→17:42)
--- NOTE | 2022-12-06 05:03 | PM&R Progress Note ---
Subjective HPI/CC On Admission Date Seen by Provider: Dec 06, 2022 Time Seen by Provider: 09:00 Subjective/Events-last exam 12/06/2022: Much improved BM+ Pain controlled No falls Working with therapy WBC 16k checked urine and it was negative 12/05/2022: Patient dramatically improved Up in chair with family at bedside Appears to be brighter and alert and less confused and lethargic Lungs remain clear Supportive care we will continue Pain is controlled 12/04/2022: Refused to get out of bed today so I had a long talk with her and family at the bedside to get OOB with meals to prevent PNA Pain is an issue and she continues to take scheduled every 4 hours which is sedating her and causing issues and lack of motivation No issues otherwise Very slow recovery and she was very active before fracture 12/03/2022: Slow recovery Pain is much better Appears to be more alert today Labs reviewed 12/02/2022: Pain is an issue Will DC Dilaudid and increase Oxycodone Appears sedated No BM yet so ordered supp and SSE Labs stable Review of Systems General: Fatigue, Malaise Objective Exam Vital Signs Vital Signs Date Time Temp Pulse Resp B/P (MAP) Pulse Ox O2 Delivery O2 Flow Rate FiO2 12/06/22 09:29 95 Nasal Cannula 2.00 12/06/22 08:05 36.3 78 18 120/57 (78) 12/05/22 09:18 21 Capillary Refill : General Appearance: No Apparent Distress, WD/WN, Chronically ill HEENT: PERRL/EOMI, Normal ENT Inspection, Pharynx Normal Neck: Full Range of Motion, Normal Inspection, Non Tender, Supple, Carotid Bruit Respiratory: Chest Non Tender, Lungs Clear, Normal Breath Sounds, No Accessory Muscle Use, No Respiratory Distress Cardiovascular: Regular Rate, Rhythm, No Edema, No Gallop, No JVD, No Murmur, Normal Peripheral Pulses Gastrointestinal: Normal Bowel Sounds, No Organomegaly, No Pulsatile Mass, Non Tender, Soft Back: Normal Inspection, No CVA Tenderness, No Vertebral Tenderness Extremity: Normal Capillary Refill, Normal Inspection, Normal Range of Motion (except left leg), Non Tender, No Calf Tenderness, No Pedal Edema Neurologic/Psychiatric: Alert, Oriented x3, glost placer II-XII Norm as Tested, Abnormal Gait, Depressed Affect, Motor Weakness (left leg) Skin: Normal Color, Warm/Dry Lymphatic: No Adenopathy Results/Procedures Lab Laboratory Tests 12/06/22 06:51 Patient resulted labs reviewed. FIM Transfers Therapy Code Descriptions/Definitions Functional [place] Measure: 0=Not Assessed/NA 4=Minimal Assistance 1=Total Assistance 5=Supervision or Setup 2=Maximal Assistance 6=Modified [place] 3=Moderate Assistance 7=Complete IndependenceSCALE: Activities may be completed with or without assistive devices. 2-Flmzkfgxdo-vqotsco completes the activity by him/herself with no assistance from a helper. 5-Set-up or Clean-up Assistance-helper sets up or cleans up; patient completes activity. [place] assists only prior to or following the activity. 4-Supervision or Touching Assistance-helper provides verbal cues and/or touching/steadying and/or contact guard assistance as patient completes activity. Assistance may be provided throughout the activity or intermittently. 3-Partial/Moderate Assistance-helper does LESS THAN HALF the effort. [place] lifts, holds or supports trunk or limbs, but provides less than half the effort. 2-Substantial/Maximal Assistance-helper does MORE THAN HALF the effort. [place] lifts or holds trunk or limbs and provides more than half the effort. 7-Qzwhbdnyt-pcnbti does ALL the effort. Patient does none of the effort to complete the activity. Or, the assistance of 2 or more helpers is required for the patient to complete the activity. If activity was not attempted, code reason: 7-Patient Refused. 9-Not Applicable-not attempted and the patient did not perform the activity before the current illness, exacerbation or injury. 10-Not Attempted due to Environmental Limitations-(lack of equipment, weather restraints, etc.). 88-Not Attempted due to Medical Conditions or Safety Concerns. Roll Left to Right (QC): 3 (Mod A due to pain ) Sit to Lying (QC): 3 Sit to Stand (QC): 4 Chair/Ncl-oj-Zomgn Xfer(QC): 4 Car Transfer (QC): 88 (pain/weakness) Gait Training Does the Patient Walk?: Yes Distance: 30 x 3, 50 feet Walk 10 feet (QC): 4 Walk 50 ft with 2 Turns(QC): 4 Walk 150 ft (QC): 88 (pain/weakness) Walking 10ft/uneven surface-QC: 88 Gait Assistive Device: FWW Wheelchair Training Does the Pt Use a Wheelchair?: Yes Distance: 150ft Wheel 50 ft with 2 turns (QC): 3 Wheel 150 ft (QC): 3 (Min A ) Type of Wheelchair: Manual Stair Training 1 Step (curb) (QC): 88 (pain/weakness) 4 Steps (QC): 88 (pain/weakness) 12 Steps (QC): 88 (pain/weakness) Balance Picking up an Object (QC): 3 (Mod A with tractor operator laser leveling ) ADL-Treatment Eating (QC): 4 (VCs required for initiation. Assistance given to open packages.) Oral Hygiene (QC): 4 (VCs for location of items due to vision difficulties. ) Bathing Location: L Arm, R Arm, L Upper Leg, R Upper Leg, Chest, Abdomen Shower/Bathe Self (QC): 2 (Assistance given during sponge bath to wash feet, lower legs, buttocks, and stefanie area. Min A sit to stand while pt steadied on FWW to wash buttocks. ) Upper Body Dressing (QC): 3 (Assistance to pull shirt over back during donning/doffing, pt completed other steps by self. Required VC for initation to continue after shirt was over head while donning.) Lower Body Dressing (QC): 2 (Pt able to thread R foot into pants, assistance to thread L foot. Pt able to pull pants up legs, assistance given sit ->stand and hike pants up while pt steadied on FWW.) On/Off Footwear (QC): 2 (Pt able to don/doff R sock with figure-four technique assistance to hold leg in place, assistance to don/doff L sock.) Toileting Hygiene (QC): 1 (2 person assist in standing to wash buttocks.) Assessment/Plan Assessment and Plan Assess & Plan/Chief Complaint Assessment: Left hip fracture recovery Hypertension Hyperlipidemia CAD status post PCI 2007 Systolic dysfunction on echocardiogram ejection fraction 40-45% Advanced age Frail status Post op constipation Acute blood loss anemia requiring 1 unit of blood on med-surg Leukocytosis of unknown source Plan: Pain control Supportive care Monitor closely Fall risk 12/02/2022: Bowel regimen Monitor pain DC Dilaudid 12/03/2022: Slow recovery Continue decreasing pain medication 12/04/2022: Work on motivation Decrease pain meds 12/05/2022: Supportive care Monitor closely Dramatic improvement from yesterday 12/06/2022: UA neg Monitor labs (1) Closed left hip fracture Status: Acute (2) ANEMIA (3) Hypothyroidism Status: Chronic (4) Coronary artery disease Status: Chronic (5) Hypertension Status: Chronic (6) Hyperlipidemia Status: Chronic BEVERLEY HUNTER DO Dec 06, 2022 05:03
[2022-12-06] MEDS: CYANOCOBALAMIN 1,000 MCG TABLET PO SCH (06:40)
[2022-12-06] MEDS: LEVOTHYROXINE 88 MCG TABLET PO SCH (06:40)
[2022-12-06 06:57] LABS: BASOPHILS # (AUTO) 0.1 10^3/uL (0.0-0.1); BASOPHILS % (AUTO) 0 % (0-10); EOSINOPHILS # (AUTO) 0.8 10^3/uL (0.0-0.3); EOSINOPHILS % (AUTO) 5 % (0-10); HEMATOCRIT 28 % (35-52); LYMPHOCYTES # (AUTO) 2.2 10^3/uL (1.0-4.0); LYMPHOCYTES % (AUTO) 14 % (12-44); MEAN CORPUSCULAR HEMOGLOBIN 30 pg (25-34); MEAN CORPUSCULAR HGB CONC 32 g/dL (32-36); MEAN CORPUSCULAR VOLUME 94 fL (80-99); MEAN PLATELET VOLUME 10.9 fL (9.0-12.2); MONOCYTES # (AUTO) 1.9 10^3/uL (0.0-1.0); MONOCYTES % (AUTO) 12 % (0-12); NEUTROPHILS # (AUTO) 10.6 10^3/uL (1.8-7.8); NEUTROPHILS % (AUTO) 66 % (42-75); PLATELET COUNT 226 10^3/uL (130-400); WHITE BLOOD COUNT 16.2 10^3/uL (4.3-11.0)
[2022-12-06 07:20] LABS: ALBUMIN 2.5 GM/DL (3.2-4.5); CALCIUM 8.4 MG/DL (8.5-10.1); CREATININE SERUM 1.23 MG/DL (0.60-1.30); POTASSIUM 4.3 MMOL/L (3.6-5.0); TOTAL PROTEIN 5.4 GM/DL (6.4-8.2)
[2022-12-06 07:48] LABS: BAND NEUTROPHILS 1 %; EOSINOPHILS % (MANUAL) 6 %; LYMPHOCYTES % (MANUAL) 18 %; MONOCYTES % (MANUAL) 6 %; NEUTROPHILS % (MANUAL) 69 %; POLYCHROMASIA SLIGHT
[2022-12-06 07:49] LABS: ANISOCYTOSIS SLIGHT
[2022-12-06 07:50] LABS: BURR CELLS SLIGHT
[2022-12-06 08:05] VITALS: BP 120/57
--- NOTE | 2022-12-06 08:30 | Occupational Ther Daily Note ---
OT Current Status-Daily Note Subjective Pt alert, sitting up in bed. Pt agrees to therapy, pt stated pain was a 2/10 during tx. Nrsg notified. PT/OT co-treat ([id number]), skills of 2 clinicians required to decrease fall risk, increase functional mobility, and increase awareness. PT focus on w/c mobility and transfers. OT focus on ADLs, functional mobility, and energy conservation for functional tasks. Mental Status/Objective Patient Orientation: Person, Place, Time, Situation Attachments: IV ADL-Treatment Therapy Code Descriptions/Definitions Functional [place] Measure: 0=Not Assessed/NA 4=Minimal Assistance 1=Total Assistance 5=Supervision or Setup 2=Maximal Assistance 6=Modified [place] 3=Moderate Assistance 7=Complete IndependenceSCALE: Activities may be completed with or without assistive devices. 1-Kramitalkk-slsmiec completes the activity by him/herself with no assistance from a helper. 5-Set-up or Clean-up Assistance-helper sets up or cleans up; patient completes activity. [place] assists only prior to or following the activity. 4-Supervision or Touching Assistance-helper provides verbal cues and/or touching/steadying and/or contact guard assistance as patient completes activity. Assistance may be provided throughout the activity or intermittently. 3-Partial/Moderate Assistance-helper does LESS THAN HALF the effort. [place] lifts, holds or supports trunk or limbs, but provides less than half the effort. 2-Substantial/Maximal Assistance-helper does MORE THAN HALF the effort. [place] lifts or holds trunk or limbs and provides more than half the effort. 0-Pdlsrjncb-pnlfgj does ALL the effort. Patient does none of the effort to complete the activity. Or, the assistance of 2 or more helpers is required for the patient to complete the activity. If activity was not attempted, code reason: 7-Patient Refused. 9-Not Applicable-not attempted and the patient did not perform the activity before the current illness, exacerbation or injury. 10-Not Attempted due to Environmental Limitations-(lack of equipment, weather restraints, etc.). 88-Not Attempted due to Medical Conditions or Safety Concerns. Eating (QC): 4 (VCs needed for item placements. Pt would benefit from set-up prior to eating to open packages and describe item placements. ) Oral Hygiene (QC): 3 (Assist given to put toothpaste on toothbrush due to vision difficulties. Pt may benefit from smaller tubes of toothpaste to decrease the amount able to squeeze out of tube. ) Bathing Location: L Arm, R Arm, L Upper Leg, R Upper Leg, Chest, Abdomen Shower/Bathe Self (QC): 3 (Assistance to wash lower legs, feet, buttocks, and stefanie area. Pt able to complete the rest.) Upper Body Dressing (QC): 3 (Pt able to doff shirt. Assistance given to don shirt over head and pull down back, pt able to do the rest.) Lower Body Dressing (QC): 2 (Assistance given to thread brief and pants over L foot, pt able to thread R foot with figure-four technique. Assistance given to stand and hike pants over hips, pt able to offload one hand from FWW and assist.) On/Off Footwear: 2 (Pt able to don/doff R sock with figure-four technique, assistance given to don/doff L sock. ) Pt continues to demonstrate vision difficulties. VCs required for location of items. Pt desires staff to complete tasks for her, required encouragement to complete tasks by self. Pt demonstrated fatigue after shower, but given rest break sitting in w/c. Other Treatment Pt supine -> EOB min A. Pt ambulated to bathroom from EOB with FWW, CGA for steadying and safety. Pt requires increased time with functional tasks/ADLs due to low activity tolerance. Co-treat with pt began([id number]). PT working on standing balance utilizing FWW and w/c mobility. OT working on ADLs and transfer from shower chair -> w/c using FWW, CGA. Increased rest break required after shower due to fatigue. Ended session with pt in w/c in PTs care, all needs met. Education OT Patient Education: Energy conservation Teaching Recipient: Patient Teaching Methods: Demonstration, Discussion Response to Teaching: Verbalize Understanding, Return Demonstration OT Short Term Goals Short Term Goals Time Frame: Dec 15, 2022 Toileting hygiene: 4 Shower/bathe self: 4 Lower body dressin Putting on/taking off footwear: 3 OT Licensed Practical Nurse Clinic Nurse Goals Licensed Practical Nurse Clinic Nurse Goals Time Frame: Dec 24, 2022 Acute change in mental status: 0 Inattention: 0 Disorganized thinkin Altered level of consciousness: 0 Eating (QC): 6 Oral Hygiene (QC): 6 Toileting Hygiene (QC): 6 Shower/Bathe Self (QC): 5 Upper Body Dressing (QC): 6 Lower Body Dressing (QC): 6 On/Off Footwear (QC): 6 Additional Goals: 1-Demonstrate ADL Tasks, 2-Verbalize Understanding, 3- ImproveStrength/Kacey 1=Demonstrate adherence to instructed precautions during ADL tasks. 2=Patient will verbalize/demonstrate understanding of assistive devices /modifications for ADL. 3=Patient will improve strength/tolerance for activity to enable patient to perform ADL's. OT Education/Plan Problem List/Assessment Assessment: Decreased Activ Tolerance, Decreased UE Strength, Impaired Bed Mobility, Impaired Coordination, Impaired Self-Care Skills Discharge Recommendations Plan/Recommendations: Continue POC Treatment Plan/Plan of Care Patient would benefit from OT for education, treatment and training to promote independence in ADL's, mobility, safety and/or upper extremity function for ADL 's. Plan of Care: ADL Retraining, Functional Mobility, Group Exercise/Act as Ind, UE Funct Exercise/Act Treatment Duration: Dec 24, 2022 Frequency: At least 5 of 7 days/Wk (IRF) Estimated Hrs Per Day: 1.5 hours per day Agreement: Yes Rehab Potential: Good Time Start Time: 07:15 Stop Time: 08:30 DATE: Dec 06, 2022 Total Time Billed (hr/min): 75 Billed Treatment Time 1 visit- ADL 5 (75 min) co-treat ([id number]), individual ([id number]) BYRON BAIN Dec 06, 2022 08:30
[2022-12-06] MEDS: DOCUSATE SODIUM 100 MG CAPSULE PO SCH ×2 (09:15→21:24)
[2022-12-06] MEDS: SENNOSIDES 8.6 MG TABLET PO SCH ×2 (09:15→21:24)
[2022-12-06] MEDS: APIXABAN 2.5 MG TABLET PO SCH ×2 (09:15→21:24)
[2022-12-06] MEDS: amLODIPine 5 MG TABLET PO SCH (09:16)
--- NOTE | 2022-12-06 09:42 | Cardiology Progress Note ---
Subjective Date Seen by Provider: Dec 06, 2022 Time Seen by Provider: 08:15 Subjective/Events-last exam Patient with PT, no new complaints. Objective-Cardiology Exam Last Set of Vital Signs Vital Signs 12/05/22 12/06/22 12/06/22 09:18 08:05 09:29 Temp 36.3 Pulse 78 Resp 18 B/P (MAP) 120/57 (78) Pulse Ox 95 O2 Delivery Nasal Cannula O2 Flow Rate 2.00 FiO2 21 I&O Intake and Output 12/05/22 23:59 Intake Total 1650 ml Output Total 600 ml Balance 1050 ml Intake Oral 1650 ml Output Urine Total 600 ml # Voids 4 # Bowel Movements 1 General: Alert, Oriented X3 HEENT: Atraumatic, PERRLA Neck: Supple Lungs: Clear to Auscultation, Normal Air Movement Heart: Regular Rate, Normal S1, Normal S2 Abdomen: Normal Bowel Sounds, Soft Extremities: No Edema Skin: No Rashes, No Significant Lesion Neuro: Normal Speech Results Lab Laboratory Tests 12/06/22 06:51 A/P-Cardiology Admission Diagnosis Hip fx CAD HTN HLP Assessment/Plan Mechanical fall, hip fracture, postsurgery, currently in rehab. Coronary artery disease, s/p PCI in 2007, follows with Dr. Ramirez as outpatient. Clinically stable. Hypertension, controlled, continue to monitor. Hyperlipidemia, continue to monitor as outpatient Hypothyroidism History of TIA Patient is maintained on Eliquis secondary to her surgery, it was initiated by Dr. Valenzuela Supervisory-Addendum Brief Supervisory Addendum Participated in pt care: history, MDM, physical Personally performed: exam, history, MDM Care discussed with: LIZZY Results interpretation: Verified all documentation Notes: Patient was seen and evaluated with Joseph, examination performed, management plan was discussed, agree with the current scribed note, I made few changes to the note using Italic font Patient was seen and evaluated with Joseph, has been laying down comfortably in bed. No new complaint. Denied any chest pain. No palpitation. JOSEPH CARLSON Dec 06, 2022 09:42 YENNIFER SURESH MD Dec 06, 2022 12:01
[2022-12-06 11:06] LABS: BILIRUBIN,URINE NEGATIVE (NEGATIVE); CLARITY,URINE CLEAR; COLOR,URINE YELLOW; GLUCOSE, URINE (UA) NEGATIVE (NEGATIVE); KETONES,URINE NEGATIVE (NEGATIVE); LEUKOCYTE ESTERASE ,URINE NEGATIVE (NEGATIVE); NITRITE,URINE NEGATIVE (NEGATIVE); PH,URINE 6.5 (5-9); PROTEIN,URINE NEGATIVE (NEGATIVE)
[2022-12-06 11:07] LABS: AMORPHOUS SEDIMENT,UR RARE AMOR URATES /LPF; BACTERIA,URINE TRACE /HPF; SQUAMOUS EPITHELIAL CELL,UR 0-2 /HPF
--- NOTE | 2022-12-06 15:04 | Speech Therapy Daily Note ---
Speech Daily Progress Note Subjective Date Seen by Provider: Dec 06, 2022 Time Seen by Provider: 14:00 The pt was laying comfortably in bed, was repositioned to upright position with no c/o discomfort. She participated well throughout session. Objective Visual organization and temporal problem solving were targeted. The pt was able to easily find and point to various items in her room, located centrally and in left/right visual orona. She read the time on the clock without assistance. Simple temporal problem solving for elapsed time was completed with the clock, the pt achieved 60% accuracy independently, and 90% accuracy given minimal cues. Visual organization for establishing edgeness of table top was completed. The pt scanned randomly placed shapes on the tabletop with occasional cues to scan to the right or left as needed. The pt matched shapes to outlined pictures with 70% accuracy independently. The pt was able to demonstrate use of her call light with good accuracy. She was able to correctly orient the device independently, and located 5/7 buttons without assist. The pt was able to verbally sequence sit-stand and stand-sit transfers with good accuracy. Assessment Assessment Current Status: Good Progress Treatment Plan Continue Plan of Care Speech Short Term Goals Short Term Goals Short Term Goals 1. The patient will display 80% accuracy with memory exercises through utilization of functional memory strategies for safety precautions with mild clinician cueing. Time Frame-ST days Speech Mobile Home Mechanic Goals Mobile Home Mechanic Goals 1. The patient will demonstrate improved cognitive linguistic skills for safe discharge to the least restrictive environment. Time Frame: 10 days Speech-Plan Treatment Plan Speech Therapy Treatment Plan: Continue Plan of Care Treatment Duration: Dec 02, 2022 Frequency: Modified Program (IRF) Estimated Hrs Per Day: .5 hour per day Rehab Potential: Good Safety Risks/Education Teaching Recipient: Patient Teaching Methods: Demonstration Response to Teaching: Return Demonstration Education Topics Provided: Visual scanning of table and room Time Speech Therapy Time In: 14:00 Speech Therapy Time Out: 14:35 DATE: Dec 06, 2022 Total Billed Time: 35 Billed Treatment Time 1(SLTS) YUSEF TOUSSAINT Dec 06, 2022 15:04
--- NOTE | 2022-12-06 16:28 | Diagnostic Imaging Report ---
Indication: Swelling and pain. 3 views of the left foot performed. No priors. Findings: No opaque foreign body or soft tissue gas or swelling over the dorsum of the mid to forefoot. No appreciable fracture or bony destruction or acute periosteal reaction. Impression: Dorsal swelling but no acute bony pathology appreciable. Dictated by: Dictated on workstation # [id number]
[2022-12-06 20:50] VITALS: BP 137/65
--- NOTE | 2022-12-07 06:13 | PM&R Progress Note ---
Subjective HPI/CC On Admission Date Seen by Provider: Dec 07, 2022 Time Seen by Provider: 10:00 Subjective/Events-last exam 12/07/2022: Much improve status No pain Lungs are clear Working with therapy a lot better this week 12/06/2022: Much improved BM+ Pain controlled No falls Working with therapy WBC 16k checked urine and it was negative 12/05/2022: Patient dramatically improved Up in chair with family at bedside Appears to be brighter and alert and less confused and lethargic Lungs remain clear Supportive care we will continue Pain is controlled 12/04/2022: Refused to get out of bed today so I had a long talk with her and family at the bedside to get OOB with meals to prevent PNA Pain is an issue and she continues to take scheduled every 4 hours which is sedating her and causing issues and lack of motivation No issues otherwise Very slow recovery and she was very active before fracture 12/03/2022: Slow recovery Pain is much better Appears to be more alert today Labs reviewed 12/02/2022: Pain is an issue Will DC Dilaudid and increase Oxycodone Appears sedated No BM yet so ordered supp and SSE Labs stable Review of Systems General: Fatigue, Malaise Objective Exam Vital Signs Vital Signs Date Time Temp Pulse Resp B/P (MAP) Pulse Ox O2 Delivery O2 Flow Rate FiO2 12/07/22 10:51 95 Room Air 12/07/22 08:04 36.4 69 20 123/59 (80) 12/06/22 09:29 2.00 12/05/22 09:18 21 Capillary Refill : General Appearance: No Apparent Distress, WD/WN, Chronically ill HEENT: PERRL/EOMI, Normal ENT Inspection, Pharynx Normal Neck: Full Range of Motion, Normal Inspection, Non Tender, Supple, Carotid Bruit Respiratory: Chest Non Tender, Lungs Clear, Normal Breath Sounds, No Accessory Muscle Use, No Respiratory Distress Cardiovascular: Regular Rate, Rhythm, No Edema, No Gallop, No JVD, No Murmur, Normal Peripheral Pulses Gastrointestinal: Normal Bowel Sounds, No Organomegaly, No Pulsatile Mass, Non Tender, Soft Back: Normal Inspection, No CVA Tenderness, No Vertebral Tenderness Extremity: Normal Capillary Refill, Normal Inspection, Normal Range of Motion (except left leg), Non Tender, No Calf Tenderness, No Pedal Edema Neurologic/Psychiatric: Alert, Oriented x3, handkerchief cutter II-XII Norm as Tested, Abnormal Gait, Depressed Affect, Motor Weakness (left leg) Skin: Normal Color, Warm/Dry Lymphatic: No Adenopathy Results/Procedures Lab Patient resulted labs reviewed. FIM Transfers Therapy Code Descriptions/Definitions Functional [place] Measure: 0=Not Assessed/NA 4=Minimal Assistance 1=Total Assistance 5=Supervision or Setup 2=Maximal Assistance 6=Modified [place] 3=Moderate Assistance 7=Complete IndependenceSCALE: Activities may be completed with or without assistive devices. 9-Osdjhrjace-xmdhapg completes the activity by him/herself with no assistance from a helper. 5-Set-up or Clean-up Assistance-helper sets up or cleans up; patient completes activity. [place] assists only prior to or following the activity. 4-Supervision or Touching Assistance-helper provides verbal cues and/or touching/steadying and/or contact guard assistance as patient completes activity. Assistance may be provided throughout the activity or intermittently. 3-Partial/Moderate Assistance-helper does LESS THAN HALF the effort. [place] lifts, holds or supports trunk or limbs, but provides less than half the effort. 2-Substantial/Maximal Assistance-helper does MORE THAN HALF the effort. [place] lifts or holds trunk or limbs and provides more than half the effort. 4-Ywnyascfw-xqcrfc does ALL the effort. Patient does none of the effort to complete the activity. Or, the assistance of 2 or more helpers is required for the patient to complete the activity. If activity was not attempted, code reason: 7-Patient Refused. 9-Not Applicable-not attempted and the patient did not perform the activity before the current illness, exacerbation or injury. 10-Not Attempted due to Environmental Limitations-(lack of equipment, weather restraints, etc.). 88-Not Attempted due to Medical Conditions or Safety Concerns. Roll Left to Right (QC): 3 (Mod A due to pain ) Sit to Lying (QC): 3 Sit to Stand (QC): 4 Chair/Jdg-sc-Zmkzg Xfer(QC): 4 Car Transfer (QC): 88 (pain/weakness) Gait Training Does the Patient Walk?: Yes Distance: 30 x 3, 50 feet Walk 10 feet (QC): 4 Walk 50 ft with 2 Turns(QC): 4 Walk 150 ft (QC): 88 (pain/weakness) Walking 10ft/uneven surface-QC: 88 Gait Assistive Device: FWW Wheelchair Training Does the Pt Use a Wheelchair?: Yes Distance: 150ft Wheel 50 ft with 2 turns (QC): 3 Wheel 150 ft (QC): 3 (Min A ) Type of Wheelchair: Manual Stair Training 1 Step (curb) (QC): 88 (pain/weakness) 4 Steps (QC): 88 (pain/weakness) 12 Steps (QC): 88 (pain/weakness) Balance Picking up an Object (QC): 3 (Mod A with iuss acoustic analyst ) ADL-Treatment Eating (QC): 4 (VCs needed for item placements. Pt would benefit from set-up prior to eating to open packages and describe item placements. ) Oral Hygiene (QC): 3 (Assist given to put toothpaste on toothbrush due to vision difficulties. Pt may benefit from smaller tubes of toothpaste to decrease the amount able to squeeze out of tube. ) Bathing Location: L Arm, R Arm, L Upper Leg, R Upper Leg, Chest, Abdomen Shower/Bathe Self (QC): 3 (Assistance to wash lower legs, feet, buttocks, and stefanie area. Pt able to complete the rest.) Upper Body Dressing (QC): 3 (Pt able to doff shirt. Assistance given to don shirt over head and pull down back, pt able to do the rest.) Lower Body Dressing (QC): 2 (Assistance given to thread brief and pants over L foot, pt able to thread R foot with figure-four technique. Assistance given to stand and hike pants over hips, pt able to offload one hand from FWW and assist.) On/Off Footwear (QC): 2 (Pt able to don/doff R sock with figure-four technique, assistance given to don/doff L sock. ) Toileting Hygiene (QC): 1 (2 person assist in standing to wash buttocks.) Assessment/Plan Assessment and Plan Assess & Plan/Chief Complaint Assessment: Left hip fracture recovery Hypertension Hyperlipidemia CAD status post PCI 2007 Systolic dysfunction on echocardiogram ejection fraction 40-45% Advanced age Frail status Post op constipation Acute blood loss anemia requiring 1 unit of blood on med-surg Leukocytosis of unknown source Plan: Pain control Supportive care Monitor closely Fall risk 12/02/2022: Bowel regimen Monitor pain DC Dilaudid 12/03/2022: Slow recovery Continue decreasing pain medication 12/04/2022: Work on motivation Decrease pain meds 12/05/2022: Supportive care Monitor closely Dramatic improvement from yesterday 12/06/2022: UA neg Monitor labs 12/07/2022: Monitor closely Pain controlled (1) Closed left hip fracture Status: Acute (2) ANEMIA (3) Hypothyroidism Status: Chronic (4) Coronary artery disease Status: Chronic (5) Hypertension Status: Chronic (6) Hyperlipidemia Status: Chronic BEVERLEY HUNTER DO Dec 07, 2022 06:13
[2022-12-07] MEDS: CYANOCOBALAMIN 1,000 MCG TABLET PO SCH (06:26)
[2022-12-07] MEDS: LEVOTHYROXINE 88 MCG TABLET PO SCH (06:26)
--- NOTE | 2022-12-07 07:22 | Occupational Ther Daily Note ---
OT Current Status-Daily Note Subjective Pt alert, supine in bed. Pt agrees to therapy. Pt states pain is 8/10 when going supine -> EOB. Nrsg notified and pain meds given during tx. Mental Status/Objective Patient Orientation: Person, Place, Time, Situation ADL-Treatment Therapy Code Descriptions/Definitions Functional [place] Measure: 0=Not Assessed/NA 4=Minimal Assistance 1=Total Assistance 5=Supervision or Setup 2=Maximal Assistance 6=Modified [place] 3=Moderate Assistance 7=Complete IndependenceSCALE: Activities may be completed with or without assistive devices. 0-Krnwfeqyhs-lggxfbt completes the activity by him/herself with no assistance from a helper. 5-Set-up or Clean-up Assistance-helper sets up or cleans up; patient completes activity. [place] assists only prior to or following the activity. 4-Supervision or Touching Assistance-helper provides verbal cues and/or touching/steadying and/or contact guard assistance as patient completes ac tivity. Assistance may be provided throughout the activity or intermittently. 3-Partial/Moderate Assistance-helper does LESS THAN HALF the effort. [place] lifts, holds or supports trunk or limbs, but provides less than half the effort. 2-Substantial/Maximal Assistance-helper does MORE THAN HALF the effort. [place] lifts or holds trunk or limbs and provides more than half the effort. 2-Tizzgvijq-gavvub does ALL the effort. Patient does none of the effort to complete the activity. Or, the assistance of 2 or more helpers is required for the patient to complete the activity. If activity was not attempted, code reason: 7-Patient Refused. 9-Not Applicable-not attempted and the patient did not perform the activity before the current illness, exacerbation or injury. 10-Not Attempted due to Environmental Limitations-(lack of equipment, weather restraints, etc.). 88-Not Attempted due to Medical Conditions or Safety Concerns. Eating (QC): 5 (Set-up prior required for opening packages and stating item locations. Pt utilized spoon to eat oatmeal.) Oral Hygiene (QC): 5 (Pt able to use small toothpaste container to squeeze onto countertop then scoop toothbrush through toothpaste. ) Upper Body Dressing (QC): 5 (Pt able to don/doff shirt with set up to position front/back.) Lower Body Dressing (QC): 3 (Introduced hardness inspector for aid in LBD, pt able to thread feet into brief/pants with hardness inspector. Assistance given to stand and hike pants over hips. Pt able to off-load both hands from FWW to finish hiking over hips after positioning.) On/Off Footwear: 4 (Did not have socks on to doff, able to don socks with sock aid after demonstration and VCs. ) Introduced sock aid, hardness inspector, and long handled sponge for ADLs. Pt demonstrated understanding of use and was able to be more independent with AE. Pt d emonstrated dislike of AE, but verbalized that it helped her be more independent. Other Treatment Pt supine -> EOB min A. Pt completed ADLs and then propelled w/c to therapy gym with 1 resting break. Pt completed functional tasks with suction pegs while sitting in front of white board. Utilized task to determine any visual field deficits, pt demonstrated improved vision but demonstrated some difficulty with R field. VCs used for visual scanning to the R side. Pt working on visual scann ing techniques, postural strengthening, fine motor strengthening, B UE strengthening, AROM, and activity tolerance. Pt demonstrated greater activity tolerance during tx and required less encouragement to participate. Ended session with pt sitting in w/c ready to begin session with PT. Left in care with PT and all needs met. Education OT Patient Education: Correct positioning, Energy conservation, Use of adapted equipment Teaching Recipient: Patient Teaching Methods: Demonstration, Discussion Response to Teaching: Verbalize Understanding, Return Demonstration OT Short Term Goals Short Term Goals Time Frame: Dec 15, 2022 Toileting hygiene: 4 Shower/bathe self: 4 Lower body dressin Putting on/taking off footwear: 3 OT Correction Goals Network Intelligence Analyst Goals Time Frame: Dec 24, 2022 Acute change in mental status: 0 Inattention: 0 Disorganized thinkin Altered level of consciousness: 0 Eating (QC): 6 Oral Hygiene (QC): 6 Toileting Hygiene (QC): 6 Shower/Bathe Self (QC): 5 Upper Body Dressing (QC): 6 Lower Body Dressing (QC): 6 On/Off Footwear (QC): 6 Additional Goals: 1-Demonstrate ADL Tasks, 2-Verbalize Understanding, 3- ImproveStrength/Kacey 1=Demonstrate adherence to instructed precautions during ADL tasks. 2=Patient will verbalize/demonstrate understanding of assistive devices/modifications for ADL. 3=Patient will improve strength/tolerance for activity to enable patient to perform ADL's. OT Education/Plan Problem List/Assessment Assessment: Decreased Activ Tolerance, Decreased UE Strength, Impaired Bed Mobility, Impaired Funct Balance, Impaired Self-Care Skills Discharge Recommendations Plan/Recommendations: Continue POC Treatment Plan/Plan of Care Patient would benefit from OT for education, treatment and training to promote independence in ADL's, mobility, safety and/or upper extremity function for ADL's. Plan of Care: ADL Retraining, Functional Mobility, Group Exercise/Act as Ind, UE Funct Exercise/Act Treatment Duration: Dec 24, 2022 Frequency: At least 5 of 7 days/Wk (IRF) Estimated Hrs Per Day: 1.5 hours per day Agreement: Yes Rehab Potential: Good Time Start Time: 07:00 Stop Time: 08:30 DATE: Dec 07, 2022 Total Time Billed (hr/min): 90 Billed Treatment Time 1 visit- ADL 4 (60 min) FA 2 (30 min) BYRON BAIN Dec 07, 2022 07:21
[2022-12-07] MEDS: oxyCODONE IMMEDIATE RELEASE 5 MG TABLET PO PRN ×3 (07:42→21:44)
[2022-12-07] MEDS: DOCUSATE SODIUM 100 MG CAPSULE PO SCH ×2 (07:43→20:46)
[2022-12-07] MEDS: SENNOSIDES 8.6 MG TABLET PO SCH ×2 (07:43→20:46)
[2022-12-07] MEDS: APIXABAN 2.5 MG TABLET PO SCH ×2 (07:45→21:00)
[2022-12-07 08:04] VITALS: BP 123/59
--- NOTE | 2022-12-07 08:59 | Cardiology Progress Note ---
Subjective Date Seen by Provider: Dec 07, 2022 Time Seen by Provider: 08:00 Subjective/Events-last exam Patient is with PT, no new complaints. Denies any chest pain Objective-Cardiology Exam Last Set of Vital Signs Vital Signs 12/05/22 12/06/22 12/07/22 12/07/22 09:18 09:29 08:04 10:51 Temp 36.4 Pulse 69 Resp 20 B/P (MAP) 123/59 (80) Pulse Ox 95 O2 Delivery Room Air O2 Flow Rate 2.00 FiO2 21 I&O Intake and Output 12/07/22 00:00 Intake Total 1857 ml Output Total 550 ml Balance 1307 ml Intake Oral 1857 ml Output Urine Total 550 ml Bladder Scan Volume Amount 205 ml # Urine Diapers 3 # Bowel Movements 2 General: Alert, Oriented X3 HEENT: Atraumatic, PERRLA Neck: Supple Lungs: Clear to Auscultation, Normal Air Movement Heart: Regular Rate, Normal S1, Normal S2 Abdomen: Normal Bowel Sounds, Soft Extremities: No Edema Skin: No Rashes, No Significant Lesion Neuro: Normal Speech A/P-Cardiology Admission Diagnosis Hip fx CAD HTN HLP Assessment/Plan Mechanical fall, hip fracture, postsurgery, currently in rehab. Coronary artery disease, s/p PCI in 2007, follows with Dr. Ramirez as outpatient. Clinically stable. Hypertension, controlled, continue to monitor. Hyperlipidemia, continue to monitor as outpatient Hypothyroidism History of TIA Patient is maintained on Eliquis secondary to her surgery, it was initiated by Dr. Valenzuela Supervisory-Addendum Brief Supervisory Addendum Participated in pt care: history, MDM, physical Personally performed: exam, history, MDM Care discussed with: LIZZY Results interpretation: Verified all documentation Notes: Patient was seen and evaluated with Joseph, examination performed, management plan was discussed, agree with the current scribed note, I made few changes to the note using Italic font Patient was seen at bedside sitting comfortably, no new complaint Could not find any reason for her chronic anticoagulation with Eliquis. I was unable to find underlying pathology in her record to justify oral anticoagulation other than her recent surgery. Consider stopping Eliquis when okay with Dr. Valenzuela Monitor blood pressure and lipids JOSEPH CARLSON Dec 07, 2022 08:58 YENNIFER SURESH MD Dec 07, 2022 12:32
[2022-12-07] MEDS: amLODIPine 5 MG TABLET PO SCH (09:38)
[2022-12-07] MEDS: IRON SUCROSE 200 MG/10 ML VIAL IV SCH ×2 (10:04→10:30)
--- NOTE | 2022-12-07 10:19 | Speech Therapy Daily Note ---
Speech Daily Progress Note Subjective Date Seen by Provider: Dec 07, 2022 Time Seen by Provider: 09:30 The pt was seated in bedside chair, semi-reclined. She reported feeling tired from a.m. therapy. The pt had fair-good recall of a.m. activities. Room orientation completed, the pt was able to rapidly find objects on right and left visual field with 7/8 accuracy. Call light use was 90% accurate for locating appropriate buttons. The pt had difficulty with dexterity to push buttons for use. Visual scanning of page with grouped visual images was targeted. The pt demonstrated decreased organization of visual scanning, strategy of scanning left to right from top left corner was utilized with fair improvement in scanning. Scanning within smaller groups was at poor-fair accuracy, requiring max assist of pointing to each target to achieve full scanning. The pt was able to use her written daily schedule to identify time and therapy type organized into columns with good accuracy. Simple temporal problem solving (e.g. duration of therapy, length of break) was completed with 50% accuracy. Speech Short Term Goals Short Term Goals Short Term Goals 1. The patient will display 80% accuracy with memory exercises through utilization of functional memory strategies for safety precautions with mild clinician cueing. Time Frame-ST days Speech Prosthetics Technician Goals Chcf Goals 1. The patient will demonstrate improved cognitive linguistic skills for safe discharge to the least restrictive environment. Time Frame: 10 days Speech-Plan Treatment Plan Speech Therapy Treatment Plan: Continue Plan of Care Treatment Duration: Dec 02, 2022 Frequency: Modified Program (IRF) Estimated Hrs Per Day: .5 hour per day Rehab Potential: Good Safety Risks/Education Teaching Recipient: Patient Teaching Methods: Discussion Response to Teaching: Verbalize Understanding Education Topics Provided: Sequence sit-stand transfers Time Speech Therapy Time In: 09:30 Speech Therapy Time Out: 10:00 DATE: Dec 07, 2022 Total Billed Time: 30 Billed Treatment Time 1 UYSEF ARROYO Dec 07, 2022 10:19
--- NOTE | 2022-12-07 12:05 | Physical Therapy Daily Note ---
PT Daily Note-Current Subjective Pt sitting in w/c in Therapy Gym working w/OT upon arrival. Pt agrees to PT. Pain Location: Lower Location Body Site: Back Pain Description: Ache Comment: Reported but not rated Section J - Health Conditions 1. Rarely or not at all 2. Occasionally 3. Frequently 4. Almost constantly 8. Unable to answer Pain Effect on Sleep: 3 Pain Interference with Therapy: 3 Pain Interference w/Day-to-Day: 3 Mental Status Patient Orientation: Person, Place, Situation Transfers SCALE: Activities may be completed with or without assistive devices. 6-Akeynpquez-xsxypsp completes the activity by him/herself with no assistance from a helper. 5-Set-up or Clean-up Assistance-helper sets up or cleans up; patient completes activity. [place] assists only prior to or following the activity. 4-Supervision or Touching Assistance-helper provides verbal cues and/or touching/steadying and/or contact guard assistance as patient completes activity. Assistance may be provided throughout the activity or intermittently. 3-Partial/Moderate Assistance-helper does LESS THAN HALF the effort. [place] lifts, holds or supports trunk or limbs, but provides less than half the effort. 2-Substantial/Maximal Assistance-helper does MORE THAN HALF the effort. [place] lifts or holds trunk or limbs and provides more than half the effort. 8-Dtncdgvik-wvjpdb does ALL the effort. Patient does none of the effort to complete the activity. Or, the assistance of 2 or more helpers is required for the patient to complete the activity. If activity was not attempted, code reason: 7-Patient Refused. 9-Not Applicable-not attempted and the patient did not perform the activity before the current illness, exacerbation or injury. 10-Not Attempted due to Environmental Limitations-(lack of equipment, weather restraints, etc.). 88-Not Attempted due to Medical Conditions or Safety Concerns. Sit to Stand (QC): 3 Weight Bearing Right Lower Extremity: Right Full Weight Bearing Left Lower Extremity: Left Weight Bearing/Tolerated Gait Training Does the Patient Walk?: Yes Distance: 10' Walk 10 feet (QC): 4 Gait Persons Needed: 1 Gait Assistive Device: FWW Slow garrison, fatigues easily Wheelchair Training Does the Pt Use a Wheelchair?: Yes Wheel 50 ft with 2 turns (QC): 4 Wheel 150 ft (QC): 3 Type of Wheelchair: Manual Exercises Supine Ex: Ankle pumps, Quad Set, Glut sets, Heel Slides, Hip abd/add Supine Reps: 15 Seated Therapy Exercises: Ankle pumps, Long arc quads, Hip flexion, Hip abd/add, Glut set Seated Reps: 15 Treatments Pt finishing tx w/OT at w/c level working on visual scanning and dynamic sitting balance upon arrival. Pt takes RB then completes Seated Ex at w/c level. When NETWORK INTERN asks pt to complete any standing or WB activities, pt pt declines stating she is too fatigued. Pt propels w/c in hallway and back to pt's room for change of position. Pt SPT to recliner after declining need for BR. Pt completes Supine EX at recliner for change of position. Pt resting at end of tx w/all needs met, call light in hand. Assessment Current Status: Fair Progress Pt fatigues easily and needs frequent RB during EX or other tasks to recover. PT Sewer Pipe Press Operator Goals Sewer Pipe Press Operator Goals PT Sewer Pipe Press Operator Goals Time Frame: Dec 15, 2022 Roll Left & Right (QC): 6 (Pt will be Mod I with funcitonal mobility with the FWW, in order to safely return home with spouse. ) Sit to Lying (QC): 6 (Pt will be Mod I with funcitonal mobility with the FWW, in order to safely return home with spouse. ) Lying-Sitting on Side/Bed(QC): 6 (Pt will be Mod I with funcitonal mobility with the FWW, in order to safely return home with spouse. ) Sit to Stand (QC): 6 (Pt will be Mod I with funcitonal mobility with the FWW, in order to safely return home with spouse. ) Chair/Qbi-wg-Mhwoi Xfer(QC): 6 (Pt will be Mod I with funcitonal mobility with the FWW, in order to safely return home with spouse. ) Toilet Transfer (QC): 6 (Pt will be Mod I with funcitonal mobility with the FWW, in order to safely return home with spouse. ) Car Transfer (QC): 6 (Pt will be Mod I with funcitonal mobility with the FWW, in order to safely return home with spouse. ) Does the Patient Walk: Yes Walk 10 feet (QC): 6 (Pt will be Mod I with funcitonal mobility with the FWW, in order to safely return home with spouse. ) Walk 50ft with 2 Turns (QC): 6 (Pt will be Mod I with funcitonal mobility with the FWW, in order to safely return home with spouse. ) Walk 150 ft (QC): 6 (Pt will be Mod I with funcitonal mobility with the FWW, in order to safely return home with spouse. ) Walking 10ft on Uneven Surface: 6 (Pt will be Mod I with funcitonal mobility with the FWW, in order to safely return home with spouse. ) 1 Step (curb) (QC): 6 (Pt will be Mod I with funcitonal mobility with the FWW, in order to safely return home with spouse. ) 4 Steps (QC): 6 (Pt will be Mod I with funcitonal mobility with the FWW, in order to safely return home with spouse. ) 12 Steps (QC): 9 (Pt has 2 steps at home ) Picking up an Object (QC): 6 (with records analyst ) Does the Pt use WC or Scooter?: Yes Wheel 50 feet with 2 turns (QC: 6 (Pt will be Mod I with funcitonal mobility with the FWW, in order to safely return home with spouse. ) Type: Manual Wheel 150 feet: 6 (Pt will be Mod I with funcitonal mobility with the FWW, in order to safely return home with spouse. ) Type: Manual PT Plan Problem List Problem List: Activity Tolerance, Functional Strength Treatment/Plan Treatment Plan: Continue Plan of Care Treatment Plan: Bed Mobility, Education, Functional Activity Kacey, Functional Strength, Group Therapy, Gait, Safety, Therapeutic Exercise, Transfers Treatment Duration: Dec 15, 2022 Frequency: At least 5 of 7 days/Wk (IRF) Estimated Hrs Per Day: 1.5 hours per day Patient and/or Family Agrees t: Yes Safety Risks/Education Patient Education: Transfer Techniques, Correct Positioning, W/C Management, Safety Issues Teaching Recipient: Patient Teaching Methods: Discussion Response to Teaching: Verbalize Understanding Time Time In: 814 Time Out: 914 DATE: Dec 07, 2022 Total Billed Treatment Time: 60 Total Billed Treatment Co-treat w/OT for 15m (027-304) 1, EX x2 (30m), [facility] (15m) & FA (15m) ALVARO LEE NETWORK INTERN Dec 07, 2022 12:05
--- NOTE | 2022-12-07 15:34 | Physical Therapy Daily Note ---
PT Daily Note-Current Subjective Pt sitting up in bed upon arrival. Pt is receiving lunch and declines need for BR. Pain Location: Lower Location Body Site: Back Pain Description: Ache Comment: Reports but doesn't rate Section J - Health Conditions 1. Rarely or not at all 2. Occasionally 3. Frequently 4. Almost constantly 8. Unable to answer Pain Effect on Sleep: 2 Pain Interference with Therapy: 3 Pain Interference w/Day-to-Day: 2 Mental Status Patient Orientation: Person, Place, Situation Transfers SCALE: Activities may be completed with or without assistive devices. 6-Tynawldrqj-xvshzkz completes the activity by him/herself with no assistance from a helper. 5-Set-up or Clean-up Assistance-helper sets up or cleans up; patient completes activity. [place] assists only prior to or following the activity. 4-Supervision or Touching Assistance-helper provides verbal cues and/or touching/steadying and/or contact guard assistance as patient completes activity. Assistance may be provided throughout the activity or intermittently. 3-Partial/Moderate Assistance-helper does LESS THAN HALF the effort. [place] lifts, holds or supports trunk or limbs, but provides less than half the effort. 2-Substantial/Maximal Assistance-helper does MORE THAN HALF the effort. [place] lifts or holds trunk or limbs and provides more than half the effort. 7-Wfykaesdh-tbgjgw does ALL the effort. Patient does none of the effort to complete the activity. Or, the assistance of 2 or more helpers is required for the patient to complete the activity. If activity was not attempted, code reason: 7-Patient Refused. 9-Not Applicable-not attempted and the patient did not perform the activity before the current illness, exacerbation or injury. 10-Not Attempted due to Environmental Limitations-(lack of equipment, weather restraints, etc.). 88-Not Attempted due to Medical Conditions or Safety Concerns. Weight Bearing Right Lower Extremity: Right Full Weight Bearing Left Lower Extremity: Left Weight Bearing/Tolerated Treatments Pt declines need for BR as asks for repositioning in bed for lunch. Pt doesn't want to sit in recliner for lunch as she had already sat a lot of the morning and had asked to return to bed. Pt is educated on importance of positioning and pressure sores. Pt enjoying lunch. All needs met, call light in hand. Assessment Current Status: Fair Progress Pt self limits at times and fatigues easily. PT Usp Goals Distribution Manager Goals PT Distribution Manager Goals Time Frame: Dec 15, 2022 Roll Left & Right (QC): 6 (Pt will be Mod I with funcitonal mobility with the FWW, in order to safely return home with spouse. ) Sit to Lying (QC): 6 (Pt will be Mod I with funcitonal mobility with the FWW, in order to safely return home with spouse. ) Lying-Sitting on Side/Bed(QC): 6 (Pt will be Mod I with funcitonal mobility with the FWW, in order to safely return home with spouse. ) Sit to Stand (QC): 6 (Pt will be Mod I with funcitonal mobility with the FWW, in order to safely return home with spouse. ) Chair/Jth-sg-Nwukh Xfer(QC): 6 (Pt will be Mod I with funcitonal mobility with the FWW, in order to safely return home with spouse. ) Toilet Transfer (QC): 6 (Pt will be Mod I with funcitonal mobility with the FWW, in order to safely return home with spouse. ) Car Transfer (QC): 6 (Pt will be Mod I with funcitonal mobility with the FWW, in order to safely return home with spouse. ) Does the Patient Walk: Yes Walk 10 feet (QC): 6 (Pt will be Mod I with funcitonal mobility with the FWW, in order to safely return home with spouse. ) Walk 50ft with 2 Turns (QC): 6 (Pt will be Mod I with funcitonal mobility with the FWW, in order to safely return home with spouse. ) Walk 150 ft (QC): 6 (Pt will be Mod I with funcitonal mobility with the FWW, in order to safely return home with spouse. ) Walking 10ft on Uneven Surface: 6 (Pt will be Mod I with funcitonal mobility with the FWW, in order to safely return home with spouse. ) 1 Step (curb) (QC): 6 (Pt will be Mod I with funcitonal mobility with the FWW, in order to safely return home with spouse. ) 4 Steps (QC): 6 (Pt will be Mod I with funcitonal mobility with the FWW, in order to safely return home with spouse. ) 12 Steps (QC): 9 (Pt has 2 steps at home ) Picking up an Object (QC): 6 (with fish net stringer ) Does the Pt use WC or Scooter?: Yes Wheel 50 feet with 2 turns (QC: 6 (Pt will be Mod I with funcitonal mobility with the FWW, in order to safely return home with spouse. ) Type: Manual Wheel 150 feet: 6 (Pt will be Mod I with funcitonal mobility with the FWW, in order to safely return home with spouse. ) Type: Manual PT Plan Problem List Problem List: Activity Tolerance Treatment/Plan Treatment Plan: Continue Plan of Care Treatment Plan: Bed Mobility, Education, Functional Activity Kacey, Functional Strength, Group Therapy, Gait, Safety, Therapeutic Exercise, Transfers Treatment Duration: Dec 15, 2022 Frequency: At least 5 of 7 days/Wk (IRF) Estimated Hrs Per Day: 1.5 hours per day Patient and/or Family Agrees t: Yes Time Time In: 1145 Time Out: 1200 DATE: Dec 07, 2022 Total Billed Treatment Time: 15 Total Billed Treatment 1, ANDERSON (15m) ALVARO LEE PTA Dec 07, 2022 15:34
[2022-12-07 20:43] VITALS: BP 109/71
[2022-12-08] MEDS: oxyCODONE IMMEDIATE RELEASE 5 MG TABLET PO PRN ×3 (04:43→18:53)
--- NOTE | 2022-12-08 05:05 | PM&R Progress Note ---
Subjective HPI/CC On Admission Date Seen by Provider: Dec 08, 2022 Time Seen by Provider: 12:00 Subjective/Events-last exam 12/08/2022: Patient doing much better Family wants to go to swing bed in [place] for a couple of weeks after this No falls No pain currently 12/07/2022: Much improve status No pain Lungs are clear Working with therapy a lot better this week 12/06/2022: Much improved BM+ Pain controlled No falls Working with therapy WBC 16k checked urine and it was negative 12/05/2022: Patient dramatically improved Up in chair with family at bedside Appears to be brighter and alert and less confused and lethargic Lungs remain clear Supportive care we will continue Pain is controlled 12/04/2022: Refused to get out of bed today so I had a long talk with her and family at the bedside to get OOB with meals to prevent PNA Pain is an issue and she continues to take scheduled every 4 hours which is sedating her and causing issues and lack of motivation No issues otherwise Very slow recovery and she was very active before fracture 12/03/2022: Slow recovery Pain is much better Appears to be more alert today Labs reviewed 12/02/2022: Pain is an issue Will DC Dilaudid and increase Oxycodone Appears sedated No BM yet so ordered supp and SSE Labs stable Review of Systems General: Fatigue, Malaise Objective Exam Vital Signs Vital Signs Date Time Temp Pulse Resp B/P (MAP) Pulse Ox O2 Delivery O2 Flow Rate FiO2 12/08/22 19:49 94 Room Air 12/08/22 19:40 36.4 64 18 114/56 (75) 12/07/22 21:07 0.00 12/05/22 09:18 21 Capillary Refill : General Appearance: No Apparent Distress, WD/WN, Chronically ill HEENT: PERRL/EOMI, Normal ENT Inspection, Pharynx Normal Neck: Full Range of Motion, Normal Inspection, Non Tender, Supple, Carotid Bruit Respiratory: Chest Non Tender, Lungs Clear, Normal Breath Sounds, No Accessory Muscle Use, No Respiratory Distress Cardiovascular: Regular Rate, Rhythm, No Edema, No Gallop, No JVD, No Murmur, Normal Peripheral Pulses Gastrointestinal: Normal Bowel Sounds, No Organomegaly, No Pulsatile Mass, Non Tender, Soft Back: Normal Inspection, No CVA Tenderness, No Vertebral Tenderness Extremity: Normal Capillary Refill, Normal Inspection, Normal Range of Motion (except left leg), Non Tender, No Calf Tenderness, No Pedal Edema Neurologic/Psychiatric: Alert, Oriented x3, gastroenterology manager II-XII Norm as Tested, Abnormal Gait, Depressed Affect, Motor Weakness (left leg) Skin: Normal Color, Warm/Dry Lymphatic: No Adenopathy Results/Procedures Lab Laboratory Tests 12/08/22 06:20 Patient resulted labs reviewed. FIM Transfers Therapy Code Descriptions/Definitions Functional Cloud Measure: 0=Not Assessed/NA 4=Minimal Assistance 1=Total Assistance 5=Supervision or Setup 2=Maximal Assistance 6=Modified Cloud 3=Moderate Assistance 7=Complete IndependenceSCALE: Activities may be completed with or without assistive devices. 5-Eiblitzvvc-gesmwkt completes the activity by him/herself with no assistance from a helper. 5-Set-up or Clean-up Assistance-helper sets up or cleans up; patient completes activity. [place] assists only prior to or following the activity. 4-Supervision or Touching Assistance-helper provides verbal cues and/or touching/steadying and/or contact guard assistance as patient completes activity. Assistance may be provided throughout the activity or intermittently. 3-Partial/Moderate Assistance-helper does LESS THAN HALF the effort. [place] lifts, holds or supports trunk or limbs, but provides less than half the effort. 2-Substantial/Maximal Assistance-helper does MORE THAN HALF the effort. [place] lifts or holds trunk or limbs and provides more than half the effort. 3-Xujeepzyj-kfbjay does ALL the effort. Patient does none of the effort to complete the activity. Or, the assistance of 2 or more helpers is required for the patient to complete the activity. If activity was not attempted, code reason: 7-Patient Refused. 9-Not Applicable-not attempted and the patient did not perform the activity before the current illness, exacerbation or injury. 10-Not Attempted due to Environmental Limitations-(lack of equipment, weather restraints, etc.). 88-Not Attempted due to Medical Conditions or Safety Concerns. Roll Left to Right (QC): 3 (Mod A due to pain ) Sit to Lying (QC): 3 Sit to Stand (QC): 3 Chair/Qkt-hi-Tbuoc Xfer(QC): 4 Car Transfer (QC): 88 (pain/weakness) Gait Training Does the Patient Walk?: Yes Distance: 10' Walk 10 feet (QC): 4 Walk 50 ft with 2 Turns(QC): 4 Walk 150 ft (QC): 88 (pain/weakness) Walking 10ft/uneven surface-QC: 88 Gait Persons Needed: 1 Gait Assistive Device: FWW Wheelchair Training Does the Pt Use a Wheelchair?: Yes Distance: 150ft Wheel 50 ft with 2 turns (QC): 4 Wheel 150 ft (QC): 3 Type of Wheelchair: Manual Stair Training 1 Step (curb) (QC): 88 (pain/weakness) 4 Steps (QC): 88 (pain/weakness) 12 Steps (QC): 88 (pain/weakness) Balance Picking up an Object (QC): 3 (Mod A with hydroelectric machinery mechanic ) ADL-Treatment Eating (QC): 5 (Set-up prior required for opening packages and stating item locations. Pt utilized spoon to eat oatmeal.) Oral Hygiene (QC): 5 (Pt able to use small toothpaste container to squeeze onto countertop then scoop toothbrush through toothpaste. ) Bathing Location: L Arm, R Arm, L Upper Leg, R Upper Leg, Chest, Abdomen Shower/Bathe Self (QC): 3 (Assistance to wash lower legs, feet, buttocks, and stefanie area. Pt able to complete the rest.) Upper Body Dressing (QC): 5 (Pt able to don/doff shirt with set up to position front/back.) Lower Body Dressing (QC): 3 (Introduced hydroelectric machinery mechanic for aid in LBD, pt able to thread feet into brief/pants with hydroelectric machinery mechanic. Assistance given to stand and hike pants over hips. Pt able to off-load both hands from FWW to finish hiking over hips after positioning.) On/Off Footwear (QC): 4 (Did not have socks on to doff, able to don socks with sock aid after demonstration and VCs. ) Toileting Hygiene (QC): 1 (2 person assist in standing to wash buttocks.) Assessment/Plan Assessment and Plan Assess & Plan/Chief Complaint Assessment: Left hip fracture recovery Hypertension Hyperlipidemia CAD status post PCI 2007 Systolic dysfunction on echocardiogram ejection fraction 40-45% Advanced age [place] status Post op constipation Acute blood loss anemia requiring 1 unit of blood on med-surg Leukocytosis of unknown source Plan: Pain control Supportive care Monitor closely Fall risk 12/02/2022: Bowel regimen Monitor pain DC Dilaudid 12/03/2022: Slow recovery Continue decreasing pain medication 12/04/2022: Work on motivation Decrease pain meds 12/05/2022: Supportive care Monitor closely Dramatic improvement from yesterday 12/06/2022: UA neg Monitor labs 12/07/2022: Monitor closely Pain controlled 12/08/2022: Supportive care Monitor closely (1) Closed left hip fracture Status: Acute (2) ANEMIA (3) Hypothyroidism Status: Chronic (4) Coronary artery disease Status: Chronic (5) Hypertension Status: Chronic (6) Hyperlipidemia Status: Chronic BEVERLEY HUNTER DO Dec 08, 2022 05:05
[2022-12-08 06:35] LABS: BASOPHILS # (AUTO) 0.1 10^3/uL (0.0-0.1); BASOPHILS % (AUTO) 0 % (0-10); EOSINOPHILS # (AUTO) 0.9 10^3/uL (0.0-0.3); EOSINOPHILS % (AUTO) 7 % (0-10); HEMATOCRIT 27 % (35-52); HEMOGLOBIN 8.4 g/dL (11.5-16.0); LYMPHOCYTES # (AUTO) 2.1 10^3/uL (1.0-4.0); LYMPHOCYTES % (AUTO) 15 % (12-44); MEAN CORPUSCULAR HEMOGLOBIN 30 pg (25-34); MEAN CORPUSCULAR HGB CONC 32 g/dL (32-36); MEAN CORPUSCULAR VOLUME 95 fL (80-99); MEAN PLATELET VOLUME 10.9 fL (9.0-12.2); MONOCYTES # (AUTO) 1.4 10^3/uL (0.0-1.0); MONOCYTES % (AUTO) 10 % (0-12); NEUTROPHILS # (AUTO) 8.6 10^3/uL (1.8-7.8); NEUTROPHILS % (AUTO) 63 % (42-75); PLATELET COUNT 263 10^3/uL (130-400); WHITE BLOOD COUNT 13.7 10^3/uL (4.3-11.0)
[2022-12-08 06:38] LABS: ALBUMIN 2.4 GM/DL (3.2-4.5); POTASSIUM 4.3 MMOL/L (3.6-5.0)
[2022-12-08 06:40] LABS: CALCIUM 8.2 MG/DL (8.5-10.1)
[2022-12-08 06:41] LABS: TOTAL PROTEIN 5.3 GM/DL (6.4-8.2)
[2022-12-08 06:44] LABS: CREATININE SERUM 1.24 MG/DL (0.60-1.30)
[2022-12-08] MEDS: CYANOCOBALAMIN 1,000 MCG TABLET PO SCH (06:50)
[2022-12-08] MEDS: LEVOTHYROXINE 88 MCG TABLET PO SCH (06:50)
--- NOTE | 2022-12-08 07:52 | Occupational Ther Daily Note ---
OT Current Status-Daily Note Subjective Pt alert sitting up in recliner. Pt agrees to therapy, no c/o of pain. OT/PT cotreat ([id number]), skills of 2 clinicians required to decrease fall risk, increase functional mobility, and increase awareness for functional tasks. PT focus on ambulation with FWW, transfers, and increasing activity tolerance for f unctional tasks. OT focus on ADLs, functional mobility, and increasing activity tolerance for functional tasks. Mental Status/Objective Patient Orientation: Person, Place, Time, Situation ADL-Treatment Therapy Code Descriptions/Definitions Functional [place] Measure: 0=Not Assessed/NA 4=Minimal Assistance 1=Total Assistance 5=Supervision or Setup 2=Maximal Assistance 6=Modified [place] 3=Moderate Assistance 7=Complete IndependenceSCALE: Activities may be completed with or without assistive devices. 5-Dbaetqhkfh-bwqgddl completes the activity by him/herself with no assistance from a helper. 5-Set-up or Clean-up Assistance-helper sets up or cleans up; patient completes activity. [place] assists only prior to or following the activity. 4-Supervision or Touching Assistance-helper provides verbal cues and/or touching/steadying and/or contact guard assistance as patient completes activity. Assistance may be provided throughout the activity or intermittently. 3-Partial/Moderate Assistance-helper does LESS THAN HALF the effort. [place] lifts, holds or supports trunk or limbs, but provides less than half the effort. 2-Substantial/Maximal Assistance-helper does MORE THAN HALF the effort. [place] lifts or holds trunk or limbs and provides more than half the effort. 1-Kimsvafny-caxpbn does ALL the effort. Patient does none of the effort to complete the activity. Or, the assistance of 2 or more helpers is required for the patient to complete the activity. If activity was not attempted, code reason: 7-Patient Refused. 9-Not Applicable-not attempted and the patient did not perform the activity before the current illness, exacerbation or injury. 10-Not Attempted due to Environmental Limitations-(lack of equipment, weather restraints, etc.). 88-Not Attempted due to Medical Conditions or Safety Concerns. Eating (QC): 5 (Set up to cut food and open packages. ) Oral Hygiene (QC): 6 (Sitting at sink, completed independently. Pt able to squeeze smaller toothpaste container on counter and scoop up with toothbrush. ) Bathing Location: L Arm, R Arm, L Upper Leg, R Upper Leg, L Lower Leg (including foot), R Lower Leg (including foot), Chest, Abdomen, Perineal Area Shower/Bathe Self (QC): 3 (Pt sitting on BSC utilized hand held shower and long-handled sponge to wash lower legs and feet. Assistance given to wash buttocks. ) Upper Body Dressing (QC): 5 (Pt able to don/doff shirt with set up.) Lower Body Dressing (QC): 4 (VC given to start with L leg to thread brief/pants around legs using director of career services. CGA in standing for steadying, pt able to hike pants over hips.) On/Off Footwear: 3 (Pt able to doff R sock, assistance to doff L sock. Pt able to don both with sock aid. ) Toileting Hygiene (QC): 3 (Pt able to partially clean buttocks after BM, required assistance to fully clean. ) Pt demonstrated better vision and did not require VCs for item placements. Pt brushed and blow dried hair after shower. Other Treatment After ADLs, pt ambulated with FWW from room down hallway with PT steadying and OTAS following behind with w/c. See pt notes on ambulation distance. PT focus on ambulation, activity tolerance, and transfers for functional tasks. OT working on ADLs, activity tolerance, and decreasing fall risk for functional tasks. Pt displayed greater activity tolerance and participation during tx session. Ended session with pt in w/c in PT care. All needs met. Education OT Patient Education: Correct positioning, Energy conservation, Use of adapted equipment Teaching Recipient: Patient Teaching Methods: Discussion Response to Teaching: Verbalize Understanding, Return Demonstration OT Short Term Goals Short Term Goals Time Frame: Dec 15, 2022 Toileting hygiene: 4 Shower/bathe self: 4 Lower body dressin Putting on/taking off footwear: 3 OT Penitentiary Goals Penitentiary Goals Time Frame: Dec 24, 2022 Acute change in mental status: 0 Inattention: 0 Disorganized thinkin Altered level of consciousness: 0 Eating (QC): 6 Oral Hygiene (QC): 6 Toileting Hygiene (QC): 6 Shower/Bathe Self (QC): 5 Upper Body Dressing (QC): 6 Lower Body Dressing (QC): 6 On/Off Footwear (QC): 6 Additional Goals: 1-Demonstrate ADL Tasks, 2-Verbalize Understanding, 3- ImproveStrength/Kacey 1=Demonstrate adherence to instructed precautions during ADL tasks. 2=Patient will verbalize/demonstrate understanding of assistive rosendo luna/modifications for ADL. 3=Patient will improve strength/tolerance for activity to enable patient to perform ADL's. OT Education/Plan Problem List/Assessment Assessment: Decreased Activ Tolerance, Decreased UE Strength, Impaired Bed Mobility, Impaired Self-Care Skills Discharge Recommendations Plan/Recommendations: Continue POC Treatment Plan/Plan of Care Patient would benefit from OT for education, treatment and training to promote independence in ADL's, mobility, safety and/or upper extremity function for ADL's. Plan of Care: ADL Retraining, Functional Mobility, Group Exercise/Act as Ind, UE Funct Exercise/Act Treatment Duration: Dec 24, 2022 Frequency: At least 5 of 7 days/Wk (IRF) Estimated Hrs Per Day: 1.5 hours per day Agreement: Yes Rehab Potential: Good Time Start Time: 07:00 Stop Time: 08:30 DATE: Dec 08, 2022 Total Time Billed (hr/min): 90 Billed Treatment Time 1 visit- ADL 4 (60 min) FA 2 (30 min), PT/OT cotreat ([id number]), individual ([id number]) BYRON BAIN Dec 08, 2022 07:52
[2022-12-08 08:00] VITALS: BP 117/57
--- NOTE | 2022-12-08 08:10 | Physical Therapy Daily Note ---
PT Daily Note-Current Pain Section J - Health Conditions 1. Rarely or not at all 2. Occasionally 3. Frequently 4. Almost constantly 8. Unable to answer Pain Effect on Sleep: 1 Pain Interference with Therapy: 1 Pain Interference w/Day-to-Day: 1 Transfers SCALE: Activities may be completed with or without assistive devices. 6-Uujjphnxad-qhjkjxp completes the activity by him/herself with no assistance from a helper. 5-Set-up or Clean-up Assistance-helper sets up or cleans up; patient completes activity. [place] assists only prior to or following the activity. 4-Supervision or Touching Assistance-helper provides verbal cues and/or touching/steadying and/or contact guard assistance as patient completes activity. Assistance may be provided throughout the activity or intermittently. 3-Partial/Moderate Assistance-helper does LESS THAN HALF the effort. [place] lifts, holds or supports trunk or limbs, but provides less than half the effort. 2-Substantial/Maximal Assistance-helper does MORE THAN HALF the effort. [place] lifts or holds trunk or limbs and provides more than half the effort. 7-Utxlvugdt-ivsvps does ALL the effort. Patient does none of the effort to complete the activity. Or, the assistance of 2 or more helpers is required for the patient to complete the activity. If activity was not attempted, code reason: 7-Patient Refused. 9-Not Applicable-not attempted and the patient did not perform the activity before the current illness, exacerbation or injury. 10-Not Attempted due to Environmental Limitations-(lack of equipment, weather restraints, etc.). 88-Not Attempted due to Medical Conditions or Safety Concerns. Weight Bearing Right Lower Extremity: Right Full Weight Bearing Left Lower Extremity: Left Weight Bearing/Tolerated PT Apiculture Teacher Goals Mcfp Goals PT Mcfp Goals Time Frame: Dec 15, 2022 Roll Left & Right (QC): 6 (Pt will be Mod I with funcitonal mobility with the FWW, in order to safely return home with spouse. ) Sit to Lying (QC): 6 (Pt will be Mod I with funcitonal mobility with the FWW, in order to safely return home with spouse. ) Lying-Sitting on Side/Bed(QC): 6 (Pt will be Mod I with funcitonal mobility with the FWW, in order to safely return home with spouse. ) Sit to Stand (QC): 6 (Pt will be Mod I with funcitonal mobility with the FWW, in order to safely return home with spouse. ) Chair/Uvd-lw-Rzhxj Xfer(QC): 6 (Pt will be Mod I with funcitonal mobility with the FWW, in order to safely return home with spouse. ) Toilet Transfer (QC): 6 (Pt will be Mod I with funcitonal mobility with the FWW, in order to safely return home with spouse. ) Car Transfer (QC): 6 (Pt will be Mod I with funcitonal mobility with the FWW, in order to safely return home with spouse. ) Does the Patient Walk: Yes Walk 10 feet (QC): 6 (Pt will be Mod I with funcitonal mobility with the FWW, in order to safely return home with spouse. ) Walk 50ft with 2 Turns (QC): 6 (Pt will be Mod I with funcitonal mobility with the FWW, in order to safely return home with spouse. ) Walk 150 ft (QC): 6 (Pt will be Mod I with funcitonal mobility with the FWW, in order to safely return home with spouse. ) Walking 10ft on Uneven Surface: 6 (Pt will be Mod I with funcitonal mobility with the FWW, in order to safely return home with spouse. ) 1 Step (curb) (QC): 6 (Pt will be Mod I with funcitonal mobility with the FWW, in order to safely return home with spouse. ) 4 Steps (QC): 6 (Pt will be Mod I with funcitonal mobility with the FWW, in order to safely return home with spouse. ) 12 Steps (QC): 9 (Pt has 2 steps at home ) Picking up an Object (QC): 6 (with magnetic prospecting supervisor ) Does the Pt use WC or Scooter?: Yes Wheel 50 feet with 2 turns (QC: 6 (Pt will be Mod I with funcitonal mobility with the FWW, in order to safely return home with spouse. ) Type: Manual Wheel 150 feet: 6 (Pt will be Mod I with funcitonal mobility with the FWW, in order to safely return home with spouse. ) Type: Manual PT Plan Treatment/Plan Treatment Plan: Bed Mobility, Education, Functional Activity Kacey, Functional Strength, Group Therapy, Gait, Safety, Therapeutic Exercise, Transfers Treatment Duration: Dec 15, 2022 Frequency: At least 5 of 7 days/Wk (IRF) Estimated Hrs Per Day: 1.5 hours per day Patient and/or Family Agrees t: Yes Discharge Recommendations Discharge Status/Home Program Cont per POC Barriers to Progress Weakness, endurance Target Placement Home with spouse MANISHA LOERA PT Dec 08, 2022 08:10
[2022-12-08] MEDS: ACETAMINOPHEN 325 MG TABLET PO PRN (08:40)
[2022-12-08] MEDS: SENNOSIDES 8.6 MG TABLET PO SCH ×2 (09:13→19:35)
[2022-12-08] MEDS: DOCUSATE SODIUM 100 MG CAPSULE PO SCH ×2 (09:13→19:34)
[2022-12-08] MEDS: amLODIPine 5 MG TABLET PO SCH (09:16)
[2022-12-08] MEDS: APIXABAN 2.5 MG TABLET PO SCH ×2 (09:16→19:42)
--- NOTE | 2022-12-08 10:44 | Physical Therapy Daily Note ---
PT Daily Note-Current Subjective Pt reports she is doing well and is agreeable to PT. Pt denies pain. PT/OT co-tx ([id number]), skills of 2 clinicians required to decrease fall risk, increase functional mobility, and increase awareness for functional tasks. PT focusing on ambulation with FWW, transfers, and increasing activity tolerance for functional tasks. OT focusing on ADLs, functional mobility, and increasing activity tolerance for functional tasks. Pain Numeric Pain Scale: 0-No Pain Location: No Pain Reported Section J - Health Conditions 1. Rarely or not at all 2. Occasionally 3. Frequently 4. Almost constantly 8. Unable to answer Pain Effect on Sleep: 1 Pain Interference with Therapy: 1 Pain Interference w/Day-to-Day: 1 Transfers SCALE: Activities may be completed with or without assistive devices. 7-Ebsiskykuv-lppsxeb completes the activity by him/herself with no assistance from a helper. 5-Set-up or Clean-up Assistance-helper sets up or cleans up; patient completes activity. [place] assists only prior to or following the activity. 4-Supervision or Touching Assistance-helper provides verbal cues and/or touching/steadying and/or contact guard assistance as patient completes activity. Assistance may be provided throughout the activity or intermittently. 3-Partial/Moderate Assistance-helper does LESS THAN HALF the effort. [place] lifts, holds or supports trunk or limbs, but provides less than half the effort. 2-Substantial/Maximal Assistance-helper does MORE THAN HALF the effort. [place] lifts or holds trunk or limbs and provides more than half the effort. 9-Oboxzsfyj-ahxrcp does ALL the effort. Patient does none of the effort to complete the activity. Or, the assistance of 2 or more helpers is required for the patient to complete the activity. If activity was not attempted, code reason: 7-Patient Refused. 9-Not Applicable-not attempted and the patient did not perform the activity before the current illness, exacerbation or injury. 10-Not Attempted due to Environmental Limitations-(lack of equipment, weather restraints, etc.). 88-Not Attempted due to Medical Conditions or Safety Concerns. Sit to Stand (QC): 4 Weight Bearing Right Lower Extremity: Right Full Weight Bearing Left Lower Extremity: Left Weight Bearing/Tolerated Gait Training Walk 10 feet (QC): 4 Walk 50 ft with 2 Turns(QC): 4 Walk 150 ft (QC): 4 Gait Persons Needed: 1 Gait Assistive Device: FWW Treatments PT/OT co-tx ([id number]), skills of 2 clinicians required to decrease fall risk, increase functional mobility, and increase awareness for functional tasks. PT focusing on ambulation with FWW, transfers, and increasing activity tolerance for functional tasks. OT focusing on ADLs, functional mobility, and increasing activity tolerance for functional tasks. Pt completed functional transfers with SBA and Min v/c for safety and proper technique/sequence. Pt ambulated 160ft, 120ft, and 100ft with the FWW and CGA (w/c follow for improved safety). Pt completed seated B LE Ther Ex x 15 reps each with the red Tband. Pt completed sit to stand x 10 reps with SBA and Min v/c for hand placement. After treatment session, pt sitting in the recliner with call light in reach and all needs met. The pt will require a FWW at d/c. The pt has a mobility limitation that significantly impairs her ability to participate in one or more mobility-related activities of daily living in the home. The pt is able to safely use the FWW and the functional mobility deficit can be sufficiently resolved with the use of the FWW. Assessment Current Status: Good Progress Pt tolerated PT well with good effort. PT Skilled Nursing Goals Skilled Nursing Goals PT Skilled Nursing Goals Time Frame: Dec 15, 2022 Roll Left & Right (QC): 6 (Pt will be Mod I with funcitonal mobility with the FWW, in order to safely return home with spouse. ) Sit to Lying (QC): 6 (Pt will be Mod I with funcitonal mobility with the FWW, in order to safely return home with spouse. ) Lying-Sitting on Side/Bed(QC): 6 (Pt will be Mod I with funcitonal mobility with the FWW, in order to safely return home with spouse. ) Sit to Stand (QC): 6 (Pt will be Mod I with funcitonal mobility with the FWW, in order to safely return home with spouse. ) Chair/Gmu-jy-Vdobt Xfer(QC): 6 (Pt will be Mod I with funcitonal mobility with the FWW, in order to safely return home with spouse. ) Toilet Transfer (QC): 6 (Pt will be Mod I with funcitonal mobility with the FWW, in order to safely return home with spouse. ) Car Transfer (QC): 6 (Pt will be Mod I with funcitonal mobility with the FWW, in order to safely return home with spouse. ) Does the Patient Walk: Yes Walk 10 feet (QC): 6 (Pt will be Mod I with funcitonal mobility with the FWW, in order to safely return home with spouse. ) Walk 50ft with 2 Turns (QC): 6 (Pt will be Mod I with funcitonal mobility with the FWW, in order to safely return home with spouse. ) Walk 150 ft (QC): 6 (Pt will be Mod I with funcitonal mobility with the FWW, in order to safely return home with spouse. ) Walking 10ft on Uneven Surface: 6 (Pt will be Mod I with funcitonal mobility with the FWW, in order to safely return home with spouse. ) 1 Step (curb) (QC): 6 (Pt will be Mod I with funcitonal mobility with the FWW, in order to safely return home with spouse. ) 4 Steps (QC): 6 (Pt will be Mod I with funcitonal mobility with the FWW, in order to safely return home with spouse. ) 12 Steps (QC): 9 (Pt has 2 steps at home ) Picking up an Object (QC): 6 (with building dismantler ) Does the Pt use WC or Scooter?: Yes Wheel 50 feet with 2 turns (QC: 6 (Pt will be Mod I with funcitonal mobility with the FWW, in order to safely return home with spouse. ) Type: Manual Wheel 150 feet: 6 (Pt will be Mod I with funcitonal mobility with the FWW, in order to safely return home with spouse. ) Type: Manual PT Plan Problem List Problem List: Activity Tolerance, Functional Strength, Safety, Balance, Gait, Transfer, Bed Mobility, ROM Treatment/Plan Treatment Plan: Continue Plan of Care Treatment Plan: Bed Mobility, Education, Functional Activity Kacey, Functional Strength, Group Therapy, Gait, Safety, Therapeutic Exercise, Transfers Treatment Duration: Dec 15, 2022 Frequency: At least 5 of 7 days/Wk (IRF) Estimated Hrs Per Day: 1.5 hours per day Patient and/or Family Agrees t: Yes Safety Risks/Education Patient Education: Gait Training, Transfer Techniques, Correct Positioning, Safety Issues Teaching Recipient: Patient Teaching Methods: Demonstration, Discussion Response to Teaching: Verbalize Understanding, Return Demonstration, Reinforcement Needed Discharge Recommendations Therapy Discharge Recommendati: Home & Family, Post Acute PT Equpiment Recommendations-D/C: Front Wheeled Walker, Railings, Shower Chair Discharge Status/Home Program Cont per POC Barriers to Progress Weakness, endurance Target Placement Home with spouse and HHC Time Time In: 800 Time Out: 915 DATE: Dec 08, 2022 Total Billed Treatment Time: 75 Total Billed Treatment 75 min total from [id number]; Co-tx for 30 min from [id number] 1 visit EX x 1 FA x 2 GT x 2 MANISHA LOERA PT Dec 08, 2022 10:44
--- NOTE | 2022-12-08 11:41 | Cardiology Progress Note ---
Subjective Date Seen by Provider: Dec 08, 2022 Time Seen by Provider: 08:15 Subjective/Events-last exam Patient is walking with PT, no new complaints. Denies any chest pain. Objective-Cardiology Exam Last Set of Vital Signs Vital Signs 12/05/22 12/07/22 12/08/22 12/08/22 12/08/22 09:18 21:07 08:00 09:19 15:54 Temp 35.7 Pulse 69 Resp 18 B/P (MAP) 117/57 (77) Pulse Ox 96 O2 Delivery Room Air O2 Flow Rate 0.00 FiO2 21 I&O Intake and Output 12/08/22 00:00 Intake Total 1800 ml Output Total 75 ml Balance 1725 ml Intake Oral 1800 ml Output Urine Total 75 ml Bladder Scan Volume Amount 116 ml # Voids 1 # Urine Diapers 7 # Bowel Movements 2 General: Alert, Oriented X3 HEENT: Atraumatic, PERRLA Neck: Supple Lungs: Clear to Auscultation, Normal Air Movement Heart: Regular Rate, Normal S1, Normal S2 Abdomen: Normal Bowel Sounds, Soft Extremities: No Edema Skin: No Rashes, No Significant Lesion Neuro: Normal Speech Results Lab Laboratory Tests 12/08/22 06:20 A/P-Cardiology Admission Diagnosis Hip fx CAD HTN HLP Assessment/Plan Mechanical fall, hip fracture, postsurgery, currently in rehab. Coronary artery disease, s/p PCI in 2007, follows with Dr. Ramirez as outpatient. Clinically stable. Hypertension, controlled, continue to monitor. Hyperlipidemia, continue to monitor as outpatient Hypothyroidism History of TIA Patient is maintained on Eliquis secondary to her surgery, it was initiated by Dr. Valenzuela Supervisory-Addendum Brief Supervisory Addendum Participated in pt care: history, MDM, physical Personally performed: exam, history, MDM Care discussed with: LIZZY Results interpretation: Verified all documentation Notes: Patient was seen and evaluated with Joseph, examination performed, management plan was discussed, agree with the current scribed note, I made few changes to the note using Italic font Patient was seen at bedside, no new complain Continue to monitor heart rate and blood pressure, no changes are recommended Continue with physical therapy JOSEPH CARLSON Dec 08, 2022 11:41 YENNIFER SURESH MD Dec 08, 2022 17:33
--- NOTE | 2022-12-08 13:10 | Speech Therapy Daily Note ---
Speech Daily Progress Note Subjective Date Seen by Provider: Dec 08, 2022 Time Seen by Provider: 09:30 The pt was awake and alert, with good participation in session. Objective Functional visual scanning was targeted using calendar. The pt was able to orient to left/right and top/bottom of the printed page, and was able to move gaze from top to bottom scanning with fair-good accuracy. She demonstrated ability to maintain visual organization of the calendar, and answered questions re: calendar information with 90% accuracy. Reading of sentences was accurate for left-right organization, with occasional word error noted. Temporal problem solving for elapsed time was at 80% accuracy. Room scanning and locating objects in immediate environment was done with 100% accuracy. Assessment Assessment Current Status: Good Progress Treatment Plan Continue Plan of Care Speech Short Term Goals Short Term Goals Short Term Goals 1. The patient will display 80% accuracy with memory exercises through utilization of functional memory strategies for safety precautions with mild clinician cueing. Time Frame-ST days Speech Mcfp Goals Mcfp Goals 1. The patient will demonstrate improved cognitive linguistic skills for safe discharge to the least restrictive environment. Time Frame: 10 days Speech-Plan Treatment Plan Speech Therapy Treatment Plan: Continue Plan of Care Treatment Duration: Dec 02, 2022 Frequency: At least 5 of 7 days/Wk (IRF) Estimated Hrs Per Day: .5 hour per day Rehab Potential: Good Time Speech Therapy Time In: 09:30 Speech Therapy Time Out: 10:00 DATE: Dec 08, 2022 Total Billed Time: 30 Billed Treatment Time 1 YUSEF ARROYO Dec 08, 2022 13:10
[2022-12-08 15:54] VITALS: BP 117/57
[2022-12-08 19:40] VITALS: BP 114/56
[2022-12-09] MEDS: oxyCODONE IMMEDIATE RELEASE 5 MG TABLET PO PRN ×3 (01:56→20:09)
[2022-12-09] MEDS ORDERED: APIX2.5T PO (05:27)
[2022-12-09] MEDS ORDERED: OXC5T PO (05:27)
--- NOTE | 2022-12-09 05:28 | Discharge Summary ---
Diagnosis/Chief Complaint Date of Admission Dec 01, 2022 at 10:45 Date of Discharge Discharge Date: Dec 09, 2022 Discharge Summary Discharge Physical Examination Allergies: Coded Allergies: ramipril (Verified Allergy, Unknown, Cough , Active , ,, 12/01/22) Vitals & I&Os Vital Signs Date Time Temp Pulse Resp B/P (MAP) Pulse Ox O2 Delivery O2 Flow Rate FiO2 12/09/22 20:10 Room Air 12/09/22 19:49 36.4 65 18 122/60 (80) 96 12/07/22 21:07 0.00 12/05/22 09:18 21 Hospital Course Labs (last 24 hrs) Laboratory Tests 12/02/22 05:20: White Blood Count 11.9H, Red Blood Count 2.73L, Hemoglobin 8.0L, Hematocrit 26L, Mean Corpuscular Volume 94, Mean Corpuscular Hemoglobin 29, Mean Corpuscular Hemoglobin Concent 31L, Red Cell Distribution Width 14.2, Platelet Count 131, Mean Platelet Volume 11.8, Immature Granulocyte % (Auto) 1, Neutrophils (%) (Auto) 74, Lymphocytes (%) (Auto) 10L, Monocytes (%) (Auto) 12, Eosinophils (%) (Auto) 4, Basophils (%) (Auto) 0, Neutrophils # (Auto) 8.8H, Lymphocytes # (Auto) 1.2, Monocytes # (Auto) 1.4H, Eosinophils # (Auto) 0.4H, Basophils # (Auto) 0.0, Immature Granulocyte # (Auto) 0.1, Sodium Level 135, Potassium Level 3.7, Chloride Level 107, Carbon Dioxide Level 20L, Anion Gap 8, Blood Urea Nitrogen 24H, Creatinine 1.23, Estimat Glomerular Filtration Rate 44, BUN/Creatinine Ratio 20, Glucose Level 91, Calcium Level 8.2L, Corrected Calcium 9.4, Total Bilirubin 1.9H, Aspartate Amino Transf (AST/SGOT) 28, Alanine Aminotransferase (ALT/SGPT) 12, Alkaline Phosphatase 60, Total Protein 5.2L, Albumin 2.5L 12/03/22 05:57: White Blood Count 11.1H, Red Blood Count 2.76L, Hemoglobin 8.3L, Hematocrit 26L, Mean Corpuscular Volume 93, Mean Corpuscular Hemoglobin 30, Mean Corpuscular Hemoglobin Concent 32, Red Cell Distribution Width 14.0, Platelet Count 134, Mean Platelet Volume 11.3, Immature Granulocyte % (Auto) 1, Neutrophils (%) (Auto) 69, Lymphocytes (%) (Auto) 13, Monocytes (%) (Auto) 13H, Eosinophils (%) (Auto) 4, Basophils (%) (Auto) 0, Neutrophils # (Auto) 7.7, Lymphocytes # (Auto) 1.5, Monocytes # (Auto) 1.5H, Eosinophils # (Auto) 0.4H, Basophils # (Auto) 0.0, Immature Granulocyte # (Auto) 0.1, Sodium Level 134L, Potassium Level 3.9, Chloride Level 105, Carbon Dioxide Level 22, Anion Gap 7, Blood Urea Nitrogen 29H, Creatinine 1.21, Estimat Glomerular Filtration Rate 45, BUN/Creatinine Ratio 24, Glucose Level 107H, Calcium Level 8.2L, Corrected Calcium 9.5, Total Bilirubin 1.7H, Aspartate Amino Transf (AST/SGOT) 32, Alanine Aminotransferase (ALT/SGPT) 18, Alkaline Phosphatase 63, Total Protein 4.9L, Albumin 2.4L 12/06/22 06:51: White Blood Count 16.2H, Red Blood Count 2.96L, Hemoglobin 9.0L, Hematocrit 28L, Mean Corpuscular Volume 94, Mean Corpuscular Hemoglobin 30, Mean Corpuscular Hemoglobin Concent 32, Red Cell Distribution Width 15.0H, Platelet Count 226, Mean Platelet Volume 10.9, Immature Granulocyte % (Auto) 4, Neutrophils (%) (Auto) 66, Lymphocytes (%) (Auto) 14, Monocytes (%) (Auto) 12, Eosinophils (%) (Auto) 5, Basophils (%) (Auto) 0, Neutrophils # (Auto) 10.6H, Lymphocytes # (Auto) 2.2, Monocytes # (Auto) 1.9H, Eosinophils # (Auto) 0.8H, Basophils # (Auto) 0.1, Immature Granulocyte # (Auto) 0.6H, Sodium Level 134L, Potassium Level 4.3, Chloride Level 102, Carbon Dioxide Level 27, Anion Gap 5, Blood Urea Nitrogen 32H, Creatinine 1.23, Estimat Glomerular Filtration Rate 44, BUN/Creatinine Ratio 26, Glucose Level 96, Calcium Level 8.4L, Corrected Calcium 9.6, Total Bilirubin 1.0, Aspartate Amino Transf (AST/SGOT) 31, Alanine Aminotransferase (ALT/SGPT) 17, Alkaline Phosphatase 67, Total Protein 5.4L, Albumin 2.5L, Neutrophils % (Manual) 69, Lymphocytes % (Manual) 18, Monocytes % (Manual) 6, Eosinophils % (Manual) 6, Band Neutrophils 1, Polychromasia SLIGHT, Anisocytosis SLIGHT, [place] Cells SLIGHT 12/06/22 10:48: Urine Color YELLOW, Urine Clarity CLEAR, Urine pH 6.5, Urine Specific [place] 1.010L, Urine Protein NEGATIVE, Urine Glucose (UA) NEGATIVE, Urine Ketones NEGATIVE, Urine Nitrite NEGATIVE, Urine Bilirubin NEGATIVE, Urine Urobilinogen 0.2, Urine Leukocyte Esterase NEGATIVE, Urine RBC (Auto) NEGATIVE, Urine RBC NONE, Urine WBC NONE, Urine Squamous Epithelial Cells 0-2, Urine Crystals PRESENTH, Urine Amorphous Sediment RARE KIEL URATESH, Urine Bacteria TRACE, Urine Casts NONE, Urine Mucus NEGATIVE, Urine Culture Indicated NO 12/08/22 06:20: White Blood Count 13.7H, Red Blood Count 2.81L, Hemoglobin 8.4L, Hematocrit 27L, Mean Corpuscular Volume 95, Mean Corpuscular Hemoglobin 30, Mean Corpuscular Hemoglobin Concent 32, Red Cell Distribution Width 15.7H, Platelet Count 263, Mean Platelet Volume 10.9, Immature Granulocyte % (Auto) 6, Neutrophils (%) (Auto) 63, Lymphocytes (%) (Auto) 15, Monocytes (%) (Auto) 10, Eosinophils (%) (Auto) 7, Basophils (%) (Auto) 0, Neutrophils # (Auto) 8.6H, Lymphocytes # (Auto) 2.1, Monocytes # (Auto) 1.4H, Eosinophils # (Auto) 0.9H, Basophils # (Auto) 0.1, Immature Granulocyte # (Auto) 0.8H, Sodium Level 134L, Potassium Level 4.3, Chloride Level 102, Carbon Dioxide Level 25, Anion Gap 7, Blood Urea Nitrogen 39H, Creatinine 1.24, Estimat Glomerular Filtration Rate 44, BUN/Creatinine Ratio 31, Glucose Level 93, Calcium Level 8.2L, Corrected Calcium 9.5, Total Bilirubin 1.0, Aspartate Amino Transf (AST/SGOT) 36H, Alanine Aminotransferase (ALT/SGPT) 24, Alkaline Phosphatase 69, Total Protein 5.3L, Albumin 2.4L Pending Labs Laboratory Tests 12/02/22 05:20: White Blood Count 11.9, Red Blood Count 2.73, Hemoglobin 8.0, Hematocrit 26, Mean Corpuscular Volume 94, Mean Corpuscular Hemoglobin 29, Mean Corpuscular Hemoglobin Concent 31, Red Cell Distribution Width 14.2, Platelet Count 131, Mean Platelet Volume 11.8, Immature Granulocyte % (Auto) 1, Neutrophils (%) (Auto) 74, Lymphocytes (%) (Auto) 10, Monocytes (%) (Auto) 12, Eosinophils (%) (Auto) 4, Basophils (%) (Auto) 0, Neutrophils # (Auto) 8.8, Lymphocytes # (Auto) 1.2, Monocytes # (Auto) 1.4, Eosinophils # (Auto) 0.4, Basophils # (Auto) 0.0, Immature Granulocyte # (Auto) 0.1, Sodium Level 135, Potassium Level 3.7, Chloride Level 107, Carbon Dioxide Level 20, Anion Gap 8, Blood Urea Nitrogen 24, Creatinine 1.23, Estimat Glomerular Filtration Rate 44, BUN/Creatinine Ratio 20, Glucose Level 91, Calcium Level 8.2, Corrected Calcium 9.4, Total Bilirubin 1.9, Aspartate Amino Transf (AST/SGOT) 28, Alanine Aminotransferase (ALT/SGPT) 12, Alkaline Phosphatase 60, Total Protein 5.2, Albumin 2.5 12/03/22 05:57: White Blood Count 11.1, Red Blood Count 2.76, Hemoglobin 8.3, Hematocrit 26, Mean Corpuscular Volume 93, Mean Corpuscular Hemoglobin 30, Mean Corpuscular Hemoglobin Concent 32, Red Cell Distribution Width 14.0, Platelet Count 134, Mean Platelet Volume 11.3, Immature Granulocyte % (Auto) 1, Neutrophils (%) (Auto) 69, Lymphocytes (%) (Auto) 13, Monocytes (%) (Auto) 13, Eosinophils (%) (Auto) 4, Basophils (%) (Auto) 0, Neutrophils # (Auto) 7.7, Lymphocytes # (Auto) 1.5, Monocytes # (Auto) 1.5, Eosinophils # (Auto) 0.4, Basophils # (Auto) 0.0, Immature Granulocyte # (Auto) 0.1, Sodium Level 134, Potassium Level 3.9, Chloride Level 105, Carbon Dioxide Level 22, Anion Gap 7, Blood Urea Nitrogen 29, Creatinine 1.21, Estimat Glomerular Filtration Rate 45, BUN/Creatinine Ratio 24, Glucose Level 107, Calcium Level 8.2, Corrected Calcium 9.5, Total Bilirubin 1.7, Aspartate Amino Transf (AST/SGOT) 32, Alanine Aminotransferase (ALT/SGPT) 18, Alkaline Phosphatase 63, Total Protein 4.9, Albumin 2.4 12/06/22 06:51: White Blood Count 16.2, Red Blood Count 2.96, Hemoglobin 9.0, Hematocrit 28, Mean Corpuscular Volume 94, Mean Corpuscular Hemoglobin 30, Mean Corpuscular Hemoglobin Concent 32, Red Cell Distribution Width 15.0, Platelet Count 226, Mean Platelet Volume 10.9, Immature Granulocyte % (Auto) 4, Neutrophils (%) (Auto) 66, Lymphocytes (%) (Auto) 14, Monocytes (%) (Auto) 12, Eosinophils (%) (Auto) 5, Basophils (%) (Auto) 0, Neutrophils # (Auto) 10.6, Lymphocytes # (Auto) 2.2, Monocytes # (Auto) 1.9, Eosinophils # (Auto) 0.8, Basophils # (Auto) 0.1, Immature Granulocyte # (Auto) 0.6, Sodium Level 134, Potassium Level 4.3, Chloride Level 102, Carbon Dioxide Level 27, Anion Gap 5, Blood Urea Nitrogen 32, Creatinine 1.23, Estimat Glomerular Filtration Rate 44, BUN/Creatinine Ratio 26, Glucose Level 96, Calcium Level 8.4, Corrected Calcium 9.6, Total Bilirubin 1.0, Aspartate Amino Transf (AST/SGOT) 31, Alanine Aminotransferase (ALT/SGPT) 17, Alkaline Phosphatase 67, Total Protein 5.4, Albumin 2.5, Neutrophils % (Manual) 69, Lymphocytes % (Manual) 18, Monocytes % (Manual) 6, Eosinophils % (Manual) 6, Band Neutrophils 1, Polychromasia SLIGHT, Anisocytosis SLIGHT, [place] Cells SLIGHT 12/06/22 10:48: Urine Color YELLOW, Urine Clarity CLEAR, Urine pH 6.5, Urine Specific [place] 1.010, Urine Protein NEGATIVE, Urine Glucose (UA) NEGATIVE, Urine Ketones NEGATIVE, Urine Nitrite NEGATIVE, Urine Bilirubin NEGATIVE, Urine Urobilinogen 0.2, Urine Leukocyte Esterase NEGATIVE, Urine RBC (Auto) NEGATIVE, Urine RBC NONE, Urine WBC NONE, Urine Squamous Epithelial Cells 0-2, Urine Crystals PRESENT, Urine Amorphous Sediment RARE KIEL URATES, Urine Bacteria TRACE, Urine Casts NONE, Urine Mucus NEGATIVE, Urine Culture Indicated NO 12/08/22 06:20: White Blood Count 13.7, Red Blood Count 2.81, Hemoglobin 8.4, Hematocrit 27, Mean Corpuscular Volume 95, Mean Corpuscular Hemoglobin 30, Mean Corpuscular Hemoglobin Concent 32, Red Cell Distribution Width 15.7, Platelet Count 263, Mean Platelet Volume 10.9, Immature Granulocyte % (Auto) 6, Neutrophils (%) (Auto) 63, Lymphocytes (%) (Auto) 15, Monocytes (%) (Auto) 10, Eosinophils (%) (Auto) 7, Basophils (%) (Auto) 0, Neutrophils # (Auto) 8.6, Lymphocytes # (Auto) 2.1, Monocytes # (Auto) 1.4, Eosinophils # (Auto) 0.9, Basophils # (Auto) 0.1, Immature Granulocyte # (Auto) 0.8, Sodium Level 134, Potassium Level 4.3, Chloride Level 102, Carbon Dioxide Level 25, Anion Gap 7, Blood Urea Nitrogen 39, Creatinine 1.24, Estimat Glomerular Filtration Rate 44, BUN/Creatinine Ratio 31, Glucose Level 93, Calcium Level 8.2, Corrected Calcium 9.5, Total Bilirubin 1.0, Aspartate Amino Transf (AST/SGOT) 36, Alanine Aminotransferase (ALT/SGPT) 24, Alkaline Phosphatase 69, Total Protein 5.3, Albumin 2.4 Discharge Home Medications: Active Scripts Active Oxyir Tablet (Oxycodone HCl) 5 Mg Tab 5 Mg PO Q6HR PRN 7 Days Eliquis (Apixaban) 2.5 Mg Tablet 2.5 Mg PO BID 30 Days Reported Levothyroxine Sodium 88 Mcg Tablet 88 Mcg PO DAILY Atorvastatin Calcium 80 Mg Tablet 80 Mg PO HS Amlodipine Besylate 5 Mg Tablet 5 Mg PO DAILY Instructions to patient/family Please see electronic discharge instructions given to patient. Diagnosis/Problems Diagnosis/Problems (1) Closed left hip fracture Status: Acute (2) ANEMIA (3) Hypothyroidism Status: Chronic (4) Coronary artery disease Status: Chronic (5) Hypertension Status: Chronic (6) Hyperlipidemia Status: Chronic BEVERLEY HUNTER DO Dec 09, 2022 05:28
--- NOTE | 2022-12-09 06:18 | PM&R Progress Note ---
Subjective HPI/CC On Admission Date Seen by Provider: Dec 09, 2022 Time Seen by Provider: 12:30 Subjective/Events-last exam 12/09/2022: Getting ready for SB in [place] No falls No pain reported except when she is walking No nausea 12/08/2022: Patient doing much better Family wants to go to swing bed in [place] for a couple of weeks after this No falls No pain currently 12/07/2022: Much improve status No pain Lungs are clear Working with therapy a lot better this week 12/06/2022: Much improved BM+ Pain controlled No falls Working with therapy WBC 16k checked urine and it was negative 12/05/2022: Patient dramatically improved Up in chair with family at bedside Appears to be brighter and alert and less confused and lethargic Lungs remain clear Supportive care we will continue Pain is controlled 12/04/2022: Refused to get out of bed today so I had a long talk with her and family at the bedside to get OOB with meals to prevent PNA Pain is an issue and she continues to take scheduled every 4 hours which is sedating her and causing issues and lack of motivation No issues otherwise Very slow recovery and she was very active before fracture 12/03/2022: Slow recovery Pain is much better Appears to be more alert today Labs reviewed 12/02/2022: Pain is an issue Will DC Dilaudid and increase Oxycodone Appears sedated No BM yet so ordered supp and SSE Labs stable Review of Systems General: Fatigue, Malaise Objective Exam Vital Signs Vital Signs Date Time Temp Pulse Resp B/P (MAP) Pulse Ox O2 Delivery O2 Flow Rate FiO2 12/09/22 20:10 Room Air 12/09/22 19:49 36.4 65 18 122/60 (80) 96 12/07/22 21:07 0.00 12/05/22 09:18 21 Capillary Refill : General Appearance: No Apparent Distress, WD/WN, Chronically ill HEENT: PERRL/EOMI, Normal ENT Inspection, Pharynx Normal Neck: Full Range of Motion, Normal Inspection, Non Tender, Supple, Carotid Bruit Respiratory: Chest Non Tender, Lungs Clear, Normal Breath Sounds, No Accessory Muscle Use, No Respiratory Distress Cardiovascular: Regular Rate, Rhythm, No Edema, No Gallop, No JVD, No Murmur, Normal Peripheral Pulses Gastrointestinal: Normal Bowel Sounds, No Organomegaly, No Pulsatile Mass, Non Tender, Soft Back: Normal Inspection, No CVA Tenderness, No Vertebral Tenderness Extremity: Normal Capillary Refill, Normal Inspection, Normal Range of Motion (except left leg), Non Tender, No Calf Tenderness, No Pedal Edema Neurologic/Psychiatric: Alert, Oriented x3, instructional design technologist II-XII Norm as Tested, Abnormal Gait, Depressed Affect, Motor Weakness (left leg) Skin: Normal Color, Warm/Dry Lymphatic: No Adenopathy Results/Procedures Lab Patient resulted labs reviewed. FIM Transfers Therapy Code Descriptions/Definitions Functional [place] Measure: 0=Not Assessed/NA 4=Minimal Assistance 1=Total Assistance 5=Supervision or Setup 2=Maximal Assistance 6=Modified [place] 3=Moderate Assistance 7=Complete IndependenceSCALE: Activities may be completed with or without assistive devices. 9-Zawgtpyfbo-ccjsnoy completes the activity by him/herself with no assistance from a helper. 5-Set-up or Clean-up Assistance-helper sets up or cleans up; patient completes activity. [place] assists only prior to or following the activity. 4-Supervision or Touching Assistance-helper provides verbal cues and/or touching/steadying and/or contact guard assistance as patient completes activity. Assistance may be provided throughout the activity or intermittently. 3-Partial/Moderate Assistance-helper does LESS THAN HALF the effort. [place] lifts, holds or supports trunk or limbs, but provides less than half the effort. 2-Substantial/Maximal Assistance-helper does MORE THAN HALF the effort. [place] lifts or holds trunk or limbs and provides more than half the effort. 0-Jpencifpi-zjnamr does ALL the effort. Patient does none of the effort to complete the activity. Or, the assistance of 2 or more helpers is required for the patient to complete the activity. If activity was not attempted, code reason: 7-Patient Refused. 9-Not Applicable-not attempted and the patient did not perform the activity before the current illness, exacerbation or injury. 10-Not Attempted due to Environmental Limitations-(lack of equipment, weather restraints, etc.). 88-Not Attempted due to Medical Conditions or Safety Concerns. Roll Left to Right (QC): 3 (Mod A due to pain ) Sit to Lying (QC): 3 Sit to Stand (QC): 4 Chair/Evz-ma-Xbiek Xfer(QC): 4 Car Transfer (QC): 88 (pain/weakness) Gait Training Does the Patient Walk?: Yes Distance: 10' Walk 10 feet (QC): 4 Walk 50 ft with 2 Turns(QC): 4 Walk 150 ft (QC): 4 Walking 10ft/uneven surface-QC: 88 Gait Persons Needed: 1 Gait Assistive Device: FWW Wheelchair Training Does the Pt Use a Wheelchair?: Yes Distance: 150ft Wheel 50 ft with 2 turns (QC): 4 Wheel 150 ft (QC): 3 Type of Wheelchair: Manual Stair Training 1 Step (curb) (QC): 88 (pain/weakness) 4 Steps (QC): 88 (pain/weakness) 12 Steps (QC): 88 (pain/weakness) Balance Picking up an Object (QC): 3 (Mod A with armature connector ) ADL-Treatment Eating (QC): 5 (Set up to cut food and open packages. ) Oral Hygiene (QC): 6 (Sitting at sink, completed independently. Pt able to squeeze smaller toothpaste container on counter and scoop up with toothbrush. ) Bathing Location: L Arm, R Arm, L Upper Leg, R Upper Leg, L Lower Leg (including foot), R Lower Leg (including foot), Chest, Abdomen, Perineal Area Shower/Bathe Self (QC): 3 (Pt sitting on BSC utilized hand held shower and long-handled sponge to wash lower legs and feet. Assistance given to wash buttocks. ) Upper Body Dressing (QC): 5 (Pt able to don/doff shirt with set up.) Lower Body Dressing (QC): 4 (VC given to start with L leg to thread brief/pants around legs using armature connector. CGA in standing for steadying, pt able to hike pants over hips.) On/Off Footwear (QC): 3 (Pt able to doff R sock, assistance to doff L sock. Pt able to don both with sock aid. ) Toileting Hygiene (QC): 3 (Pt able to partially clean buttocks after BM, required assistance to fully clean. ) Assessment/Plan Assessment and Plan Assess & Plan/Chief Complaint Assessment: Left hip fracture recovery Hypertension Hyperlipidemia CAD status post PCI 2007 Systolic dysfunction on echocardiogram ejection fraction 40-45% Advanced age Frail status Post op constipation Acute blood loss anemia requiring 1 unit of blood on med-surg Leukocytosis of unknown source Plan: Pain control Supportive care Monitor closely Fall risk 12/02/2022: Bowel regimen Monitor pain DC Dilaudid 12/03/2022: Slow recovery Continue decreasing pain medication 12/04/2022: Work on motivation Decrease pain meds 12/05/2022: Supportive care Monitor closely Dramatic improvement from yesterday 12/06/2022: UA neg Monitor labs 12/07/2022: Monitor closely Pain controlled 12/08/2022: Supportive care Monitor closely 12/09/2022: Monitor pain SB tomorrow (1) Closed left hip fracture Status: Acute (2) ANEMIA (3) Hypothyroidism Status: Chronic (4) Coronary artery disease Status: Chronic (5) Hypertension Status: Chronic (6) Hyperlipidemia Status: Chronic BEVERLEY HUNTER DO Dec 09, 2022 06:18
[2022-12-09] MEDS: CYANOCOBALAMIN 1,000 MCG TABLET PO SCH (06:27)
[2022-12-09] MEDS: LEVOTHYROXINE 88 MCG TABLET PO SCH (06:27)
[2022-12-09 07:53] VITALS: BP 129/57
[2022-12-09] MEDS: APIXABAN 2.5 MG TABLET PO SCH ×2 (07:56→20:09)
[2022-12-09] MEDS: amLODIPine 5 MG TABLET PO SCH (07:56)
--- NOTE | 2022-12-09 08:50 | Cardiology Progress Note ---
Subjective Date Seen by Provider: Dec 09, 2022 Time Seen by Provider: 08:10 Subjective/Events-last exam Patient with PT, no new complaints. Objective-Cardiology Exam Last Set of Vital Signs Vital Signs 12/05/22 12/07/22 12/08/22 12/08/22 09:18 21:07 19:40 19:49 Temp 36.4 Pulse 64 Resp 18 B/P (MAP) 114/56 (75) Pulse Ox 94 O2 Delivery Room Air O2 Flow Rate 0.00 FiO2 21 I&O Intake and Output 12/09/22 00:00 Intake Total 1050 ml Balance 1050 ml Intake Oral 1050 ml Bladder Scan Volume Amount 173 ml # Voids 13 # Urine Diapers 5 # Bowel Movements 3 General: Alert, Oriented X3 HEENT: Atraumatic, PERRLA Neck: Supple Lungs: Clear to Auscultation, Normal Air Movement Heart: Regular Rate, Normal S1, Normal S2 Abdomen: Normal Bowel Sounds, Soft Extremities: No Edema Skin: No Rashes, No Significant Lesion Neuro: Normal Speech A/P-Cardiology Admission Diagnosis Hip fx CAD HTN HLP Assessment/Plan Mechanical fall, hip fracture, postsurgery, currently in rehab. Coronary artery disease, s/p PCI in 2007, follows with Dr. Ramirez as outpatient. Clinically stable. Hypertension, controlled, continue to monitor. Hyperlipidemia, continue to monitor as outpatient Hypothyroidism History of TIA Patient is maintained on Eliquis secondary to her surgery, it was initiated by Dr. Nicolas ABDUL for discharge from cardiology standpoint. F/u with primary mid level business analyst in 2- 4 weeks. Supervisory-Addendum Brief Supervisory Addendum Participated in pt care: history, MDM, physical Personally performed: exam, history, MDM Care discussed with: LIZZY Results interpretation: Verified all documentation Notes: Patient was seen and evaluated with Kori, examination performed, management plan was discussed, agree with the current scribed note, I made few changes to the note using Italic font Patient was seen at bedside, receiving physical therapy, improving Okay for discharge and follow-up with primary mid level business analyst KORI CARLSON Dec 09, 2022 08:50 YENNIFER SURESH MD Dec 09, 2022 09:17
[2022-12-09] MEDS: SENNOSIDES 8.6 MG TABLET PO SCH ×2 (09:01→19:32)
[2022-12-09] MEDS: DOCUSATE SODIUM 100 MG CAPSULE PO SCH ×2 (09:01→19:32)
--- NOTE | 2022-12-09 10:05 | Occupational Ther Daily Note ---
OT Current Status-Daily Note Subjective Pt alert, sitting in recliner. Pt agrees to therapy. Pt reported pain 8/10, although displayed no facial grimaces or complaints during functional mobility. Nrsg notified and pain medication given during tx session. PT/OT cotreat (0800- 0830), skills of 2 clinicians required to decrease fall risk, increase aware ness, and increase functional mobility for functional tasks. PT focus on ambulation with FWW, w/c mobility, bed mobility, and car transfers for functional tasks. OT focus on ADLs, w/c mobility, and functional mobility for functional tasks. Mental Status/Objective Patient Orientation: Person, Place, Time, Situation ADL-Treatment Therapy Code Descriptions/Definitions Functional [place] Measure: 0=Not Assessed/NA 4=Minimal Assistance 1=Total Assistance 5=Supervision or Setup 2=Maximal Assistance 6=Modified [place] 3=Moderate Assistance 7=Complete IndependenceSCALE: Activities may be completed with or without assistive devices. 6-Lbzdwuuflq-sarzhso completes the activity by him/herself with no assistance from a helper. 5-Set-up or Clean-up Assistance-helper sets up or cleans up; patient completes activity. [place] assists only prior to or following the activity. 4-Supervision or Touching Assistance-helper provides verbal cues and/or touching/steadying and/or contact guard assistance as patient completes activity. Assistance may be provided throughout the activity or intermittently. 3-Partial/Moderate Assistance-helper does LESS THAN HALF the effort. [place] lifts, holds or supports trunk or limbs, but provides less than half the effort. 2-Substantial/Maximal Assistance-helper does MORE THAN HALF the effort. [place] lifts or holds trunk or limbs and provides more than half the effort. 2-Aiofzkmtj-ggejmv does ALL the effort. Patient does none of the effort to complete the activity. Or, the assistance of 2 or more helpers is required for the patient to complete the activity. If activity was not attempted, code reason: 7-Patient Refused. 9-Not Applicable-not attempted and the patient did not perform the activity before the current illness, exacerbation or injury. 10-Not Attempted due to Environmental Limitations-(lack of equipment, weather restraints, etc.). 88-Not Attempted due to Medical Conditions or Safety Concerns. Eating (QC): 6 (Pt sitting in recliner, able to open packages and milk carton. ) Oral Hygiene (QC): 6 (Pt completed oral care sitting in w/c at sink.) Upper Body Dressing (QC): 5 (Clothes places on FWW in front of pt for set up. Pt able to don/doff shirt by self.) Lower Body Dressing (QC): 4 (Pt able to use detective bureau chief to thread pants/brief around feet and pull up to knees. CGA for safety in standing while pt hiked pants up hips. ) Toileting Hygiene (QC): 3 (Pt requires assistance to fully clean after BM. Pt can clean by self if only urinating. ) Toilet Transfer (QC): 4 (CGA for safety due to slight LOB backwards, pt utilized grab bars for support.) Pt requires increased time for ADLs due to fatigue/self-limiting behaviors due to wanting staff to grab things that are in reach/open packages, etc. Pt able to locate and find items if in reach. Pt brushed hair and washed face sitting at sink ind. Other Treatment After ADLs, OT/PT cotreat ([id number]). Pt working on bed mobility, ambulation with FWW, w/c mobility, and car transfers. See PT notes for info. Pt ambulated from room-> down hallway with FWW with PT maintaining CGA for safety and OTAS following behind managing w/c. Pt then propelled w/c down hallway -> therapy gym. PT focus on B LEs during w/c mobility and OT focus on B UEs for functional tasks. Ended session with pt in PTs care, all needs met. Education OT Patient Education: Energy conservation, W/C management Teaching Recipient: Patient Teaching Methods: Discussion Response to Teaching: Verbalize Understanding, Return Demonstration BIMS CAM BIMS Expression of Ideas and Wants: Without Difficulty Understanding Verbal Content: Understands IRF [place] BIMS: IRF [place] BIMS Response (Comments) Value Repitition of Three Words Three 3 Recalls Socks Yes, No Cue Required 2 Recalls Blue Yes, No Cue Required 2 Recalls Bed Yes, No Cue Required 2 Year Correct 3 Month Accurate Within 5 Days 2 Day Correct 1 Total 15 Patient Normally Able to Recal: Current Session, Location of own room, Staff Names and faces, That he/she in a hsp Should Staff Asses. Mental St.: No Memory/Recall Ability: Current Season, Location of Own Room, Staff Names and Faces, That He/She in [facility] Mental Status Change/Baseline: 0 Inattention: 0 Disorganized thinkin Altered level of consciousness: 0 OT Short Term Goals Short Term Goals Time Frame: Dec 15, 2022 Toileting hygiene: 4 Shower/bathe self: 4 Lower body dressin Putting on/taking off footwear: 3 OT Stock Preparation Operator Goals [facility] Goals Time Frame: Dec 24, 2022 Acute change in mental status: 0 Inattention: 0 Disorganized thinkin Altered level of consciousness: 0 Eating (QC): 6 Oral Hygiene (QC): 6 Toileting Hygiene (QC): 6 Shower/Bathe Self (QC): 5 Upper Body Dressing (QC): 6 Lower Body Dressing (QC): 6 On/Off Footwear (QC): 6 Additional Goals: 1-Demonstrate ADL Tasks, 2-Verbalize Understanding, 3- ImproveStrength/Kacey 1=Demonstrate adherence to instructed precautions during ADL tasks. 2=Patient will verbalize/demonstrate understanding of assistive devic es/modifications for ADL. 3=Patient will improve strength/tolerance for activity to enable patient to perform ADL's. OT Education/Plan Problem List/Assessment Assessment: Decreased Activ Tolerance, Decreased UE Strength Discharge Recommendations Plan/Recommendations: Continue POC Treatment Plan/Plan of Care Treatment,Training & Education: Yes Patient would benefit from OT for education, treatment and training to promote independence in ADL's, mobility, safety and/or upper extremity function for ADL's. Plan of Care: ADL Retraining, Functional Mobility, Group Exercise/Act as Ind, UE Funct Exercise/Act Treatment Duration: Dec 24, 2022 Frequency: At least 5 of 7 days/Wk (IRF) Estimated Hrs Per Day: 1.5 hours per day Agreement: Yes Rehab Potential: Good Time Start Time: 07:00 Stop Time: 08:30 DATE: Dec 09, 2022 Total Time Billed (hr/min): 90 Billed Treatment Time 1 visit- ADL 4 (60 min) FA 2 (30 min), Cotreat ([id number]), individual (0700- 0800) BYRON BAIN Dec 09, 2022 10:05
--- NOTE | 2022-12-09 10:24 | Physical Therapy Daily Note ---
PT Daily Note-Current Subjective Pt reports she is doing well and is agreeable to PT. Pt reported L hip pain at 8/10. PT/OT co-tx ([id number]), skills of 2 clinicians required to decrease fall risk, increase functional mobility, and increase awareness for functional tasks. PT focusing on ambulation with FWW, transfers, and increasing activity tolerance for functional tasks. OT focusing on ADLs, functional mobility, and increasing activity tolerance for functional tasks. Pain Numeric Pain Scale: 8 Location: Left Location Body Site: Hip Section J - Health Conditions 1. Rarely or not at all 2. Occasionally 3. Frequently 4. Almost constantly 8. Unable to answer Pain Effect on Sleep: 1 Pain Interference with Therapy: 1 Pain Interference w/Day-to-Day: 1 Transfers SCALE: Activities may be completed with or without assistive devices. 0-Yshbcivvql-tqogisc completes the activity by him/herself with no assistance from a helper. 5-Set-up or Clean-up Assistance-helper sets up or cleans up; patient completes activity. [place] assists only prior to or following the activity. 4-Supervision or Touching Assistance-helper provides verbal cues and/or touching/steadying and/or contact guard assistance as patient completes activity. Assistance may be provided throughout the activity or intermittently. 3-Partial/Moderate Assistance-helper does LESS THAN HALF the effort. [place] lifts, holds or supports trunk or limbs, but provides less than half the effort. 2-Substantial/Maximal Assistance-helper does MORE THAN HALF the effort. [place] lifts or holds trunk or limbs and provides more than half the effort. 5-Qgyyudzra-tdtirp does ALL the effort. Patient does none of the effort to complete the activity. Or, the assistance of 2 or more helpers is required for the patient to complete the activity. If activity was not attempted, code reason: 7-Patient Refused. 9-Not Applicable-not attempted and the patient did not perform the activity before the current illness, exacerbation or injury. 10-Not Attempted due to Environmental Limitations-(lack of equipment, weather restraints, etc.). 88-Not Attempted due to Medical Conditions or Safety Concerns. Roll Left & Right (QC): 4 Sit to Lying (QC): 4 Lying to Sitting/Side of Bed(Q: 4 Sit to Stand (QC): 4 Chair/Yfd-dv-Bodkk Xfer(QC): 4 Toilet Transfer (QC): 4 Car Transfer (QC): 4 Weight Bearing Right Lower Extremity: Right Full Weight Bearing Left Lower Extremity: Left Weight Bearing/Tolerated Gait Training Does the Patient Walk?: Yes Walk 10 feet (QC): 4 Walk 50 ft with 2 Turns(QC): 4 Walk 150 ft (QC): 4 Walking 10ft/uneven surface-QC: 4 Gait Persons Needed: 1 Gait Assistive Device: FWW Wheelchair Training Does the Pt Use a Wheelchair?: Yes Wheel 50 ft with 2 turns (QC): 5 Wheel 150 ft (QC): 5 Type of Wheelchair: Manual Stair Training Stair Training: Handrails/: 2 handrails #of Steps: 4 1 Step (curb) (QC): 4 4 Steps (QC): 4 12 Steps (QC): 9 Stairs: Pattern: Step to Balance Picking up an Object (QC): 4 (with weblogic developer ) Special Test Comments [facility] standing balance score = 3/5 Treatments PT/OT co-tx ([id number]), skills of 2 clinicians required to decrease fall risk, increase functional mobility, and increase awareness for functional tasks. PT focusing on ambulation with FWW, transfers, and increasing activity tolerance for functional tasks. OT focusing on ADLs, functional mobility, and increasing activity tolerance for functional tasks. QCs completed on this date. Pt completed bed mobility and functional transfers with SBA. Pt ambulated 150ft with the FWW and CGA. Pt completed w/c mobility with set-up x 150ft, and pt completed 4 stairs with B HR and CGA. After treatment session, pt sitting in the recliner with call light in reach and all needs met. 60 min completed on this date, secondary to OT requiring extended minutes (90), to safely complete ADL tasks. Assessment Current Status: Good Progress Pt tolerated PT well with good effort PT Medical Administrative Goals Medical Administrative Goals PT Medical Administrative Goals Time Frame: Dec 15, 2022 Roll Left & Right (QC): 6 (Pt will be Mod I with funcitonal mobility with the FWW, in order to safely return home with spouse. ) Sit to Lying (QC): 6 (Pt will be Mod I with funcitonal mobility with the FWW, in order to safely return home with spouse. ) Lying-Sitting on Side/Bed(QC): 6 (Pt will be Mod I with funcitonal mobility with the FWW, in order to safely return home with spouse. ) Sit to Stand (QC): 6 (Pt will be Mod I with funcitonal mobility with the FWW, in order to safely return home with spouse. ) Chair/Jqq-fg-Seegu Xfer(QC): 6 (Pt will be Mod I with funcitonal mobility with the FWW, in order to safely return home with spouse. ) Toilet Transfer (QC): 6 (Pt will be Mod I with funcitonal mobility with the FWW, in order to safely return home with spouse. ) Car Transfer (QC): 6 (Pt will be Mod I with funcitonal mobility with the FWW, in order to safely return home with spouse. ) Does the Patient Walk: Yes Walk 10 feet (QC): 6 (Pt will be Mod I with funcitonal mobility with the FWW, in order to safely return home with spouse. ) Walk 50ft with 2 Turns (QC): 6 (Pt will be Mod I with funcitonal mobility with the FWW, in order to safely return home with spouse. ) Walk 150 ft (QC): 6 (Pt will be Mod I with funcitonal mobility with the FWW, in order to safely return home with spouse. ) Walking 10ft on Uneven Surface: 6 (Pt will be Mod I with funcitonal mobility with the FWW, in order to safely return home with spouse. ) 1 Step (curb) (QC): 6 (Pt will be Mod I with funcitonal mobility with the FWW, in order to safely return home with spouse. ) 4 Steps (QC): 6 (Pt will be Mod I with funcitonal mobility with the FWW, in order to safely return home with spouse. ) 12 Steps (QC): 9 (Pt has 2 steps at home ) Picking up an Object (QC): 6 (with weblogic developer ) Does the Pt use WC or Scooter?: Yes Wheel 50 feet with 2 turns (QC: 6 (Pt will be Mod I with funcitonal mobility with the FWW, in order to safely return home with spouse. ) Type: Manual Wheel 150 feet: 6 (Pt will be Mod I with funcitonal mobility with the FWW, in order to safely return home with spouse. ) Type: Manual PT Plan Problem List Problem List: Activity Tolerance, Functional Strength, Safety, Balance, Gait, Transfer, Bed Mobility, ROM Treatment/Plan Treatment Plan: Continue Plan of Care Treatment Plan: Bed Mobility, Education, Functional Activity Kacey, Functional Strength, Group Therapy, Gait, Safety, Therapeutic Exercise, Transfers Treatment Duration: Dec 15, 2022 Frequency: At least 5 of 7 days/Wk (IRF) Estimated Hrs Per Day: 1.5 hours per day Patient and/or Family Agrees t: Yes Safety Risks/Education Patient Education: Gait Training, Transfer Techniques, Steps, Correct Positioning, W/C Management, Safety Issues Teaching Recipient: Patient Teaching Methods: Demonstration, Discussion Response to Teaching: Verbalize Understanding, Return Demonstration, Reinforcement Needed Discharge Recommendations Therapy Discharge Recommendati: Home & Family Equpiment Recommendations-D/C: Front Wheeled Walker, Railings, Shower Chair Discharge Status/Home Program Cont per POC Barriers to Progress Weakness, endurance Target Placement Home with spouse vs Swing bed Time Time In: 800 Time Out: 900 DATE: Dec 09, 2022 Total Billed Treatment Time: 60 Total Billed Treatment 60 min total from [id number]; 30 min co-tx with OT from [id number] 1 visit GT x 2 FA x 2 MANISHA LOERA PT Dec 09, 2022 10:24
[2022-12-09] MEDS: Phenylephrine/Mineral oil/Petrolatum OINTMENT 57 GM PR PRN ×2 (10:43→17:45)
--- NOTE | 2022-12-09 11:03 | Speech Therapy Daily Note ---
Speech Daily Progress Note Subjective Date Seen by Provider: Dec 09, 2022 Time Seen by Provider: 10:00 The pt was seated in bedside chair. She reported feeling tired, did not sleep well and had completed a.m. therapies. She had fair-good participation in session, rest breaks were needed. Objective Functional scanning on paper was targeted. The pt located information on a simulated bank sign. She was able to read information on the sign with good organization of scanning from left-right and top-down. The pt was able to answer questions by locating specified information in the sign content with mod assist needed. Retention of question was fair as the pt searched for content on the sign, mod cues were needed. The pt was able to read the numbered sentences on lower half of the page with good accuracy, and appropriate visual scanning/tracking of written info. Temporal problem solving was at max assist this date. Assessment Assessment Current Status: Fair Progress Treatment Plan Continue Plan of Care Plan to simulation of check writing and register comprehension. Speech Short Term Goals Short Term Goals Short Term Goals 1. The patient will display 80% accuracy with memory exercises through utilization of functional memory strategies for safety precautions with mild clinician cueing. Time Frame-ST days Speech Residential Goals Public Health Informatician Goals 1. The patient will demonstrate improved cognitive linguistic skills for safe discharge to the least restrictive environment. Time Frame: 10 days Speech-Plan Treatment Plan Speech Therapy Treatment Plan: Continue Plan of Care Treatment Duration: Dec 02, 2022 Frequency: At least 5 of 7 days/Wk (IRF) Estimated Hrs Per Day: .5 hour per day Rehab Potential: Good Time Speech Therapy Time In: 10:00 Speech Therapy Time Out: 10:35 DATE: Dec 09, 2022 Total Billed Time: 35 Billed Treatment Time 1 YUSEF ARROYO Dec 09, 2022 11:03
[2022-12-09 19:49] VITALS: BP 122/60
--- NOTE | 2022-12-10 05:28 | Discharge Summary ---
Diagnosis/Chief Complaint Date of Admission Dec 01, 2022 at 10:45 Date of Discharge Discharge Date: Dec 09, 2022 Discharge Diagnosis Assessment: Left hip fracture recovery Hypertension Hyperlipidemia CAD status post PCI 2007 Systolic dysfunction on echocardiogram ejection fraction 40-45% Advanced age Frail status Post op constipation Acute blood loss anemia requiring 1 unit of blood on med-surg Leukocytosis of unknown source Plan: Pain control Supportive care Monitor closely Fall risk 12/02/2022: Bowel regimen Monitor pain DC Dilaudid 12/03/2022: Slow recovery Continue decreasing pain medication 12/04/2022: Work on motivation Decrease pain meds 12/05/2022: Supportive care Monitor closely Dramatic improvement from yesterday 12/06/2022: UA neg Monitor labs 12/07/2022: Monitor closely Pain controlled 12/08/2022: Supportive care Monitor closely 12/09/2022: Monitor pain SB tomorrow (1) Closed left hip fracture Status: Acute (2) ANEMIA (3) Hypothyroidism Status: Chronic (4) Coronary artery disease Status: Chronic (5) Hypertension Status: Chronic (6) Hyperlipidemia Status: Chronic Discharge Summary Discharge Physical Examination Allergies: Coded Allergies: ramipril (Verified Allergy, Unknown, Cough , Active , ,, 12/01/22) Vitals & I&Os Vital Signs Date Time Temp Pulse Resp B/P (MAP) Pulse Ox O2 Delivery O2 Flow Rate FiO2 12/10/22 10:00 36.6 65 18 120/58 99 Room Air 12/07/22 21:07 0.00 12/05/22 09:18 21 General Appearance: Alert, Oriented X3, Cooperative Respiratory: Clear to Auscultation Cardiovascular: Regular Rate Psych/Mental Status: Mental Status NL Hospital Course Was the Problem List Reviewed?: Yes Hospital course: Patient had an uneventful hospital course Patient had an uneventful hospital course following an uncomplicated fourth floor hip fracture repair course. Overall she did well she had no complaints she did finish iron infusions. Pain was controlled. Slow recovery noted. No decompensation occurred. Bowel regimen maintained and returned back to baseline. Family wanted swing bed in [place] for a couple of weeks before going home. Labs (last 24 hrs) Laboratory Tests 12/02/22 05:20: White Blood Count 11.9H, Red Blood Count 2.73L, Hemoglobin 8.0L, Hematocrit 26L, Mean Corpuscular Volume 94, Mean Corpuscular Hemoglobin 29, Mean Corpuscular Hemoglobin Concent 31L, Red Cell Distribution Width 14.2, Platelet Count 131, Mean Platelet Volume 11.8, Immature Granulocyte % (Auto) 1, Neutrophils (%) (Auto) 74, Lymphocytes (%) (Auto) 10L, Monocytes (%) (Auto) 12, Eosinophils (%) (Auto) 4, Basophils (%) (Auto) 0, Neutrophils # (Auto) 8.8H, Lymphocytes # (Auto) 1.2, Monocytes # (Auto) 1.4H, Eosinophils # (Auto) 0.4H, Basophils # (Auto) 0.0, Immature Granulocyte # (Auto) 0.1, Sodium Level 135, Potassium Level 3.7, Chloride Level 107, Carbon Dioxide Level 20L, Anion Gap 8, Blood Urea Nitrogen 24H, Creatinine 1.23, Estimat Glomerular Filtration Rate 44, BUN/Creatinine Ratio 20, Glucose Level 91, Calcium Level 8.2L, Corrected Calcium 9.4, Total Bilirubin 1.9H, Aspartate Amino Transf (AST/SGOT) 28, Alanine Aminotransferase (ALT/SGPT) 12, Alkaline Phosphatase 60, Total Protein 5.2L, Albumin 2.5L 12/03/22 05:57: White Blood Count 11.1H, Red Blood Count 2.76L, Hemoglobin 8.3L, Hematocrit 26L, Mean Corpuscular Volume 93, Mean Corpuscular Hemoglobin 30, Mean Corpuscular Hemoglobin Concent 32, Red Cell Distribution Width 14.0, Platelet Count 134, Mean Platelet Volume 11.3, Immature Granulocyte % (Auto) 1, Neutrophils (%) (A uto) 69, Lymphocytes (%) (Auto) 13, Monocytes (%) (Auto) 13H, Eosinophils (%) (Auto) 4, Basophils (%) (Auto) 0, Neutrophils # (Auto) 7.7, Lymphocytes # (Auto) 1.5, Monocytes # (Auto) 1.5H, Eosinophils # (Auto) 0.4H, Basophils # (Auto) 0.0, Immature Granulocyte # (Auto) 0.1, Sodium Level 134L, Potassium Level 3.9, Chloride Level 105, Carbon Dioxide Level 22, Anion Gap 7, Blood Urea Nitrogen 29H, Creatinine 1.21, Estimat Glomerular Filtration Rate 45, BUN/Creatinine Ratio 24, Glucose Level 107H, Calcium Level 8.2L, Corrected Calcium 9.5, Total Bilirubin 1.7H, Aspartate Amino Transf (AST/SGOT) 32, Alanine Aminotransferase (ALT/SGPT) 18, Alkaline Phosphatase 63, Total Protein 4.9L, Albumin 2.4L 12/06/22 06:51: White Blood Count 16.2H, Red Blood Count 2.96L, Hemoglobin 9.0L, Hematocrit 28L, Mean Corpuscular Volume 94, Mean Corpuscular Hemoglobin 30, Mean Corpuscular Hemoglobin Concent 32, Red Cell Distribution Width 15.0H, Platelet Count 226, Mean Platelet Volume 10.9, Immature Granulocyte % (Auto) 4, Neutrophils (%) (Auto) 66, Lymphocytes (%) (Auto) 14, Monocytes (%) (Auto) 12, Eosinophils (%) (Auto) 5, Basophils (%) (Auto) 0, Neutrophils # (Auto) 10.6H, Lymphocytes # (Auto) 2.2, Monocytes # (Auto) 1.9H, Eosinophils # (Auto) 0.8H, Basophils # (Auto) 0.1, Immature Granulocyte # (Auto) 0.6H, Sodium Level 134L, Potassium Level 4.3, Chloride Level 102, Carbon Dioxide Level 27, Anion Gap 5, Blood Urea Nitrogen 32H, Creatinine 1.23, Estimat Glomerular Filtration Rate 44, BUN/Creatinine Ratio 26, Glucose Level 96, Calcium Level 8.4L, Corrected Calcium 9.6, Total Bilirubin 1.0, Aspartate Amino Transf (AST/SGOT) 31, Alanine Aminotransferase (ALT/SGPT) 17, Alkaline Phosphatase 67, Total Protein 5.4L, Albumin 2.5L, Neutrophils % (Manual) 69, Lymphocytes % (Manual) 18, Monocytes % (Manual) 6, Eosinophils % (Manual) 6, Band Neutrophils 1, Polychromasia SLIGHT, Anisocytosis SLIGHT, Holt Cells SLIGHT 12/06/22 10:48: Urine Color YELLOW, Urine Clarity CLEAR, Urine pH 6.5, Urine Specific [place] 1.010L, Urine Protein NEGATIVE, Urine Glucose (UA) NEGATIVE, Urine Ketones NEGATIVE, Urine Nitrite NEGATIVE, Urine Bilirubin NEGATIVE, Urine Urobilinogen 0.2, Urine Leukocyte Esterase NEGATIVE, Urine RBC (Auto) NEGATIVE, Urine RBC NONE, Urine WBC NONE, Urine Squamous Epithelial Cells 0-2, Urine Crystals PRESENTH, Urine Amorphous Sediment RARE KIEL URATESH, Urine Bacteria TRACE, Urine Casts NONE, Urine Mucus NEGATIVE, Urine Culture Indicated NO 12/08/22 06:20: White Blood Count 13.7H, Red Blood Count 2.81L, Hemoglobin 8.4L, Hematocrit 27L, Mean Corpuscular Volume 95, Mean Corpuscular Hemoglobin 30, Mean Corpuscular Hemoglobin Concent 32, Red Cell Distribution Width 15.7H, Platelet Count 263, Mean Platelet Volume 10.9, Immature Granulocyte % (Auto) 6, Neutrophils (%) (Auto) 63, Lymphocytes (%) (Auto) 15, Monocytes (%) (Auto) 10, Eosinophils (%) (Auto) 7, Basophils (%) (Auto) 0, Neutrophils # (Auto) 8.6H, Lymphocytes # (Auto) 2.1, Monocytes # (Auto) 1.4H, Eosinophils # (Auto) 0.9H, Basophils # (Auto) 0.1, Immature Granulocyte # (Auto) 0.8H, Sodium Level 134L, Potassium Level 4.3, Chloride Level 102, Carbon Dioxide Level 25, Anion Gap 7, Blood Urea Nitrogen 39H, Creatinine 1.24, Estimat Glomerular Filtration Rate 44, BUN/Creatinine Ratio 31, Glucose Level 93, Calcium Level 8.2L, Corrected Calcium 9.5, Total Bilirubin 1.0, Aspartate Amino Transf (AST/SGOT) 36H, Alanine Aminotransferase (ALT/SGPT) 24, Alkaline Phosphatase 69, Total Protein 5.3L, Albumin 2.4L Pending Labs Laboratory Tests 12/02/22 05:20: White Blood Count 11.9, Red Blood Count 2.73, Hemoglobin 8.0, Hematocrit 26, Mean Corpuscular Volume 94, Mean Corpuscular Hemoglobin 29, Mean Corpuscular Hemoglobin Concent 31, Red Cell Distribution Width 14.2, Platelet Count 131, Mean Platelet Volume 11.8, Immature Granulocyte % (Auto) 1, Neutrophils (%) (Auto) 74, Lymphocytes (%) (Auto) 10, Monocytes (%) (Auto) 12, Eosinophils (%) (Auto) 4, Basophils (%) (Auto) 0, Neutrophils # (Auto) 8.8, Lymphocytes # (Auto) 1.2, Monocytes # (Auto) 1.4, Eosinophils # (Auto) 0.4, Basophils # (Auto) 0.0, Immature Granulocyte # (Auto) 0.1, Sodium Level 135, Potassium Level 3.7, Chloride Level 107, Carbon Dioxide Level 20, Anion Gap 8, Blood Urea Nitrogen 24, Creatinine 1.23, Estimat Glomerular Filtration Rate 44, BUN/Creatinine Ratio 20, Glucose Level 91, Calcium Level 8.2, Corrected Calcium 9.4, Total Bilirubin 1.9, Aspartate Amino Transf (AST/SGOT) 28, Alanine Aminotransferase (ALT/SGPT) 12, Alkaline Phosphatase 60, Total Protein 5.2, Albumin 2.5 12/03/22 05:57: White Blood Count 11.1, Red Blood Count 2.76, Hemoglobin 8.3, Hematocrit 26, Mean Corpuscular Volume 93, Mean Corpuscular Hemoglobin 30, Mean Corpuscular Hemoglobin Concent 32, Red Cell Distribution Width 14.0, Platelet Count 134, Mean Platelet Volume 11.3, Immature Granulocyte % (Auto) 1, Neutrophils (%) (Auto) 69, Lymphocytes (%) (Auto) 13, Monocytes (%) (Auto) 13, Eosinophils (%) (Auto) 4, Basophils (%) (Auto) 0, Neutrophils # (Auto) 7.7, Lymphocytes # (Auto) 1.5, Monocytes # (Auto) 1.5, Eosinophils # (Auto) 0.4, Basophils # (Auto) 0.0, Immature Granulocyte # (Auto) 0.1, Sodium Level 134, Potassium Level 3.9, Chloride Level 105, Carbon Dioxide Level 22, Anion Gap 7, Blood Urea Nitrogen 29, Creatinine 1.21, Estimat Glomerular Filtration Rate 45, BUN/Creatinine Ratio 24, Glucose Level 107, Calcium Level 8.2, Corrected Calcium 9.5, Total Bilirubin 1.7, Aspartate Amino Transf (AST/SGOT) 32, Alanine Aminotransferase (ALT/SGPT) 18, Alkaline Phosphatase 63, Total Protein 4.9, Albumin 2.4 12/06/22 06:51: White Blood Count 16.2, Red Blood Count 2.96, Hemoglobin 9.0, Hematocrit 28, Mean Corpuscular Volume 94, Mean Corpuscular Hemoglobin 30, Mean Corpuscular Hemoglobin Concent 32, Red Cell Distribution Width 15.0, Platelet Count 226, Mean Platelet Volume 10.9, Immature Granulocyte % (Auto) 4, Neutrophils (%) (Auto) 66, Lymphocytes (%) (Auto) 14, Monocytes (%) (Auto) 12, Eosinophils (%) (Auto) 5, Basophils (%) (Auto) 0, Neutrophils # (Auto) 10.6, Lymphocytes # (Auto) 2.2, Monocytes # (Auto) 1.9, Eosinophils # (Auto) 0.8, Basophils # (Auto) 0.1, Immature Granulocyte # (Auto) 0.6, Sodium Level 134, Potassium Level 4.3, Chloride Level 102, Carbon Dioxide Level 27, Anion Gap 5, Blood Urea Nitrogen 32, Creatinine 1.23, Estimat Glomerular Filtration Rate 44, BUN/Creatinine Ratio 26, Glucose Level 96, Calcium Level 8.4, Corrected Calcium 9.6, Total Bilirubin 1.0, Aspartate Amino Transf (AST/SGOT) 31, Alanine Aminotransferase (ALT/SGPT) 17, Alkaline Phosphatase 67, Total Protein 5.4, Albumin 2.5, Neutrophils % (Manual) 69, Lymphocytes % (Manual) 18, Monocytes % (Manual) 6, Eosinophils % (Manual) 6, Band Neutrophils 1, Polychromasia SLIGHT, Anisocytosis SLIGHT, Holt Cells SLIGHT 12/06/22 10:48: Urine Color YELLOW, Urine Clarity CLEAR, Urine pH 6.5, Urine Specific [place] 1.010, Urine Protein NEGATIVE, Urine Glucose (UA) NEGATIVE, Urine Ketones NEGATIVE, Urine Nitrite NEGATIVE, Urine Bilirubin NEGATIVE, Urine Urobilinogen 0.2, Urine Leukocyte Esterase NEGATIVE, Urine RBC (Auto) NEGATIVE, Urine RBC NONE, Urine WBC NONE, Urine Squamous Epithelial Cells 0-2, Urine Crystals PRESENT, Urine Amorphous Sediment RARE KIEL URATES, Urine Bacteria TRACE, Urine Casts NONE, Urine Mucus NEGATIVE, Urine Culture Indicated NO 12/08/22 06:20: White Blood Count 13.7, Red Blood Count 2.81, Hemoglobin 8.4, Hematocrit 27, Mean Corpuscular Volume 95, Mean Corpuscular Hemoglobin 30, Mean Corpuscular Hemoglobin Concent 32, Red Cell Distribution Width 15.7, Platelet Count 263, Mean Platelet Volume 10.9, Immature Granulocyte % (Auto) 6, Neutrophils (%) (Auto) 63, Lymphocytes (%) (Auto) 15, Monocytes (%) (Auto) 10, Eosinophils (%) (Auto) 7, Basophils (%) (Auto) 0, Neutrophils # (Auto) 8.6, Lymphocytes # (Auto) 2.1, Monocytes # (Auto) 1.4, Eosinophils # (Auto) 0.9, Basophils # (Auto) 0.1, Immature Granulocyte # (Auto) 0.8, Sodium Level 134, Potassium Level 4.3, Chloride Level 102, Carbon Dioxide Level 25, Anion Gap 7, Blood Urea Nitrogen 39, Creatinine 1.24, Estimat Glomerular Filtration Rate 44, BUN/Creatinine Ratio 31, Glucose Level 93, Calcium Level 8.2, Corrected Calcium 9.5, Total Bilirubin 1.0, Aspartate Amino Transf (AST/SGOT) 36, Alanine Aminotransferase (ALT/SGPT) 24, Alkaline Phosphatase 69, Total Protein 5.3, Albumin 2.4 Discharge Home Medications: Active Scripts Active Oxyir Tablet (Oxycodone HCl) 5 Mg Tab 5 Mg PO Q6HR PRN 7 Days Eliquis (Apixaban) 2.5 Mg Tablet 2.5 Mg PO BID 30 Days Reported Levothyroxine Sodium 88 Mcg Tablet 88 Mcg PO DAILY Atorvastatin Calcium 80 Mg Tablet 80 Mg PO HS Amlodipine Besylate 5 Mg Tablet 5 Mg PO DAILY Instructions to patient/family Please see electronic discharge instructions given to patient. Diagnosis/Problems Diagnosis/Problems (1) Closed left hip fracture Status: Acute (2) ANEMIA (3) Hypothyroidism Status: Chronic (4) Coronary artery disease Status: Chronic (5) Hypertension Status: Chronic (6) Hyperlipidemia Status: Chronic BEVERLEY HUNTER DO Dec 10, 2022 05:28
[2022-12-10] MEDS: CYANOCOBALAMIN 1,000 MCG TABLET PO SCH (06:11)
[2022-12-10] MEDS: LEVOTHYROXINE 88 MCG TABLET PO SCH (06:11)
[2022-12-10] MEDS: SENNOSIDES 8.6 MG TABLET PO SCH (07:41)
[2022-12-10] MEDS: APIXABAN 2.5 MG TABLET PO SCH (07:41)
[2022-12-10] MEDS: oxyCODONE IMMEDIATE RELEASE 5 MG TABLET PO PRN (07:41)
[2022-12-10] MEDS: amLODIPine 5 MG TABLET PO SCH (07:41)
[2022-12-10] MEDS: DOCUSATE SODIUM 100 MG CAPSULE PO SCH (07:41)
[2022-12-10 08:30] VITALS: BP 120/28
[2022-12-10 10:00] VITALS: BP 120/58
--- NOTE | 2022-12-10 14:59 | Therapy Team Discharge Summary ---
Therapy Discharge Summary Discharge Recommendations Date of Discharge Dec 10, 2022 at 10:00 Physical Therapy Roll Left to Right (QC): 4 Sit to Lying (QC): 4 Lying to Sitting/Side of Bed(Q: 4 Sit to Stand (QC): 4 Chair/[id number]-[id number] Xfer(QC): 4 Toilet Transfer (QC): 3 Car Transfer (QC): 4 Does the Patient Walk: Yes Mode of Locomotion: Both Anticipated Mode of Locomotion: Walk Walk 10 feet (QC): 4 Walk 50 ft with 2 Turns(QC): 4 Walk 150 ft (QC): 4 Walking 10ft on uneven surface: 4 Distance: 3-4 small steps for to pivot to/from w/c to recliner Gait Assistive Device: FWW Does the Pt Use a Wheelchair: Yes Wheelchair Distance: 150ft Wheel 50 ft with 2 turns (QC): 5 Wheel 150 ft (QC): 5 Type of Wheelchair: Manual #of Steps: 4 1 Step (curb) (QC): 4 4 Steps (QC): 4 12 Steps (QC): 9 Balance Sitting Static: Good Balance Sitting Dynamic: Fair Balance-Standing Static: Fair Picking up an Object (QC): 4 (with professor of literacy ) Occupational Therapy Pt admitted to [facility] s/p [facility]. At [facility], pt was independent wtih ADLs and functional mobility without AD. Upon initial evaluation, pt required set up with eating, steadying/touching assist with oral care, max A footwear, partial/mod A with UE dressing, and total assist showering, LE dressing and toileting. Pt made some functional progress towards goals, but only attained LTGs for eating and oral care. Pt discharged to [facility] for continued therapy. D/C from OT. Decreased Activ Tolerance, Decreased UE Strength Eating (QC): 6 (Pt sitting in recliner, able to open packages and milk carton. ) Oral Hygiene (QC): 6 (Pt completed oral care sitting in w/c at sink.) Shower/Bathe Self (QC): 3 (Pt sitting on BSC utilized hand held shower and long-handled sponge to wash lower legs and feet. Assistance given to wash buttocks. ) Upper Body Dressing (QC): 5 (Clothes places on FWW in front of pt for set up. Pt able to don/doff shirt by self.) Lower Body Dressing (QC): 4 (Pt able to use professor of literacy to thread pants/brief around feet and pull up to knees. CGA for safety in standing while pt hiked pants up hips. ) On/Off Footwear (QC): 3 (Pt able to doff R sock, assistance to doff L sock. Pt able to don both with sock aid. ) Toileting Hygiene (QC): 3 (Pt requires assistance to fully clean after BM. Pt can clean by self if only urinating. ) PT Lock Technician Goals Shelter Goals PT Lock Technician Goals Time Frame: Dec 15, 2022 Roll Left to Right (QC): 6 (Pt will be Mod I with funcitonal mobility with the FWW, in order to safely return home with spouse. ) Sit to Lying (QC): 6 (Pt will be Mod I with funcitonal mobility with the FWW, in order to safely return home with spouse. ) Lying-Sitting on Side/Bed(QC): 6 (Pt will be Mod I with funcitonal mobility with the FWW, in order to safely return home with spouse. ) Sit to Stand (QC): 6 (Pt will be Mod I with funcitonal mobility with the FWW, in order to safely return home with spouse. ) Chair/Ktv-fh-Teaag Xfer(QC): 6 (Pt will be Mod I with funcitonal mobility with the FWW, in order to safely return home with spouse. ) Toilet/Commode Transfer (QC): 6 (Pt will be Mod I with funcitonal mobility with the FWW, in order to safely return home with spouse. ) Car Transfer (QC): 6 (Pt will be Mod I with funcitonal mobility with the FWW, in order to safely return home with spouse. ) Does the Patient Walk: Yes Walk 10 feet (QC): 6 (Pt will be Mod I with funcitonal mobility with the FWW, in order to safely return home with spouse. ) Walk 10ft-Uneven Surface(QC): 6 (Pt will be Mod I with funcitonal mobility with the FWW, in order to safely return home with spouse. ) Walk 50ft with 2 Turns (QC): 6 (Pt will be Mod I with funcitonal mobility with the FWW, in order to safely return home with spouse. ) Walk 150 ft (QC): 6 (Pt will be Mod I with funcitonal mobility with the FWW, in order to safely return home with spouse. ) Does the Pt use WC or Scooter?: Yes Wheel 50 feet with 2 turns (QC: 6 (Pt will be Mod I with funcitonal mobility with the FWW, in order to safely return home with spouse. ) Type: Manual Wheel 150 feet: 6 (Pt will be Mod I with funcitonal mobility with the FWW, in order to safely return home with spouse. ) Type: Manual 1 Step (curb) (QC): 6 (Pt will be Mod I with funcitonal mobility with the FWW, in order to safely return home with spouse. ) 4 Steps (QC): 6 (Pt will be Mod I with funcitonal mobility with the FWW, in order to safely return home with spouse. ) 12 Steps (QC): 9 (Pt has 2 steps at home ) Picking up an Object (QC): 6 (with professor of literacy ) OT Shelter Goals Shelter Goals Time Frame: Dec 24, 2022 Acute change in mental status: 0 Inattention: 0 Disorganized thinkin Altered level of consciousness: 0 Eating (QC): 6 (met) Oral Hygiene (QC): 6 (met) Toileting Hygiene (QC): 6 (not met) Shower/Bathe Self (QC): 5 (not met) Upper Body Dressing (QC): 6 (not met) Lower Body Dressing (QC): 6 (not met) On/Off Footwear (QC): 6 (not met) Additional Goals: 1-Demonstrate ADL Tasks, 2-Verbalize Understanding, 3- ImproveStrength/Kacey 1=Demonstrate adherence to instructed precautions during ADL tasks. 2=Patient will verbalize/demonstrate understanding of assistive devic es/modifications for ADL. 3=Patient will improve strength/tolerance for activity to enable patient to perform ADL's. Speech Shelter Goals Lock Technician Goals 1. The patient will demonstrate improved cognitive linguistic skills for safe discharge to the least restrictive environment. Time Frame: 10 days JUAN JOSE MARTINES OT Dec 10, 2022 14:59
--- NOTE | 2022-12-10 15:31 | Therapy Team Discharge Summary ---
Therapy Discharge Summary Discharge Recommendations Date of Discharge Dec 10, 2022 at 10:00 Therapy D/C Recommendations: Other, See Comments (swing bed ) Physical Therapy Pt is an 82 y/o female who tripped on carpet and fell on 11/28/22; ED 11/28/22 for L hip pain; S/P L hip IM nail 11/29/22; Admitted to ARU on 12/01/22. At [facility], At [facility], pt was Ind with no AD and driving, at times. Upon PT eval, pt was unable to ambulate and required Min A for w/c mobility. PT focused on strength, functional mobility, walking, balance/safety, endurance, and overall Ind. Pt progressed well and was able to complete all aspects of functional mobility with SBA. Pt was d/c from ARU to swing bed on 12/10/22, secondary to the request of the spouse, because the bathroom was being remodeled; D/C from PT at this time. Roll Left to Right (QC): 4 Sit to Lying (QC): 4 Lying to Sitting/Side of Bed(Q: 4 Sit to Stand (QC): 4 Chair/Dzh-hj-Zilkr Xfer(QC): 4 Toilet Transfer (QC): 3 Car Transfer (QC): 4 Does the Patient Walk: Yes Mode of Locomotion: Both Anticipated Mode of Locomotion: Walk Walk 10 feet (QC): 4 Walk 50 ft with 2 Turns(QC): 4 Walk 150 ft (QC): 4 Walking 10ft on uneven surface: 4 Distance: 3-4 small steps for to pivot to/from w/c to recliner Gait Assistive Device: FWW Does the Pt Use a Wheelchair: Yes Wheelchair Distance: 150ft Wheel 50 ft with 2 turns (QC): 5 Wheel 150 ft (QC): 5 Type of Wheelchair: Manual #of Steps: 4 1 Step (curb) (QC): 4 4 Steps (QC): 4 12 Steps (QC): 9 Balance Sitting Static: Good Balance Sitting Dynamic: Fair Balance-Standing Static: Fair Picking up an Object (QC): 4 (with nurse practical ) Occupational Therapy Decreased Activ Tolerance, Decreased UE Strength Eating (QC): 6 (Pt sitting in recliner, able to open packages and milk carton. ) Oral Hygiene (QC): 6 (Pt completed oral care sitting in w/c at sink.) Shower/Bathe Self (QC): 3 (Pt sitting on BSC utilized hand held shower and long-handled sponge to wash lower legs and feet. Assistance given to wash buttocks. ) Upper Body Dressing (QC): 5 (Clothes places on FWW in front of pt for set up. Pt able to don/doff shirt by self.) Lower Body Dressing (QC): 4 (Pt able to use nurse practical to thread pants/brief around feet and pull up to knees. CGA for safety in standing while pt hiked pants up hips. ) On/Off Footwear (QC): 3 (Pt able to doff R sock, assistance to doff L sock. Pt able to don both with sock aid. ) Toileting Hygiene (QC): 3 (Pt requires assistance to fully clean after BM. Pt can clean by self if only urinating. ) PT Umbrella Repairer Goals Senior Care Goals PT Umbrella Repairer Goals Time Frame: Dec 15, 2022 Roll Left to Right (QC): 6 (Pt will be Mod I with funcitonal mobility with the FWW, in order to safely return home with spouse. ) Sit to Lying (QC): 6 (Pt will be Mod I with funcitonal mobility with the FWW, in order to safely return home with spouse. ) Lying-Sitting on Side/Bed(QC): 6 (Pt will be Mod I with funcitonal mobility with the FWW, in order to safely return home with spouse. ) Sit to Stand (QC): 6 (Pt will be Mod I with funcitonal mobility with the FWW, in order to safely return home with spouse. ) Chair/Xlm-yh-Qrlgk Xfer(QC): 6 (Pt will be Mod I with funcitonal mobility with the FWW, in order to safely return home with spouse. ) Toilet/Commode Transfer (QC): 6 (Pt will be Mod I with funcitonal mobility with the FWW, in order to safely return home with spouse. ) Car Transfer (QC): 6 (Pt will be Mod I with funcitonal mobility with the FWW, in order to safely return home with spouse. ) Does the Patient Walk: Yes Walk 10 feet (QC): 6 (Pt will be Mod I with funcitonal mobility with the FWW, in order to safely return home with spouse. ) Walk 10ft-Uneven Surface(QC): 6 (Pt will be Mod I with funcitonal mobility with the FWW, in order to safely return home with spouse. ) Walk 50ft with 2 Turns (QC): 6 (Pt will be Mod I with funcitonal mobility with the FWW, in order to safely return home with spouse. ) Walk 150 ft (QC): 6 (Pt will be Mod I with funcitonal mobility with the FWW, in order to safely return home with spouse. ) Does the Pt use WC or Scooter?: Yes Wheel 50 feet with 2 turns (QC: 6 (Pt will be Mod I with funcitonal mobility with the FWW, in order to safely return home with spouse. ) Type: Manual Wheel 150 feet: 6 (Pt will be Mod I with funcitonal mobility with the FWW, in order to safely return home with spouse. ) Type: Manual 1 Step (curb) (QC): 6 (Pt will be Mod I with funcitonal mobility with the FWW, in order to safely return home with spouse. ) 4 Steps (QC): 6 (Pt will be Mod I with funcitonal mobility with the FWW, in order to safely return home with spouse. ) 12 Steps (QC): 9 (Pt has 2 steps at home ) Picking up an Object (QC): 6 (with nurse practical ) OT Senior Care Goals Senior Care Goals Time Frame: Dec 24, 2022 Acute change in mental status: 0 Inattention: 0 Disorganized thinkin Altered level of consciousness: 0 Eating (QC): 6 (met) Oral Hygiene (QC): 6 (met) Toileting Hygiene (QC): 6 (not met) Shower/Bathe Self (QC): 5 (not met) Upper Body Dressing (QC): 6 (not met) Lower Body Dressing (QC): 6 (not met) On/Off Footwear (QC): 6 (not met) Additional Goals: 1-Demonstrate ADL Tasks, 2-Verbalize Understanding, 3- ImproveStrength/Kacey 1=Demonstrate adherence to instructed precautions during ADL tasks. 2=Patient will verbalize/demonstrate understanding of assistive devices/modifications for ADL. 3=Patient will improve strength/tolerance for activity to enable patient to perform ADL's. Speech Umbrella Repairer Goals Umbrella Repairer Goals 1. The patient will demonstrate improved cognitive linguistic skills for safe discharge to the least restrictive environment. Time Frame: 10 days MANISHA LOERA PT Dec 10, 2022 15:31
== END 2022-12-10 10:00 | disposition swing bed (61) | DRG 560 ==
PROVIDERS: ADMIT Internal Medicine; ATTEND Internal Medicine
DX: S72.142D Displaced intertrochanteric fracture of left femur, subsequent encounter for closed fracture with routine healing (principal); D62 Acute posthemorrhagic anemia; E03.9 Hypothyroidism, unspecified; E78.5 Hyperlipidemia, unspecified; I25.10 Atherosclerotic heart disease of native coronary artery without angina pectoris; I10 Essential (primary) hypertension; M19.90 Unspecified osteoarthritis, unspecified site; R54 Age-related physical debility; K59.09 Other constipation; D72.829 Elevated white blood cell count, unspecified; I25.2 Old myocardial infarction; Z91.81 History of falling; Z95.5 Presence of coronary angioplasty implant and graft; Z91.09 Other allergy status, other than to drugs and biological substances; Z79.899 Other long term (current) drug therapy; W18.09XD Striking against other object with subsequent fall, subsequent encounter; Z79.01 Long term (current) use of anticoagulants
CPT/HCPCS: 36415; 73630; 80053; 81000; 85007; 85025; 85027; 94640; 94760

== ENCOUNTER → 2022-12-14 | Outpatient (CLI) | payer MEDICARE, OTHER ==
[~2022-12-14] MED LIST changes: +APIX2.5T PO; +OXC5T PO
== END ==
LOC: ORTHO 09:23
PROVIDERS: ATTEND Orthopaedic Surgery
DX: Z47.89 Encounter for other orthopedic aftercare (principal)

== ENCOUNTER → 2023-01-18 | Outpatient (CLI) | payer MEDICARE, OTHER ==
--- NOTE | 2023-01-18 10:23 | Diagnostic Imaging Report ---
EXAMINATION: Left hip unilateral 2 or 3 views (w/pelvis when done) HISTORY: POSTOPERATIVE VISIT COMPARISON: 11/28/2022 FINDINGS: There is a reduced and internally fixated fracture of the intertrochanteric region of the left femur. There is a lesser trochanter fracture fragment. Alignment is improved from prior exam. No dislocation. There is mild left hip osteoarthritis. IMPRESSION: 1. Improved alignment of a reduced and internally fixated intertrochanteric fracture of the left femur. Dictated by: Dictated on workstation # [id number]
== END ==
LOC: ORTHO 09:57
PROVIDERS: ATTEND Orthopaedic Surgery
DX: Z47.89 Encounter for other orthopedic aftercare (principal)
CPT/HCPCS: 73502

== ENCOUNTER → 2023-02-15 | Outpatient (CLI) | payer MEDICARE, OTHER ==
--- NOTE | 2023-02-15 13:30 | Diagnostic Imaging Report ---
INDICATION: Postop follow-up. History of hip fracture. COMPARISON: 01/18/2023. FINDINGS: Two radiographic views of the left hip were obtained and show postsurgical changes of previous ORIF. Short intramedullary jodie traverses the proximal left femoral shaft and intersects a screw which traverses the femoral head and neck. There is persistent appropriate alignment of the major fracture fragments. Mild displacement of the lesser trochanter fracture fragment is again noted. Femoroacetabular joint space remains intact. Underlying mild degenerative changes are noted. No unexpected radiopaque foreign bodies are seen. IMPRESSION: 1. Stable postoperative changes to the proximal left femur as above. Dictated by: Dictated on workstation # [id number]
== END ==
LOC: ORTHO 09:47
PROVIDERS: ATTEND Orthopaedic Surgery
DX: Z09 Encounter for follow-up examination after completed treatment for conditions other than malignant neoplasm (principal); Z87.81 Personal history of (healed) traumatic fracture
CPT/HCPCS: 73502